=== PATIENT | male | born 1945 | race Caucasian/White ===

== ENCOUNTER 2021-03-18 08:41 | Outpatient (REF) | payer MEDICARE, SELFPAY ==
--- NOTE | ~2021-03-18 | XR_ITS ---
EXAMINATION: XR LUMBOSACRAL SPINE CLINICAL INFORMATION: Low back pain COMPARISON: Previous exam September 2017 TECHNIQUE: Three views of the lumbosacral spine. FINDINGS: Bone alignment is normal. No fracture or dislocation is seen. There is multilevel spondylosis, greatest at L2-L3 L3-L4 and L4-L5. Disc spaces are normal. There is lower lumbar spine facet arthritis. There is evidence of atherosclerotic disease. XR/XR lumbar spine 2-3V IMPRESSION: Degenerative changes similar to September 2017 exam.
== END 2021-03-18 08:42 | disposition home or self-care (01) ==
LOC: HO.XRAY 08:41
PROVIDERS: PCP Pediatrics; Visit Provider Pediatrics
DX: M54.50 Low back pain, unspecified (principal)
CPT/HCPCS: 72100

== ENCOUNTER 2021-10-28 21:51 | Inpatient (IN) | payer OTHER, SELFPAY ==
--- NOTE | ~2021-10-28 | NM_ITS ---
EXAMINATION: NUCLEAR MEDICINE HEPATOBILIARY WITHOUT PHARMACY. CLINICAL INFORMATION: Abdominal pain. COMPARISON: None TECHNIQUE: Following intravenous administration of 4.75 mCi of 90 9M technetium mebrofenin, imaging over the right upper quadrant was obtained up to 2 hours. FINDINGS: There is normal hepatic uptake without any focal defects. No enlargement of liver is seen. There is prompt visualization of common bile duct and small bowel by 19-20 minutes. Gallbladder is not visualized up to 2 hrs NM/NM hepatobiliary wo pharm IMPRESSION: Nonvisualized gallbladder up to 2 hrs consistent with cystic duct obstruction. The results were conveyed to Dr. Fink by phone at 4:30 PM [employer].
--- NOTE | ~2021-10-28 | XR_ITS ---
EXAMINATION: XR CHEST CLINICAL INFORMATION: Shortness of breath COMPARISON: 05/04/2019 TECHNIQUE: Frontal view of the chest was obtained. FINDINGS: Heart size within normal limits. No evidence of CHF. Again noted is bronchial wall thickening, unchanged from prior. No focal consolidations, lung masses or effusions are seen. A tiny portion of the left costophrenic angle is not included on the radiograph. XR/XR chest 1V IMPRESSION: No acute intrathoracic disease. Unchanged bronchial wall thickening.
--- NOTE | ~2021-10-28 | CT_ITS ---
EXAMINATION: CT ABDOMEN AND PELVIS WITH CONTRAST CLINICAL INFORMATION: Distention, pain COMPARISON: 03/27/2019 TECHNIQUE: Multidetector volumetric images were obtained from the superior aspect of the liver through the pubic symphysis following administration 100 mL of Omnipaque 350 intravenous contrast. Sagittal and coronal reformatted images were obtained on the technologist's workstation. Oral contrast: No This CT examination was performed using dose optimization techniques as appropriate, variously including the following: *Automated exposure control *Adjustment of mA and/or kV according to patient size (this includes techniques or standardized protocols for targeted exams where dose is matched to indication/reason for exam; i.e. extremities or head) *Use of iterative reconstruction technique DLP: 1007 mGy-cm FINDINGS: LUNG BASES: Mild curvilinear atelectasis versus scarring. LIVER, GALLBLADDER, AND BILIARY TREE: The liver demonstrates mild hypoattenuation, suggesting steatosis. Subtle subcentimeter hypoattenuating lesion in the right lobe is too small to characterize. No biliary ductal dilatation is present. Gallbladder appears contracted with gallstones. PANCREAS: Unremarkable. SPLEEN: Unremarkable. ADRENAL GLANDS: Unremarkable. KIDNEYS AND URETERS: Bilateral nephrograms are symmetric. Subcentimeter hypodensity in the lower right kidney statistically favors a cyst; no follow-up recommended. No hydronephrosis or obstructing calculus bilaterally. There is bilateral perinephric stranding which is similar to prior. BLADDER: Unremarkable. GASTROINTESTINAL TRACT: No evidence of bowel obstruction. There is a somewhat thick-walled appearance of the collapsed rectum with surrounding stranding extending into the presacral region. Trace free fluid is noted in the lower abdomen. There is descending and sigmoid colon diverticulosis without diverticulitis. The appendix is unremarkable. No free fluid or free air is seen. ABDOMINAL WALL: No significant hernia is appreciated. LYMPH NODES: Normal. VASCULAR: There is atherosclerotic calcification along the aorta and iliac arteries. Redemonstrated varices in the lower abdomen. PELVIC VISCERA: Patient appears status post prostatectomy. OSSEOUS STRUCTURES: Degenerative changes are noted in the spine. CT/CT abdomen pelvis w con IMPRESSION: 1. Somewhat thick-walled appearance of the rectum with surrounding stranding extending into the presacral region. Proctitis is a possibility in the proper clinical setting. No evidence of bowel obstruction. 2. Cholelithiasis.
[2021-10-28 22:02] VITALS: BP 137/54; PULSE 81; RESP 16; TEMP 36.6; O2SAT 98; BMI 40.6
[2021-10-28 22:08] VITALS: PULSE 81; RESP 16; TEMP 36.6; O2SAT 98
--- NOTE | 2021-10-28 22:39 | ED_ITS ---
HPI - Abdominal Pain General Chief Complaint: Abdominal Pain Stated Complaint: alcohol withdrawl/ sob Source: patient and EMS Mode of arrival: EMS Limitations: no limitations History of Present Illness HPI narrative: 75-year-old male presents via EMS for 1 week of abdominal pain, no bowel movement for 1 week, and alcohol withdrawal. Patient does report bilateral testicular swelling, edema to bilateral lower extremities and abdominal distention. He states to have withdrawal symptoms, drinks approximately 1.5 pt of vodka daily. He states it difficult to breathe because of of his swollen abdomen. Patient denies chest pain, palpitations, dysuria, hematuria, auditory and visual hallucinations, weakness, fevers and chills. MD elicited complaint: abdominal pain Pertinent past history: other (Alcoholic cirrhosis) Onset (ago): week(s) (1) Pain Consistency: constant Location: diffuse Severity: severe Pain scale (0-10): 10 Quality: aching and fullness Exacerbating factors: eating and movement Relieving factors: nothing Associated symptoms: nausea and anorexia Related Data Allergies Allergy/AdvReac Type Severity Reaction Status Date / Time No Known Allergies Allergy Mild N/A Unverified 12/28/19 15:16 Review of Systems Review of Systems Constitutional: No Fever, No Chills ENT/Mouth: No Ear Pain, No Hoarseness, No sore throat Eyes: No Eye Pain, No Swelling, No Redness, No Foreign Body Cardiovascular: No Chest Pain, No SOB Respiratory: No Cough, No Dyspnea Gastrointestinal: No Nausea, No Vomiting, No Diarrhea, positive abdominal Pain, positive abdominal distention Genitourinary: No Dysuria, No Hematuria, positive testicular swelling Musculoskeletal: No joint pain, No Myalgias, No Joint Swelling Skin: No Skin lacerations, No rash Neuro: No Weakness, No Numbness, No Paresthesias, No Loss of Consciousness, No Dizziness, No Headache Psych: No Anxiety/Panic, No Depression Heme/Lymph: no easy bruising, no Lymphadenopathy Endocrine: No Polyuria, No Polydipsia Yes all other systems are reviewed and are negative [facility] Past Medical History Attestation statement: The following information was validated with the patient. Source: old records reviewed Medical History Delirium tremens Prostate cancer Surgical History S/P tonsillectomy and adenoidectomy Social History Social History Alcohol intake: current Alcohol intake frequency: 3 or more drinks per day Alcohol type: hard liquor Patient Tobacco Use Status: Current everyday Tobacco user Use of substances other than those prescribed or required for medical reasons: No Advance Directives: No Advance Directives Information Provided: No Physical Exam ED Vital Signs: Vital Signs - 24 hr 10/28/21 22:02 10/28/21 22:08 10/28/21 22:08 Temperature 97.8 F 97.8 F Pulse Rate 81 81 Respiratory Rate 16 16 16 Blood Pressure 137/54 L Pulse Oximetry 98 98 Oxygen Delivery Method Nasal Cannula Nasal Cannula Oxygen Flow Rate 2 10/29/21 02:03 Temperature Pulse Rate 65 Respiratory Rate 16 Blood Pressure 148/62 H Pulse Oximetry 99 Oxygen Delivery Method Room Air Oxygen Flow Rate BMI result Body Mass Index 40.6 Appearance: Alert. Oriented X3. Moderate distress. Eyes: Pupils equal, round and reactive to light. Sclera nonicteric. ENT: Pharynx normal. Neck: Normal inspection. Neck supple. CVS: Normal heart rate and rhythm. Pulses normal. Respiratory: No respiratory distress. Breath sounds normal. Genitourinary: Bilateral testicular swelling Abdomen: Distended, diffusely tender Skin: Skin warm and dry. Normal skin color. Normal skin turgor. Extremities: Bilateral lower extremity edema. Moves all extremities against resistance. Neuro: No motor deficit. No sensory deficit. Cranial nerves 2-12 intact. Course Course Course Narrative: 75-year-old male presents for abdominal pain, abdominal distention, testicular swelling, and alcohol withdrawal symptoms. Patient does have a history of hypertension, hyperlipidemia, cirrhosis, alcohol abuse, anemia of chronic disease, peptic ulcer disease and colonic tubular adenoma. Will order labs, CT scan of abdomen and pelvis, 23:28 critical Mag of 0.8, order for Mag at this time. 00:15 lactic 2.3 most likely due to alcoholism. White count 7.5, patient is afebrile, with stable vital signs. Low likelihood of sepsis at this time. H&H 10.3/32.0 with a panel indicating anemia of chronic disease consistent with his medical history of alcoholic cirrhosis. 01:30 order for phenobarbital protocol. CT scan indicates proctitis, order for ceftriaxone. 02:00 patient complains of pain, order for morphine. 02:40, discussion with hospitalist regarding plan of care to admit. Will admit for EtOH withdrawal and proctitis. Neutra-Phos ordered for hypophosphatemia Consultations Consultation #1: Marquita Time: 02:43 MDM - Abdominal Pain Differential Diagnosis Differential diagnosis: Likely abdominal pain, acute appendicitis, bowel perforation, constipation, gastritis and small bowel obstruction Differential diagnosis narrative:: Cholecystitis, cholelithiasis Medical Records Attestation: I reviewed the patient's medical records. Lab Data Attestation: I reviewed the patient's lab results. Result diagrams: 10/28/21 23:41 10/28/21 22:57 Labs: Lab Results 10/28/21 10/28/21 10/28/21 Range/Units 22:57 22:57 22:57 WBC (4.8-10.8) X10*3/uL RBC (4.60-5.80) X10*6/uL Hgb (14.0-18.0) g/dl Hct (42.0-52.0) % MCV (80.0-98.0) fL MCH (27.0-33.0) pg MCHC (31.0-36.0) g/dl RDW (11.0-16.0) % Plt Count (160-400) X10*3/uL MPV (9.4-12.4) fL Immature Gran % (Auto) (0.0-0.4) % Neut % (Auto) (45-73) % Lymph % (Auto) (20-40) % [place] % (Auto) (2-11) % Eos % (Auto) (0-4) % Baso % (Auto) (0-2) % Lymph # (Auto) (1.2-4.9) X10*3/uL [place] # (Auto) (0.1-1.2) X10*3/uL Eos # (Auto) (0.0-0.4) X10*3/uL Baso # (Auto) (0.0-0.2) X10*3/uL Abs Immat Gran (auto) (0.00-0.03) X10*3/uL Absolute Neuts (auto) (2.0-8.3) x10*3/uL Absolute Nucleated RBC (0.0-0.012) X10*3/uL Nucleated RBC % (auto) (0.0-0.2) /100WBC PT (10.0-13.1) SEC INR (0.9-1.1) APTT (24.1-38.0) SEC Sodium 137 (135-145) mmol/L Potassium 3.4 (3.3-5.1) mmol/L Chloride 102 (96-108) mmol/L Carbon Dioxide 25 (22-29) mmol/L Anion Gap 13 (12-20) BUN 5 L (9-16) mg/dL Creatinine 0.79 (0.5-1.4) mg/dL Estim Creat Clear Calc 99.1 Estimated GFR > 60 Random Glucose 111 (60-115) mg/dL Lactic Acid (0.5-2.0) mmol/L Calcium 7.9 L (8.4-10.2) mg/dL Phosphorus 2.0 L (2.7-4.5) mg/dL Magnesium 0.8 L* (1.6-2.6) mg/dL Total Bilirubin 0.4 (0.0-1.0) mg/dL Direct Bilirubin 0.2 (0.0-0.5) mg/dL AST 48 H (5-37) U/L ALT 33 (0-40) U/L Alkaline Phosphatase 58 (39-117) U/L Ammonia 36 (13-55) umol/L Lactate Dehydrogenase 276 H (118-273) U/L Troponin I High Sens 6.9 (<3.5-35.0) ng/L B-Natriuretic Peptide 155 H (<100) pg/mL Total Protein 6.4 L (6.5-8.0) g/dL Albumin 3.6 (3.5-5.0) g/dL Lipase 7 L (8-78) U/L Urine Color Urine Appearance Urine pH (5.0-8.0) Ur Specific [place] (1.005-1.025) Urine Protein (NEG-TRACE) MG/DL Urine Glucose (UA) (NEG) MG/DL Urine Ketones (NEG) MG/DL Urine Blood (NEG) Urine Nitrite (NEG) Ur Leukocyte Esterase (NEG) Ethyl Alcohol 159 mg/dL Acetone, Qual Negative (Negative) 10/28/21 10/28/21 10/28/21 Range/Units 23:41 23:41 23:41 WBC 7.5 (4.8-10.8) X10*3/uL RBC 3.88 L (4.60-5.80) X10*6/uL Hgb 10.3 L (14.0-18.0) g/dl Hct 32.0 L (42.0-52.0) % MCV 82.5 (80.0-98.0) fL MCH 26.5 L (27.0-33.0) pg MCHC 32.2 (31.0-36.0) g/dl RDW 19.7 H (11.0-16.0) % Plt Count 233 (160-400) X10*3/uL MPV 9.7 (9.4-12.4) fL Immature Gran % (Auto) 0.5 H (0.0-0.4) % Neut % (Auto) 60.5 (45-73) % Lymph % (Auto) 20.8 (20-40) % [place] % (Auto) 15.8 H (2-11) % Eos % (Auto) 1.9 (0-4) % Baso % (Auto) 0.5 (0-2) % Lymph # (Auto) 1.6 (1.2-4.9) X10*3/uL [place] # (Auto) 1.2 (0.1-1.2) X10*3/uL Eos # (Auto) 0.1 (0.0-0.4) X10*3/uL Baso # (Auto) 0.0 (0.0-0.2) X10*3/uL Abs Immat Gran (auto) 0.04 H (0.00-0.03) X10*3/uL Absolute Neuts (auto) 4.6 (2.0-8.3) x10*3/uL Absolute Nucleated RBC 0.000 (0.0-0.012) X10*3/uL Nucleated RBC % (auto) 0.0 (0.0-0.2) /100WBC PT 12.0 (10.0-13.1) SEC INR 1.0 (0.9-1.1) APTT (24.1-38.0) SEC Sodium (135-145) mmol/L Potassium (3.3-5.1) mmol/L Chloride (96-108) mmol/L Carbon Dioxide (22-29) mmol/L Anion Gap (12-20) BUN (9-16) mg/dL Creatinine (0.5-1.4) mg/dL Estim Creat Clear Calc Estimated GFR Random Glucose (60-115) mg/dL Lactic Acid 2.3 H* (0.5-2.0) mmol/L Calcium (8.4-10.2) mg/dL Phosphorus (2.7-4.5) mg/dL Magnesium (1.6-2.6) mg/dL Total Bilirubin (0.0-1.0) mg/dL Direct Bilirubin (0.0-0.5) mg/dL AST (5-37) U/L ALT (0-40) U/L Alkaline Phosphatase (39-117) U/L Ammonia (13-55) umol/L Lactate Dehydrogenase (118-273) U/L Troponin I High Sens (<3.5-35.0) ng/L B-Natriuretic Peptide (<100) pg/mL Total Protein (6.5-8.0) g/dL Albumin (3.5-5.0) g/dL Lipase (8-78) U/L Urine Color Urine Appearance Urine pH (5.0-8.0) Ur Specific [place] (1.005-1.025) Urine Protein (NEG-TRACE) MG/DL Urine Glucose (UA) (NEG) MG/DL Urine Ketones (NEG) MG/DL Urine Blood (NEG) Urine Nitrite (NEG) Ur Leukocyte Esterase (NEG) Ethyl Alcohol mg/dL Acetone, Qual (Negative) 10/28/21 10/29/21 Range/Units 23:41 01:27 WBC (4.8-10.8) X10*3/uL RBC (4.60-5.80) X10*6/uL Hgb (14.0-18.0) g/dl Hct (42.0-52.0) % MCV (80.0-98.0) fL MCH (27.0-33.0) pg MCHC (31.0-36.0) g/dl RDW (11.0-16.0) % Plt Count (160-400) X10*3/uL MPV (9.4-12.4) fL Immature Gran % (Auto) (0.0-0.4) % Neut % (Auto) (45-73) % Lymph % (Auto) (20-40) % [place] % (Auto) (2-11) % Eos % (Auto) (0-4) % Baso % (Auto) (0-2) % Lymph # (Auto) (1.2-4.9) X10*3/uL [place] # (Auto) (0.1-1.2) X10*3/uL Eos # (Auto) (0.0-0.4) X10*3/uL Baso # (Auto) (0.0-0.2) X10*3/uL Abs Immat Gran (auto) (0.00-0.03) X10*3/uL Absolute Neuts (auto) (2.0-8.3) x10*3/uL Absolute Nucleated RBC (0.0-0.012) X10*3/uL Nucleated RBC % (auto) (0.0-0.2) /100WBC PT (10.0-13.1) SEC INR (0.9-1.1) APTT 37.4 (24.1-38.0) SEC Sodium (135-145) mmol/L Potassium (3.3-5.1) mmol/L Chloride (96-108) mmol/L Carbon Dioxide (22-29) mmol/L Anion Gap (12-20) BUN (9-16) mg/dL Creatinine (0.5-1.4) mg/dL Estim Creat Clear Calc Estimated GFR Random Glucose (60-115) mg/dL Lactic Acid (0.5-2.0) mmol/L Calcium (8.4-10.2) mg/dL Phosphorus (2.7-4.5) mg/dL Magnesium (1.6-2.6) mg/dL Total Bilirubin (0.0-1.0) mg/dL Direct Bilirubin (0.0-0.5) mg/dL AST (5-37) U/L ALT (0-40) U/L Alkaline Phosphatase (39-117) U/L Ammonia (13-55) umol/L Lactate Dehydrogenase (118-273) U/L Troponin I High Sens (<3.5-35.0) ng/L B-Natriuretic Peptide (<100) pg/mL Total Protein (6.5-8.0) g/dL Albumin (3.5-5.0) g/dL Lipase (8-78) U/L Urine Color YELLOW Urine Appearance CLEAR Urine pH 8.5 H (5.0-8.0) Ur Specific [place] 1.010 (1.005-1.025) Urine Protein NEG (NEG-TRACE) MG/DL Urine Glucose (UA) NEG (NEG) MG/DL Urine Ketones NEG (NEG) MG/DL Urine Blood NEG (NEG) Urine Nitrite NEG (NEG) Ur Leukocyte Esterase NEG (NEG) Ethyl Alcohol mg/dL Acetone, Qual (Negative) Imaging Data CT scan - abdomen: Attestation: I personally reviewed and interpreted this imaging study as follows: Radiologist's impression: FINDINGS: LUNG BASES: Mild curvilinear atelectasis versus scarring.? LIVER, GALLBLADDER, AND BILIARY TREE: The liver demonstrates mild hypoattenuation, suggesting steatosis. Subtle subcentimeter hypoattenuating lesion in the right lobe is too small to characterize. No biliary ductal dilatation is present. Gallbladder appears contracted with gallstones.? PANCREAS: Unremarkable.? SPLEEN: Unremarkable.? ADRENAL GLANDS: Unremarkable.? KIDNEYS AND URETERS: Bilateral nephrograms are symmetric. Subcentimeter hypodensity in the lower right kidney statistically favors a cyst; no follow-up recommended. No hydronephrosis or obstructing calculus bilaterally. There is bilateral perinephric stranding which is similar to prior. BLADDER: Unremarkable.? GASTROINTESTINAL TRACT: No evidence of bowel obstruction. There is a somewhat thick-walled appearance of the collapsed rectum with surrounding stranding extending into the presacral region. Trace free fluid is noted in the lower abdomen. There is descending and sigmoid colon diverticulosis without diverticulitis. The appendix is unremarkable. No free fluid or free air is seen. ABDOMINAL WALL: No significant hernia is appreciated.? LYMPH NODES: Normal. VASCULAR: There is atherosclerotic calcification along the aorta and iliac arteries. Redemonstrated varices in the lower abdomen. PELVIC VISCERA: Patient appears status post prostatectomy.? OSSEOUS STRUCTURES: Degenerative changes are noted in the spine.? CT/CT abdomen pelvis w con IMPRESSION: 1.? Somewhat thick-walled appearance of the rectum with surrounding stranding extending into the presacral region. Proctitis is a possibility in the proper clinical setting. No evidence of bowel obstruction. 2.? Cholelithiasis. Chest x-ray: Attestation: I personally reviewed and interpreted this imaging study as follows: Radiologist's impression: EXAMINATION: XR CHEST CLINICAL INFORMATION: Shortness of breath COMPARISON: 05/04/2019 TECHNIQUE: Frontal view of the chest was obtained. FINDINGS: Heart size within normal limits. No evidence of CHF. Again noted is bronchial wall thickening, unchanged from prior. No focal consolidations, lung masses or effusions are seen. A tiny portion of the left costophrenic angle is not included on the radiograph. XR/XR chest 1V IMPRESSION: No acute intrathoracic disease. Unchanged bronchial wall thickening. ECG Data Attestation: I personally reviewed and interpreted this ECG as follows: ECG interpretation date: 10/28/21 ECG interpretation time: 22:57 Prior ECG tracings: available for review Interpretation: Vent. rate 75 BPM [place] interval 208 ms QRS duration 146 ms QT/QTc 436/486 ms P-R-T axes 55 -19 38 Normal sinus rhythm Right bundle branch block Abnormal ECG When compared with ECG of 04-MAY-2019 19:25, No significant change was found Discharge Plan Discharge Clinical Impression: Alcoholic cirrhosis, Abdominal pain, Cholelithiasis without cholecystitis, Alcohol withdrawal, Acute proctitis Patient Disposition: Admitted As Inpatient
--- NOTE | 2021-10-28 22:40 | ECG_ITS ---
Test Reason : abd pain Blood Pressure : / mmHG Vent. Rate : 075 BPM Atrial Rate : 075 BPM P-R Int : 208 ms QRS Dur : 146 ms QT Int : 436 ms P-R-T Axes : 055 -19 038 degrees QTc Int : 486 ms Normal sinus rhythm Right bundle branch block Abnormal ECG When compared with ECG of 04-MAY-2019 19:25, No significant change was found Referred By: Eda Bills Electronically Signed By:Brendan Kirk
[2021-10-28 23:14] LABS: Ammonia 36 umol/L (13-55)
[2021-10-28 23:23] LABS: B Type Natriuretic Peptide 155 pg/mL (<100); Troponin-I High Sensitivity 6.9 ng/L (<3.5-35.0)
[2021-10-28 23:28] LABS: Alanine Aminotransferase 33 U/L (0-40); Albumin Level 3.6 g/dL (3.5-5.0); Alkaline Phosphatase 58 U/L (39-117); Anion Gap 13 (12-20); Aspartate Amino Transferase 48 U/L (5-37); Bilirubin Direct 0.2 mg/dL (0.0-0.5); Bilirubin Total 0.4 mg/dL (0.0-1.0); Blood Urea Nitrogen 5 mg/dL (9-16); Calcium 7.9 mg/dL (8.4-10.2); Carbon Dioxide 25 mmol/L (22-29); Chloride 102 mmol/L (96-108); Creatinine Clr Calc Pharmacy 99.1; Estimated Glomerular Filt Rate > 60; Ethanol 159 mg/dL; Glucose Random 111 mg/dL (60-115); Lactate Dehydrogenase 276 U/L (118-273); Lipase 7 U/L (8-78); Magnesium 0.8 mg/dL (1.6-2.6); Potassium 3.4 mmol/L (3.3-5.1); Sodium 137 mmol/L (135-145); Total Protein 6.4 g/dL (6.5-8.0)
[2021-10-28 23:34] LABS: Acetone, serum QL Negative (Negative)
[2021-10-28] MEDS: Magnesium Sulfate/H2O 2 GM/50 ML PIGGYBACK IV (23:45)
[2021-10-28 23:48] LABS: MANUAL DIFF FLAG NO
[2021-10-28 23:50] LABS: Basophils Percent Auto 0.5 % (0-2); Eosinophils Absolute Auto 0.1 X10*3/uL (0.0-0.4); Eosinophils Percent Auto 1.9 % (0-4); Hemoglobin 10.3 g/dl (14.0-18.0); Imm Gran Abs Auto 0.04 X10*3/uL (0.00-0.03); Imm Gran Pct Auto 0.5 % (0.0-0.4); Lymphocytes Absolute Auto 1.6 X10*3/uL (1.2-4.9); Lymphocytes Percent Auto 20.8 % (20-40); Mean Corpuscular HGB Conc 32.2 g/dl (31.0-36.0); Mean Corpuscular Hemoglobin 26.5 pg (27.0-33.0); Mean Corpuscular Volume 82.5 fL (80.0-98.0); Mean Platelet Volume 9.7 fL (9.4-12.4); Monocytes Absolute Auto 1.2 X10*3/uL (0.1-1.2); Monocytes Percent Auto 15.8 % (2-11); Neutrophils Absolute Auto 4.6 x10*3/uL (2.0-8.3); Neutrophils Percent Auto 60.5 % (45-73); Platelet Count 233 X10*3/uL (160-400); Red Blood Count 3.88 X10*6/uL (4.60-5.80); Red Cell Distribution Width 19.7 % (11.0-16.0); White Blood Count 7.5 X10*3/uL (4.8-10.8)
--- NOTE | 2021-10-28 23:50 | PC.NURSE ---
critical lab of mag reported to RN and provider MAXX landers.
[2021-10-28 23:59] LABS: Partial Thromboplastin Time 37.4 SEC (24.1-38.0)
[2021-10-29 00:10] LABS: Lactic Acid 2.3 mmol/L (0.5-2.0)
[2021-10-29] MEDS: iohexoL 350 MG/ML 100 ML INFUS..BTL IV (00:53)
[2021-10-29] MEDS: 0.9 % Sodium Chloride 1,000 ML 999 ML IVCONT (01:01)
[2021-10-29 01:37] LABS: Appearance Urine CLEAR; Color Urine YELLOW; Glucose Urine UA NEG (NEG); Leukocyte Esterase Urine NEG (NEG); Nitrite Urine NEG (NEG); PH 8.5 (5.0-8.0); Urine Blood NEG (NEG); Urine Ketones NEG (NEG); Urine Protein NEG (NEG-TRACE)
[2021-10-29 01:45] LABS: Reflex Lactate? Lactic Acid Added
[2021-10-29 02:03] VITALS: BP 148/62; PULSE 65; RESP 16; O2SAT 99
[2021-10-29] MEDS: cefTRIAXone sodium 1 GM in 0.9 % Sodium Chloride 50 ML IV (02:08)
[2021-10-29] MEDS: Sodium,Potassium Phosphates POWD.PACK 2 PACKET PO (02:57)
[2021-10-29 03:04] LABS: ~Lactic Acid-LAB USE ONLY 2.3 mmol/L (0.5-2.0)
--- NOTE | 2021-10-29 03:13 | PC.NURSE ---
critical lactic acid reported to RN Mary of 2.3
[2021-10-29 04:01] LABS: Influenza A PCR NEGATIVE (Negative); Influenza B PCR NEGATIVE (Negative); Resp Syncy Virus RNA Qual PCR NEGATIVE (Negative); SARS COV2 PCR INHOUSE NEGATIVE (Negative)
[2021-10-29 04:14] LABS: Reflex Lactate? 2 Y
[2021-10-29 05:04] VITALS: BP 172/65; PULSE 82; RESP 20; TEMP 36.8; O2SAT 99
[2021-10-29 05:32] LABS: ~Lactic Acid-LAB USE ONLY 2.5 mmol/L (0.5-2.0)
--- NOTE | 2021-10-29 05:40 | PC.NURSE ---
reported critical lab for lactic acid to EDER Hernandez.
[2021-10-29] MEDS: PHENobarbitaL 200 MG, PHENobarbitaL 30 MG 230 MG PO ×2 (06:09→08:16)
--- NOTE | 2021-10-29 06:39 | PM.IMHP ---
History of Present Illness Date of Service: 10/29/21 Chief Complaint: Abdominal pain 75-year-old male with a past medical history of hypertension, hyperlipidemia, alcohol abuse, hypothyroidism, alcoholic liver disease, anxiety presented to the hospital today with a chief complaint of abdominal pain. Patient reports that over the past 1 week he has been having abdominal pain, has been drinking alcohol-in opiate knee on that pain would improve but he had increased pain hence decided to come to the ER for further evaluation. Reports abdominal pain is diffuse, associated nausea and vomiting. Denies any blood in the vomitus. Denies any diarrhea. Mentions that he drinks about a pt of alcohol every day. Last drink was prior to coming to the hospital. Reports history of prior alcohol withdrawals. Denies any fevers and chills. Denies any urinary symptoms. Mentions that he has decreased oral intake over the past few days. Review of all other systems is negative except mentioned above ER course: Per ER team patient noted are diffuse abdominal tenderness; CT scan showed no evidence of ascites but noted to have proctitis. Patient was given ceftriaxone. Patient was also started on phenobarbital. Patient's magnesium was noted to be 0.8-repleted. Admitted for further management [facility] Medical History Delirium tremens Prostate cancer Surgical History S/P tonsillectomy and adenoidectomy Social History (Updated 10/30/21 @ 12:37 by Hong Villalba RN) Household Members: None Housing: House Do you presently have visiting nurse or other home services: No Alcohol intake: current Alcohol intake frequency: 3 or more drinks per day Alcohol type: hard liquor Patient Tobacco Use Status: Current someday Tobacco user Tobacco use type: Cigar service: No Current occupational status: retired Meds Allergies Allergy/AdvReac Type Severity Reaction Status Date / Time No Known Allergies Allergy Mild N/A Unverified 12/28/19 15:16 Active Medications: Current Medications Heparin Sodium (Porcine) (Heparin Sodium,Porcine 5,000 Unit/Ml Vial) 5,000 unit SUBCUT Q8H JASWANT Hydromorphone HCl (Hydromorphone Hcl 0.5 Mg/0.5 Ml Syringe) 0.5 mg IVPUSH Q4H PRN; Protocol PRN Reason: Pain, Severe (Pain Scale 7-10) Ceftriaxone Sodium 1 gm/ (Sodium Chloride) 50 mls @ 100 mls/hr IV Q24H [facility] Metronidazole (Flagyl) 500 mg in 100 mls @ 100 mls/hr IV Q8H [facility] Dextrose/Sodium Chloride (D51/2ns) 1,000 mls @ 50 mls/hr IVCONT .Q20H [facility] Melatonin (Melatonin 3 Mg Tablet) 6 mg PO BEDTIME PRN PRN Reason: Insomnia Pharmacy Consult (Consult Rx Etoh Phenob Im/Po) 1 each MISCELLANE ONCE PRN; Protocol PRN Reason: Consult order Phenobarbital 200 mg/ (Phenobarbital 30 mg) 230 mg PO Q3H [facility] Stop: 10/29/21 09:01 Last Admin: 10/29/21 06:09 Dose: 230 mg Senna (Sennosides 8.6 Mg Tablet) 17.2 mg PO BEDTIME PRN PRN Reason: Constipation Sodium Chloride (0.9 % Sodium Chloride Flush 3 Ml Syringe) 3 ml IVFLUSH QSHIFT [facility] Home Medications Medication Instructions Recorded Confirmed Last Taken Type hydroxyzine HCl 10 mg tablet 1 - 2 tab PO BID PRN itch 10/29/21 10/29/21 Unknown History levothyroxine 125 mcg tablet 1 tab PO DAILY 10/29/21 10/29/21 Unknown History loratadine 10 mg tablet 1 tab PO DAILY 10/29/21 10/29/21 Unknown History metoprolol succinate 100 mg 1 tab PO DAILY 10/29/21 10/29/21 Unknown History tablet,extended release 24 hr pravastatin 40 mg tablet 1 tab DAILY 10/29/21 10/29/21 Unknown History spironolactone 100 mg tablet 1 tab DAILY 10/29/21 10/29/21 Unknown History tiotropium bromide 18 mcg capsule 1 cap inhalation DAILY 10/29/21 10/29/21 Unknown History with inhalation device (Spiriva with HandiHaler) Physical Exam Vital Signs and Narrative: Vital Signs: Last Vital Signs Temp 98.3 F 10/29/21 05:04 Pulse 82 10/29/21 05:04 Resp 20 10/29/21 05:04 BP 172/65 H 10/29/21 05:04 Pulse Ox 99 10/29/21 05:04 O2 Del Method 10/29/21 05:04 O2 Flow Rate 2 10/29/21 05:04 Oxygen Flow Rate 2 10/28/21 22:02 BMI result Body Mass Index 40.6 Gen: Appears be in no acute distress HEENT: NCAT, Moist mucosa. Pulmonary: Vesicular breath sounds, fair air entry CVS: Normal S1-S2 Abdomen: BS+, Soft, diffusely tender. No guarding no rigidity. Extremities: Warm well perfused; 2+ pitting edema Neuro: Alert and awake. Results Labs CBC and Chem 7: 10/30/21 06:00 11/03/21 04:18 Labs: Laboratory Results - last 24 hr 10/28/21 10/28/21 10/28/21 22:57 22:57 22:57 MCV MCH MCHC RDW Plt Count MPV Immature Gran % (Auto) Neut % (Auto) Lymph % (Auto) [place] % (Auto) Eos % (Auto) Baso % (Auto) Lymph # (Auto) [place] # (Auto) Eos # (Auto) Baso # (Auto) Abs Immat Gran (auto) Absolute Neuts (auto) Absolute Nucleated RBC Nucleated RBC % (auto) PT INR APTT Anion Gap 13 Estim Creat Clear Calc 99.1 Estimated GFR > 60 Random Glucose 111 Lactic Acid Lactic Acid F/U @ 2Hr Lactic Acid F/U @ 4Hr Calcium 7.9 L Phosphorus 2.0 L Magnesium 0.8 L* Total Bilirubin 0.4 Direct Bilirubin 0.2 AST 48 H ALT 33 Alkaline Phosphatase 58 Ammonia 36 Lactate Dehydrogenase 276 H Troponin I High Sens 6.9 B-Natriuretic Peptide 155 H Total Protein 6.4 L Albumin 3.6 Lipase 7 L Urine Color Urine Appearance Urine pH Ur Specific [place] Urine Protein Urine Glucose (UA) Urine Ketones Urine Blood Urine Nitrite Ur Leukocyte Esterase Ethyl Alcohol 159 Acetone, Qual Negative Influenza Type A (PCR) Influenza Type B (PCR) RSV RNA Qual (PCR) SARS-CoV-2 RNA (RT-PCR) 10/28/21 10/28/21 10/28/21 23:41 23:41 23:41 MCV 82.5 MCH 26.5 L MCHC 32.2 RDW 19.7 H Plt Count 233 MPV 9.7 Immature Gran % (Auto) 0.5 H Neut % (Auto) 60.5 Lymph % (Auto) 20.8 [place] % (Auto) 15.8 H Eos % (Auto) 1.9 Baso % (Auto) 0.5 Lymph # (Auto) 1.6 [place] # (Auto) 1.2 Eos # (Auto) 0.1 Baso # (Auto) 0.0 Abs Immat Gran (auto) 0.04 H Absolute Neuts (auto) 4.6 Absolute Nucleated RBC 0.000 Nucleated RBC % (auto) 0.0 PT 12.0 INR 1.0 APTT Anion Gap Estim Creat Clear Calc Estimated GFR Random Glucose Lactic Acid 2.3 H* Lactic Acid F/U @ 2Hr Lactic Acid F/U @ 4Hr Calcium Phosphorus Magnesium Total Bilirubin Direct Bilirubin AST ALT Alkaline Phosphatase Ammonia Lactate Dehydrogenase Troponin I High Sens B-Natriuretic Peptide Total Protein Albumin Lipase Urine Color Urine Appearance Urine pH Ur Specific [place] Urine Protein Urine Glucose (UA) Urine Ketones Urine Blood Urine Nitrite Ur Leukocyte Esterase Ethyl Alcohol Acetone, Qual Influenza Type A (PCR) Influenza Type B (PCR) RSV RNA Qual (PCR) SARS-CoV-2 RNA (RT-PCR) 10/28/21 10/29/21 10/29/21 23:41 01:27 02:10 MCV MCH MCHC RDW Plt Count MPV Immature Gran % (Auto) Neut % (Auto) Lymph % (Auto) [place] % (Auto) Eos % (Auto) Baso % (Auto) Lymph # (Auto) [place] # (Auto) Eos # (Auto) Baso # (Auto) Abs Immat Gran (auto) Absolute Neuts (auto) Absolute Nucleated RBC Nucleated RBC % (auto) PT INR APTT 37.4 Anion Gap Estim Creat Clear Calc Estimated GFR Random Glucose Lactic Acid Lactic Acid F/U @ 2Hr 2.3 H* Lactic Acid F/U @ 4Hr Calcium Phosphorus Magnesium Total Bilirubin Direct Bilirubin AST ALT Alkaline Phosphatase Ammonia Lactate Dehydrogenase Troponin I High Sens B-Natriuretic Peptide Total Protein Albumin Lipase Urine Color YELLOW Urine Appearance CLEAR Urine pH 8.5 H Ur Specific [place] 1.010 Urine Protein NEG Urine Glucose (UA) NEG Urine Ketones NEG Urine Blood NEG Urine Nitrite NEG Ur Leukocyte Esterase NEG Ethyl Alcohol Acetone, Qual Influenza Type A (PCR) Influenza Type B (PCR) RSV RNA Qual (PCR) SARS-CoV-2 RNA (RT-PCR) 10/29/21 10/29/21 03:15 05:16 MCV MCH MCHC RDW Plt Count MPV Immature Gran % (Auto) Neut % (Auto) Lymph % (Auto) [place] % (Auto) Eos % (Auto) Baso % (Auto) Lymph # (Auto) [place] # (Auto) Eos # (Auto) Baso # (Auto) Abs Immat Gran (auto) Absolute Neuts (auto) Absolute Nucleated RBC Nucleated RBC % (auto) PT INR APTT Anion Gap Estim Creat Clear Calc Estimated GFR Random Glucose Lactic Acid Lactic Acid F/U @ 2Hr Lactic Acid F/U @ 4Hr 2.5 H* Calcium Phosphorus Magnesium Total Bilirubin Direct Bilirubin AST ALT Alkaline Phosphatase Ammonia Lactate Dehydrogenase Troponin I High Sens B-Natriuretic Peptide Total Protein Albumin Lipase Urine Color Urine Appearance Urine pH Ur Specific [place] Urine Protein Urine Glucose (UA) Urine Ketones Urine Blood Urine Nitrite Ur Leukocyte Esterase Ethyl Alcohol Acetone, Qual Influenza Type A (PCR) NEGATIVE Influenza Type B (PCR) NEGATIVE RSV RNA Qual (PCR) NEGATIVE SARS-CoV-2 RNA (RT-PCR) NEGATIVE Imaging Radiologist's Impressions: Impressions Chest X-Ray 10/28/21 23:13 IMPRESSION: No acute intrathoracic disease. Unchanged bronchial wall thickening. Abdomen/Pelvis CT 10/29/21 00:45 IMPRESSION: 1. Somewhat thick-walled appearance of the rectum with surrounding stranding extending into the presacral region. Proctitis is a possibility in the proper clinical setting. No evidence of bowel obstruction. 2. Cholelithiasis. Assessment and Plan (1) Hypomagnesemia: Status: Resolved Plan 75-year-old male with a past medical history of hypertension, hyperlipidemia, alcoholic liver disease, hypothyroidism, alcohol abuse presented to the hospital today with a chief complaint of abdominal pain. Noted to have following Abdominal pain: Proctitis: Cholelithiasis: Continue ceftriaxone and Flagyl Follow-up cultures NPO Gentle IV fluids Pain control Will also obtain HIDA scan to rule out any acute cholecystitis. Alcohol abuse: Monitor on CIWA. Patient started on phenobarb. Thiamine folate and multivitamins. Hypomagnesemia: Repleted. Will repeat levels. History of hypertension/hyperlipidemia: Continue home metoprolol, statin History of alcoholic liver disease: Continue home Lasix, Aldactone History of hypothyroidism: Continue home levothyroxine GI prophylaxis: Pepcid DVT prophylaxis: Subcu heparin Code status: Full code Quality Stroke Does the patient have a stroke diagnosis?: No VTE Prior VTE?: No VTE Risk Level:: Medical - moderate - high VTE Device Contraindication: Treatment Not Indicated VTE Drug Contraindication: N/A - Med Ordered
[2021-10-29] MEDS: Heparin Sodium,Porcine 5,000 UNIT/ML VIAL 5000 UNIT SUBCUT ×2 (08:17→17:33)
[2021-10-29] MEDS: HYDROmorphone HCl 0.5 MG/0.5 ML SYRINGE IVPUSH ×3 (08:17→22:08)
[2021-10-29] MEDS: metroNIDAZOLE/NS 500 MG/100 ML PIGGYBACK 100 MG IV ×2 (08:18→17:33)
[2021-10-29] MEDS: Dextrose 5 % and 0.45 % NaCl 1,000 ML 50 ML IVCONT (08:34)
[2021-10-29 08:36] VITALS: BP 148/52; PULSE 108; RESP 21; TEMP 36.7; O2SAT 98
--- NOTE | 2021-10-29 09:53 | PC.NURSE ---
pt ambulated to the bathroom with a standby assist.
[2021-10-29] MEDS: Omeprazole 20 MG CAPSULE.DR PO (10:49)
[2021-10-29] MEDS: Levothyroxine Sodium 125 MCG TABLET PO (10:49)
[2021-10-29] MEDS: Metoprolol Succinate ER 100 MG TAB.ER.24H PO (10:49)
[2021-10-29] MEDS: Furosemide 20 MG TABLET PO (10:50)
[2021-10-29] MEDS: Spironolactone 25 MG TABLET 100 MG PO (10:50)
[2021-10-29 10:59] VITALS: PULSE 67
--- NOTE | 2021-10-29 11:41 | PC.NURSE ---
pt medicated for pain. Pt is resting comfortably with call alfaro in reach. Needs are currently being met.
--- NOTE | 2021-10-29 12:59 | MHC.CM.PN ---
Met with patient in regards to discharge planning. Patient lives alone, has a cane but doesn't use it and had no services prior to coming to the hospital. Patient is currently on oxygen in the ER but isn't at baseline. Patient has been offered services in the past but has refused them. PCP verified. Copy of HCP verifid to be on file. IMM explained and signed. Patient recevied [employer]. Patient has transport at d/c. Continue to monitor or d/c needs.
--- NOTE | 2021-10-29 14:04 | PC.NURSE ---
[facility] [place] [facility]
[2021-10-29] MEDS: hydrOXYzine HCL 10 MG TABLET 20 MG PO ×2 (17:33→23:35)
[2021-10-29] MEDS: Magnesium Oxide 400 MG TABLET PO (17:34)
[2021-10-29] MEDS: 0.9 % Sodium Chloride Flush 3 ML SYRINGE IVFLUSH (17:35)
--- NOTE | 2021-10-29 17:45 | PC.NURSE ---
pt medicated per MD order. Resting comfortably and needs are currently being met.
[2021-10-29] MEDS: Dextrose 5 % and 0.9 % NaCl 1,000 ML 80 ML IVCONT (18:43)
--- NOTE | 2021-10-29 19:17 | PC.NURSE ---
report given to RN in ED overflow.
[2021-10-29 20:42] VITALS: BP 139/61; PULSE 72; RESP 16; TEMP 36.7; O2SAT 98
--- NOTE | 2021-10-29 20:44 | PC.NURSE ---
PATIENT JUST CAME OVER FROM THE MAIN ED ,PATIENT GOT SETTLE INTO BED ,VITALS SIGN TAKEN .
--- NOTE | 2021-10-29 21:54 | PC.NURSE ---
Addendum entered by Radha Gallegos 10/30/21 07:06: report given to EDER Tay Addendum entered by Radha Gallegos 10/30/21 06:38: critical lab of Mag 1.1. Dr. Juárez made aware Original Note: report received from EDER Baum. pt alert and oriented. no signs of acute distress notice. breathing equally unlabored
[2021-10-29] MEDS: Pravastatin Sodium 40 MG TABLET PO (22:08)
[2021-10-29] MEDS: PHENobarbitaL 15 MG TABLET 45 MG PO (22:08)
[2021-10-29] MEDS: Melatonin 3 MG TABLET 6 MG PO (22:08)
[2021-10-30] VITALS (9 sets, daily range): BP systolic 124–162; BP diastolic 43–88; PULSE 70–86; RESP 16–20; TEMP 36.1–36.6; O2SAT 92–99; BMI 40.6
[2021-10-30] MEDS: cefTRIAXone sodium 1 GM in 0.9 % Sodium Chloride 50 ML IV (03:52)
[2021-10-30] MEDS: metroNIDAZOLE/NS 500 MG/100 ML PIGGYBACK 100 MG IV ×3 (03:52→20:33)
[2021-10-30] MEDS: Levothyroxine Sodium 125 MCG TABLET PO (05:42)
[2021-10-30] MEDS: Omeprazole 20 MG CAPSULE.DR PO (05:42)
[2021-10-30] MEDS: Heparin Sodium,Porcine 5,000 UNIT/ML VIAL 5000 UNIT SUBCUT ×3 (05:45→23:14)
--- NOTE | 2021-10-30 06:03 | PC.NURSE ---
PATIENT GOT WASH UP IN BATHROOM .
[2021-10-30 06:05] LABS: MANUAL DIFF FLAG NO
[2021-10-30 06:06] LABS: Basophils Absolute Auto 0.1 X10*3/uL (0.0-0.2); Basophils Percent Auto 0.6 % (0-2); Eosinophils Absolute Auto 0.3 X10*3/uL (0.0-0.4); Eosinophils Percent Auto 3.6 % (0-4); Hematocrit 34.1 % (42.0-52.0); Hemoglobin 10.7 g/dl (14.0-18.0); Imm Gran Abs Auto 0.06 X10*3/uL (0.00-0.03); Imm Gran Pct Auto 0.7 % (0.0-0.4); Lymphocytes Absolute Auto 1.3 X10*3/uL (1.2-4.9); Lymphocytes Percent Auto 16.1 % (20-40); Mean Corpuscular HGB Conc 31.4 g/dl (31.0-36.0); Mean Corpuscular Hemoglobin 26.3 pg (27.0-33.0); Mean Corpuscular Volume 83.8 fL (80.0-98.0); Mean Platelet Volume 9.4 fL (9.4-12.4); Monocytes Absolute Auto 0.9 X10*3/uL (0.1-1.2); Monocytes Percent Auto 10.6 % (2-11); Neutrophils Absolute Auto 5.7 x10*3/uL (2.0-8.3); Neutrophils Percent Auto 68.4 % (45-73); Platelet Count 237 X10*3/uL (160-400); Red Blood Count 4.07 X10*6/uL (4.60-5.80); Red Cell Distribution Width 19.9 % (11.0-16.0); White Blood Count 8.3 X10*3/uL (4.8-10.8)
[2021-10-30 06:35] LABS: Anion Gap 14 (12-20); Blood Urea Nitrogen 7 mg/dL (9-16); Carbon Dioxide 23 mmol/L (22-29); Chloride 103 mmol/L (96-108); Creatinine Clr Calc Pharmacy 105.8; Estimated Glomerular Filt Rate > 60; Glucose Random 102 mg/dL (60-115); Potassium 3.8 mmol/L (3.3-5.1); Sodium 136 mmol/L (135-145)
[2021-10-30 06:36] LABS: Alanine Aminotransferase 34 U/L (0-40); Alkaline Phosphatase 66 U/L (39-117); Aspartate Amino Transferase 53 U/L (5-37); Bilirubin Direct 0.5 mg/dL (0.0-0.5); Total Protein 7.1 g/dL (6.5-8.0)
[2021-10-30 06:39] LABS: Magnesium 1.1 mg/dL (1.6-2.6)
--- NOTE | 2021-10-30 09:05 | PM.CNGS ---
History of Present Illness Consult details Consult date: 10/30/21 Narrative: 75M referred for an abnormal HIDA scan. He was admitted 2 night ago for abdominal pain, described as diffuse. He has multiple medical problems including ETOH abuse, cirrhosis, HTN. He currently denies abdominal pain. He says he feels well overall. Hi hospitalist had ordered a HIDA scan because of the presence of gallstones. Review of Systems Constitutional: Constitutional: Denies chills and Denies fever(s) Cardiovascular: Cardiovascular: Denies chest pain, Denies dyspnea and Denies dyspnea on exertion Respiratory: Respiratory: Denies cough, Denies dyspnea and Denies dyspnea on exertion Gastrointestinal: Gastrointestinal: Denies hematochezia and Denies change in bowel habits Genitourinary: Genitourinary: Denies hematuria and Denies difficulty urinating Musculoskeletal: Musculoskeletal: Denies back pain and Denies limited range of motion Neurologic: Denies focal weakness and Denies convulsions Psychiatric: Psychiatric: Denies depression and Denies mood swings [facility] Past Medical History Medical History Delirium tremens Prostate cancer Surgical History Surgical History S/P tonsillectomy and adenoidectomy Social History Social History Alcohol intake: current Alcohol intake frequency: 3 or more drinks per day Alcohol type: hard liquor Patient Tobacco Use Status: Current everyday Tobacco user Use of substances other than those prescribed or required for medical reasons: No Advance Directives: No Advance Directives Information Provided: No service: No Current occupational status: retired Meds Allergies Allergy/AdvReac Type Severity Reaction Status Date / Time No Known Allergies Allergy Mild N/A Unverified 12/28/19 15:16 Active Medications: Current Medications Heparin Sodium (Porcine) (Heparin Sodium,Porcine 5,000 Unit/Ml Vial) 5,000 unit SUBCUT Q8H COUNT INCLUDES [facility] Last Admin: 10/30/21 05:45 Dose: 5,000 unit Hydromorphone HCl (Hydromorphone Hcl 0.5 Mg/0.5 Ml Syringe) 0.5 mg IVPUSH Q4H PRN; Protocol PRN Reason: Pain, Severe (Pain Scale 7-10) Last Admin: 10/29/21 22:08 Dose: 0.5 mg Hydroxyzine HCl (Hydroxyzine Hcl 10 Mg Tablet) 20 mg PO BID PRN PRN Reason: itch Last Admin: 10/29/21 23:35 Dose: 20 mg Ceftriaxone Sodium 1 gm/ (Sodium Chloride) 50 mls @ 100 mls/hr IV Q24H COUNT [facility]CLUDES [facility] Last Infusion: 10/30/21 08:53 Dose: Infused Dextrose/Sodium Chloride (D5ns) 1,000 mls @ 80 mls/hr IVCONT .[id number] COUNT [facility]CLUDES [facility] Last Admin: 10/30/21 04:54 Dose: Not Given Metronidazole (Flagyl) 500 mg in 100 mls @ 100 mls/hr IV Q8H COUNT [facility]CLUDES [facility] Last Infusion: 10/30/21 08:51 Dose: Infused Magnesium Sulfate (Magnesium Sulfate/H2o) 2 gm in 50 mls @ 25 mls/hr IV ONCE ONE Stop: 10/30/21 10:37 Levothyroxine Sodium (Levothyroxine Sodium 125 Mcg Tablet) 125 mcg PO DAILY@0600 [facility] Last Admin: 10/30/21 05:42 Dose: 125 mcg Magnesium Hydroxide (Milk Of Magnesia 30 Ml Oral.Susp) 30 ml PO DAILY PRN PRN Reason: Constipation Magnesium Oxide (Magnesium Oxide 400 Mg Tablet) 400 mg PO BIDPC COUNT INCLUDES [facility] Last Admin: 10/30/21 08:52 Dose: Not Given Melatonin (Melatonin 3 Mg Tablet) 6 mg PO BEDTIME PRN PRN Reason: Insomnia Last Admin: 10/29/21 22:08 Dose: 6 mg Metoprolol Succinate (Metoprolol Succinate Er 100 Mg Tab.Er.24h) 100 mg PO DAILY COUNT [facility]CLUDES [facility]; Protocol Last Admin: 10/30/21 08:51 Dose: Not Given Omeprazole (Omeprazole 20 Mg Capsule.Dr) 20 mg PO DAILY@0630 [facility] Last Admin: 10/30/21 05:42 Dose: 20 mg Pharmacy Consult (Consult Rx Etoh Phenob Im/Po) 1 each MISCELLANE ONCE PRN; Protocol PRN Reason: Consult order Phenobarbital (Phenobarbital 15 Mg Tablet) 45 mg PO BID [facility]CLUDES [facility]; Protocol Stop: 10/31/21 09:01 Last Admin: 10/29/21 22:08 Dose: 45 mg Phenobarbital (Phenobarbital 15 Mg Tablet) 15 mg PO BID COUNT [facility]CLUDES [facility] Stop: 11/02/21 09:01 Phenobarbital (Phenobarbital 15 Mg Tablet) 15 mg PO DAILY COUNT [facility]CLUDES [facility]; Protocol Stop: 11/04/21 09:01 Pravastatin Sodium (Pravastatin Sodium 40 Mg Tablet) 40 mg PO BEDTIME COUNT [facility]CLUDES [facility] Last Admin: 10/29/21 22:08 Dose: 40 mg Senna (Sennosides 8.6 Mg Tablet) 17.2 mg PO BEDTIME PRN PRN Reason: Constipation Sodium Chloride (0.9 % Sodium Chloride Flush 3 Ml Syringe) 3 ml IVFLUSH QSHIFT COUNT INCLUDES [facility] Last Admin: 10/30/21 08:51 Dose: Not Given Spironolactone (Spironolactone 25 Mg Tablet) 100 mg PO DAILY COUNT [facility]CLUDES [facility]; Protocol Last Admin: 10/29/21 10:50 Dose: 100 mg Tiotropium [place] (Tiotropium [place] 18 Mcg Cap.W.Dev) 1 puff INHALE RDAILY COUNT INCLUDES [facility] Last Admin: 10/30/21 08:04 Dose: Not Given Home Medications Medication Instructions Recorded Confirmed Last Taken Type hydroxyzine HCl 10 mg tablet 1 - 2 tab PO BID PRN itch 10/29/21 10/29/21 Unknown History levothyroxine 125 mcg tablet 1 tab PO DAILY 10/29/21 10/29/21 Unknown History loratadine 10 mg tablet 1 tab PO DAILY 10/29/21 10/29/21 Unknown History metoprolol succinate 100 mg 1 tab PO DAILY 10/29/21 10/29/21 Unknown History tablet,extended release 24 hr omeprazole 20 mg capsule,delayed 1 cap PO QAM 10/29/21 10/29/21 Unknown History release pravastatin 40 mg tablet 1 tab DAILY 10/29/21 10/29/21 Unknown History spironolactone 100 mg tablet 1 tab DAILY 10/29/21 10/29/21 Unknown History tiotropium bromide 18 mcg capsule 1 cap inhalation DAILY 10/29/21 10/29/21 Unknown History with inhalation device (Spiriva with HandiHaler) Physical Exam Vital Signs: Vital Signs: Last Vital Signs Temp 97 F 10/30/21 05:37 Pulse 86 10/30/21 05:37 Resp 19 10/30/21 05:37 BP 128/53 L 10/30/21 05:37 Pulse Ox 92 10/30/21 05:37 O2 Del Method 10/30/21 05:37 O2 Flow Rate 2 10/30/21 04:33 Oxygen Flow Rate 2 10/28/21 22:02 BMI result Body Mass Index 40.6 Const: Other: denies abdominal pain General: comfortable and no acute distress Orientation/consciousness: patient oriented x3 Neck: Neck: Yes no lymphadenopathy Resp: Auscultation: clear to auscultation bilaterally Cardio: Rhythm: regular rhythm GI: Other: no RUQ tenderness, no Escobar's sign Palpation (GI): Soft to palpation, nontender and no guarding Neuro: General: patient oriented x3 Results Labs Result diagrams: 10/30/21 06:00 10/30/21 06:00 Labs: Abnormal lab results 10/30/21 10/30/21 10/30/21 Range/Units 06:00 06:00 06:00 RBC 4.07 L (4.60-5.80) X10*6/uL Hgb 10.7 L (14.0-18.0) g/dl Hct 34.1 L (42.0-52.0) % MCH 26.3 L (27.0-33.0) pg RDW 19.9 H (11.0-16.0) % Immature Gran % (Auto) 0.7 H (0.0-0.4) % Lymph % (Auto) 16.1 L (20-40) % Abs Immat Gran (auto) 0.06 H (0.00-0.03) X10*3/uL BUN 7 L (9-16) mg/dL Calcium 8.0 L (8.4-10.2) mg/dL Magnesium 1.1 L* (1.6-2.6) mg/dL AST 53 H (5-37) U/L Short CBC 10/30/21 Range/Units 06:00 WBC 8.3 (4.8-10.8) X10*3/uL Hgb 10.7 L (14.0-18.0) g/dl Hct 34.1 L (42.0-52.0) % Plt Count 237 (160-400) X10*3/uL BMP 10/30/21 06:00 Sodium 136 Potassium 3.8 Chloride 103 Carbon Dioxide 23 BUN 7 L Creatinine 0.74 Calcium 8.0 L Liver Function 10/30/21 Range/Units 06:00 Total Bilirubin 1.0 (0.0-1.0) mg/dL Direct Bilirubin 0.5 (0.0-0.5) mg/dL AST 53 H (5-37) U/L ALT 34 (0-40) U/L Alkaline Phosphatase 66 (39-117) U/L Albumin 4.0 (3.5-5.0) g/dL Urine 10/29/21 Range/Units 01:27 Urine Color YELLOW Urine Appearance CLEAR Urine pH 8.5 H (5.0-8.0) Ur Specific [place] 1.010 (1.005-1.025) Urine Protein NEG (NEG-TRACE) MG/DL Urine Glucose (UA) NEG (NEG) MG/DL All other labs normal. Imaging Additional studies: Laboratory Results WBC 8.3 X10*3/uL (4.8-10.8) 10/30/21 06:00 RBC 4.07 X10*6/uL (4.60-5.80) L 10/30/21 06:00 Hgb 10.7 g/dl (14.0-18.0) L 10/30/21 06:00 Hct 34.1 % (42.0-52.0) L 10/30/21 06:00 MCV 83.8 fL (80.0-98.0) 10/30/21 06:00 MCH 26.3 pg (27.0-33.0) L 10/30/21 06:00 MCHC 31.4 g/dl (31.0-36.0) 10/30/21 06:00 RDW 19.9 % (11.0-16.0) H 10/30/21 06:00 Plt Count 237 X10*3/uL (160-400) 10/30/21 06:00 MPV 9.4 fL (9.4-12.4) 10/30/21 06:00 Immature Gran % (Auto) 0.7 % (0.0-0.4) H 10/30/21 06:00 Neut % (Auto) 68.4 % (45-73) 10/30/21 06:00 Lymph % (Auto) 16.1 % (20-40) L 10/30/21 06:00 [place] % (Auto) 10.6 % (2-11) 10/30/21 06:00 Eos % (Auto) 3.6 % (0-4) 10/30/21 06:00 Baso % (Auto) 0.6 % (0-2) 10/30/21 06:00 Lymph # (Auto) 1.3 X10*3/uL (1.2-4.9) 10/30/21 06:00 [place] # (Auto) 0.9 X10*3/uL (0.1-1.2) 10/30/21 06:00 Eos # (Auto) 0.3 X10*3/uL (0.0-0.4) 10/30/21 06:00 Baso # (Auto) 0.1 X10*3/uL (0.0-0.2) 10/30/21 06:00 Abs Immat Gran (auto) 0.06 X10*3/uL (0.00-0.03) H 10/30/21 06:00 Absolute Neuts (auto) 5.7 x10*3/uL (2.0-8.3) 10/30/21 06:00 Absolute Nucleated RBC 0.000 X10*3/uL (0.0-0.012) 10/30/21 06:00 Nucleated RBC % (auto) 0.0 /100WBC (0.0-0.2) 10/30/21 06:00 PT 12.0 SEC (10.0-13.1) 10/28/21 23:41 INR 1.0 (0.9-1.1) 10/28/21 23:41 APTT 37.4 SEC (24.1-38.0) 10/28/21 23:41 Sodium 136 mmol/L (135-145) 10/30/21 06:00 Potassium 3.8 mmol/L (3.3-5.1) 10/30/21 06:00 Chloride 103 mmol/L (96-108) 10/30/21 06:00 Carbon Dioxide 23 mmol/L (22-29) 10/30/21 06:00 Anion Gap 14 (12-20) 10/30/21 06:00 BUN 7 mg/dL (9-16) L 10/30/21 06:00 Creatinine 0.74 mg/dL (0.5-1.4) 10/30/21 06:00 Estim Creat Clear Calc 105.8 10/30/21 06:00 Estimated GFR > 60 10/30/21 06:00 Random Glucose 102 mg/dL (60-115) 10/30/21 06:00 Lactic Acid 2.3 mmol/L (0.5-2.0) H* 10/28/21 23:41 Lactic Acid F/U @ 2Hr 2.3 mmol/L (0.5-2.0) H* 10/29/21 02:10 Lactic Acid F/U @ 4Hr 2.5 mmol/L (0.5-2.0) H* 10/29/21 05:16 Calcium 8.0 mg/dL (8.4-10.2) L 10/30/21 06:00 Phosphorus 2.0 mg/dL (2.7-4.5) L 10/28/21 22:57 Magnesium 1.1 mg/dL (1.6-2.6) L* 10/30/21 06:00 Total Bilirubin 1.0 mg/dL (0.0-1.0) 10/30/21 06:00 Direct Bilirubin 0.5 mg/dL (0.0-0.5) 10/30/21 06:00 AST 53 U/L (5-37) H 10/30/21 06:00 ALT 34 U/L (0-40) 10/30/21 06:00 Alkaline Phosphatase 66 U/L (39-117) 10/30/21 06:00 Ammonia 36 umol/L (13-55) 10/28/21 22:57 Lactate Dehydrogenase 276 U/L (118-273) H 10/28/21 22:57 Troponin I High Sens 6.9 ng/L (<3.5-35.0) 10/28/21 22:57 B-Natriuretic Peptide 155 pg/mL (<100) H 10/28/21 22:57 Total Protein 7.1 g/dL (6.5-8.0) 10/30/21 06:00 Albumin 4.0 g/dL (3.5-5.0) 10/30/21 06:00 Lipase 7 U/L (8-78) L 10/28/21 22:57 Urine Color YELLOW 10/29/21 01:27 Urine Appearance CLEAR 10/29/21 01:27 Urine pH 8.5 (5.0-8.0) H 10/29/21 01:27 Ur Specific [place] 1.010 (1.005-1.025) 10/29/21 01:27 Urine Protein NEG MG/DL (NEG-TRACE) 10/29/21 01:27 Urine Glucose (UA) NEG MG/DL (NEG) 10/29/21 01:27 Urine Ketones NEG MG/DL (NEG) 10/29/21 01:27 Urine Blood NEG (NEG) 10/29/21 01:27 Urine Nitrite NEG (NEG) 10/29/21 01:27 Ur Leukocyte Esterase NEG (NEG) 10/29/21 01:27 Ethyl Alcohol 159 mg/dL 10/28/21 22:57 Acetone, Qual Negative (Negative) 10/28/21 22:57 Influenza Type A (PCR) NEGATIVE (Negative) 10/29/21 03:15 Influenza Type B (PCR) NEGATIVE (Negative) 10/29/21 03:15 RSV RNA Qual (PCR) NEGATIVE (Negative) 10/29/21 03:15 SARS-CoV-2 RNA (RT-PCR) NEGATIVE (Negative) 10/29/21 03:15 Impressions Chest X-Ray 10/28/21 23:13 IMPRESSION: No acute intrathoracic disease. Unchanged bronchial wall thickening. Abdomen/Pelvis CT 10/29/21 00:45 IMPRESSION: 1. Somewhat thick-walled appearance of the rectum with surrounding stranding extending into the presacral region. Proctitis is a possibility in the proper clinical setting. No evidence of bowel obstruction. 2. Cholelithiasis. Hepatobiliary Scan Nuclear Medicine 10/29/21 16:51 IMPRESSION: Nonvisualized gallbladder up to 2 hrs consistent with cystic duct obstruction. The results were conveyed to Dr. Fink by phone at 4:30 PM Patent [employer]. Assessment and Plan (1) Cholelithiasis without cholecystitis: Status: Acute I have reviewed his CT scan .He has gallstones without cholecystitis. The gallbaldder is not distended and there is no inflammtory changes. I am uncertain as to why HIDA was ordered. This is generally unreliable with chronic liver disease and cirrhosis. He is not tender at all on the abdomen and feels well. He does not appear to have any surgical issues at this time. Procedures Date of Service Date of Service: 10/30/21
[2021-10-30] MEDS: PHENobarbitaL 15 MG TABLET 45 MG PO ×2 (09:57→20:32)
[2021-10-30] MEDS: Magnesium Sulfate/H2O 2 GM/50 ML PIGGYBACK IV (09:58)
[2021-10-30] MEDS: Spironolactone 25 MG TABLET 100 MG PO (09:58)
[2021-10-30] MEDS: Metoprolol Succinate ER 100 MG TAB.ER.24H PO (09:59)
[2021-10-30] MEDS: Lactulose 20 GM/30 ML SOLUTION 10 GM PO (11:39)
--- NOTE | 2021-10-30 15:06 | HO.PM.IMPN ---
Subjective Subjective Date of Service: 10/30/21 Interval History: Complaining of mid abdominal pain, feels bloated, moving small amount of bowel movement, denies nausea vomiting, no fevers, no chills, denies right upper quadrant pain, slept well no acute overnight issues. Denies hematochezia no melena. Review of Systems Review of Systems: Yes all other systems are reviewed and are negative Physical Exam Vital Signs: Vital Signs: Last Vital Signs Temp 97.6 F 10/30/21 14:50 Pulse 70 10/30/21 14:50 Resp 18 10/30/21 14:50 BP 153/67 H 10/30/21 14:50 Pulse Ox 99 10/30/21 14:50 O2 Del Method 10/30/21 14:50 O2 Flow Rate 2 10/30/21 14:50 Oxygen Flow Rate 2 10/28/21 22:02 BMI result Body Mass Index 40.6 Const: Other: General awake alert x3, no acute distress. Oral mucosa moist Neck supple no JVD. CVS regular rate rhythm, Respiratory lungs clear to auscultation, no respiratory distress, no wheeze, no rhonchi. Gastrointestinal abdomen soft, distended, mild discomfort to palpation, no right upper quadrant tenderness, bowel sounds audible, no guarding , no rigidity. Extremities noedema. Neuro nonfocal Skin no rash Psych appropriate affect Objective Data Active Medications Heparin Sodium (Porcine) (Heparin Sodium,Porcine 5,000 Unit/Ml Vial) 5,000 unit SUBCUT Q8H [facility] Last Admin: 10/30/21 14:31 Dose: 5,000 unit Documented By: CTORRZ Hydromorphone HCl (Hydromorphone Hcl 0.5 Mg/0.5 Ml Syringe) 0.5 mg IVPUSH Q4H PRN; Protocol PRN Reason: Pain, Severe (Pain Scale 7-10) Last Admin: 10/29/21 22:08 Dose: 0.5 mg Documented By: GEO-ANICL Hydroxyzine HCl (Hydroxyzine Hcl 10 Mg Tablet) 20 mg PO BID PRN PRN Reason: itch Last Admin: 10/29/21 23:35 Dose: 20 mg Documented By: GEO-ROBERTHICL Ceftriaxone Sodium 1 gm/ (Sodium Chloride) 50 mls @ 100 mls/hr IV Q24H [facility] Last Infusion: 10/30/21 08:53 Dose: 0 mls/hr Documented By: OMER Dextrose/Sodium Chloride (D5ns) 1,000 mls @ 80 mls/hr IVCONT .[id number] [facility] Last Infusion: 10/30/21 12:22 Dose: 0 mls/hr Documented By: ALEXUS Metronidazole (Flagyl) 500 mg in 100 mls @ 100 mls/hr IV Q8H [facility] Last Admin: 10/30/21 14:41 Dose: 100 mls/hr Documented By: CTORRZ Levothyroxine Sodium (Levothyroxine Sodium 125 Mcg Tablet) 125 mcg PO DAILY@0600 [facility] Last Admin: 10/30/21 05:42 Dose: 125 mcg Documented By: VALENTINA Magnesium Hydroxide (Milk Of Magnesia 30 Ml Oral.Susp) 30 ml PO DAILY PRN PRN Reason: Constipation Magnesium Oxide (Magnesium Oxide 400 Mg Tablet) 400 mg PO BIDPC [facility] Last Admin: 10/30/21 08:52 Dose: Not Given Documented By: OMER Non-Admin Reason: NPO Melatonin (Melatonin 3 Mg Tablet) 6 mg PO BEDTIME PRN PRN Reason: Insomnia Last Admin: 10/29/21 22:08 Dose: 6 mg Documented By: VALENTINA Metoprolol Succinate (Metoprolol Succinate Er 100 Mg Tab.Er.24h) 100 mg PO DAILY [facility]; Protocol Last Admin: 10/30/21 09:59 Dose: 100 mg Documented By: OMER Omeprazole (Omeprazole 20 Mg Capsule.Dr) 20 mg PO DAILY@0630 [facility] Last Admin: 10/30/21 05:42 Dose: 20 mg Documented By: VALENTINA Pharmacy Consult (Consult Rx Etoh Phenob Im/Po) 1 each MISCELLANE ONCE PRN; Protocol PRN Reason: Consult order Phenobarbital (Phenobarbital 15 Mg Tablet) 45 mg PO BID [facility]; Protocol Stop: 10/31/21 09:01 Last Admin: 10/30/21 09:57 Dose: 45 mg Documented By: OMER Phenobarbital (Phenobarbital 15 Mg Tablet) 15 mg PO BID [facility] Stop: 11/02/21 09:01 Phenobarbital (Phenobarbital 15 Mg Tablet) 15 mg PO DAILY [facility]; Protocol Stop: 11/04/21 09:01 Pravastatin Sodium (Pravastatin Sodium 40 Mg Tablet) 40 mg PO BEDTIME [facility] Last Admin: 10/29/21 22:08 Dose: 40 mg Documented By: GEO-ANICL Senna (Sennosides 8.6 Mg Tablet) 17.2 mg PO BEDTIME PRN PRN Reason: Constipation Sodium Chloride (0.9 % Sodium Chloride Flush 3 Ml Syringe) 3 ml IVFLUSH QSHIFT [facility] Last Admin: 10/30/21 08:51 Dose: Not Given Documented By: OMER Non-Admin Reason: IV Running Spironolactone (Spironolactone 25 Mg Tablet) 100 mg PO DAILY [facility]; Protocol Last Admin: 10/30/21 09:58 Dose: 100 mg Documented By: OMER Tiotropium [place] (Tiotropium [place] 18 Mcg Cap.W.Dev) 1 puff INHALE RDAILY [facility] Last Admin: 10/30/21 08:04 Dose: Not Given Documented By: AMY Non-Admin Reason: Med Not Available Labs CBC & Chem 7: 10/30/21 06:00 10/30/21 06:00 Labs: Laboratory Results - last 24 hr 10/30/21 10/30/21 10/30/21 06:00 06:00 06:00 MCV 83.8 MCH 26.3 L MCHC 31.4 RDW 19.9 H Plt Count 237 MPV 9.4 Immature Gran % (Auto) 0.7 H Neut % (Auto) 68.4 Lymph % (Auto) 16.1 L [place] % (Auto) 10.6 Eos % (Auto) 3.6 Baso % (Auto) 0.6 Lymph # (Auto) 1.3 [place] # (Auto) 0.9 Eos # (Auto) 0.3 Baso # (Auto) 0.1 Abs Immat Gran (auto) 0.06 H Absolute Neuts (auto) 5.7 Absolute Nucleated RBC 0.000 Nucleated RBC % (auto) 0.0 Anion Gap 14 Estim Creat Clear Calc 105.8 Estimated GFR > 60 Random Glucose 102 Calcium 8.0 L Magnesium 1.1 L* Total Bilirubin 1.0 Direct Bilirubin 0.5 AST 53 H ALT 34 Alkaline Phosphatase 66 Total Protein 7.1 Albumin 4.0 Microbiology Microbiology Results: Microbiology 10/28/21 23:41 Blood Culture - Preliminary Blood - Venous No growth after 24 hours. 10/28/21 23:41 Blood Culture - Preliminary Blood - Venous No growth after 24 hours. Assessment and Plan (1) Abdominal pain: Status: Acute (2) Cholelithiasis without cholecystitis: Status: Acute (3) Alcohol withdrawal: Status: Acute (4) Acute proctitis: Status: Acute (5) Alcohol abuse: Status: Acute Plan 75-year-old male with a past medical history of hypertension, hyperlipidemia, alcoholic liver disease, hypothyroidism, alcohol abuse presented to the hospital today with a chief complaint of abdominal pain.? Noted to have following Diffuse Abdominal pain: Persistent mild abdominal discomfort, no nausea vomiting, no melena, no hematochezia CTs abdomen/pelvis showed finding suggestive of Proctitis/Cholelithiasis HIDA scan showed nonvisualization of gallbladder up to 2 hours consistent with cystic duct obstruction, patient afebrile, normal WBC , normal LFT and examination likely to have acute cholecystitis Seen by Dr. Edwards he recommend no surgical intervention for for abnormal HIDA Will place on full liquid diet/DC IV fluid, advance diet as tolerated Continue IV Flagyl and ceftriaxone for proctitis follow clinical course Add stool softeners for possible constipation Alcohol abuse/withdrawal:??Continue phenobarb.? Thiamine folate and multivitamins. Obtain care team consult Hypomagnesemia:? Magnesium remains low 1.1 will give [address] on by mouth magnesium oxide likely due to poor nutrition with alcohol , follow labs History of hypertension/hyperlipidemia: Continue home metoprolol, and statin History of alcoholic liver disease:? Continue Aldactone and resume Lasix History of hypothyroidism: Continue levothyroxine GI prophylaxis:? On Prilosec DVT prophylaxis:? Subcu heparin Code status:? Full code Patient need continued inpatient hospitalization for persistent abdominal pain and alcohol withdrawal on phenobarb, as well as hypo magnesemia requiring intravenous magnesium supplement Quality Stroke Does the patient have a stroke diagnosis?: No VTE Prior VTE?: No VTE Risk Level:: Medical - moderate - high VTE Device Contraindication: Treatment Not Indicated VTE Drug Contraindication: N/A - Med Ordered
--- NOTE | 2021-10-30 18:39 | MHC.RECOVSUP ---
? Reason for consult:Recovery Support o Current location:[facility] o Identified substance use concern:ETOH - Withdrawal - Support ? Intervention: o Community resources provided o Harm reduction discussion ? Plan: o Referral to CCC o Patient to follow up with [facility] after discharge ? Additional information:Discussed MAT and harm reduction with patient. Referred him to [facility] and the [facility]. Gave him community resources for CSS. 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 He was uncooperative.
[2021-10-30] MEDS: Magnesium Oxide 400 MG TABLET PO (18:44)
[2021-10-30] MEDS: Pravastatin Sodium 40 MG TABLET PO (20:32)
[2021-10-30] MEDS: HYDROmorphone HCl 0.5 MG/0.5 ML SYRINGE IVPUSH (20:32)
[2021-10-31] VITALS (7 sets, daily range): BP systolic 107–186; BP diastolic 53–84; PULSE 66–89; RESP 17–20; TEMP 36.1–36.4; O2SAT 96–99
[2021-10-31] MEDS: HYDROmorphone HCl 0.5 MG/0.5 ML SYRINGE IVPUSH (00:35)
[2021-10-31] MEDS: 0.9 % Sodium Chloride Flush 3 ML SYRINGE IVFLUSH ×4 (00:38→20:12)
[2021-10-31] MEDS: hydrOXYzine HCL 10 MG TABLET 20 MG PO (02:49)
[2021-10-31] MEDS: diphenhydrAMINE HCL 50 MG/ML VIAL 25 MG IVPUSH (02:55)
[2021-10-31] MEDS: metroNIDAZOLE/NS 500 MG/100 ML PIGGYBACK 100 MG IV (03:52)
[2021-10-31] MEDS: cefTRIAXone sodium 1 GM in 0.9 % Sodium Chloride 50 ML IV (05:01)
[2021-10-31] MEDS: Omeprazole 20 MG CAPSULE.DR PO (05:01)
[2021-10-31] MEDS: Levothyroxine Sodium 125 MCG TABLET PO (05:17)
[2021-10-31] MEDS: Heparin Sodium,Porcine 5,000 UNIT/ML VIAL 5000 UNIT SUBCUT ×3 (06:00→21:51)
[2021-10-31 06:49] LABS: Magnesium 1.5 mg/dL (1.6-2.6)
[2021-10-31] MEDS: PHENobarbitaL 15 MG TABLET 45 MG PO (10:56)
[2021-10-31] MEDS: Spironolactone 25 MG TABLET 100 MG PO (10:56)
[2021-10-31] MEDS: Metoprolol Succinate ER 100 MG TAB.ER.24H PO (10:57)
[2021-10-31] MEDS: Magnesium Oxide 400 MG TABLET PO ×2 (10:58→18:09)
[2021-10-31] MEDS: Magnesium Sulfate/H2O 2 GM/50 ML PIGGYBACK IV (10:59)
--- NOTE | 2021-10-31 12:40 | P.CDIC_ITS ---
CDI Concurrent Query Documentation Clarification: PHYSICIAN'S DOCUMENTATION REQUEST Date of Query: 10/31/21 1241 Patient Name: John Ramos Admit Date: 10/29/21 Dear Doctor, A review of the medical record indicates additional documentation may be needed. Please review below and update the documentation accordingly. Clinical Indicators: Risk Factors/Clinical Indicators/Treatments Nursing notes Height and Weight 10/30 - Extreme obesity class III. BMI 40.6 If possible, please provide an associated diagnosis related to the abnormal BMI, such as: For a BMI >= 40: * Overweight * Obesity * Due to excess calories * Drug induced * Due to other cause * Severe or Morbid Obesity * With alveolar hypoventilation * Without alveolar hypoventilation Or: * BMI is not significant * Other (please specify) * Unable to determine Use of terms such as suspected, likely, concern for, or probable (associated with a specific diagnosis that is being evaluated, monitored, or treated as if it exists) are acceptable and can be coded in the inpatient setting, when documented at the time of discharge. Thank you, Pamella Valderrama [facility], CDIS Extension: [phone] Please use your independent medical judgment in providing your response. THIS QUERY IS PART OF THE PERMANENT MEDICAL RECORD Provider Response: Other Other Diagnosis: Obesity
--- NOTE | 2021-10-31 12:40 | MHC.CDI.CONC ---
CDI Concurrent Query Documentation Clarification: PHYSICIAN'S DOCUMENTATION REQUEST Date of Query: 10/31/21 1241 Patient Name: John Ramos Admit Date: 10/29/21 Dear Doctor, A review of the medical record indicates additional documentation may be needed. Please review below and update the documentation accordingly. Clinical Indicators: Risk Factors/Clinical Indicators/Treatments Nursing notes Height and Weight 10/30 - Extreme obesity class III. BMI 40.6 If possible, please provide an associated diagnosis related to the abnormal BMI, such as: For a BMI >= 40: Overweight Obesity Due to excess calories Drug induced Due to other cause Severe or Morbid Obesity With alveolar hypoventilation Without alveolar hypoventilation Or: BMI is not significant Other (please specify) Unable to determine Use of terms such as suspected, likely, concern for, or probable (associated with a specific diagnosis that is being evaluated, monitored, or treated as if it exists) are acceptable and can be coded in the inpatient setting, when documented at the time of discharge. Thank you, Pamella Valderrama [facility], CDIS Extension: [phone] Please use your independent medical judgment in providing your response. THIS QUERY IS PART OF THE PERMANENT MEDICAL RECORD Provider Response: Other Other Diagnosis: Obesity
--- NOTE | 2021-10-31 14:06 | HO.PM.IMPN ---
Subjective Subjective Date of Service: 10/31/21 Interval History: Complaining of generalized fatigue tiredness, shortness of breath with minimal activity he has been feeling like this for several weeks attribute this to weight gain and alcohol use, denies nausea vomiting abdominal pain has improved, no other acute issues overnight. Review of Systems Review of Systems: Yes all other systems are reviewed and are negative Physical Exam Vital Signs: Vital Signs: Last Vital Signs Temp 97.1 F 10/31/21 12:00 Pulse 82 10/31/21 12:00 Resp 20 10/31/21 12:00 BP 147/65 H 10/31/21 12:00 Pulse Ox 96 10/31/21 12:00 O2 Del Method 10/31/21 12:00 O2 Flow Rate 2 10/31/21 07:58 Oxygen Flow Rate 2 10/28/21 22:02 BMI result Body Mass Index 40.6 Const: Other: General awake alert x3, no acute distress.? Oral mucosa moist Neck supple no JVD. CVS? regular rate rhythm, Respiratory lungs clear to auscultation, no respiratory distress, no wheeze, no rhonchi. Gastrointestinal abdomen soft, obese, no right upper quadrant tenderness, bowel sounds audible, no guarding , no rigidity. Extremities no edema. Neuro non focal Skin no rash Psych appropriate affect Objective Data Active Medications Cefuroxime Axetil (Cefuroxime Axetil 500 Mg Tablet) 500 mg PO Q12H [facility] Heparin Sodium (Porcine) (Heparin Sodium,Porcine 5,000 Unit/Ml Vial) 5,000 unit SUBCUT Q8H [facility] Last Admin: 10/31/21 06:00 Dose: 5,000 unit Documented By: MAEGAN Hydroxyzine HCl (Hydroxyzine Hcl 10 Mg Tablet) 20 mg PO BID PRN PRN Reason: itch Last Admin: 10/31/21 02:49 Dose: 20 mg Documented By: MAEGAN Levothyroxine Sodium (Levothyroxine Sodium 125 Mcg Tablet) 125 mcg PO DAILY@0600 [facility] Last Admin: 10/31/21 05:17 Dose: 125 mcg Documented By: MAEGAN Comments: scanned med at bedside, did not save in computer Magnesium Hydroxide (Milk Of Magnesia 30 Ml Oral.Susp) 30 ml PO DAILY PRN PRN Reason: Constipation Magnesium Oxide (Magnesium Oxide 400 Mg Tablet) 400 mg PO BIDPC [facility] Last Admin: 10/31/21 10:58 Dose: 400 mg Documented By: VICENTE Melatonin (Melatonin 3 Mg Tablet) 6 mg PO BEDTIME PRN PRN Reason: Insomnia Last Admin: 10/29/21 22:08 Dose: 6 mg Documented By: N-ANICL Metoprolol Succinate (Metoprolol Succinate Er 100 Mg Tab.Er.24h) 100 mg PO DAILY [facility]; Protocol Last Admin: 10/31/21 10:57 Dose: 100 mg Documented By: VICENTE Omeprazole (Omeprazole 20 Mg Capsule.Dr) 20 mg PO DAILY@0630 [facility] Last Admin: 10/31/21 05:01 Dose: 20 mg Documented By: MAEGAN Pharmacy Consult (Consult Rx Etoh Phenob Im/Po) 1 each MISCELLANE ONCE PRN; Protocol PRN Reason: Consult order Phenobarbital (Phenobarbital 15 Mg Tablet) 15 mg PO BID [facility] Stop: 11/02/21 09:01 Phenobarbital (Phenobarbital 15 Mg Tablet) 15 mg PO DAILY [facility]; Protocol Stop: 11/04/21 09:01 Pravastatin Sodium (Pravastatin Sodium 40 Mg Tablet) 40 mg PO BEDTIME [facility] Last Admin: 10/30/21 20:32 Dose: 40 mg Documented By: MAEGAN Senna (Sennosides 8.6 Mg Tablet) 17.2 mg PO BEDTIME PRN PRN Reason: Constipation Sodium Chloride (0.9 % Sodium Chloride Flush 3 Ml Syringe) 3 ml IVFLUSH QSHIFT [facility] Last Admin: 10/31/21 10:56 Dose: 3 ml Documented By: VICENTE Spironolactone (Spironolactone 25 Mg Tablet) 100 mg PO DAILY [facility]; Protocol Last Admin: 10/31/21 10:56 Dose: 100 mg Documented By: VICENTE Tiotropium Ider (Tiotropium Ider 18 Mcg Cap.W.Dev) 1 puff INHALE RDAILY [facility] Last Admin: 10/31/21 07:26 Dose: Not Given Documented By: SUKHDEEP Non-Admin Reason: Med Not Available Labs CBC & Chem 7: 10/30/21 06:00 10/30/21 06:00 Labs: Laboratory Results - last 24 hr 10/31/21 05:59 Magnesium 1.5 L Microbiology Microbiology Results: Microbiology 10/28/21 23:41 Blood Culture - Preliminary Blood - Venous No growth after 48 hours. 10/28/21 23:41 Blood Culture - Preliminary Blood - Venous No growth after 48 hours. Assessment and Plan (1) Abdominal pain: Status: Acute (2) Cholelithiasis without cholecystitis: Status: Acute (3) Alcohol withdrawal: Status: Acute (4) Acute proctitis: Status: Acute (5) Alcohol abuse: Status: Acute Plan 75-year-old male with a past medical history of hypertension, hyperlipidemia, alcoholic liver disease, hypothyroidism, alcohol abuse presented to the hospital today with a chief complaint of abdominal pain.? Noted to have following Abdominal pain: Abdominal pain resolved,no nausea vomiting, no melena, no hematochezia CTs abdomen/pelvis showed finding suggestive of Proctitis/Cholelithiasis HIDA scan showed nonvisualization of gallbladder up to 2 hours consistent with cystic duct obstruction, patient afebrile, normal WBC , normal LFT and examination, unlikely to have acute cholecystitis Seen by Dr. Edwards he recommend no surgical intervention for for abnormal HIDA Tolerating regular diet On IV Flagyl and ceftriaxone day 2 will transition to by mouth antibiotic /constipation resolved Alcohol abuse/withdrawal:??Continue phenobarb.? Thiamine folate and multivitamins. Seen by care team outpatient referrals given Hypomagnesemia:? Magnesium remains low 1.5 will give 2 g of magnesium , continue by mouth magnesium oxide likely due to poor nutrition with alcohol , follow labs History of hypertension/hyperlipidemia: Continue home metoprolol, and statin History of alcoholic liver disease:? Continue Aldactone and resume Lasix History of hypothyroidism: Continue levothyroxine Obesity due to high calorie intake contributing to other medical issues strongly recommend to follow low-calorie diet exercise Generalized weakness likely due to infection, alcohol abuse/wd, and chronic back pain, obesity obtain PT eval GI prophylaxis:? On Prilosec DVT prophylaxis:? Subcu heparin Code status:? Full code Patient need continued inpatient hospitalization for alcohol withdrawal on phenobarb, as well as hypo magnesemia requiring intravenous magnesium supplement and generalized weakness. Quality Stroke Does the patient have a stroke diagnosis?: No VTE Prior VTE?: No VTE Risk Level:: Medical - moderate - high VTE Device Contraindication: Treatment Not Indicated VTE Drug Contraindication: N/A - Med Ordered
[2021-10-31 15:15] LABS: Magnesium 1.8 mg/dL (1.6-2.6)
[2021-10-31] MEDS: Pravastatin Sodium 40 MG TABLET PO (20:12)
[2021-10-31] MEDS: PHENobarbitaL 15 MG TABLET PO (20:12)
[2021-11-01] VITALS (7 sets, daily range): BP systolic 134–171; BP diastolic 63–77; PULSE 68–89; RESP 18–20; TEMP 36.1–37.1; O2SAT 93–100
[2021-11-01] MEDS: Omeprazole 20 MG CAPSULE.DR PO (06:09)
[2021-11-01] MEDS: Levothyroxine Sodium 125 MCG TABLET PO (06:09)
[2021-11-01] MEDS: Heparin Sodium,Porcine 5,000 UNIT/ML VIAL 5000 UNIT SUBCUT ×3 (06:12→23:15)
[2021-11-01] MEDS: PHENobarbitaL 15 MG TABLET PO ×2 (09:25→20:39)
[2021-11-01] MEDS: Magnesium Oxide 400 MG TABLET PO ×2 (09:25→18:27)
[2021-11-01] MEDS: Metoprolol Succinate ER 100 MG TAB.ER.24H PO (09:25)
[2021-11-01] MEDS: Spironolactone 25 MG TABLET 100 MG PO (09:26)
[2021-11-01] MEDS: 0.9 % Sodium Chloride Flush 3 ML SYRINGE IVFLUSH ×2 (09:30→15:39)
--- NOTE | 2021-11-01 14:12 | HO.PM.IMPN ---
Subjective Subjective Date of Service: 11/01/21 Interval History: Complaining of abdominal pain worse with movement, walking, complaining of lower extremities swelling, scrotal swelling denies urinary symptoms of urgency and frequency, last bowel movement 10/30, no nausea no vomiting feeling hungry. No other acute issues overnight, no fevers no chills, no cough, no shortness of breath at rest, but complained of shortness of breath with activity. Review of Systems Review of Systems: Yes all other systems are reviewed and are negative Physical Exam Vital Signs: Vital Signs: Last Vital Signs Temp 97.6 F 11/01/21 11:09 Pulse 77 11/01/21 13:39 Resp 18 11/01/21 11:09 BP 155/68 H 11/01/21 13:39 Pulse Ox 99 11/01/21 13:39 O2 Del Method 11/01/21 11:09 O2 Flow Rate 1 11/01/21 11:09 Oxygen Flow Rate 2 10/28/21 22:02 BMI result Body Mass Index 40.6 Const: Other: General awake alert x3, no acute distress.? Oral mucosa moist Neck supple no JVD. CVS? regular rate rhythm, Respiratory lungs clear to auscultation, no respiratory distress, no wheeze, no rhonchi. Gastrointestinal abdomen soft, obese, no right upper quadrant tenderness, bowel sounds audible, no guarding , no rigidity. Extremities no pitting edema. Neuro non focal Skin no rash Psych appropriate affect Objective Data Active Medications Acetaminophen (Acetaminophen 325 Mg Tablet) 650 mg PO Q6H PRN PRN Reason: Pain, Mild (Pain Scale 1-3) Albuterol/Ipratropium (Albuterol/Iprat 2.5/0.5mg 3 Ml Ampul.Neb) 3 ml INHALE RQ4H PRN PRN Reason: Shortness of Breath Cefuroxime Axetil (Cefuroxime Axetil 500 Mg Tablet) 500 mg PO Q12H [facility] Last Admin: 11/01/21 01:40 Dose: 500 mg Documented By: ELIZABETH Heparin Sodium (Porcine) (Heparin Sodium,Porcine 5,000 Unit/Ml Vial) 5,000 unit SUBCUT Q8H [facility] Last Admin: 11/01/21 06:12 Dose: 5,000 unit Documented By: ELIZABETH Hydroxyzine HCl (Hydroxyzine Hcl 10 Mg Tablet) 20 mg PO BID PRN PRN Reason: itch Last Admin: 10/31/21 02:49 Dose: 20 mg Documented By: MAEGAN Levothyroxine Sodium (Levothyroxine Sodium 125 Mcg Tablet) 125 mcg PO DAILY@0600 [facility] Last Admin: 11/01/21 06:09 Dose: 125 mcg Documented By: ELIZABETH Magnesium Hydroxide (Milk Of Magnesia 30 Ml Oral.Susp) 30 ml PO DAILY PRN PRN Reason: Constipation Magnesium Oxide (Magnesium Oxide 400 Mg Tablet) 400 mg PO BIDPC [facility] Last Admin: 11/01/21 09:25 Dose: 400 mg Documented By: LUPE Melatonin (Melatonin 3 Mg Tablet) 6 mg PO BEDTIME PRN PRN Reason: Insomnia Last Admin: 10/29/21 22:08 Dose: 6 mg Documented By: VALENTINA Metoprolol Succinate (Metoprolol Succinate Er 100 Mg Tab.Er.24h) 100 mg PO DAILY [facility]; Protocol Last Admin: 11/01/21 09:25 Dose: 100 mg Documented By: LUPE Omeprazole (Omeprazole 20 Mg Capsule.Dr) 20 mg PO DAILY@0630 [facility] Last Admin: 11/01/21 06:09 Dose: 20 mg Documented By: ELIZABETH Ondansetron HCl (Ondansetron Hcl 4 Mg/2 Ml Vial) 4 mg IVPUSH Q8H PRN PRN Reason: Nausea Pharmacy Consult (Consult Rx Etoh Phenob Im/Po) 1 each MISCELLANE ONCE PRN; Protocol PRN Reason: Consult order Phenobarbital (Phenobarbital 15 Mg Tablet) 15 mg PO BID [facility] Stop: 11/02/21 09:01 Last Admin: 11/01/21 09:25 Dose: 15 mg Documented By: LUPE Phenobarbital (Phenobarbital 15 Mg Tablet) 15 mg PO DAILY [facility]; Protocol Stop: 11/04/21 09:01 Pravastatin Sodium (Pravastatin Sodium 40 Mg Tablet) 40 mg PO BEDTIME [facility] Last Admin: 10/31/21 20:12 Dose: 40 mg Documented By: ELIZABETH Senna (Sennosides 8.6 Mg Tablet) 17.2 mg PO BEDTIME PRN PRN Reason: Constipation Sodium Chloride (0.9 % Sodium Chloride Flush 3 Ml Syringe) 3 ml IVFLUSH QSHIFT [facility] Last Admin: 11/01/21 09:30 Dose: 3 ml Documented By: LUPE Spironolactone (Spironolactone 25 Mg Tablet) 100 mg PO DAILY [facility]; Protocol Last Admin: 11/01/21 09:26 Dose: 100 mg Documented By: LUPE Tiotropium Albia (Tiotropium Albia 18 Mcg Cap.W.Dev) 1 puff INHALE RDAILY [facility] Last Admin: 11/01/21 08:48 Dose: Not Given Documented By: BUTCH Non-Admin Reason: Patient Asleep Labs CBC & Chem 7: 10/30/21 06:00 10/30/21 06:00 Labs: Laboratory Results - last 24 hr 10/31/21 14:44 Magnesium 1.8 Assessment and Plan (1) Abdominal pain: Status: Acute (2) Cholelithiasis without cholecystitis: Status: Acute (3) Alcohol withdrawal: Status: Acute (4) Acute proctitis: Status: Acute (5) Alcohol abuse: Status: Acute Plan 75-year-old male with a past medical history of hypertension, hyperlipidemia, alcoholic liver disease, hypothyroidism, alcohol abuse presented to the hospital today with a chief complaint of abdominal pain.? Noted to have following Abdominal pain: Abdominal pain mostly with movement, nontender to palpation,no nausea vomiting, no melena, no hematochezia CTs abdomen/pelvis showed finding suggestive of Proctitis/Cholelithiasis HIDA scan showed nonvisualization of gallbladder up to 2 hours consistent with cystic duct obstruction, patient afebrile, normal WBC , normal LFT and examination, unlikely to have acute cholecystitis Seen by Dr. Edwards he recommend no surgical intervention for for abnormal HIDA Tolerating regular diet On Flagyl and ceftin po day 3 /use Tylenol/hot pack for abdominal pain Alcohol abuse/withdrawal:??Continue phenobarb.? Thiamine folate and multivitamins. Seen by care team outpatient referrals given Hypomagnesemia:? Magnesium improved to 1.8 continue by mouth magnesium History of hypertension/hyperlipidemia: Continue home metoprolol, and statin History of alcoholic liver disease:? Continue Aldactone , not on Lasix History of hypothyroidism: Continue levothyroxine Obesity due to high calorie intake contributing to other medical issues strongly recommend to follow low-calorie diet exercise Generalized weakness likely due to infection, alcohol abuse/wd, and chronic back pain, obesity, deconditioning seen by physical therapy they recommend home with PT Oxygenation drops with activity, obtain home O2 eval encourage incentive spirometry GI prophylaxis:? On Prilosec DVT prophylaxis:? Subcu heparin Code status:? Full code Patient need continued inpatient hospitalization for alcohol withdrawal on phenobarb, abdominal pain, generalized weakness and desaturation with activity. Quality Stroke Does the patient have a stroke diagnosis?: No VTE Prior VTE?: No VTE Risk Level:: Medical - moderate - high VTE Device Contraindication: Treatment Not Indicated VTE Drug Contraindication: N/A - Med Ordered
[2021-11-01] MEDS: Loperamide HCl 2 MG CAPSULE 4 MG PO ×2 (15:33→21:00)
[2021-11-01] MEDS: metroNIDAZOLE 500 MG TABLET PO ×2 (15:36→20:37)
[2021-11-01] MEDS: Pravastatin Sodium 40 MG TABLET PO (20:37)
[2021-11-01] MEDS: Acetaminophen 325 MG TABLET 650 MG PO (20:38)
[2021-11-02] VITALS (7 sets, daily range): BP systolic 133–188; BP diastolic 59–88; PULSE 69–80; RESP 16–18; TEMP 36.2–36.8; O2SAT 97–100
[2021-11-02] MEDS: hydrOXYzine HCL 10 MG TABLET 20 MG PO ×2 (02:15→15:20)
[2021-11-02] MEDS: Acetaminophen 325 MG TABLET 650 MG PO (02:15)
[2021-11-02] MEDS: 0.9 % Sodium Chloride Flush 3 ML SYRINGE IVFLUSH ×3 (02:19→15:17)
[2021-11-02] MEDS: Omeprazole 20 MG CAPSULE.DR PO (05:54)
[2021-11-02] MEDS: metroNIDAZOLE 500 MG TABLET PO ×3 (05:54→20:01)
[2021-11-02] MEDS: Levothyroxine Sodium 125 MCG TABLET PO (05:55)
[2021-11-02] MEDS: Heparin Sodium,Porcine 5,000 UNIT/ML VIAL 5000 UNIT SUBCUT ×3 (05:55→23:12)
[2021-11-02] MEDS: Spironolactone 25 MG TABLET 100 MG PO (09:14)
[2021-11-02] MEDS: Metoprolol Succinate ER 100 MG TAB.ER.24H PO (09:14)
[2021-11-02] MEDS: PHENobarbitaL 15 MG TABLET PO (09:15)
[2021-11-02] MEDS: Magnesium Oxide 400 MG TABLET PO ×2 (09:15→18:40)
--- NOTE | 2021-11-02 15:37 | HO.PM.IMPN ---
Subjective Subjective Date of Service: 11/02/21 Interval History: Complaining of persistent generalized weakness, shortness of breath with activity, chronic back pain, denies nausea vomiting, no diarrhea tolerating diet no other acute issues overnight. Review of Systems Review of Systems: Yes all other systems are reviewed and are negative Physical Exam Vital Signs: Vital Signs: Last Vital Signs Temp 97.1 F 11/02/21 14:58 Pulse 76 11/02/21 14:58 Resp 18 11/02/21 14:58 BP 133/59 L 11/02/21 14:58 Pulse Ox 97 11/02/21 14:58 O2 Del Method 11/02/21 14:58 O2 Flow Rate 1 11/02/21 07:43 Oxygen Flow Rate 2 10/28/21 22:02 BMI result Body Mass Index 40.6 Const: Other: General awake alert x3, no acute distress.? Oral mucosa moist Neck supple no JVD. CVS? regular rate rhythm, Respiratory lungs clear to auscultation, no respiratory distress, no wheeze, no rhonchi. Gastrointestinal abdomen soft, obese, no right upper quadrant tenderness, bowel sounds audible, no guarding , no rigidity. Extremities no pitting edema. Neuro non focal Skin no rash Psych appropriate affect Objective Data Active Medications Acetaminophen (Acetaminophen 325 Mg Tablet) 650 mg PO Q6H PRN PRN Reason: Pain, Mild (Pain Scale 1-3) Last Admin: 11/02/21 02:15 Dose: 650 mg Documented By: JOSE Albuterol/Ipratropium (Albuterol/Iprat 2.5/0.5mg 3 Ml Ampul.Neb) 3 ml INHALE RQ4H PRN PRN Reason: Shortness of Breath Cefuroxime Axetil (Cefuroxime Axetil 500 Mg Tablet) 500 mg PO Q12H [facility] Last Admin: 11/02/21 15:17 Dose: 500 mg Documented By: LUPE Heparin Sodium (Porcine) (Heparin Sodium,Porcine 5,000 Unit/Ml Vial) 5,000 unit SUBCUT Q8H [facility] Last Admin: 11/02/21 15:17 Dose: 5,000 unit Documented By: LUPE Hydroxyzine HCl (Hydroxyzine Hcl 10 Mg Tablet) 20 mg PO BID PRN PRN Reason: itch Last Admin: 11/02/21 15:20 Dose: 20 mg Documented By: LUPE Levothyroxine Sodium (Levothyroxine Sodium 125 Mcg Tablet) 125 mcg PO DAILY@0600 [facility] Last Admin: 11/02/21 05:55 Dose: 125 mcg Documented By: JOSE Loperamide HCl (Loperamide Hcl 2 Mg Capsule) 4 mg PO Q6H PRN PRN Reason: Diarrhea Last Admin: 11/01/21 21:00 Dose: 4 mg Documented By: ELIZABETH Magnesium Hydroxide (Milk Of Magnesia 30 Ml Oral.Susp) 30 ml PO DAILY PRN PRN Reason: Constipation Magnesium Oxide (Magnesium Oxide 400 Mg Tablet) 400 mg PO BIDPC [facility] Last Admin: 11/02/21 09:15 Dose: 400 mg Documented By: LUPE Melatonin (Melatonin 3 Mg Tablet) 6 mg PO BEDTIME PRN PRN Reason: Insomnia Last Admin: 10/29/21 22:08 Dose: 6 mg Documented By: GEO-ROBERTHICL Metoprolol Succinate (Metoprolol Succinate Er 100 Mg Tab.Er.24h) 100 mg PO DAILY [facility]; Protocol Last Admin: 11/02/21 09:14 Dose: 100 mg Documented By: LUPE Metronidazole (Metronidazole 500 Mg Tablet) 500 mg PO Q8H [facility] Last Admin: 11/02/21 15:17 Dose: 500 mg Documented By: LUPE Omeprazole (Omeprazole 20 Mg Capsule.Dr) 20 mg PO DAILY@0630 [facility] Last Admin: 11/02/21 05:54 Dose: 20 mg Documented By: JOSE Ondansetron HCl (Ondansetron Hcl 4 Mg/2 Ml Vial) 4 mg IVPUSH Q8H PRN PRN Reason: Nausea Pharmacy Consult (Consult Rx Etoh Phenob Im/Po) 1 each MISCELLANE ONCE [facility]; Protocol PRN Reason: Consult order Phenobarbital (Phenobarbital 15 Mg Tablet) 15 mg PO DAILY [facility]; Protocol Stop: 11/04/21 09:01 Pravastatin Sodium (Pravastatin Sodium 40 Mg Tablet) 40 mg PO BEDTIME [facility] Last Admin: 11/01/21 20:37 Dose: 40 mg Documented By: JOSE Senna (Sennosides 8.6 Mg Tablet) 17.2 mg PO BEDTIME PRN PRN Reason: Constipation Sodium Chloride (0.9 % Sodium Chloride Flush 3 Ml Syringe) 3 ml IVFLUSH QSHIFT [facility] Last Admin: 11/02/21 15:17 Dose: 3 ml Documented By: LUPE Spironolactone (Spironolactone 25 Mg Tablet) 100 mg PO DAILY [facility]; Protocol Last Admin: 11/02/21 09:14 Dose: 100 mg Documented By: LUPE Tiotropium Melrose (Tiotropium Melrose 18 Mcg Cap.W.Dev) 1 puff INHALE RDAILY [facility] Last Admin: 11/02/21 08:03 Dose: Not Given Documented By: BUTCH Non-Admin Reason: Patient Asleep Labs CBC & Chem 7: 10/30/21 06:00 10/30/21 06:00 Assessment and Plan (1) Abdominal pain: Status: Acute (2) Cholelithiasis without cholecystitis: Status: Acute (3) Alcohol withdrawal: Status: Acute (4) Acute proctitis: Status: Acute (5) Alcohol abuse: Status: Acute Plan 75-year-old male with a past medical history of hypertension, hyperlipidemia, alcoholic liver disease, hypothyroidism, alcohol abuse presented to the hospital today with a chief complaint of abdominal pain.? Noted to have following Abdominal pain: Abdominal pain musculoskeletal since mostly with movement, nontender to palpation,no nausea vomiting, no melena, no hematochezia CTs abdomen/pelvis showed finding suggestive of Proctitis/Cholelithiasis HIDA scan showed nonvisualization of gallbladder up to 2 hours consistent with cystic duct obstruction, patient afebrile, normal WBC , normal LFT and examination, unlikely to have acute cholecystitis Seen by Dr. Edwards he recommend no surgical intervention for for abnormal HIDA Tolerating regular diet On Flagyl and ceftin po day 5/5 DC antibiotic after today, continue Tylenol/hot pack for abdominal pain Alcohol abuse/withdrawal:??Continue phenobarb.? Thiamine folate and multivitamins. Seen by care team outpatient referrals given Hypomagnesemia:? Magnesium improved to 1.8 continue by mouth magnesium History of hypertension/hyperlipidemia: Continue home metoprolol, and statin History of alcoholic liver disease:? Continue Aldactone , not on Lasix History of hypothyroidism: Continue levothyroxine Obesity due to high calorie intake contributing to other medical issues strongly recommend to follow low-calorie diet exercise Generalized weakness likely due to infection, alcohol abuse/wd, and chronic back pain, obesity, deconditioning seen by physical therapy they recommend home with PT Obtain home O2 eval patient does not qualify for home oxygen but noted to have significant weakness therefore will reassess with physical therapy tomorrow for possible rehab GI prophylaxis:? On Prilosec DVT prophylaxis:? Subcu heparin Code status:? Full code Patient need continued inpatient hospitalization for alcohol withdrawal on phenobarb, abdominal pain, generalized weakness and desaturation with activity, need reassessment with physical therapy for safe discharge. Quality Stroke Does the patient have a stroke diagnosis?: No VTE Prior VTE?: No VTE Risk Level:: Medical - moderate - high VTE Device Contraindication: Treatment Not Indicated VTE Drug Contraindication: N/A - Med Ordered
[2021-11-02] MEDS: Pravastatin Sodium 40 MG TABLET PO (20:01)
[2021-11-03] MEDS: hydrOXYzine HCL 10 MG TABLET 20 MG PO (02:35)
[2021-11-03] MEDS: 0.9 % Sodium Chloride Flush 3 ML SYRINGE IVFLUSH (02:40)
[2021-11-03 04:00] VITALS: BP 151/75; PULSE 68; RESP 20; TEMP 37; O2SAT 96
[2021-11-03] MEDS: Loperamide HCl 2 MG CAPSULE 4 MG PO (04:17)
[2021-11-03 05:16] LABS: Anion Gap 13 (12-20); Blood Urea Nitrogen 7 mg/dL (9-16); Calcium 8.7 mg/dL (8.4-10.2); Carbon Dioxide 22 mmol/L (22-29); Chloride 105 mmol/L (96-108); Creatinine Clr Calc Pharmacy 108.7; Estimated Glomerular Filt Rate > 60; Glucose Random 90 mg/dL (60-115); Magnesium 1.4 mg/dL (1.6-2.6); Potassium 5.1 mmol/L (3.3-5.1); Sodium 135 mmol/L (135-145)
[2021-11-03] MEDS: Levothyroxine Sodium 125 MCG TABLET PO (06:04)
[2021-11-03] MEDS: Heparin Sodium,Porcine 5,000 UNIT/ML VIAL 5000 UNIT SUBCUT (06:04)
[2021-11-03] MEDS: metroNIDAZOLE 500 MG TABLET PO ×2 (06:04→12:18)
[2021-11-03] MEDS: Omeprazole 20 MG CAPSULE.DR PO (06:04)
[2021-11-03] MEDS: Magnesium Oxide 400 MG TABLET PO (07:59)
[2021-11-03] MEDS: Metoprolol Succinate ER 100 MG TAB.ER.24H PO (07:59)
[2021-11-03] MEDS: Spironolactone 25 MG TABLET 100 MG PO (07:59)
[2021-11-03] MEDS: PHENobarbitaL 15 MG TABLET PO (07:59)
[2021-11-03 08:00] VITALS: BP 125/62; PULSE 74; RESP 16; TEMP 36.4; O2SAT 97
[2021-11-03 08:11] VITALS: PULSE 81; RESP 18; O2SAT 92
[2021-11-03] MEDS: Magnesium Sulfate/H2O 2 GM/50 ML PIGGYBACK IV (11:12)
[2021-11-03 11:34] VITALS: BP 149/66; PULSE 70; RESP 17; TEMP 36.3; O2SAT 97
[2021-11-03 11:40] LABS: Thyroid Stimulating Hormone 3.11 uIU/mL (0.32-4.0)
--- NOTE | 2021-11-03 14:16 | PM.DS ---
DS: Providers Provider Date of Service: 11/03/21 Date of admission: 10/29/21 06:35 Primary care physician: Claudette Price MD Consults: 10/29/21 16:57 Consult to General Surgery Routine Consulting Provider: Johan Edwards Reason for consultation: acute cholecystitis Has provider been notified: No 10/30/21 15:15 Consult to Care Team Routine Comment: Reason for consultation: alcohol DS: Diagnosis Discharge Diagnosis (1) Abdominal pain: Status: Acute (2) Cholelithiasis without cholecystitis: Status: Acute (3) Alcohol withdrawal: Status: Acute (4) Acute proctitis: Status: Acute (5) Alcohol abuse: Status: Acute DS: Summary Hospital Course Hospital Course: Chief Complaint: Abdominal pain 75-year-old male with a past medical history of hypertension, hyperlipidemia, alcohol abuse, hypothyroidism, alcoholic liver disease, anxiety presented to the hospital today with a chief complaint of abdominal pain.? Patient reports that over the past 1 week he has been having abdominal pain, has been drinking alcohol-in opiate knee on that pain would improve but he had increased pain hence decided to come to the ER for further evaluation.? Reports abdominal pain is diffuse, associated nausea and vomiting.? Denies any blood in the vomitus.? Denies any diarrhea.? Mentions that he drinks about a pt of alcohol every day.? Last drink was prior to coming to the hospital.? Reports history of prior alcohol withdrawals.? Denies any fevers and chills.? Denies any urinary symptoms.? Mentions that he has decreased oral intake over the past few days.? Review of all other systems is negative except mentioned above ER course: Per ER team patient noted are diffuse abdominal tenderness; CT scan showed no evidence of ascites but noted to have proctitis.? Patient was given ceftriaxone.? Patient was also started on phenobarbital. Patient's magnesium was noted to be 0.8-repleted. Admitted for further management Hospital course 75-year-old male with a past medical history of hypertension, hyperlipidemia, alcoholic liver disease, hypothyroidism, alcohol abuse presented to the hospital with a chief complaint of abdominal pain, CT abdomen and pelvis showed findings suggestive of proctitis/Cholelithiasis, HIDA scan showed nonvisualization of gallbladder to 2 hours consistent with cystic duct obstruction since patient was afebrile with normal WBC count and normal LFTs benign abdominal examination it was felt that he does not have acute cholecystitis patient seen by Dr. Edwards he recommend no surgical intervention, patient was treated with IV Flagyl and ceftriaxone, for prostatitis, his abdominal pain improved ,he was noted to have diarrhea that gradually subsided, patient complained of abdominal pain mostly with movement likely had some component of muscular pain, patient has finished 5 day course of antibiotic since he is hemodynamically stable tolerating diet therefore is being discharged home. In regard to Alcohol abuse/withdrawal he was treated with phenobarb protocol thiamine folate and multivitamins and has been given outpatient referrals by care team Hypomagnesemia: Resolved with aggressive magnesium replacement is being discharged home on by mouth magnesium his Prilosec has been replaced by Pepcid. History of hypertension/hyperlipidemia: Continue home metoprolol, and statin BP remains stable History of alcoholic liver disease:? Continue? Aldactone History of hypothyroidism: Continue levothyroxine Obesity due to high calorie intake contributing to other medical issues strongly recommend to follow low-calorie diet exercise Generalized weakness likely due to infection, alcohol abuse/wd, and chronic back pain, obesity, deconditioning seen by physical therapy they recommend home with PT, patient did not qualify for home oxygen Time Spent with Patient Time attestation: Total time spent providing and/or coordinating discharge services: Discharge coordination time: Greater than 30 minutes Quality: Safe Use of Opioids Does Pt have an Active Cancer Diagnosis on the Problem List?: No Quality: Stroke Does the patient have a stroke diagnosis?: No Physical Exam Vital Signs: Vital Signs: Last Vital Signs Temp 97.4 F 11/03/21 11:34 Pulse 70 11/03/21 11:34 Resp 17 11/03/21 11:34 BP 149/66 H 11/03/21 11:34 Pulse Ox 97 11/03/21 11:34 O2 Del Method 11/03/21 11:34 O2 Flow Rate 1 11/02/21 07:43 Oxygen Flow Rate 2 10/28/21 22:02 BMI result Body Mass Index 40.6 Const: Other: General awake alert x3, no acute distress.? Oral mucosa moist Neck supple no JVD. CVS? regular rate rhythm, Respiratory lungs clear to auscultation, no respiratory distress, no wheeze, no rhonchi. Gastrointestinal abdomen soft, obese, no right upper quadrant tenderness, bowel sounds audible, no guarding , no rigidity. Extremities no pitting edema. Neuro non focal Skin no rash Psych appropriate affect DS: Data Data Completed and Pending Labs on day of discharge: Laboratory Results - last 24 hr 11/03/21 04:18 Sodium 135 Potassium 5.1 D Chloride 105 Carbon Dioxide 22 Anion Gap 13 BUN 7 L Creatinine 0.72 Estim Creat Clear Calc 108.7 Estimated GFR > 60 Random Glucose 90 Calcium 8.7 D Magnesium 1.4 L* TSH 3.11 Discharge Plan Discharge Patient Disposition: Home Health Service Discharge Diagnosis: Alcohol abuse/withdrawal Hypo magnesemia Acute proctitis Generalized weakness Obesity Referrals: John SPENCER [Outside] - 1 Week Claudette Price MD [Primary Care Provider] - 1 Week Discharge Medications: New famotidine [Pepcid] 20 mg tablet 20 mg PO DAILY Qty: 30 0RF magnesium oxide 400 mg (241.3 mg magnesium) Tablet 400 mg PO BIDPC Qty: 30 0RF Continued pravastatin 40 mg tablet 1 tab DAILY spironolactone 100 mg tablet 1 tab DAILY metoprolol succinate 100 mg tablet extended release 24 hr 1 tab PO DAILY levothyroxine 125 mcg tablet 1 tab PO DAILY hydroxyzine HCl 10 mg tablet 1 - 2 tab PO BID PRN (Reason: itch) Spiriva with HandiHaler 18 mcg capsule, w/inhalation device 1 cap inhalation DAILY loratadine 10 mg tablet 1 tab PO DAILY Discontinued omeprazole 20 mg capsule,delayed release(DR/EC) 1 cap PO QAM Discharge Orders: Discharge Order (Routine); Ordered 11/03/21 Ordered By: Jovany Fink Diet: Low fat, low cholesterol Activity on Discharge: As tolerated Stand Alone Forms: Patient Portal Discharge page Other Ambulatory Orders: Magnesium (Routine) Timeframe: [id number] Facility: [facility] - Location: Laboratory Ordered By: Jovany Fink Care Plan Goals: Strongly recommend to abstain from alcohol, low magnesium question related to diarrhea, alcohol abuse and use of Prilosec, Diarrhea improving, DC Prilosec and take Pepcid, take magnesium twice daily, stop magnesium if noted to have significant diarrhea, eat well-balanced diet Health Concerns: Take all other medications as before Plan of Treatment: Outpatient follow-up with primary care physician Assessment: As per discharge summary Discharge Date/Time: 11/03/21 17:10
--- NOTE | 2021-11-03 14:17 | P.F2F_ITS ---
Service Date Service Date: 11/03/21 Encounter Date of encounter: 11/03/21 Reasons for Services Signs and symptoms assessed: Generalized weakness, diarrhea, chronic back pain Reason for longterm: medication management and GI/ assessment Reason for physical therapy: home safety and mobility Homebound: Leaving the home is medically contraindicated at this time without the asist of a device and/or another person due th the listed conditions above and below. Reason homebound: weakness related to hospital stay Certification: Based on the above findings, I certify that this patient is confined to the home and needs intermittent longterm care, physical therapy and/or speech therapy, or continues to need occupational therapy. The patient is under my care, and I have initiated the establishment of the plan of care. The patient will be followed by a physician who will periodically review the plan of care.
[2021-11-03 14:49] LABS: Magnesium 1.7 mg/dL (1.6-2.6)
--- NOTE | 2021-11-03 14:49 | MHC.CM.PN ---
Per ROUNDS discussion, Patient will be medically cleared for dc to home today, self care.CM addressed dc IMM with Patient at bedside and original has been given to Patient and a copy has been placed on the chart.
[2021-11-03 15:22] VITALS: BP 138/56; PULSE 77; RESP 14; TEMP 36.9; O2SAT 97
--- NOTE | 2021-11-03 17:24 | PC.NURSE ---
pt discharged, pt has personal ride set up. IV and tele removed. all belongings with patient. d/c paperwork given and signed.
== END 2021-11-03 17:10 | disposition home health service (06) | DRG 445 ==
LOC: HO.ED 10-29 02:45 → HO.EDOVER 10-29 06:50 → HO.IMC 10-30 09:53
PROVIDERS: Nurse Practitioner Family; Admitting Provider Hospitalist; Emergency Provider Emergency Medicine; PCP Pediatrics; Visit Provider Hospitalist
DX: K80.20 Calculus of gallbladder without cholecystitis without obstruction (principal); F10.139 Alcohol abuse with withdrawal, unspecified; Z68.41 Body mass index [BMI] 40.0-44.9, adult; K70.30 Alcoholic cirrhosis of liver without ascites; F17.290 Nicotine dependence, other tobacco product, uncomplicated; I10 Essential (primary) hypertension; E78.5 Hyperlipidemia, unspecified; E83.42 Hypomagnesemia; F41.9 Anxiety disorder, unspecified; E66.9 Obesity, unspecified; D63.8 Anemia in other chronic diseases classified elsewhere; E03.9 Hypothyroidism, unspecified; K62.89 Other specified diseases of anus and rectum; Y90.6 Blood alcohol level of 120-199 mg/100 ml; Z20.822 Contact with and (suspected) exposure to COVID-19; Z71.41 Alcohol abuse counseling and surveillance of alcoholic; Z71.3 Dietary counseling and surveillance; Z71.6 Tobacco abuse counseling; Z79.890 Hormone replacement therapy; Z79.899 Other long term (current) drug therapy
CPT/HCPCS: 0241U; 36415; 71045; 74177; 78226; 80048; 80076; 81003; 82009; 82077; 82140; 83605; 83615; 83690; 83735; 83880; 84100; 84443; 84484; 85025; 85610; 85730; 87040; 93005; 94640; 96365; 96366; 96367; 97162; 99285; A9537; J0696; J1170; J1200; J3475; Q9967

== ENCOUNTER 2021-12-18 11:09 | Outpatient (REF) | payer OTHER, SELFPAY ==
--- NOTE | ~2021-12-18 | US_ITS ---
EXAMINATION: US RETROPERITONEAL LIMITED (RENAL ONLY) CLINICAL INFORMATION: Abdominal pain. COMPARISON: CT abdomen and pelvis 10/29/2021. X-ray KUB and ultrasound abdomen limited 03/30/2019. Ultrasound abdomen complete 03/28/2019. TECHNIQUE: Real-time imaging of the kidneys. FINDINGS: RIGHT KIDNEY: 14.1 x 4.9 x 6.0 cm (SAG x AP x TRV). The kidney is normal in size, contour, and echogenicity. Renal cortical thickness is normal. No renal calculi or hydronephrosis. There is an anechoic cyst lower pole measuring 1.0 x 0.8 x 1.0 cm. There are echogenic calcified vessels. LEFT KIDNEY: 13.8 x 6.1 x 5.1 cm (SAG x AP x TRV). The kidney is normal in size, contour, and echogenicity. Renal cortical thickness is normal. No calculi or focal parenchymal lesions. No hydronephrosis. Cyst visualized on the previous ultrasound is not seen at this time. US/US renal BI IMPRESSION: Anechoic cyst lower pole right kidney. Cysts visualized on the previous ultrasound is not visualized at this time.
== END 2021-12-18 11:10 | disposition home or self-care (01) ==
LOC: HO.HMGCX 11:09
PROVIDERS: Visit Provider General Practice
DX: R10.9 Unspecified abdominal pain (principal)
CPT/HCPCS: 76775

== ENCOUNTER → 2022-04-01 10:35 | Outpatient (REF) | payer OTHER, SELFPAY ==
--- NOTE | ~2022-04-01 | NM_ITS ---
EXAMINATION: NM BONE SCAN OF THE WHOLE BODY CLINICAL INFORMATION: Malignant neoplasm of prostate. COMPARISON: No previous bone scan is available for comparison. A radiograph of the chest dated 10/28/2021 and radiographs of the lumbar spine dated 03/18/2021 are available for comparison. The diagnostic CT scan of the abdomen and pelvis, dated 10/29/2021, is available for comparison. TECHNIQUE: Multiple gamma scintillation camera images of the whole body were performed 3.25 hours following the intravenous administration of 30 mCi Tc-99m MDP. FINDINGS: In the head, no significant abnormalities are present. In the thoracic cage and upper extremities, there is minimally increased activity in the right acromioclavicular joint and mildly increased activity is present in the sternoclavicular joints bilaterally. In the spine, foci of mildly increased activity are present in the left posterior elements of the upper cervical spine and the right posterior elements of the mid cervical spine, probably due to facet arthropathy. In the pelvis, no significant abnormalities are present. In the lower extremities, there is a mild diffuse increase in activity in the patellae and a focus of mildly to moderately increased activity is present in the medial compartment of the left knee. No other definite bony abnormalities are noted. The urinary bladder and faint visualization of both kidneys are noted. NM/NM bone scan whole body IMPRESSION: Mild nonspecific abnormalities are noted as described above and these are all likely arthritic or traumatic in etiology. None of these abnormalities is strongly suspicious for metastatic disease.
== END ==
LOC: HO.NUCMED 10:35
PROVIDERS: PCP Pediatrics; Visit Provider Urology
DX: C61 Malignant neoplasm of prostate (principal)
CPT/HCPCS: 78306; A9503

== ENCOUNTER → 2022-07-20 14:05 | Outpatient (BNV) | payer OTHER, SELFPAY | PROVIDERS: PCP Pediatrics; Visit Provider Internal Medicine Medical Oncology | DX: D72.829 Elevated white blood cell count, unspecified (principal); C61 Malignant neoplasm of prostate; C79.51 Secondary malignant neoplasm of bone | CPT/HCPCS: 99204; 99213; 99214 ==

== ENCOUNTER 2022-11-18 09:50 | Outpatient (AMB) | payer OTHER, SELFPAY ==
--- NOTE | 2022-11-18 09:55 | MHC.OFFVIS ---
Intake Intake Visit Reasons: Carcinoma of Prostate Intake Note: New Patient presents for initial visit carcinoma of prostate Urology Medications: none Blood Thinner: none Entry Driver Operator Required: No Accompanied by: Self / Same As Patient Allergies No Known Allergies Allergy (Mild, Unverified 11/18/22 12:21) N/A Medication List - Last Reconciled 11/18/22 by Yvonne Akins, ENVIRONMENTAL COMPLIANCE INSPECTOR- famotidine 20 mg PO QAM furosemide 80 mg PO QAM levothyroxine 1 tab PO DAILY loratadine 1 tab PO DAILY metoprolol succinate ER 1 tab PO DAILY pravastatin 1 tab DAILY spironolactone 1 tab DAILY tiotropium bromide (Spiriva with HandiHaler) 1 cap inhalation DAILY HPI HPI Comments History of Present Illness Details John is a 76-year-old male patient of Dr. Jacob. He has a past medical history of alcoholic cirrhosis,delirium tremens, and prostate cancer. He presents to the office today as a new patient for his history of prostate cancer. In discussion with the patient today he is extremely upset and discussing he has no issues with his prostate and feels as if no one is helping him. He states his main concern is weakness in his bilateral lower extremities and shortness of breath when trying to perform his ADLs. He otherwise denies any urinary issues or concerns at this time. He discusses previously following up with [facility] and believes he seen Dr. Saavedra. He reports having had a prostate biopsy over 2 years ago however denies having had any treatment for his cancer. He states when I seen Dr. Saavedra last year he said my numbers were not too bad . Discussed obtaining medical records for continuity of care. Medical release form signed by the patient today. When asked he denies urinary urgency, urinary frequency, incontinence, nocturia, hematuria, dysuria, foul smelling urine, changes to urinary stream, flank pain, fever, and or chills. He is happy with her current voiding parameters. BOOGIE offered however declined. Call to PCP office message left in attempt to call patient to further assess and help. Stressed and educated patient to seek medical treatment through emergency room and or urgent care. Patient denies chest pain and reports symptoms of bilateral lower leg weakness and shortness of breath to have been present for many months now. He otherwise denies any issues or concerns. [facility] Medical History Alcoholic cirrhosis Cholelithiasis without cholecystitis Delirium tremens Prostate cancer Surgical History S/P tonsillectomy and adenoidectomy Social History Household Members: None Housing: House Do you presently have visiting nurse or other home services: No Alcohol intake: current Alcohol intake frequency: 3 or more drinks per day Alcohol type: hard liquor Patient Tobacco Use Status: Current someday Tobacco user Tobacco use type: Cigar service: No Current occupational status: retired Review of Systems Const Reports as per HPI Eyes Reports no additional complaints ENT Reports no additional complaints Card Reports no additional complaints Resp Reports no additional complaints GI Reports no additional complaints Reports as per HPI Musc Reports as per HPI Neuro Reports no additional complaints Psych Reports no additional complaints Jeffrey/Lymph Reports no additional complaints Aller/Immun Reports no additional complaints Physical Exam Const General: cooperative, comfortable, no acute distress, well developed, alert and awake Orientation/consciousness: patient oriented x3 Limitations: wheelchair HEENT Head: Yes normal to inspection, Yes normocephalic and Yes atraumatic Ears: hearing grossly normal bilaterally Eyes General: appearance normal, both eyes and all related structures Neck Neck: Yes normal visual inspection and Yes trachea midline Chest Chest palpation & inspection: normal inspection of the chest Resp Effort & Inspection: normal respiratory effort and able to speak in complete sentences Cardio Rate: regular rate GI Inspection: Yes normal to inspection General: Yes no CVA tenderness Back/Spine/Pelvis Back: no CVA tenderness Skin General skin exam: no rashes or lesions noted Neuro General: patient oriented x3 Extrem General: Yes normal to inspection Psych Appearance: grossly normal and well kempt Mental Status: mental status grossly normal Speech and movement: Normal speech and movement present and Clear speech present Affect: normal affect Attitude: cooperative Thought process: Normal thought process present Thought content: Normal thought content present Insight: Fair insight present (Psych) Judgement: Fair judgement present (Psych) Assessment & Plan Assessment & Plan (1) Prostate cancer: Code(s): C61 - Malignant neoplasm of prostate Plan Will attempt to obtain previous urology records for continuity of care; medical release signed will fax over Patient denies any urological issues or concerns at this time. Discussed at length importance of seeking emergency room care and or urgent care if experiencing chest pain, palpitations, lightheadedness, and worsening shortness of breath. Call to PCP office to further discuss plan of care message left no call back as of yet Will obtain PSA for further assessment evaluation. PSA ordered. Patient is happy with current voiding parameters. Follow-up in 1 month with PSA to be completed prior; or sooner with any issues, concerns, and or questions. Orders: Orders PSA,Total (Free>4and<10) Today C61 - Malignant neoplasm of prostate Patient Instructions: The patient had an opportunity to ask questions regarding the treatment plan. All questions were answered. Physical exam, labs, and imaging were discussed and reviewed in detail. As well as risks, benefits, and discussion of treatment choices. No major barriers to understanding were identified. The patient expressed understanding and agreement with the above treatment plan. The patient was made aware they should contact our office by phone for worsening of their current condition, the appearance of new symptoms, or with any questions or concerns. Compliance is encouraged with any medications and follow up testing that is ordered. It is a privilege to be allowed the opportunity to participate in? your urological care.? Again, if you have any questions or concerns If you have any questions or concerns please do not hesitate to contact me. The office is [phone]. This note is constructed using voice recognition software. While every effort has been made to ensure accuracy creative art therapist errors may have been included. Yours sincerely, BORIS Hudson Coding Level of Care Code New Pt Level 3 (69668) Diagnoses Prostate cancer C61
== END 2022-11-18 10:23 | disposition home or self-care (01) ==
LOC: HO.HUSH 09:50
PROVIDERS: PCP Pediatrics; Visit Provider Nurse Practitioner Family
DX: C61 Malignant neoplasm of prostate (principal)
CPT/HCPCS: 99203

== ENCOUNTER → 2022-11-18 09:50 | Outpatient (BNVA) | payer OTHER, SELFPAY | PROVIDERS: PCP Pediatrics; Visit Provider Nurse Practitioner Family | DX: C61 Malignant neoplasm of prostate (principal) | CPT/HCPCS: 99202 ==

== ENCOUNTER 2022-11-18 10:37 | Outpatient (REF) | payer OTHER, SELFPAY ==
[2022-11-18 14:15] LABS: PSA,Total (Free>4and<10) 0.88 ng/mL (0.00-4.00)
== END 2022-11-18 10:38 | disposition home or self-care (01) ==
LOC: HO.10HDL 10:37
PROVIDERS: Visit Provider Nurse Practitioner Family
DX: C61 Malignant neoplasm of prostate (principal); Z12.5 Encounter for screening for malignant neoplasm of prostate; Z79.899 Other long term (current) drug therapy
CPT/HCPCS: 36415; 84153

== ENCOUNTER 2022-12-18 10:25 | Outpatient (AMB) | payer OTHER, SELFPAY ==
--- NOTE | 2022-12-18 10:37 | MHC.OFFVIS ---
Intake Intake Visit Reasons: 1m/labs(set) Intake Note: Patient presents for follow up visit carcinoma of prostate/labs Urology Medications: none Blood Thinner: none Faa Certified Powerplant Mechanic Required: No Accompanied by: Self / Same As Patient Allergies No Known Allergies Allergy (Mild, Unverified 12/18/22 11:33) N/A Medication List - Last Reconciled 12/18/22 by MARITZA HudsonP- famotidine 20 mg PO QAM furosemide 80 mg PO QAM levothyroxine 1 tab PO DAILY loratadine 1 tab PO DAILY metoprolol succinate ER 1 tab PO DAILY pravastatin 1 tab DAILY spironolactone 1 tab DAILY tiotropium bromide (Spiriva with HandiHaler) 1 cap inhalation DAILY HPI HPI Comments History of Present Illness Details John is a 77-year-old male patient of Dr. Jacob. He has a past medical history of alcoholic cirrhosis, delirium tremens, and prostate cancer. He presents to the office today for a follow up. Of note, patient was seen approximately 1 month ago as a new patient for his history of prostate cancer at which time a PSA was ordered for further assessment evaluation. These results reviewed with the patient today. PSAs are as follows... 11/28--4.0 12/02--0.9 In discussion with the patient today he continues to discuss feeling upset and discussing he has no issues with his prostate and feels as if no one is helping him. He states his main concern is weakness in his bilateral lower extremities and shortness of breath when trying to perform his ADLs. He otherwise denies any urinary issues or concerns at this time. He discusses previously following up with [facility] and believes he seen Dr. Saavedra. He reports having had a prostate biopsy over 2 years ago and undergoing radiation therapy for his prostate cancer. He discusses knowing his PSA would be normal because when he saw his previous urologist last year everything was WNL. When asked he denies urinary urgency, urinary frequency, incontinence, nocturia, hematuria, dysuria, foul smelling urine, changes to urinary stream, flank pain, fever, and or chills. He is happy with her current voiding parameters. BOOGIE offered however declined. He otherwise denies any issues or concerns. He discusses heading to the [facility] after his appointment here to schedule a PCP appointment. He also discusses having two daughter and a grandson who is deaf and autistic. 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 [facility] Medical History Cholelithiasis without cholecystitis Prostate cancer Delirium tremens Alcoholic cirrhosis Surgical History S/P tonsillectomy and adenoidectomy Social History Household Members: None Housing: House Do you presently have visiting nurse or other home services: No Alcohol intake: current Alcohol intake frequency: 3 or more drinks per day Alcohol type: hard liquor Patient Tobacco Use Status: Current someday Tobacco user Tobacco use type: Cigar service: No Current occupational status: retired Review of Systems Const Reports as per HPI Eyes Reports no additional complaints ENT Reports no additional complaints Card Reports no additional complaints Resp Reports no additional complaints GI Reports no additional complaints Reports as per HPI Musc Reports as per HPI Neuro Reports no additional complaints Psych Reports no additional complaints Jeffrey/Lymph Reports no additional complaints Aller/Immun Reports no additional complaints Physical Exam Const General: cooperative, comfortable, no acute distress, well developed, alert and awake Orientation/consciousness: patient oriented x3 Limitations: wheelchair HEENT Head: Yes normal to inspection, Yes normocephalic and Yes atraumatic Ears: hearing grossly normal bilaterally Eyes General: appearance normal, both eyes and all related structures Neck Neck: Yes normal visual inspection and Yes trachea midline Chest Chest palpation & inspection: normal inspection of the chest Resp Effort & Inspection: normal respiratory effort and able to speak in complete sentences Cardio Rate: regular rate GI Inspection: Yes normal to inspection General: Yes no CVA tenderness Back/Spine/Pelvis Back: no CVA tenderness Skin General skin exam: no rashes or lesions noted Neuro General: patient oriented x3 Extrem General: Yes normal to inspection Psych Appearance: grossly normal and well kempt Mental Status: mental status grossly normal Speech and movement: Normal speech and movement present and Clear speech present Affect: normal affect Attitude: cooperative Thought process: Normal thought process present Thought content: Normal thought content present Insight: Fair insight present (Psych) Judgement: Fair judgement present (Psych) Assessment & Plan Assessment & Plan (1) Prostate cancer: Code(s): C61 - Malignant neoplasm of prostate Plan Recent PSA results reviewed with the patient today; as noted above Patient denies any bothersome urinary issues or concerns at this time PSA in 6 months. Follow-up with PCP as planned Follow-up in 6 months with lab to be completed prior; or sooner with any issues, concerns, and or questions. Orders: Orders Prostate Specific Antigen 6 Months C61 - Malignant neoplasm of prostate Patient Instructions: The patient had an opportunity to ask questions regarding the treatment plan. All questions were answered. Physical exam, labs, and imaging were discussed and reviewed in detail. As well as risks, benefits, and discussion of treatment choices. No major barriers to understanding were identified. The patient expressed understanding and agreement with the above treatment plan. The patient was made aware they should contact our office by phone for worsening of their current condition, the appearance of new symptoms, or with any questions or concerns. Compliance is encouraged with any medications and follow up testing that is ordered. It is a privilege to be allowed the opportunity to participate in? your urological care.? Again, if you have any questions or concerns If you have any questions or concerns please do not hesitate to contact me. The office is [phone]. This note is constructed using voice recognition software. While every effort has been made to ensure accuracy chair maker errors may have been included. Yours sincerely, BORIS Hudson Coding Level of Care Code Est Pt Level 3 (35333) Diagnoses Prostate cancer C61
== END 2022-12-18 11:16 | disposition home or self-care (01) ==
PROVIDERS: PCP Pediatrics; Visit Provider Nurse Practitioner Family
DX: C61 Malignant neoplasm of prostate (principal)
CPT/HCPCS: 99213

== ENCOUNTER → 2022-12-18 10:25 | Outpatient (BNVA) | payer OTHER, SELFPAY | PROVIDERS: PCP Pediatrics; Visit Provider Nurse Practitioner Family | DX: C61 Malignant neoplasm of prostate (principal) | CPT/HCPCS: 99212 ==

== ENCOUNTER 2023-01-06 | Outpatient (REF) | payer OTHER, SELFPAY ==
[2023-01-06 14:49] LABS: Appearance Urine Clear; Color Urine Yellow; Glucose Urine UA Negative (Negative); Leukocyte Esterase Urine Negative (Negative); Nitrite Urine Negative (Negative); PH 6.5 (5.0-9.0); Urine Blood Negative (Negative); Urine Ketones Negative (Negative); Urine Protein Negative (Neg-Trace)
[2023-01-06 15:06] LABS: Basophils Absolute Auto 0.1 X10*3/uL (0.0-0.2); Basophils Percent Auto 0.7 % (0-2); Eosinophils Absolute Auto 0.5 X10*3/uL (0.0-0.4); Eosinophils Percent Auto 4.5 % (0-4); Hematocrit 32.2 % (42.0-52.0); Hemoglobin 9.7 g/dl (14.0-18.0); Imm Gran Abs Auto 0.19 X10*3/uL (0.00-0.03); Imm Gran Pct Auto 1.8 % (0.0-0.4); Lymphocytes Absolute Auto 1.6 X10*3/uL (1.2-4.9); Lymphocytes Percent Auto 15.2 % (20-40); MANUAL DIFF FLAG SCAN; Mean Corpuscular HGB Conc 30.1 g/dl (31.0-36.0); Mean Corpuscular Hemoglobin 25.9 pg (27.0-33.0); Mean Corpuscular Volume 86.1 fL (80.0-98.0); Mean Platelet Volume 9.7 fL (9.4-12.4); Monocytes Absolute Auto 1.7 X10*3/uL (0.1-1.2); Monocytes Percent Auto 16.1 % (2-11); Neutrophils Absolute Auto 6.5 x10*3/uL (2.0-8.3); Neutrophils Percent Auto 61.7 % (45-73); Platelet Count 320 X10*3/uL (160-400); Red Blood Count 3.74 X10*6/uL (4.60-5.80); Red Cell Distribution Width 19.2 % (11.0-16.0); SCAN SMEAR FLAG 1; White Blood Count 10.6 X10*3/uL (4.8-10.8)
[2023-01-06 15:37] LABS: Anion Gap 19 (12-20); Blood Urea Nitrogen 25 mg/dL (9-16); Calcium 9.8 mg/dL (8.4-10.2); Carbon Dioxide 27 mmol/L (22-29); Chloride 99 mmol/L (96-108); Estimated Glomerular Filt Rate 33; Glucose Random 109 mg/dL (60-115); Potassium 3.3 mmol/L (3.3-5.1); Sodium 142 mmol/L (135-145)
[2023-01-06 15:38] LABS: TSH reflex Free T4 2.21 uIU/mL (0.32-4.0)
[2023-01-06 15:51] LABS: SLIDE REVIEW VERIFIED
== END 2023-01-06 00:01 | disposition home or self-care (01) ==
LOC: HO.CHCLDS
PROVIDERS: Visit Provider Pediatrics
DX: R06.02 Shortness of breath (principal); E03.9 Hypothyroidism, unspecified
CPT/HCPCS: 36415; 80048; 81003; 84443; 85025

== ENCOUNTER 2023-01-07 14:21 | Inpatient (IN) | payer OTHER, SELFPAY ==
--- NOTE | ~2023-01-07 | XR_ITS ---
EXAMINATION: XR CHEST CLINICAL INFORMATION: Reason for Exam CHF/FLuid overload? COMPARISON: Chest radiograph 10/28/2021 TECHNIQUE: One view of the chest FINDINGS: Lines and tubes: None. Increased interstitial and perihilar opacities which may reflect pulmonary edema or atypical/viral infection. Streaky left basilar opacities favoring atelectasis. No pleural effusion. No pneumothorax. Unchanged cardiomediastinal silhouette. XR/XR chest 1V IMPRESSION: 1. Increased interstitial and perihilar opacities which may reflect pulmonary edema or atypical/viral infection. 2. Streaky left basilar opacities favoring atelectasis. 3. Unchanged cardiomediastinal silhouette.
[2023-01-07 15:34] VITALS: BP 112/43; PULSE 76; RESP 18; TEMP 36.8; O2SAT 98; BMI 42.9
--- NOTE | 2023-01-07 15:36 | ECG_ITS ---
Test Reason : SOB ON EXTERTION Blood Pressure : / mmHG Vent. Rate : 075 BPM Atrial Rate : 075 BPM P-R Int : 218 ms QRS Dur : 134 ms QT Int : 424 ms P-R-T Axes : 060 012 051 degrees QTc Int : 473 ms Sinus rhythm with 1st degree A-V block Right bundle branch block Abnormal ECG When compared with ECG of 28-OCT-2021 22:57, No significant change was found Referred By: Bakari Jurado Electronically Signed By:DEWAYNE BACK
--- NOTE | 2023-01-07 15:38 | ED.GENADULT ---
HPI - General Adult General Chief complaint: Dyspnea Stated complaint: sent by primary Time Seen by Provider: 01/07/23 19:16 Source: patient Limitations: no limitations History of Present Illness HPI narrative: 77-year-old male with history of chronic hypertension presents with dyspnea on exertion. Symptoms started about 3 months ago. Has been progressively getting worse. He reports shortness of breath with just a few steps. He has also noted some increased lower extremity edema. He was taken off his water pills sometime ago. He denies any orthopnea, PND. He denies any cough, fevers or chills. He denies any chest pain. He does ascribed to palpitations associated with ambulation patient describes symptoms as severe. They are relieved by rest. Patient typically does not ambulate with a walker or a cane. Patient does smoke cigars but denies cigarette smoking. Related Data Home Medications Medication Instructions Recorded Confirmed levothyroxine 125 mcg tablet 1 tab PO BEDTIME 10/29/21 01/07/23 loratadine 10 mg tablet 1 tab PO BEDTIME 10/29/21 01/07/23 metoprolol succinate 100 mg 1 tab PO BEDTIME 10/29/21 01/07/23 tablet,extended release 24 hr pravastatin 40 mg tablet 1 tab PO BEDTIME 10/29/21 01/07/23 spironolactone 100 mg tablet 1 tab PO BEDTIME 10/29/21 01/07/23 tiotropium bromide 18 mcg capsule 1 cap inhalation DAILY 10/29/21 01/07/23 with inhalation device (Spiriva with HandiHaler) famotidine 20 mg tablet 20 mg PO BEDTIME 11/18/22 01/07/23 furosemide 80 mg tablet 80 mg PO BEDTIME 11/18/22 01/07/23 garlic 300 mg capsule 300 mg PO BEDTIME 01/07/23 01/07/23 hydroxyzine HCl 10 mg tablet 10 mg PO Q8H PRN itch 01/07/23 01/07/23 ibuprofen 800 mg tablet 800 mg PO TID PRN Pain 01/07/23 01/07/23 [id number]-wy-[id number] 300 mcg-K 60 1 tab PO BEDTIME 01/07/23 01/07/23 mcg-lycop 600 mcg-lutein 300 mcg tablet (Centrum Silver Men) omega 5-bai-pqq-fish oil 1,000 mg 1 cap PO BEDTIME 01/07/23 01/07/23 (120 mg-180 mg) capsule (Fish Oil) oxycodone-acetaminophen 5 mg-325 1 tab PO Q8H PRN severe pain 01/07/23 01/07/23 mg tablet Previous Rx's Medication Instructions Recorded magnesium oxide 800 mg (2 x 400 mg magnesium) PO 01/09/23 DAILY #60 tabs Allergies Allergy/AdvReac Type Severity Reaction Status Date / Time No Known Allergies Allergy Mild N/A Verified 01/07/23 15:34 Review of Systems Review of Systems: CONSTITUTIONAL: Denies weight loss, fever and chills. HEENT: Denies changes in vision and hearing. RESPIRATORY: + SOB and cough. CV: + palpitations no CP. GI: Denies abdominal pain, nausea, vomiting and diarrhea. : Denies dysuria and urinary frequency. MSK: Denies myalgia and joint pain. SKIN: Denies rash and pruritus. NEUROLOGICAL: Denies headache and syncope. PSYCHIATRIC: Denies recent changes in mood. Denies anxiety and depression. All other ROS are negative unless in HPI [facility] Past Medical History Medical History Cholelithiasis without cholecystitis Prostate cancer Delirium tremens Alcoholic cirrhosis Surgical History S/P tonsillectomy and adenoidectomy Social History Social History Household Members: None Housing: House Do you presently have visiting nurse or other home services: No Alcohol intake: never Patient Tobacco Use Status: Current someday Tobacco user Tobacco use type: Cigar Advance Directives Date on File: 10/29/21 service: No Current occupational status: retired Physical Exam ED Vital Signs: Vital Signs - 24 hr 01/07/23 15:34 01/07/23 19:38 Temperature 98.3 F Pulse Rate 76 Respiratory Rate 18 Blood Pressure 112/43 L Pulse Oximetry 98 97 Oxygen Delivery Method Room Air BMI result Body Mass Index 42.9 GEN: Well developed, no acute distress, alert, oriented HEENT: Normocephalic, atraumatic, normal external ears, nose appears normal, no oropharyngeal edema or exudates Eyes: Normal to appearance Neck: Supple, no lymphadenopathy Respiratory: Conversational dyspnea, no respiratory distress, clear to auscultation bilaterally Cardiovascular: Regular rate and rhythm, no murmurs rubs or gallops Abdomen: Soft, nontender, nondistended, no guarding, no rebound Back: No CVA tenderness Extremities: No clubbing cyanosis 2+ chronic lower extremity by pedal edema Neurologic: No focal neurologic deficits, cranial nerves 2-12 intact, strength is 5/5 bilaterally Skin: No rash Course Course Course Narrative: RME: 77 yold male presents to the ED for SOB on exertion. Sent by PCP. has bilateral 2 plus pitting edema. Labs and eKG, and chest xray ordered. Reevaluation(s) Reevaluation #1: Workup is complete. His story is most consistent with acute CHF/chronic CHF however, laboratory analysis pro BNP does not confirm this. Chest x-ray is consistent with mild CHF. Will treat with Lasix. Is ambulating oxygen saturation was 98% but he was very dyspneic upon return. I contacted the hospitalist who agreed to hospitalization. Time: 19:45 Medications Administered Discontinued Medications Generic Name Dose Route Start Last Admin Trade Name Kikeq PRN Reason Stop Dose Admin Acetaminophen 650 mg 01/07/23 22:13 01/08/23 08:38 Acetaminophen 325 Mg Tablet PO 650 mg Q6H PRN Administration Pain, Mild (Pain Scale 1-3) Enoxaparin Sodium 40 mg 01/07/23 23:00 01/09/23 00:36 Enoxaparin Sodium 40 Mg/0.4 Ml Syringe SUBCUT 40 mg Q24H JASWATN Administration Famotidine 20 mg 01/07/23 22:30 01/08/23 19:52 Famotidine 20 Mg Tablet PO 20 mg BEDTIME JASWANT Administration Furosemide 40 mg 01/07/23 19:41 01/07/23 20:24 Furosemide 40 Mg/4 Ml Vial IVPUSH 01/07/23 19:42 40 mg ONCE ONE Administration Protocol Furosemide 40 mg 01/08/23 09:00 01/09/23 09:42 Furosemide 40 Mg/4 Ml Vial IVPUSH 40 mg BID@0900,1800 JASWANT Administration Protocol Hydroxyzine HCl 10 mg 01/07/23 22:23 01/09/23 04:59 Hydroxyzine Hcl 10 Mg Tablet PO 10 mg Q8H PRN Administration Itching Magnesium Sulfate 2 gm in 50 mls @ 25 mls/hr 01/08/23 10:00 01/08/23 16:58 Magnesium Sulfate/H2o IV 01/08/23 13:59 Infused Q2H [facility] Infusion Ibuprofen 800 mg 01/07/23 22:25 01/09/23 04:59 Ibuprofen 800 Mg Tablet PO 800 mg TID PRN Administration Pain, Mild (Pain Scale 1-3) Levothyroxine Sodium 125 mcg 01/07/23 22:30 01/08/23 19:52 Levothyroxine Sodium 125 Mcg Tablet PO 125 mcg BEDTIME [facility] Administration Loratadine 10 mg 01/07/23 22:30 01/08/23 19:52 Loratadine 10 Mg Tablet PO 10 mg BEDTIME [facility] Administration Metoprolol Succinate 100 mg 01/07/23 22:30 01/08/23 19:51 Metoprolol Succinate Er 100 Mg Tab.Er.24h PO 100 mg BEDTIME [facility] Administration Protocol Multivitamins/Vitamin C 1 tab 01/07/23 22:30 01/08/23 19:51 Multivitamin Tablet PO 1 tab BEDTIME [facility] Administration Oxycodone HCl 5 mg 01/07/23 22:46 01/09/23 04:59 Oxycodone Hcl Immed Release 5 Mg Tablet PO 5 mg Q8H PRN Administration Pain, Severe (Pain Scale 7-10) Pravastatin Sodium 40 mg 01/07/23 22:30 01/08/23 19:52 Pravastatin Sodium 40 Mg Tablet PO 40 mg BEDTIME [facility] Administration Sodium Chloride 3 ml 01/08/23 00:00 01/09/23 09:42 0.9 % Sodium Chloride Flush 3 Ml Syringe IVFLUSH 3 ml QSHIFT [facility] Administration Spironolactone 100 mg 01/07/23 22:30 01/08/23 19:51 Spironolactone 25 Mg Tablet PO 100 mg BEDTIME [facility] Administration Protocol Tiotropium [place] 2 puff 01/08/23 08:00 01/09/23 09:00 Tiotropium [place] 2.5 Mcg Inhaler INHALE Not Given RDAILY [facility] Medical Decision Making Medical Decision Making [facility] Narrative: 77-year-old male with history of hypertension presents with shortness of breath with exertion and lower extremity edema increasing over the past 3 months. He also has palpitations but denies any chest pain. His pulmonary exam is unremarkable. Patient's differential diagnosis includes CHF, pleural effusion, pulmonary edema, electrolyte abnormality, anemia, CKD, acute kidney injury on top of CKD. Plan will be to check EKG, laboratory analysis, chest x-ray. There is a good probability that patient may require hospitalization. Differential Diagnosis Differential Diagnoses: The differential diagnosis associated with the presentation includes (See above) Admission/Observation Consideration of admission/observation: Escalation of care including admission/observation considered Lab Data MDM Lab Attestation statement: I reviewed the patient's lab results. 01/09/23 05:38 01/09/23 05:38 Labs: Lab Results 01/07/23 01/07/23 01/07/23 Range/Units 15:59 15:59 19:23 WBC 9.4 (4.8-10.8) X10*3/uL RBC 3.60 L (4.60-5.80) X10*6/uL Hgb 9.5 L (14.0-18.0) g/dl Hct 31.0 L (42.0-52.0) % MCV 86.1 (80.0-98.0) fL MCH 26.4 L (27.0-33.0) pg MCHC 30.6 L (31.0-36.0) g/dl RDW 19.3 H (11.0-16.0) % Plt Count 321 (160-400) X10*3/uL MPV 9.6 (9.4-12.4) fL Immature Gran % (Auto) 2.2 H (0.0-0.4) % Neut % (Auto) 60.8 (45-73) % Lymph % (Auto) 16.3 L (20-40) % Eagle % (Auto) 14.3 H (2-11) % Eos % (Auto) 5.5 H (0-4) % Baso % (Auto) 0.9 (0-2) % Lymph # (Auto) 1.5 (1.2-4.9) X10*3/uL Eagle # (Auto) 1.3 H (0.1-1.2) X10*3/uL Eos # (Auto) 0.5 H (0.0-0.4) X10*3/uL Baso # (Auto) 0.1 (0.0-0.2) X10*3/uL Abs Immat Gran (auto) 0.21 H (0.00-0.03) X10*3/uL Absolute Neuts (auto) 5.7 (2.0-8.3) x10*3/uL Absolute Nucleated RBC 0.000 (0.0-0.012) X10*3/uL Nucleated RBC % (auto) 0.0 (0.0-0.2) /100WBC PT 11.9 (11.1-13.3) SEC INR 1.0 (0.9-1.1) APTT 32.8 (26.0-36.4) SEC D-Dimer High Sensitivty < 150 Cancelled NG/ML Sodium 142 (135-145) mmol/L Potassium 3.7 (3.3-5.1) mmol/L Chloride 103 (96-108) mmol/L Carbon Dioxide 22 (22-29) mmol/L Anion Gap 21 H (12-20) BUN 27 H (9-16) mg/dL Creatinine 1.96 H (0.5-1.4) mg/dL Estim Creat Clear Calc 38.6 Estimated GFR 33 Random Glucose 97 (60-115) mg/dL Calcium 9.3 (8.4-10.2) mg/dL Total Bilirubin 0.2 (0.0-1.0) mg/dL AST 36 (5-37) U/L ALT 19 (0-40) U/L Alkaline Phosphatase 80 (39-117) U/L Troponin I High Sens 9.2 (<3.5-35.0) ng/L B-Natriuretic Peptide 63 (<100) pg/mL Total Protein 7.1 (6.5-8.0) g/dL Albumin 3.5 (3.5-5.0) g/dL Influenza Type A (PCR) NEGATIVE (Negative) Influenza Type B (PCR) NEGATIVE (Negative) RSV RNA Qual (PCR) NEGATIVE (Negative) SARS-CoV-2 RNA (RT-PCR) NEGATIVE (Negative) Independent Interpretation I performed an independent interpretation of an: EKG (Normal sinus rhythm heart rate 75, right bundle-branch block, no acute ST elevations depressions, first-degree AV block. First degree AV block appears new since 2021) and Plain X-Ray (Chest: Possible right lower lobe infiltrate) Radiology Impression Discussion of test interpretation with radiology: I have reviewed the radiologist's reading. Radiologist Impression: 1. Increased interstitial markings and perihilar opacifications which may reflect pulmonary edema or atypical viral infection. Two. Streaky left basilar opacities favoring atelectasis. Three. Unchanged cardiomediastinal silhouette External Record Review External record reviewed: Inpatient record Tests considered The following testing was considered but not selected: ProBNP Prescription Management I considered prescription management with: Antibiotic and Other (Furosemide) Chronic Conditions Patient?s care impacted by: Hypertension Discharge Plan Discharge Clinical Impression: BARONE (dyspnea on exertion), HTN (hypertension), benign, CKD (chronic kidney disease), Chronic anemia Patient Disposition: Admitted As Inpatient Interventions: Admission Worksheet (ED) Last Done: 01/08/23 07:55 Discharge Date/Time: 01/08/23 07:56
[2023-01-07 16:06] LABS: MANUAL DIFF FLAG NO
[2023-01-07 16:07] LABS: Basophils Absolute Auto 0.1 X10*3/uL (0.0-0.2); Basophils Percent Auto 0.9 % (0-2); Eosinophils Absolute Auto 0.5 X10*3/uL (0.0-0.4); Eosinophils Percent Auto 5.5 % (0-4); Hemoglobin 9.5 g/dl (14.0-18.0); Imm Gran Abs Auto 0.21 X10*3/uL (0.00-0.03); Imm Gran Pct Auto 2.2 % (0.0-0.4); Lymphocytes Absolute Auto 1.5 X10*3/uL (1.2-4.9); Lymphocytes Percent Auto 16.3 % (20-40); Mean Corpuscular HGB Conc 30.6 g/dl (31.0-36.0); Mean Corpuscular Hemoglobin 26.4 pg (27.0-33.0); Mean Corpuscular Volume 86.1 fL (80.0-98.0); Mean Platelet Volume 9.6 fL (9.4-12.4); Monocytes Absolute Auto 1.3 X10*3/uL (0.1-1.2); Monocytes Percent Auto 14.3 % (2-11); Neutrophils Absolute Auto 5.7 x10*3/uL (2.0-8.3); Neutrophils Percent Auto 60.8 % (45-73); Platelet Count 321 X10*3/uL (160-400); Red Cell Distribution Width 19.3 % (11.0-16.0); White Blood Count 9.4 X10*3/uL (4.8-10.8)
[2023-01-07 16:21] LABS: Prothrombin Time 11.9 SEC (11.1-13.3)
[2023-01-07 16:24] LABS: Partial Thromboplastin Time 32.8 SEC (26.0-36.4)
[2023-01-07 16:28] LABS: Alanine Aminotransferase 19 U/L (0-40); Albumin Level 3.5 g/dL (3.5-5.0); Alkaline Phosphatase 80 U/L (39-117); Anion Gap 21 (12-20); Aspartate Amino Transferase 36 U/L (5-37); Bilirubin Total 0.2 mg/dL (0.0-1.0); Blood Urea Nitrogen 27 mg/dL (9-16); Calcium 9.3 mg/dL (8.4-10.2); Carbon Dioxide 22 mmol/L (22-29); Chloride 103 mmol/L (96-108); Creatinine Clr Calc Pharmacy 38.6; Estimated Glomerular Filt Rate 33; Glucose Random 97 mg/dL (60-115); Potassium 3.7 mmol/L (3.3-5.1); Sodium 142 mmol/L (135-145); Total Protein 7.1 g/dL (6.5-8.0)
[2023-01-07 16:29] LABS: Troponin-I High Sensitivity 9.2 ng/L (<3.5-35.0)
[2023-01-07 17:40] LABS: B Type Natriuretic Peptide 63 pg/mL (<100)
[2023-01-07 19:38] VITALS: O2SAT 97
--- NOTE | 2023-01-07 19:40 | PC.NURSE ---
pt ambulated with pulse off, tolorated ambualtion well with 02 maintaining at 97 . Upon returning, pt beame weak and dynspea feel weak and my legs hurt
[2023-01-07 20:04] LABS: Influenza A PCR NEGATIVE (Negative); Influenza B PCR NEGATIVE (Negative); Resp Syncy Virus RNA Qual PCR NEGATIVE (Negative); SARS COV2 PCR INHOUSE NEGATIVE (Negative)
[2023-01-07 20:17] VITALS: BP 123/59; PULSE 78; RESP 19; TEMP 36.8; O2SAT 98
[2023-01-07] MEDS: Furosemide 40 MG/4 ML VIAL IVPUSH (20:24)
--- NOTE | 2023-01-07 20:46 | PHA.MEDREC ---
Pharmacy Consult ? Medication Reconciliation Pharmacy has completed the medication reconciliation. PT WAS NOT ABLE TO NAME HOME MEDICATIONS BUT WHEN I LISTED THEM HE WAS ABLE TO CONFIRM THEM AND TELL ME HE WAS TAKING THEM. HE CONFIRMED THAT HE TAKES ALL OF HIS MEDICATIONS AT BEDTIME AND WHEN I QUESTIONED HIM ON THE FUROSEMIDE BEING TAKEN AT BEDTIME AND THE POSSIBILITY THAT IT WOULD KEEP HIM FROM SLEEPING BECAUSE OF THE NEED TO URINATE, HE STATED THAT NOTHING STOPS HIM FROM SLEEPING. HE ALSO STATED THAT HE NEEDS TO TAKE HYDROXYZINE WITH HIS PERCOCET BECAUSE THE PERCOCET CAUSES ITCHING AND THE HYDROXYZINE HELPS WITH THAT FOR HIM. HE DID STATE HIS SPIRIVA IS THE EXCEPTION TO THE BEDTIME DOSING AND HE DOES USE THAT IN THE MORNING.
[2023-01-07 21:15] VITALS: BP 141/68; PULSE 82; RESP 21; O2SAT 97
--- NOTE | 2023-01-07 21:28 | P.HPHOSP_ITS ---
History of Present Illness Date of Service: 01/07/23 Attending physician on admission: Joi Owens Chief Complaint: SOB, BARONE Pt is a 77-year-old male with a PMH significant for?HTN, prostate cancer, alcoholic cirrhosis, delirium tremens, HLD, and hypothyroidism who presents to the ED for evaluation of increasing shortness of breath and dyspnea on exertion. Patient states symptoms began approximately 6 months ago when he experienced increasing shortness of breath that has progressively worsened, especially the last few weeks. Patient states he has ?discomfort? with breathing, and also feels like his heart pounds when he walks. Patient reports currently can only walk approximately 50 ft before he has to stop and rest. Patient complained of symptoms to his PCP today who told him to get evaluated at the ED. Patient also notes increased lower leg edema. Has had chronic lower leg edema for which he takes Lasix for years, denies a history of CHF. Denies orthopnea, PND. No chest pain, pressure. Denies nausea, vomiting, diarrhea, abdominal pain. In the ED patient was afebrile but tachypneic up to 21, hypertensive up to 141/68, and satting at 98% on RA. Labs were significant for microcytic anemia of 9.5/31.0, BUN 27, creatinine 1.96. BNP 63. Electrolytes WNL. Hepatic function baseline. Troponin 9.2. CXR showed increased interstitial and perihilar opacities which may reflect pulmonary edema or atypical/viral infection, and streaky left basilar opacities favoring atelectasis. EKG demonstrated sinus rhythm with 1st degree AV block and nonspecific T-wave inversions in V1, V2, and V3. Pt was treated with furosemide 40 mg IV. Pt will be admitted to the hospital on telemetry for further evaluation and treatment of likely CHF. Review of Systems 2 Review of Systems: Shortness of breath, BARONE Palpitations with exertion Fatigue Dry cough Lower leg edema chronic back and leg pain Denies chest pain/pressure No nausea, vomiting, diarrhea, abdominal pain Denies orthopnea, PND [facility] Medical History Cholelithiasis without cholecystitis Prostate cancer Delirium tremens Alcoholic cirrhosis Surgical History S/P tonsillectomy and adenoidectomy Social History Household Members: None Housing: House Do you presently have visiting nurse or other home services: No Alcohol intake: never Patient Tobacco Use Status: Current someday Tobacco user Tobacco use type: Cigar Smoked in Last 30 Days: Yes Use of substances other than those prescribed or required for medical reasons: No Advance Directives: Yes Advance Directives on File: Yes Advance Directives Date on File: 10/29/21 service: No Current occupational status: retired [employer] Allergies Allergy/AdvReac Type Severity Reaction Status Date / Time No Known Allergies Allergy Mild N/A Verified 01/07/23 15:34 Home Medications Medication Instructions Recorded Confirmed Last Taken Type levothyroxine 125 mcg tablet 1 tab PO BEDTIME 10/29/21 01/07/23 01/06/23 History loratadine 10 mg tablet 1 tab PO BEDTIME 10/29/21 01/07/23 01/06/23 History metoprolol succinate 100 mg 1 tab PO BEDTIME 10/29/21 01/07/23 01/06/23 History tablet,extended release 24 hr pravastatin 40 mg tablet 1 tab PO BEDTIME 10/29/21 01/07/23 01/06/23 History spironolactone 100 mg tablet 1 tab PO BEDTIME 10/29/21 01/07/23 01/06/23 History tiotropium bromide 18 mcg capsule 1 cap inhalation DAILY 10/29/21 01/07/23 01/06/23 History with inhalation device (Spiriva with HandiHaler) famotidine 20 mg tablet 20 mg PO BEDTIME 11/18/22 01/07/23 01/06/23 History furosemide 80 mg tablet 80 mg PO BEDTIME 11/18/22 01/07/23 01/06/23 History garlic 300 mg capsule 300 mg PO BEDTIME 01/07/23 01/07/23 01/06/23 History hydroxyzine HCl 10 mg tablet 10 mg PO Q8H PRN itch 01/07/23 01/07/23 01/06/23 History ibuprofen 800 mg tablet 800 mg PO TID PRN Pain 01/07/23 01/07/23 01/06/23 History fjwjbcbx-pe-gdtpt 300 mcg-K 60 1 tab PO BEDTIME 09/01/07/23 01/06/23 History mcg-lycop 600 mcg-lutein 300 mcg tablet (Benji Marr) omega 4-ggn-uff-fish oil 1,000 mg 1 cap PO BEDTIME 01/07/23 01/07/23 01/06/23 History (120 mg-180 mg) capsule (Fish Oil) oxycodone-acetaminophen 5 mg-325 1 tab PO Q8H PRN severe pain 01/07/23 01/07/23 01/06/23 History mg tablet Physical Exam 2 Vital Signs and Narrative: Vital Signs: Last Vital Signs Temp 98.2 F 01/07/23 20:17 Pulse 82 01/07/23 21:15 Resp 21 H 01/07/23 21:15 BP 141/68 H 01/07/23 21:15 Pulse Ox 97 01/07/23 21:15 O2 Del Method Room Air 01/07/23 21:15 BMI result Body Mass Index 42.9 Constitutional: Alert, uncomfortable looking, in no acute distress. Mental Status: Oriented to person, place and time. Eyes: Pupils are equal, round, and reactive to light. Ear, Nose, and Throat: Oropharynx clear, mucous membranes moist. Ears and nose without deformities. Trachea midline. Respiratory: Clear to auscultation bilaterally. No wheezing, rales, or rhonchi. Cardiovascular: S1, S2 regular. 3/6 murmur radiating to left carotid. Gastrointestinal: Abdomen soft, non-tender, non-distended, obese. Normal bowel sounds. Neurologic: Cranial nerves II-XII are grossly intact bilaterally. No focal neurological deficits. Moves all extremities spontaneously. Skin: Warm, dry. Musculoskeletal: No cyanosis or clubbing. Extremities: Trace to 1+ bilateral pitting edema. Psychiatric: Normal mood and affect. Results Labs 01/07/23 15:59 01/07/23 15:59 Labs: Laboratory Results - last 24 hr 01/07/23 01/07/23 15:59 19:23 MCV 86.1 MCH 26.4 L MCHC 30.6 L RDW 19.3 H Plt Count 321 MPV 9.6 Immature Gran % (Auto) 2.2 H Neut % (Auto) 60.8 Lymph % (Auto) 16.3 L [place] % (Auto) 14.3 H Eos % (Auto) 5.5 H Baso % (Auto) 0.9 Lymph # (Auto) 1.5 [place] # (Auto) 1.3 H Eos # (Auto) 0.5 H Baso # (Auto) 0.1 Abs Immat Gran (auto) 0.21 H Absolute Neuts (auto) 5.7 Absolute Nucleated RBC 0.000 Nucleated RBC % (auto) 0.0 PT 11.9 INR 1.0 APTT 32.8 Anion Gap 21 H Estim Creat Clear Calc 38.6 Estimated GFR 33 Random Glucose 97 Calcium 9.3 Total Bilirubin 0.2 AST 36 ALT 19 Alkaline Phosphatase 80 B-Natriuretic Peptide 63 Total Protein 7.1 Albumin 3.5 Influenza Type A (PCR) NEGATIVE Influenza Type B (PCR) NEGATIVE RSV RNA Qual (PCR) NEGATIVE SARS-CoV-2 RNA (RT-PCR) NEGATIVE Imaging Radiologist's Impressions: Impressions Chest X-Ray 01/07/23 16:10 IMPRESSION: 1. Increased interstitial and perihilar opacities which may reflect pulmonary edema or atypical/viral infection. 2. Streaky left basilar opacities favoring atelectasis. 3. Unchanged cardiomediastinal silhouette. Assessment and Plan (1) BARONE (dyspnea on exertion): Status: Acute Plan Pt is a 77-year-old male with a PMH significant for?HTN, prostate cancer, alcoholic cirrhosis, delirium tremens, HLD, and hypothyroidism who presents to the ED for evaluation of increasing shortness of breath and dyspnea on exertion. Pt was treated with furosemide 40 mg IV. Pt will be admitted to the hospital on telemetry for further evaluation and treatment of likely CHF. Shortness of breath, dyspnea on exertion Etiology unclear: Question of CHF Increasing SOB, BARONE, bilateral pitting edema, CXR with evidence of pulmonary edema versus atypical/viral infection Furosemide 40 mg IV b.i.d. Continue spironolactone Follow lytes, MG, I/O Daily weights, low-salt diet Echocardiogram Will get D-Dimer Consider cardiology consult depending on echo results PT evaluation Monitor on telemetry Normocytic anemia Likely of chronic disease Stable, at baseline Follow CBC Elevated creatinine Creatinine 1.96 at time of admission, seemingly in line with recent readings since July of this year Patient with likely CKD stage 3 Follow BMP HTN Continue home meds HLD Continue statin Chronic back pain Continue home Percocet Hypothyroidism Continue levothyroxine GERD Continue famotidine Obesity class 3 Encourage weight loss Full Code Attending:?Dr. Owens DVT Prophylaxis: Lovenox Pt will require a hospitalization of at least two nights for treatment of?likely CHF exacerbation with IV diuretics, close monitoring, and specialist consultation. Time Spent With Patient Time: Total time managing care of this patient today ____ minutes. Quality Stroke Does the patient have a stroke diagnosis?: No VTE Prior VTE?: No VTE Risk Level:: Medical - moderate - high VTE Device Contraindication: Treatment Not Indicated VTE Drug Contraindication: N/A - Med Ordered
--- NOTE | 2023-01-07 21:47 | PC.NURSE ---
Pt admits to occasional drinking. Per pt he reports his last drink was last night and he usually has 2 nips of mariano. Pt denies ever withdrawing from alcholol.
[2023-01-07 22:58] LABS: D Dimer High Sensitivity < 150 NG/ML
[2023-01-07] MEDS: hydrOXYzine HCL 10 MG TABLET PO (23:25)
[2023-01-07] MEDS: oxyCODONE HCl Immed Release 5 MG TABLET PO (23:25)
[2023-01-07] MEDS: Famotidine 20 MG TABLET PO (23:26)
[2023-01-07] MEDS: Metoprolol Succinate ER 100 MG TAB.ER.24H PO (23:26)
[2023-01-07] MEDS: Levothyroxine Sodium 125 MCG TABLET PO (23:26)
[2023-01-07] MEDS: Spironolactone 25 MG TABLET 100 MG PO (23:29)
[2023-01-07] MEDS: Multivitamin TABLET 1 TAB PO (23:29)
[2023-01-07] MEDS: Pravastatin Sodium 40 MG TABLET PO (23:29)
[2023-01-07] MEDS: Enoxaparin Sodium 40 MG/0.4 ML SYRINGE SUBCUT (23:29)
[2023-01-07] MEDS: Loratadine 10 MG TABLET PO (23:29)
[2023-01-08] VITALS (7 sets, daily range): BP systolic 120–145; BP diastolic 58–70; PULSE 67–85; RESP 13–19; TEMP 36.2–37; O2SAT 96–100; BMI 42.3
[2023-01-08] MEDS: 0.9 % Sodium Chloride Flush 3 ML SYRINGE IVFLUSH ×4 (00:29→19:52)
[2023-01-08] MEDS: Ibuprofen 800 MG TABLET PO ×2 (05:12→19:51)
--- NOTE | 2023-01-08 07:00 | CA_ITS ---
Transthoracic Echocardiogram Patient (Last, First, Middle): John Ramos D Gender: Male Date of : 1945 Age: 77 Procedure Date: 01/08/2023 Procedure Type: Transthoracic [place] [facility] [place]: 167.64 cm Weight: 120.2 kg BSA: 2.25 m2 Heart Rate: bpm BP: 145 / 70 mmHg Mass Spectroscopist: JACQUES Referring MD: Martín LILLY Weblog[employer] Administrator: Terrence Rodriguez MD Symptoms: SOB, ?CHF Study Quality: Fair but adequate with Definity ECG Rhythm: Sinus Conclusions: - 1. Technically limited study despite use of contrast agent 2. Normal LV ejection fraction of 60-65% with mild LVH with impaired relaxation filling pattern 3. Limited visualization cardiac valves with normal cardiac valvular Doppler Findings Procedure Information Contrast agent, definity, is being given per protocol without apparent complications. Left Ventricle Normal left ventricular size and systolic function. There is mildly increased left ventricular wall thickness. The visually estimated ejection fraction is between 60-65%. Spectral Doppler is indicative of an impaired relaxation filling pattern. E/E prime ratio is between 8 and 15 consistent with indeterminate filling pressures. Right Ventricle The right ventricle was not well visualized. Atria The left atrium is mildly dilated. Interatrial shunt cannot be excluded. The right atrium was not well visualized. Aortic Valve The aortic valve was not well visualized. There is no aortic valve stenosis. There is no aortic valve regurgitation. Mitral Valve The mitral valve was not well visualized. There is no mitral valve regurgitation. There is no mitral valve stenosis. Pulmonic Valve The pulmonic valve was not well visualized. Tricuspid Valve The tricuspid valve was not well visualized. The right ventricular systolic pressure is not calculated. Great Vessels The aorta was not well visualized. The pulmonary artery was not well visualized. Venous The inferior vena cava was not well visualized. Pericardium/Pleural The pericardium was not well visualized. Measurements 2D Linear Measurements IVSd: 1.29 0.6-0.9/0.6-1.0 cm LVIDd: 4.16 3.9-5.3/4.2-5.9 cm LVIDd Index: 1.85 2.4-3.2/2.2-3.1 cm/m2 LVIDs: 2.83 2.0-3.6 cm LVPWd: 1.25 0.7-1.1 cm Ao Root: 3.90 2.1-3.5 cm LA Diam: 3.90 2.7-3.8/3.0-4.0 cm LAIDs Index: 1.73 1.5-2.3 cm/m2 LV Mass: 237.92 67-162/88-224 g LV Mass Index: 105.74 43-95/49-115 g/m2 LVOT Diam: 2.20 3.0+(-)1.3 cm Mitral Valve MV Pk E: 1.12 MV PK A: 1.09 MV Decel Time: 210.00 E/A: 1.00 E'Lateral: 5.55 E'Medial: 6.74 E/E' Med: 16.60 E/E' Lat: 20.20 PHT: 61.00 MVA PHT: 3.61 Decel [place]: 5.35 Aortic Valve AoV Pk Woody: 2.45 AoV Mn Woody: 1.69 AoV VTI: 0.55 AoV Pk Grad: 24.00 Aov Mn Grad: 13.00 HEMANT Cont.VTI: 2.06 LVOT LVOT Pk Woody: 1.31 LVOT Mn Woody: 0.85 LVOT VTI: 0.30 LVOT Pk Grad: 7.00 LVOT Mn Grad: 3.00 LVOT Diam: 2.20 LVOT Area: 3.80 Diastolic Function MV Pk E: 1.12 MV Pk A: 1.09 E/A: 1.00 E'Medial: 6.74 E/E' Med: 16.60 E' Laterial: 5.55 E/E' Lat: 20.20 Tricuspid Valve TR Pk Woody: 1.95 TR Pk Grad: 15.00 RA Press: 3.00 RVSP: 18.00 Great Vessels Aorta Ao Root-2D: 3.90 2.0-3.7 cm Pulmonary Valve PV Pk Woody: 1.08 Peak PV Grad: 5.00 Updated in Other Vendor System with Status of Final Terrence Rodriguez MD electronically signed on 01/08/2023 11:08:52 AM with status of Final
--- NOTE | 2023-01-08 07:35 | PC.NURSE ---
Report to Monica
[2023-01-08 08:28] LABS: Hematocrit 29.8 % (42.0-52.0); Hemoglobin 9.3 g/dl (14.0-18.0); Mean Corpuscular HGB Conc 31.2 g/dl (31.0-36.0); Mean Corpuscular Hemoglobin 26.6 pg (27.0-33.0); Mean Corpuscular Volume 85.1 fL (80.0-98.0); Mean Platelet Volume 9.5 fL (9.4-12.4); Platelet Count 278 X10*3/uL (160-400); Red Cell Distribution Width 19.3 % (11.0-16.0); White Blood Count 12.3 X10*3/uL (4.8-10.8)
[2023-01-08] MEDS: oxyCODONE HCl Immed Release 5 MG TABLET PO ×2 (08:38→19:52)
[2023-01-08] MEDS: Acetaminophen 325 MG TABLET 650 MG PO (08:38)
[2023-01-08] MEDS: hydrOXYzine HCL 10 MG TABLET PO ×2 (08:39→19:52)
[2023-01-08] MEDS: Furosemide 40 MG/4 ML VIAL IVPUSH ×2 (08:39→18:00)
--- NOTE | 2023-01-08 08:43 | P.PNIM_ITS ---
Subjective Subjective Date of Service: 01/08/23 Interval History: f/u on alcohol withdrawal, and some abdominal pain--Overall better Physical Exam 2 Vital Signs: Vital Signs: Last Vital Signs Temp 97.8 F 01/08/23 08:00 Pulse 76 01/08/23 08:00 Resp 14 01/08/23 08:00 BP 145/70 H 01/08/23 08:00 Pulse Ox 76 L 01/08/23 08:00 O2 Del Method Room Air 01/08/23 08:00 BMI result Body Mass Index 42.3 Const: Other: General: AO X 3, no acute distress Resp: CTA bilateral CVS: S1,S2,RRR GI: +BS, NT, no distention Skin: No rash Neuro: motor grossly intact Psych: appropriate affect Objective Data Active Medications Acetaminophen (Acetaminophen 325 Mg Tablet) 650 mg PO Q6H PRN PRN Reason: Pain, Mild (Pain Scale 1-3) Benzonatate (Benzonatate 100 Mg Capsule) 100 mg PO TID PRN PRN Reason: Cough Docusate Sodium (Docusate Sodium 100 Mg Capsule) 100 mg PO DAILY PRN PRN Reason: Constipation Enoxaparin Sodium (Enoxaparin Sodium 40 Mg/0.4 Ml Syringe) 40 mg SUBCUT Q24H [facility] Last Admin: 01/07/23 23:29 Dose: 40 mg Documented By: SHWETHA Famotidine (Famotidine 20 Mg Tablet) 20 mg PO BEDTIME [facility] Last Admin: 01/07/23 23:26 Dose: 20 mg Documented By: SHWETHA Furosemide (Furosemide 40 Mg/4 Ml Vial) 40 mg IVPUSH BID@0900,1800 [facility]; Protocol Hydroxyzine HCl (Hydroxyzine Hcl 10 Mg Tablet) 10 mg PO Q8H PRN PRN Reason: Itching Last Admin: 01/07/23 23:25 Dose: 10 mg Documented By: SHWETHA Ibuprofen (Ibuprofen 800 Mg Tablet) 800 mg PO TID PRN PRN Reason: Pain, Mild (Pain Scale 1-3) Last Admin: 01/08/23 05:12 Dose: 800 mg Documented By: BECKY Levothyroxine Sodium (Levothyroxine Sodium 125 Mcg Tablet) 125 mcg PO BEDTIME [facility] Last Admin: 01/07/23 23:26 Dose: 125 mcg Documented By: SHWETHA Loratadine (Loratadine 10 Mg Tablet) 10 mg PO BEDTIME [facility] Last Admin: 01/07/23 23:29 Dose: 10 mg Documented By: SHWETHA Metoprolol Succinate (Metoprolol Succinate Er 100 Mg Tab.Er.24h) 100 mg PO BEDTIME [facility]ASW[facility]; Protocol Last Admin: 01/07/23 23:26 Dose: 100 mg Documented By: SHWETHA Multivitamins/Vitamin C (Multivitamin Tablet) 1 tab PO BEDTIME [facility] Last Admin: 01/07/23 23:29 Dose: 1 tab Documented By: SHWETHA Ondansetron HCl (Ondansetron Hcl 4 Mg/2 Ml Vial) 4 mg IVPUSH Q8H PRN PRN Reason: Nausea and Vomiting Oxycodone HCl (Oxycodone Hcl Immed Release 5 Mg Tablet) 5 mg PO Q8H PRN PRN Reason: Pain, Severe (Pain Scale 7-10) Last Admin: 01/07/23 23:25 Dose: 5 mg Documented By: SHWETHA Pravastatin Sodium (Pravastatin Sodium 40 Mg Tablet) 40 mg PO BEDTIME [facility] Last Admin: 01/07/23 23:29 Dose: 40 mg Documented By: SHWETHA Sodium Chloride (0.9 % Sodium Chloride Flush 3 Ml Syringe) [facility] Last Admin: 01/08/23 00:29 Dose: 3 ml Documented By: BECKY Spironolactone (Spironolactone 25 Mg Tablet) 100 mg PO BEDTIME [facility]ASWANT; Protocol Last Admin: 01/07/23 23:29 Dose: 100 mg Documented By: SHWETHA Tiotropium [place] (Tiotropium [place] 2.5 Mcg Inhaler) 2 puff INHALE RDAILY [facility] Last Admin: 01/08/23 07:00 Dose: Not Given Documented By: AN Non-Admin Reason: pharmacy called Labs 01/08/23 08:21 01/07/23 15:59 Labs: Laboratory Results - last 24 hr 01/07/23 01/07/23 01/07/23 15:59 15:59 19:23 MCV 86.1 MCH 26.4 L MCHC 30.6 L RDW 19.3 H Plt Count 321 MPV 9.6 Immature Gran % (Auto) 2.2 H Neut % (Auto) 60.8 Lymph % (Auto) 16.3 L [place] % (Auto) 14.3 H Eos % (Auto) 5.5 H Baso % (Auto) 0.9 Lymph # (Auto) 1.5 [place] # (Auto) 1.3 H Eos # (Auto) 0.5 H Baso # (Auto) 0.1 Abs Immat Gran (auto) 0.21 H Absolute Neuts (auto) 5.7 Absolute Nucleated RBC 0.000 Nucleated RBC % (auto) 0.0 PT 11.9 INR 1.0 APTT 32.8 D-Dimer High Sensitivty < 150 Cancelled Anion Gap 21 H Estim Creat Clear Calc 38.6 Estimated GFR 33 Random Glucose 97 Calcium 9.3 Total Bilirubin 0.2 AST 36 ALT 19 Alkaline Phosphatase 80 B-Natriuretic Peptide 63 Total Protein 7.1 Albumin 3.5 Influenza Type A (PCR) NEGATIVE Influenza Type B (PCR) NEGATIVE RSV RNA Qual (PCR) NEGATIVE SARS-CoV-2 RNA (RT-PCR) NEGATIVE 01/08/23 08:21 MCV 85.1 MCH 26.6 L MCHC 31.2 RDW 19.3 H Plt Count 278 MPV 9.5 Immature Gran % (Auto) Neut % (Auto) Lymph % (Auto) [place] % (Auto) Eos % (Auto) Baso % (Auto) Lymph # (Auto) [place] # (Auto) Eos # (Auto) Baso # (Auto) Abs Immat Gran (auto) Absolute Neuts (auto) Absolute Nucleated RBC 0.000 Nucleated RBC % (auto) 0.0 PT INR APTT D-Dimer High Sensitivty Anion Gap Estim Creat Clear Calc Estimated GFR Random Glucose Calcium Total Bilirubin AST ALT Alkaline Phosphatase B-Natriuretic Peptide Total Protein Albumin Influenza Type A (PCR) Influenza Type B (PCR) RSV RNA Qual (PCR) SARS-CoV-2 RNA (RT-PCR) Assessment and Plan (1) Abdominal pain: Status: Resolved (2) Cholelithiasis without cholecystitis: Status: Inactive (3) Alcohol withdrawal: Status: Resolved (4) Acute proctitis: Status: Resolved (5) Alcohol abuse: Status: Acute Plan 75-year-old male with a past medical history of hypertension, hyperlipidemia, alcoholic liver disease, hypothyroidism, alcohol abuse presented to the hospital today with a chief complaint of abdominal pain.? Noted to have following Abdominal pain: Abdominal pain musculoskeletal since mostly with movement, nontender to palpation,no nausea vomiting, no melena, no hematocheziaCTs abdomen/pelvis showed finding suggestive of Proctitis/Cholelithiasis HIDA scan showed nonvisualization of gallbladder up to 2 hours consistent with cystic duct obstruction, patient afebrile, normal WBC , normal LFT and examination, unlikely to have acute cholecystitis Seen by Dr. Edwards he recommend no surgical intervention for for abnormal HIDA Tolerating regular diet On Flagyl and ceftin po day 5/ DC antibiotic after today, continue Tylenol/hot pack for abdominal pain Alcohol abuse/withdrawal:??Continue phenobarb.? Thiamine folate and multivitamins. Seen by care team outpatient referrals given Hypomagnesemia:? Magnesium improved to 1.8 continue by mouth magnesium History of hypertension/hyperlipidemia: Continue home metoprolol, and statin History of alcoholic liver disease:? Continue Aldactone , not on Lasix History of hypothyroidism: Continue levothyroxine Obesity due to high calorie intake contributing to other medical issues strongly recommend to follow low-calorie diet exercise Generalized weakness likely due to infection, alcohol abuse/wd, and chronic back pain, obesity, deconditioning seen by physical therapy they recommend home with PT Obtain home O2 eval patient does not qualify for home oxygen but noted to have significant weakness therefore will reassess with physical therapy tomorrow for possible rehab GI prophylaxis:? On Prilosec DVT prophylaxis:? Subcu heparin Code status:? Full code need for inpatient: treatment for alcohol withdrawal Time Spent With Patient Time: Total time managing care of this patient today ____ minutes. Quality Stroke Does the patient have a stroke diagnosis?: No VTE Prior VTE?: No VTE Risk Level:: Medical - moderate - high VTE Device Contraindication: Treatment Not Indicated VTE Drug Contraindication: N/A - Med Ordered
[2023-01-08 08:52] LABS: Anion Gap 20 (12-20); Blood Urea Nitrogen 29 mg/dL (9-16); Calcium 9.2 mg/dL (8.4-10.2); Carbon Dioxide 26 mmol/L (22-29); Chloride 100 mmol/L (96-108); Creatinine Clr Calc Pharmacy 44.9; Estimated Glomerular Filt Rate 40; Glucose Random 114 mg/dL (60-115); Potassium 3.8 mmol/L (3.3-5.1); Sodium 142 mmol/L (135-145)
[2023-01-08 09:05] LABS: Magnesium 1.2 mg/dL (1.6-2.6)
--- NOTE | 2023-01-08 09:25 | MHC.CM.PN ---
IMM 01/09/23, Pt lives alone and does not have home health services, he stated that he refuses them, and that he has a neighbor that helps with a lot of things. HCP discussed, not on file, CM offered to give him form to complete, he declined, and said he wants to add a second person to it and will do this at another time. PCP: Claudette Jacob, plan is home with services. CM to follow and assist with discharge.
[2023-01-08] MEDS: Magnesium Sulfate/H2O 2 GM/50 ML PIGGYBACK IV ×2 (11:57→14:25)
--- NOTE | 2023-01-08 15:34 | P.PNIM_ITS ---
Subjective Subjective Date of Service: 01/09/23 Interval History: f/u on chf, sob overall feels better, less swelling in the legs Physical Exam 2 Vital Signs: Vital Signs: Last Vital Signs Temp 97.2 F 01/08/23 14:27 Pulse 71 01/08/23 14:27 Resp 13 01/08/23 14:27 BP 125/58 L 01/08/23 14:27 Pulse Ox 96 01/08/23 14:27 O2 Del Method Room Air 01/08/23 14:27 BMI result Body Mass Index 42.3 Const: Other: Constitutional: Alert, uncomfortable looking, in no acute distress. Mental Status: Oriented to person, place and time. Eyes: Pupils are equal, round, and reactive to light. Ear, Nose, and Throat: Oropharynx clear, mucous membranes moist. Ears and nose without deformities. Trachea midline. Respiratory: Clear to auscultation bilaterally. No wheezing, rales, or rhonchi. Cardiovascular: S1, S2 regular. 3/6 murmur radiating to left carotid. Gastrointestinal: Abdomen soft, non-tender, non-distended, obese. Normal bowel sounds. Neurologic: Cranial nerves II-XII are grossly intact bilaterally. No focal neurological deficits. Moves all extremities spontaneously. Skin: Warm, dry. Musculoskeletal: No cyanosis or clubbing. Extremities: Trace to 1+ bilateral pitting edema. Psychiatric: Normal mood and affect. Objective Data Active Medications Acetaminophen (Acetaminophen 325 Mg Tablet) 650 mg PO Q6H PRN PRN Reason: Pain, Mild (Pain Scale 1-3) Last Admin: 01/08/23 08:38 Dose: 650 mg Documented By: VILMA Benzonatate (Benzonatate 100 Mg Capsule) 100 mg PO TID PRN PRN Reason: Cough Docusate Sodium (Docusate Sodium 100 Mg Capsule) 100 mg PO DAILY PRN PRN Reason: Constipation Enoxaparin Sodium (Enoxaparin Sodium 40 Mg/0.4 Ml Syringe) 40 mg SUBCUT Q24H [facility] Last Admin: 01/07/23 23:29 Dose: 40 mg Documented By: SHWETHA Famotidine (Famotidine 20 Mg Tablet) 20 mg PO BEDTIME [facility] Last Admin: 01/07/23 23:26 Dose: 20 mg Documented By: SHWETHA Furosemide (Furosemide 40 Mg/4 Ml Vial) 40 mg IVPUSH BID@0900,1800 [facility]; Protocol Last Admin: 01/08/23 08:39 Dose: 40 mg Documented By: VILMA Hydroxyzine HCl (Hydroxyzine Hcl 10 Mg Tablet) 10 mg PO Q8H PRN PRN Reason: Itching Last Admin: 01/08/23 08:39 Dose: 10 mg Documented By: VILMA Ibuprofen (Ibuprofen 800 Mg Tablet) 800 mg PO TID PRN PRN Reason: Pain, Mild (Pain Scale 1-3) Last Admin: 01/08/23 05:12 Dose: 800 mg Documented By: BECKY Levothyroxine Sodium (Levothyroxine Sodium 125 Mcg Tablet) 125 mcg PO BEDTIME [facility] Last Admin: 01/07/23 23:26 Dose: 125 mcg Documented By: SHWETHA Loratadine (Loratadine 10 Mg Tablet) 10 mg PO BEDTIME [facility] Last Admin: 01/07/23 23:29 Dose: 10 mg Documented By: SHWETHA Metoprolol Succinate (Metoprolol Succinate Er 100 Mg Tab.Er.24h) 100 mg PO BEDTIME [facility]; Protocol Last Admin: 01/07/23 23:26 Dose: 100 mg Documented By: SHWETHA Multivitamins/Vitamin C (Multivitamin Tablet) 1 tab PO BEDTIME [facility] Last Admin: 01/07/23 23:29 Dose: 1 tab Documented By: SHWETHA Ondansetron HCl (Ondansetron Hcl 4 Mg/2 Ml Vial) 4 mg IVPUSH Q8H PRN PRN Reason: Nausea and Vomiting Oxycodone HCl (Oxycodone Hcl Immed Release 5 Mg Tablet) 5 mg PO Q8H PRN PRN Reason: Pain, Severe (Pain Scale 7-10) Last Admin: 01/08/23 08:38 Dose: 5 mg Documented By: VILMA Pravastatin Sodium (Pravastatin Sodium 40 Mg Tablet) 40 mg PO BEDTIME [facility] Last Admin: 01/07/23 23:29 Dose: 40 mg Documented By: SHWETHA Sodium Chloride (0.9 % Sodium Chloride Flush 3 Ml Syringe) [facility] Last Admin: 01/08/23 08:39 Dose: 3 ml Documented By: VILMA Spironolactone (Spironolactone 25 Mg Tablet) 100 mg PO BEDTIME [facility]; Protocol Last Admin: 01/07/23 23:29 Dose: 100 mg Documented By: SHWETHA Tiotropium [place] (Tiotropium [place] 2.5 Mcg Inhaler) 2 puff INHALE RDAILY [facility] Last Admin: 01/08/23 07:00 Dose: Not Given Documented By: AN Non-Admin Reason: pharmacy called Labs 01/09/23 05:38 01/09/23 05:38 Labs: Laboratory Results - last 24 hr 01/07/23 01/07/23 01/07/23 15:59 15:59 19:23 MCV 86.1 MCH 26.4 L MCHC 30.6 L RDW 19.3 H Plt Count 321 MPV 9.6 Immature Gran % (Auto) 2.2 H Neut % (Auto) 60.8 Lymph % (Auto) 16.3 L Grant % (Auto) 14.3 H Eos % (Auto) 5.5 H Baso % (Auto) 0.9 Lymph # (Auto) 1.5 Grant # (Auto) 1.3 H Eos # (Auto) 0.5 H Baso # (Auto) 0.1 Abs Immat Gran (auto) 0.21 H Absolute Neuts (auto) 5.7 Absolute Nucleated RBC 0.000 Nucleated RBC % (auto) 0.0 PT 11.9 INR 1.0 APTT 32.8 D-Dimer High Sensitivty < 150 Cancelled Anion Gap 21 H Estim Creat Clear Calc 38.6 Estimated GFR 33 Random Glucose 97 Calcium 9.3 Magnesium Total Bilirubin 0.2 AST 36 ALT 19 Alkaline Phosphatase 80 B-Natriuretic Peptide 63 Total Protein 7.1 Albumin 3.5 Influenza Type A (PCR) NEGATIVE Influenza Type B (PCR) NEGATIVE RSV RNA Qual (PCR) NEGATIVE SARS-CoV-2 RNA (RT-PCR) NEGATIVE 01/08/23 08:21 MCV 85.1 MCH 26.6 L MCHC 31.2 RDW 19.3 H Plt Count 278 MPV 9.5 Immature Gran % (Auto) Neut % (Auto) Lymph % (Auto) Grant % (Auto) Eos % (Auto) Baso % (Auto) Lymph # (Auto) Grant # (Auto) Eos # (Auto) Baso # (Auto) Abs Immat Gran (auto) Absolute Neuts (auto) Absolute Nucleated RBC 0.000 Nucleated RBC % (auto) 0.0 PT INR APTT D-Dimer High Sensitivty Anion Gap 20 Estim Creat Clear Calc 44.9 Estimated GFR 40 Random Glucose 114 Calcium 9.2 Magnesium 1.2 L* Total Bilirubin AST ALT Alkaline Phosphatase B-Natriuretic Peptide Total Protein Albumin Influenza Type A (PCR) Influenza Type B (PCR) RSV RNA Qual (PCR) SARS-CoV-2 RNA (RT-PCR) Assessment and Plan (1) CKD (chronic kidney disease): Status: Acute (2) Chronic anemia: Status: Acute (3) CHF (congestive heart failure): Status: Acute Plan Pt is a 77-year-old male with a PMH significant for?HTN, prostate cancer, alcoholic cirrhosis, delirium tremens, HLD, and hypothyroidism who presents to the ED for evaluation of increasing shortness of breath and dyspnea on exertion. Pt was treated with furosemide 40 mg IV. Pt will be admitted to the hospital on telemetry for further evaluation and treatment of likely CHF. Shortness of breath due to exacerbation of diastolic heart failure. IV Lasix , aldactone, monitor I/O, electrolytes Normocytic anemia Likely of chronic disease Stable, at baseline Follow CBC CKD 3, stable Hypomagnesemia--IV replacement and repeat in morning HTN Continue home meds HLD Continue statin Chronic back pain Continue home Percocet Hypothyroidism Continue levothyroxine GERD Continue famotidine Obesity class 3 Encourage weight loss Full Code DVT Prophylaxis: Lovenox inpt for IV diuretics for chf Time Spent With Patient Time: Total time managing care of this patient today ____ minutes. Quality Stroke Does the patient have a stroke diagnosis?: No VTE Prior VTE?: No VTE Risk Level:: Medical - moderate - high VTE Device Contraindication: Treatment Not Indicated VTE Drug Contraindication: N/A - Med Ordered
[2023-01-08 16:50] LABS: Anion Gap 20 (12-20); Blood Urea Nitrogen 32 mg/dL (9-16); Calcium 9.2 mg/dL (8.4-10.2); Carbon Dioxide 24 mmol/L (22-29); Chloride 100 mmol/L (96-108); Creatinine Clr Calc Pharmacy 39.9; Estimated Glomerular Filt Rate 35; Glucose Random 117 mg/dL (60-115); Sodium 140 mmol/L (135-145)
[2023-01-08] MEDS: Metoprolol Succinate ER 100 MG TAB.ER.24H PO (19:51)
[2023-01-08] MEDS: Multivitamin TABLET 1 TAB PO (19:51)
[2023-01-08] MEDS: Spironolactone 25 MG TABLET 100 MG PO (19:51)
[2023-01-08] MEDS: Pravastatin Sodium 40 MG TABLET PO (19:52)
[2023-01-08] MEDS: Famotidine 20 MG TABLET PO (19:52)
[2023-01-08] MEDS: Levothyroxine Sodium 125 MCG TABLET PO (19:52)
[2023-01-08] MEDS: Loratadine 10 MG TABLET PO (19:52)
[2023-01-09] VITALS: BP 138/70; PULSE 97; RESP 20; TEMP 36.1; O2SAT 96
[2023-01-09] MEDS: Enoxaparin Sodium 40 MG/0.4 ML SYRINGE SUBCUT (00:36)
[2023-01-09 03:21] VITALS: BP 122/52; PULSE 66; RESP 20; TEMP 36.1; O2SAT 96
[2023-01-09] MEDS: Ibuprofen 800 MG TABLET PO (04:59)
[2023-01-09] MEDS: oxyCODONE HCl Immed Release 5 MG TABLET PO (04:59)
[2023-01-09] MEDS: hydrOXYzine HCL 10 MG TABLET PO (04:59)
[2023-01-09 06:17] LABS: Hematocrit 30.5 % (42.0-52.0); Hemoglobin 9.5 g/dl (14.0-18.0); Mean Corpuscular HGB Conc 31.1 g/dl (31.0-36.0); Mean Corpuscular Hemoglobin 26.9 pg (27.0-33.0); Mean Corpuscular Volume 86.4 fL (80.0-98.0); Mean Platelet Volume 10.3 fL (9.4-12.4); Platelet Count 284 X10*3/uL (160-400); Red Blood Count 3.53 X10*6/uL (4.60-5.80); Red Cell Distribution Width 19.3 % (11.0-16.0); White Blood Count 10.4 X10*3/uL (4.8-10.8)
[2023-01-09 06:39] LABS: Anion Gap 19 (12-20); Blood Urea Nitrogen 32 mg/dL (9-16); Carbon Dioxide 24 mmol/L (22-29); Chloride 99 mmol/L (96-108); Creatinine Clr Calc Pharmacy 39.1; Estimated Glomerular Filt Rate 34; Glucose Random 96 mg/dL (60-115); Magnesium 1.9 mg/dL (1.6-2.6); Potassium 3.7 mmol/L (3.3-5.1); Sodium 138 mmol/L (135-145)
[2023-01-09 07:23] VITALS: BP 136/63; PULSE 67; RESP 18; TEMP 36.3; O2SAT 97
--- NOTE | 2023-01-09 09:41 | P.DS_ITS ---
DS: Providers Provider Date of Service: 01/09/23 Date of admission: 01/07/23 22:13 Primary care physician: Claudette Price MD DS: Diagnosis Discharge Diagnosis (1) CKD (chronic kidney disease): Status: Acute (2) Chronic anemia: Status: Acute (3) CHF (congestive heart failure): Status: Acute DS: Summary Hospital Course Hospital Course: admission HPI: Chief Complaint: SOB, BARONE Pt is a 77-year-old male with a PMH significant for?HTN, prostate cancer, alcoholic cirrhosis, delirium tremens, HLD, and hypothyroidism who presents to the ED for evaluation of increasing shortness of breath and dyspnea on exertion. Patient states symptoms began approximately 6 months ago when he experienced increasing shortness of breath that has progressively worsened, especially the l ast few weeks. Patient states he has ?discomfort? with breathing, and also feels like his heart pounds when he walks. Patient reports currently can only walk approximately 50 ft before he has to stop and rest. Patient complained of symptoms to his PCP today who told him to get evaluated at the ED. Patient also notes increased lower leg edema. Has had chronic lower leg edema for which he takes Lasix for years, denies a history of CHF. Denies orthopnea, PND. No chest pain, pressure. Denies nausea, vomiting, diarrhea, abdominal pain. In the ED patient was afebrile but tachypneic up to 21, hypertensive up to 141/68, and satting at 98% on RA. Labs were significant for microcytic anemia of 9.5/31.0, BUN 27, creatinine 1.96. BNP 63. Electrolytes WNL. Hepatic function baseline. Troponin 9.2. CXR showed increased interstitial and perihilar opacities which may reflect pulmonary edema or atypical/viral infection, and streaky left basilar opacities favoring atelectasis. EKG demonstrated sinus rhythm with 1st degree AV block and nonspecific T-wave inversions in V1, V2, and V3. Pt was treated with furosemide 40 mg IV. Pt will be admitted to the hospital on telemetry for further evaluation and treatment of likely CHF. Hospital course: Patient presented with weight gain, dyspnea with exertion and shorntess of breath. Work up was consistent with acute exacerbation of heart failure with Preserved EF. He treated in the hospital with IV diuretics with noted improvement in his symptoms, he feels better and comfortable to go home. Of note he had hypomagenesemia likely related to alcoho use and needed IV magnesium replacmet and current level of 1. 9 which is up from 1. 2, there is element of chronicity and adding oral supplement Time Spent with Patient Time attestation: Total time managing care of this patient today ____ minutes. Discharge coordination time: Greater than 30 minutes Quality: Safe Use of Opioids Does Pt have an Active Cancer Diagnosis on the Problem List?: No Quality: Stroke Does the patient have a stroke diagnosis?: No Physical Exam Vital Signs: Vital Signs: Last Vital Signs Temp 97.4 F 01/09/23 07:23 Pulse 67 01/09/23 07:23 Resp 18 01/09/23 07:23 BP 136/63 01/09/23 07:23 Pulse Ox 97 01/09/23 07:23 O2 Del Method Room Air 01/09/23 07:23 BMI result Body Mass Index 42.3 DS: Data Data Completed and Pending Completed studies during hospitalization [Text1]: Procedures Detoxification Services for Substance Abuse Treatment (10/29/21) Labs on day of discharge: Laboratory Results - last 24 hr 01/08/23 01/09/23 16:17 05:38 WBC 10.4 RBC 3.53 L Hgb 9.5 L Hct 30.5 L MCV 86.4 MCH 26.9 L MCHC 31.1 RDW 19.3 H Plt Count 284 MPV 10.3 Absolute Nucleated RBC 0.000 Nucleated RBC % (auto) 0.0 Sodium 140 138 Potassium 4.0 3.7 Chloride 100 99 Carbon Dioxide 24 24 Anion Gap 20 19 BUN 32 H 32 H Creatinine 1.88 H 1.92 H Estim Creat Clear Calc 39.9 39.1 Estimated GFR 35 34 Random Glucose 117 H 96 Calcium 9.2 9.0 Magnesium 1.9 Discharge Plan Discharge Anticipated Discharge Date/Time: 01/09/23 09:43 Patient Disposition: Home Health Service Discharge Diagnosis: CHF exacerbation, hypomagnesemia Referrals: Claudette Price MD [Primary Care Provider] - 1 Week Discharge Medications: New magnesium oxide 400 mg magnesium tablet 800 mg PO DAILY Qty: 60 0RF Continued pravastatin 40 mg tablet 1 tab PO BEDTIME spironolactone 100 mg tablet 1 tab PO BEDTIME metoprolol succinate 100 mg tablet extended release 24 hr 1 tab PO BEDTIME levothyroxine 125 mcg tablet 1 tab PO BEDTIME tiotropium bromide [Spiriva with HandiHaler] 18 mcg capsule, w/inhalation device 1 cap inhalation DAILY loratadine 10 mg tablet 1 tab PO BEDTIME ibuprofen 800 mg tablet 800 mg PO TID PRN (Reason: Pain) oxycodone-acetaminophen 5-325 mg tablet 1 tab PO Q8H PRN (Reason: severe pain) Rx Instructions: TAKE WITH HYDROXYZINE TO PREVENT ITCHING hydroxyzine HCl 10 mg tablet 10 mg PO Q8H PRN (Reason: itch) Rx Instructions: TAKE WITH PERCOCET garlic 300 mg Capsule 300 mg PO BEDTIME omega 6-mnb-zoa-fish oil [Fish Oil] 1,000 mg (120 mg-180 mg) Capsule 1 cap PO BEDTIME Centrum Silver Men [phone] mcg Tablet 1 tab PO BEDTIME famotidine 20 mg tablet 20 mg PO BEDTIME furosemide 80 mg tablet 80 mg PO BEDTIME Discharge Orders: Discharge Order (Routine); Ordered 01/09/23 Ordered By: Roe Pang Diet: Low salt diet Activity on Discharge: As tolerated Stand Alone Forms: Patient Portal Discharge page Care Plan Goals: recovery frm heart failure Health Concerns: chronic heart failure alcohol use desorder Plan of Treatment: resume your usual medication including Lasix, monitor your weight carefully , if you gain 2 Ib in a day, check with your doctor for medicaion adjustment, follow low salt diet. Exerxise and loose weight, avoid alcohol or use in moderation take magnesium supplement Follow up with your Doctor in a week home services to assess heart failure to min arranged within 72 hrs Assessment: as above
[2023-01-09] MEDS: Furosemide 40 MG/4 ML VIAL IVPUSH (09:42)
[2023-01-09] MEDS: 0.9 % Sodium Chloride Flush 3 ML SYRINGE IVFLUSH (09:42)
--- NOTE | 2023-01-09 09:58 | W.MHC.F2F ---
Service Date Service Date: 01/09/23 Encounter Date of encounter: 01/09/23 Reasons for Services Signs and symptoms assessed: heart failure, shortness of breath d/t heart failure Homebound: Leaving the home is medically contraindicated at this time without the asist of a device and/or another person due th the listed conditions above and below. Reason homebound: shortness of breath with minimal effort Homebound supporting statement: homebound due to dyspnea with minimal effort and therefore needs the assistance of another person Certification: Based on the above findings, I certify that this patient is confined to the home and needs intermittent [facility] care, physical therapy and/or speech therapy, or continues to need occupational therapy. The patient is under my care, and I have initiated the establishment of the plan of care. The patient will be followed by a physician who will periodically review the plan of care. Time Spent With Patient Time: Total time managing care of this patient today ____ minutes.
[2023-01-09 10:10] VITALS: PULSE 77; O2SAT 98
--- NOTE | 2023-01-09 10:22 | MHC.CM.PN ---
IMM 01/08/23 Patient is discharged to home with new [facility] services. He will self transport home. Medicare rights were reviewed with the patient. Patient was informed of the right to Discharge planning. He was also informed of the process to appeal, if he disagrees with the discharge. He stated that he is ready to go. He said that he is much better than when he came in.
== END 2023-01-09 12:35 | disposition home health service (06) | DRG 291 ==
LOC: HO.ED 19:46 → HO.EDOVER 22:31 → HO.IMC 01-08 07:01
PROVIDERS: Physician Assistant; Admitting Provider Student in an Organized Health Care Education/Training Program; Emergency Provider Emergency Medicine; PCP Pediatrics; Visit Provider Internal Medicine
DX: I13.0 Hypertensive heart and chronic kidney disease with heart failure and stage 1 through stage 4 chronic kidney disease, or unspecified chronic kidney disease (principal); I50.33 Acute on chronic diastolic (congestive) heart failure; Z68.41 Body mass index [BMI] 40.0-44.9, adult; E03.9 Hypothyroidism, unspecified; N18.30 Chronic kidney disease, stage 3 unspecified; E83.42 Hypomagnesemia; E78.5 Hyperlipidemia, unspecified; D63.1 Anemia in chronic kidney disease; K70.30 Alcoholic cirrhosis of liver without ascites; F10.90 Alcohol use, unspecified, uncomplicated; E66.01 Morbid (severe) obesity due to excess calories; F17.210 Nicotine dependence, cigarettes, uncomplicated; Z71.6 Tobacco abuse counseling; Z20.822 Contact with and (suspected) exposure to COVID-19; Z85.46 Personal history of malignant neoplasm of prostate; Z79.890 Hormone replacement therapy; Z79.899 Other long term (current) drug therapy
CPT/HCPCS: 0241U; 36415; 71045; 80048; 80053; 83735; 83880; 84484; 85025; 85027; 85379; 85610; 85730; 93005; 93306; 97162; 99285; J1650; J1940; J3475; Q9957

== ENCOUNTER 2023-01-07 22:13 | Outpatient (BNV) | payer OTHER, SELFPAY | END 2023-01-08 07:00 | PROVIDERS: Admitting Provider Student in an Organized Health Care Education/Training Program; Emergency Provider Emergency Medicine; PCP Pediatrics; Visit Provider Internal Medicine Cardiovascular Disease | DX: I44.0 Atrioventricular block, first degree (principal); R94.31 Abnormal electrocardiogram [ECG] [EKG] | CPT/HCPCS: 93306 ==

== ENCOUNTER → 2023-01-07 22:13 | Outpatient (BNV) | payer OTHER, SELFPAY | PROVIDERS: Admitting Provider Student in an Organized Health Care Education/Training Program; Emergency Provider Emergency Medicine; PCP Pediatrics; Visit Provider Internal Medicine | DX: R06.09 Other forms of dyspnea (principal) | CPT/HCPCS: 99223; 99232; 99239; G0180 ==

== ENCOUNTER 2023-01-20 15:55 | Outpatient (REF) | payer OTHER, SELFPAY | END 2023-01-20 15:56 | disposition home or self-care (01) | LOC: HO.HOSX 15:55 | PROVIDERS: Visit Provider Physical Medicine & Rehabilitation | DX: Z13.89 Encounter for screening for other disorder (principal) ==

== ENCOUNTER 2023-02-03 14:21 | Outpatient (REF) | payer OTHER, SELFPAY ==
[2023-02-03 17:20] LABS: MANUAL DIFF FLAG NO
[2023-02-03 17:37] LABS: Anion Gap 18 (12-20); Blood Urea Nitrogen 33 mg/dL (9-16); Calcium 9.9 mg/dL (8.4-10.2); Carbon Dioxide 26 mmol/L (22-29); Chloride 97 mmol/L (96-108); Estimated Glomerular Filt Rate 30; Glucose Random 87 mg/dL (60-115); Iron 63 mcg/dL (45-160); Magnesium 1.6 mg/dL (1.6-2.6); Percent Iron Saturation 16 % (15-50); Sodium 137 mmol/L (135-145); Total Iron Binding Capacity 395 mcg/dL (228-428); Unsaturated Iron Binding 332 ug/dL
[2023-02-03 17:39] LABS: Basophils Absolute Auto 0.1 X10*3/uL (0.0-0.2); Basophils Percent Auto 0.8 % (0-2); Eosinophils Absolute Auto 0.4 X10*3/uL (0.0-0.4); Eosinophils Percent Auto 4.3 % (0-4); Hematocrit 31.5 % (42.0-52.0); Hemoglobin 9.9 g/dl (14.0-18.0); Imm Gran Abs Auto 0.14 X10*3/uL (0.00-0.03); Imm Gran Pct Auto 1.4 % (0.0-0.4); Lymphocytes Absolute Auto 1.8 X10*3/uL (1.2-4.9); Lymphocytes Percent Auto 17.7 % (20-40); Mean Corpuscular HGB Conc 31.4 g/dl (31.0-36.0); Mean Corpuscular Hemoglobin 26.3 pg (27.0-33.0); Mean Corpuscular Volume 83.6 fL (80.0-98.0); Mean Platelet Volume 10.1 fL (9.4-12.4); Monocytes Absolute Auto 1.3 X10*3/uL (0.1-1.2); Monocytes Percent Auto 12.8 % (2-11); Neutrophils Absolute Auto 6.5 x10*3/uL (2.0-8.3); Platelet Count 334 X10*3/uL (160-400); Red Blood Count 3.77 X10*6/uL (4.60-5.80); Red Cell Distribution Width 19.9 % (11.0-16.0); White Blood Count 10.2 X10*3/uL (4.8-10.8)
== END 2023-02-03 14:22 | disposition home or self-care (01) ==
LOC: HO.CHCLDS 14:21
PROVIDERS: Visit Provider Pediatrics
DX: N28.9 Disorder of kidney and ureter, unspecified (principal); E83.42 Hypomagnesemia
CPT/HCPCS: 36415; 80048; 83540; 83735; 85025

== ENCOUNTER 2023-08-27 10:46 | Outpatient (REF) | payer OTHER, SELFPAY ==
[2023-08-27 15:12] LABS: PSA,Total (Free>4and<10) 2.46 ng/mL (0.00-4.00)
== END 2023-08-27 10:47 | disposition home or self-care (01) ==
LOC: HO.CHCLDS 10:46
PROVIDERS: Visit Provider Family Medicine
DX: C61 Malignant neoplasm of prostate (principal); Z12.5 Encounter for screening for malignant neoplasm of prostate
CPT/HCPCS: 36415; 84153

== ENCOUNTER 2024-04-11 11:32 | Outpatient (REF) | payer OTHER, SELFPAY ==
[2024-04-11 15:02] LABS: MANUAL DIFF FLAG NO
[2024-04-11 15:05] LABS: Basophils Absolute Auto 0.1 X10*3/uL (0.0-0.2); Basophils Percent Auto 0.5 % (0-2); Eosinophils Absolute Auto 0.3 X10*3/uL (0.0-0.4); Eosinophils Percent Auto 3.1 % (0-4); Hematocrit 37.8 % (42.0-52.0); Hemoglobin 13.1 g/dl (14.0-18.0); Imm Gran Abs Auto 0.14 X10*3/uL (0.00-0.03); Imm Gran Pct Auto 1.5 % (0.0-0.4); Lymphocytes Absolute Auto 1.6 X10*3/uL (1.2-4.9); Lymphocytes Percent Auto 16.8 % (20-40); Mean Corpuscular HGB Conc 34.7 g/dl (31.0-36.0); Mean Corpuscular Volume 98.2 fL (80.0-98.0); Monocytes Absolute Auto 1.3 X10*3/uL (0.1-1.2); Monocytes Percent Auto 14.3 % (2-11); Neutrophils Percent Auto 63.8 % (45-73); Platelet Count 317 X10*3/uL (160-400); Red Blood Count 3.85 X10*6/uL (4.60-5.80); Red Cell Distribution Width 12.8 % (11.0-16.0); White Blood Count 9.4 X10*3/uL (4.8-10.8)
[2024-04-11 15:24] LABS: Alanine Aminotransferase 17 U/L (0-40); Albumin Level 3.8 g/dL (3.5-5.0); Anion Gap 13 (12-20); Aspartate Amino Transferase 28 U/L (5-37); Bilirubin Direct 0.2 mg/dL (0.0-0.5); Bilirubin Total 0.5 mg/dL (0.0-1.0); Blood Urea Nitrogen 62 mg/dL (9-16); Calcium 9.8 mg/dL (8.4-10.2); Carbon Dioxide 21 mmol/L (22-29); Chloride 105 mmol/L (96-108); Cholesterol 177 mg/dL (<200); Estimated Glomerular Filt Rate 21; Glucose Fasting 117 mg/dL (60-99); HDL Cholesterol 30 mg/dL (>40); LDL Cholesterol Calculated 121 mg/dL (<100); Lipase 12 U/L (8-78); Potassium 4.3 mmol/L (3.3-5.1); Sodium 135 mmol/L (135-145); Total Protein 7.6 g/dL (6.5-8.0); Triglycerides 134 mg/dL (<150); Uric Acid 13.7 mg/dL (3.4-7.0)
[2024-04-11 15:43] LABS: PSA,Total (Free>4and<10) 1.64 ng/mL (0.00-4.00)
[2024-04-11 15:48] LABS: Erythrocyte Sedimentation Rate 73 MM/HR (0-15)
[2024-04-11 15:49] LABS: Alkaline Phosphatase 70 U/L (39-117); TSH reflex Free T4 1.24 uIU/mL (0.32-4.0)
[2024-04-11 15:57] LABS: Folate 15.1 ng/mL (> or = 4.0); Vitamin B12 709 pg/mL (200-900)
== END 2024-04-11 11:33 | disposition home or self-care (01) ==
LOC: HO.CHCLDS 11:32
PROVIDERS: Visit Provider Pediatrics
DX: K70.9 Alcoholic liver disease, unspecified (principal); E78.2 Mixed hyperlipidemia; N18.4 Chronic kidney disease, stage 4 (severe); I10 Essential (primary) hypertension; E03.9 Hypothyroidism, unspecified; C61 Malignant neoplasm of prostate; Z12.5 Encounter for screening for malignant neoplasm of prostate
CPT/HCPCS: 36415; 80048; 80061; 80076; 82550; 82607; 82746; 83690; 84153; 84443; 84550; 85025; 85652

== ENCOUNTER 2024-09-07 17:31 | Emergency (ER) | payer OTHER, SELFPAY ==
--- NOTE | ~2024-09-07 | CT_ITS ---
CLINICAL HISTORY: alcohol withdrawl fall CT head without contrast Comparison: None Findings: No intra-axial mass, midline shift, hydrocephalus, or acute hemorrhage. There is moderate diffuse atrophy and white matter change possibly related to chronic microvascular ischemia. The visualized paranasal sinuses and mastoid air cells are normal. The orbits are within normal limits. There is no acute fracture. IMPRESSION: 1. No acute intracranial findings. This document has been electronically signed by: Sree Reed MD on 09/07/2024 20:06:10
[2024-09-07 17:56] VITALS: BP 137/51; PULSE 89; O2SAT 99
[2024-09-07 18:17] VITALS: BP 117/43; PULSE 82; RESP 16; TEMP 36.4; O2SAT 96; BMI 28.2
--- NOTE | 2024-09-07 18:23 | PC.NURSE ---
t here because he was concerned he was having a stroke due to slurred speech but he states he had a lot of peppermint snaps today and is also concerned for shaking he has had new today as well. Pt VSS and neuros intact EXCEPT left sided facial droop and slurred speech. provider notified to emy boyer. Pt states chronic back and leg pain for which he takes Oxycodone daily and did not take today. Pt drinks 6 beers a day for several weeks now as well. NSR on monitor.
--- NOTE | 2024-09-07 18:36 | ED_ITS ---
HPI - General Adult General Chief complaint: Altered Mental Status Stated complaint: etoh, pt thought he had a possible stroke Time Seen by Provider: 09/07/24 18:36 Source: patient Mode of arrival: ambulatory Limitations: no limitations History of Present Illness ED Provider: Related Data Home Medications ?Medication ?Instructions ?Recorded ?Confirmed levothyroxine 125 mcg tablet 1 tab PO BEDTIME 10/29/21 01/07/23 loratadine 10 mg tablet 1 tab PO BEDTIME 10/29/21 01/07/23 metoprolol succinate 100 mg 1 tab PO BEDTIME 10/29/21 01/07/23 tablet,extended release 24 hr pravastatin 40 mg tablet 1 tab PO BEDTIME 10/29/21 01/07/23 spironolactone 100 mg tablet 1 tab PO BEDTIME 10/29/21 01/07/23 tiotropium bromide 18 mcg capsule 1 cap inhalation DAILY 10/29/21 01/07/23 with inhalation device (Spiriva with HandiHaler) famotidine 20 mg tablet 20 mg PO BEDTIME 11/18/22 01/07/23 furosemide 80 mg tablet 80 mg PO BEDTIME 11/18/22 01/07/23 garlic 300 mg capsule 300 mg PO BEDTIME 01/07/23 01/07/23 hydroxyzine HCl 10 mg tablet 10 mg PO Q8H PRN itch 01/07/23 01/07/23 ibuprofen 800 mg tablet 800 mg PO TID PRN Pain 01/07/23 01/07/23 [id number] 300 mcg-K 60 1 tab PO BEDTIME 01/07/23 01/07/23 mcg-lycop 600 mcg-lutein 300 mcg tablet (Centrum Silver Men) omega 9-yav-cna-fish oil 1,000 mg 1 cap PO BEDTIME 01/07/23 01/07/23 (120 mg-180 mg) capsule (Fish Oil) oxycodone-acetaminophen 5 mg-325 1 tab PO Q8H PRN severe pain 01/07/23 01/07/23 mg tablet Previous Rx's ?Medication ?Instructions ?Recorded magnesium oxide 800 mg (2 x 400 mg magnesium) PO 01/09/23 DAILY #60 tabs chlordiazepoxide HCl 25 mg capsule 50 mg (2 x 25 mg) PO Q4H PRN 09/07/24 alcohol withdrawal 6 doses #12 caps Allergies Allergy/AdvReac Type Severity Reaction Status Date / Time No Known Allergies Allergy Mild N/A Verified 09/07/24 18:19 [facility] Past Medical History Medical History Cholelithiasis without cholecystitis Prostate cancer Delirium tremens Alcoholic cirrhosis Surgical History S/P tonsillectomy and adenoidectomy Social History Social History Household Members: None Housing: House Do you presently have visiting nurse or other home services: No Alcohol intake: current Alcohol intake frequency: 3 or more drinks per day Alcohol type: beer and hard liquor Comment: pt refuses bed alarm Patient Tobacco Use Status: Current someday Tobacco user Tobacco use type: Cigar Smoked in Last 30 Days: No Use of substances other than those prescribed or required for medical reasons: No Advance Directives: Yes Advance Directives on File: Yes Advance Directives Date on File: 10/29/21 service: No Current occupational status: retired Physical Exam ED Vital Signs: Vital Signs - 24 hr 09/07/24 18:17 09/07/24 19:50 09/07/24 21:39 Temperature 97.6 F 98.0 F 98.2 F Pulse Rate 82 79 86 Respiratory Rate 16 20 16 Blood Pressure 117/43 L 146/53 H 156/71 H Pulse Oximetry 96 97 97 Oxygen Delivery Method Room Air Room Air Room Air BMI result Body Mass Index 28.2 Medications Administered Discontinued Medications Generic Name Dose Route Start Last Admin Trade Name Kikeq PRN Reason Stop Dose Admin Sodium Chloride 1,000 mls @ 999 mls/hr 09/07/24 18:41 09/07/24 20:35 Ns IV 09/07/24 19:41 Infused .Q1H1M ONE Infusion Lorazepam 2 mg 09/07/24 18:41 09/07/24 19:15 Lorazepam 1 Mg Tablet PO 09/07/24 18:42 2 mg ONCE ONE Administration Medical Decision Making Medical Decision Making MDM Narrative: Patient alcoholic felt better after IV fluids and p.o. Ativan does not want to go to detox signed the paper advised to follow up as outpatient Lab Data [facility] Lab Attestation statement: I reviewed the patient's lab results. 09/07/24 20:01 09/07/24 20:01 Labs: Lab Results 09/07/24 Range/Units 20:01 WBC 9.2 (4.8-10.8) X10*3/uL RBC 3.45 L (4.60-5.80) X10*6/uL Hgb 11.4 L (14.0-18.0) g/dl Hct 33.2 L (42.0-52.0) % MCV 96.2 (80.0-98.0) fL MCH 33.0 (27.0-33.0) pg MCHC 34.3 (31.0-36.0) g/dl RDW 14.7 (11.0-16.0) % Plt Count 221 D (160-400) X10*3/uL MPV 9.4 (9.4-12.4) fL Immature Gran % (Auto) 1.3 H (0.0-0.4) % Neut % (Auto) 68.7 (45-73) % Lymph % (Auto) 16.3 L (20-40) % Emmons % (Auto) 10.9 (2-11) % Eos % (Auto) 2.3 (0-4) % Baso % (Auto) 0.5 (0-2) % Lymph # (Auto) 1.5 (1.2-4.9) X10*3/uL Emmons # (Auto) 1.0 (0.1-1.2) X10*3/uL Eos # (Auto) 0.2 (0.0-0.4) X10*3/uL Baso # (Auto) 0.1 (0.0-0.2) X10*3/uL Abs Immat Gran (auto) 0.12 H (0.00-0.03) X10*3/uL Absolute Neuts (auto) 6.3 (2.0-8.3) x10*3/uL Absolute Nucleated RBC 0.000 (0.0-0.012) X10*3/uL Nucleated RBC % (auto) 0.0 (0.0-0.2) /100WBC PT 11.7 (10.9-12.4) SEC INR 1.0 (0.9-1.1) Sodium 135 (135-145) mmol/L Potassium 3.4 D (3.3-5.1) mmol/L Chloride 99 (96-108) mmol/L Carbon Dioxide 25 (22-29) mmol/L Anion Gap 14 (12-20) BUN 32 H (9-16) mg/dL Creatinine 1.42 H (0.5-1.4) mg/dL Estim Creat Clear Calc 43.8 Estimated GFR 48 Random Glucose 83 (60-115) mg/dL Calcium 8.4 D (8.4-10.2) mg/dL Magnesium 1.7 (1.6-2.6) mg/dL Total Bilirubin 0.4 (0.0-1.0) mg/dL AST 16 (5-37) U/L ALT 6 (0-40) U/L Alkaline Phosphatase 87 (39-117) U/L Total Protein 6.5 (6.5-8.0) g/dL Albumin 3.4 L (3.5-5.0) g/dL Ethyl Alcohol 87 mg/dL Discharge Plan Discharge Clinical Impression: Alcohol abuse Patient Disposition: Home, Self-Care Instructions: Abuse of Alcohol (ED) Additional Instructions: Stop drinking alcohol Take Librium as prescribed for alcohol withdrawal Follow with detox Prescriptions: New chlordiazepoxide HCl 25 mg capsule 50 mg PO Q4H PRN (Reason: alcohol withdrawal) Qty: 12 0RF Rx Instructions: until symptoms controlled No Action pravastatin 40 mg tablet 1 tab PO BEDTIME spironolactone 100 mg tablet 1 tab PO BEDTIME metoprolol succinate 100 mg tablet extended release 24 hr 1 tab PO BEDTIME levothyroxine 125 mcg tablet 1 tab PO BEDTIME tiotropium bromide [Spiriva with HandiHaler] 18 mcg capsule, w/inhalation device 1 cap inhalation DAILY loratadine 10 mg tablet 1 tab PO BEDTIME ibuprofen 800 mg tablet 800 mg PO TID PRN (Reason: Pain) oxycodone-acetaminophen 5-325 mg tablet 1 tab PO Q8H PRN (Reason: severe pain) Rx Instructions: TAKE WITH HYDROXYZINE TO PREVENT ITCHING hydroxyzine HCl 10 mg tablet 10 mg PO Q8H PRN (Reason: itch) Rx Instructions: TAKE WITH PERCOCET garlic 300 mg Capsule 300 mg PO BEDTIME omega 7-zyn-sei-fish oil [Fish Oil] 1,000 mg (120 mg-180 mg) Capsule 1 cap PO BEDTIME Centrum Silver Men [phone] mcg Tablet 1 tab PO BEDTIME magnesium oxide 400 mg magnesium tablet 800 mg PO DAILY Qty: 60 0RF famotidine 20 mg tablet 20 mg PO BEDTIME furosemide 80 mg tablet 80 mg PO BEDTIME Print Language: Monegasque
--- NOTE | 2024-09-07 18:41 | ECG_ITS ---
Test Reason : ALCOHOL WITHDRAWL Blood Pressure : */* mmHG Vent. Rate : 76 BPM Atrial Rate : 76 BPM P-R Int : 248 ms QRS Dur : 122 ms QT Int : 410 ms P-R-T Axes : 90 -10 25 degrees QTcB Int : 461 ms Poor data quality Sinus rhythm with 1st degree A-V block Right bundle branch block Abnormal ECG When compared with ECG of 07-Jan-2023 15:47, No significant change was found Referred By: Ankush Mills Electronically Signed By: CORTNEY KHALIL MD
[2024-09-07] MEDS: LORazepam 1 MG TABLET 2 MG PO (19:15)
[2024-09-07] MEDS: 0.9 % Sodium Chloride 1,000 ML 999 ML IV (19:15)
[2024-09-07 19:50] VITALS: BP 146/53; PULSE 79; RESP 20; TEMP 36.7; O2SAT 97
[2024-09-07 20:08] LABS: MANUAL DIFF FLAG NO
[2024-09-07 20:09] LABS: Basophils Absolute Auto 0.1 X10*3/uL (0.0-0.2); Basophils Percent Auto 0.5 % (0-2); Eosinophils Absolute Auto 0.2 X10*3/uL (0.0-0.4); Eosinophils Percent Auto 2.3 % (0-4); Hematocrit 33.2 % (42.0-52.0); Hemoglobin 11.4 g/dl (14.0-18.0); Imm Gran Abs Auto 0.12 X10*3/uL (0.00-0.03); Imm Gran Pct Auto 1.3 % (0.0-0.4); Lymphocytes Absolute Auto 1.5 X10*3/uL (1.2-4.9); Lymphocytes Percent Auto 16.3 % (20-40); Mean Corpuscular HGB Conc 34.3 g/dl (31.0-36.0); Mean Corpuscular Volume 96.2 fL (80.0-98.0); Mean Platelet Volume 9.4 fL (9.4-12.4); Monocytes Percent Auto 10.9 % (2-11); Neutrophils Absolute Auto 6.3 x10*3/uL (2.0-8.3); Neutrophils Percent Auto 68.7 % (45-73); Platelet Count 221 X10*3/uL (160-400); Red Blood Count 3.45 X10*6/uL (4.60-5.80); Red Cell Distribution Width 14.7 % (11.0-16.0); White Blood Count 9.2 X10*3/uL (4.8-10.8)
[2024-09-07 20:15] LABS: Prothrombin Time 11.7 SEC (10.9-12.4)
[2024-09-07 20:22] LABS: Ethanol 87 mg/dL
[2024-09-07 20:26] LABS: Alanine Aminotransferase 6 U/L (0-40); Albumin Level 3.4 g/dL (3.5-5.0); Alkaline Phosphatase 87 U/L (39-117); Anion Gap 14 (12-20); Aspartate Amino Transferase 16 U/L (5-37); Bilirubin Total 0.4 mg/dL (0.0-1.0); Blood Urea Nitrogen 32 mg/dL (9-16); Calcium 8.4 mg/dL (8.4-10.2); Carbon Dioxide 25 mmol/L (22-29); Chloride 99 mmol/L (96-108); Creatinine Clr Calc Pharmacy 43.8; Estimated Glomerular Filt Rate 48; Glucose Random 83 mg/dL (60-115); Magnesium 1.7 mg/dL (1.6-2.6); Potassium 3.4 mmol/L (3.3-5.1); Sodium 135 mmol/L (135-145); Total Protein 6.5 g/dL (6.5-8.0)
[2024-09-07 21:39] VITALS: BP 156/71; PULSE 86; RESP 16; TEMP 36.8; O2SAT 97
--- NOTE | 2024-09-07 21:40 | MHC.EDTECH ---
Patient went for an ambulation trial ,walk to bathroom and back to be independently,Provider aware . ,Patient was hungry ,food and fluids given ,Provider aware .
--- NOTE | 2024-09-07 22:09 | PC.NURSE ---
pt states his neighbor assists in his needs at home and denies needing help at home. ciwa 0. pt ambulates with steady gait using walker. ripped iv out requesting d/c. called neighbor to pick him up and dressed himself. aware and pt is up for d/c at this time.
[2024-09-07 22:16] VITALS: BP 156/71; PULSE 86; RESP 16; TEMP 36.8; O2SAT 97
== END 2024-09-07 22:30 | disposition home or self-care (01) ==
PROVIDERS: Emergency Provider Internal Medicine
DX: F10.10 Alcohol abuse, uncomplicated (principal); I44.0 Atrioventricular block, first degree; Y90.4 Blood alcohol level of 80-99 mg/100 ml; R41.82 Altered mental status, unspecified; R11.0 Nausea; F17.210 Nicotine dependence, cigarettes, uncomplicated; Z51.81 Encounter for therapeutic drug level monitoring; Z79.899 Other long term (current) drug therapy
CPT/HCPCS: 36415; 70450; 80053; 80307; 83735; 85025; 85610; 93005; 96360; 99284; 99285

== ENCOUNTER → 2024-09-07 18:41 | Outpatient (BNV) | payer OTHER, SELFPAY | PROVIDERS: Emergency Provider Internal Medicine; Visit Provider Internal Medicine Cardiovascular Disease | DX: I44.0 Atrioventricular block, first degree (principal); I45.10 Unspecified right bundle-branch block | CPT/HCPCS: 93010 ==

== ENCOUNTER → 2024-09-07 18:42 | Outpatient (BNV) | payer OTHER, SELFPAY | PROVIDERS: Emergency Provider Internal Medicine; Visit Provider Specialist | DX: R90.82 White matter disease, unspecified (principal) | CPT/HCPCS: 70450 ==

== ENCOUNTER 2024-10-11 13:58 | Outpatient (AMB) | payer OTHER, SELFPAY ==
[2024-10-11 14:19] VITALS: BP 90/58; PULSE 59; O2SAT 94
--- NOTE | 2024-10-11 14:19 | HO.NEPHOV ---
Vital Signs 10/11/24 14:19 Height 5 ft 7 in BP 90/58 L Blood Pressure Location Lt brachial Position Sitting Pulse 59 Pulse Source Pulse Oximeter Pulse Oximetry (%) 94 Oxygen Delivery Method Room Air Intake Visit Reasons: ENP: CRI STG4-LVM Office Machine Inspector Required: No Accompanied by: Daughter Allergies No Known Allergies Allergy (Mild, Verified 10/11/24 14:30) N/A Medication List - Last Reconciled 10/11/24 by Reyes Bee MD chlordiazepoxide HCl 50 mg (2 x 25 mg) PO Q4H PRN 6 doses famotidine 20 mg PO BEDTIME ferrous sulfate 650 mg PO Q OTHER DAY furosemide 80 mg PO BEDTIME hydroxyzine HCl 10 mg PO Q8H PRN ibuprofen 800 mg PO TID PRN levothyroxine 1 tab PO BEDTIME loratadine 1 tab PO BEDTIME magnesium oxide 400 mg PO QAM methocarbamol 1,000 mg PO BEDTIME PRN metoprolol succinate ER 1 tab PO BEDTIME bu-lkp-uqeed-S9-jihuyeh-wulvqw 131-51-212-300 mcg (Centrum Silver Men) 1 tab PO BEDTIME omega 2-owo-wjv-fish oil 1,000 (120-180) mg (Fish Oil) 1 cap PO BEDTIME oxycodone-acetaminophen 5-325 mg 1 tab PO Q8H PRN pravastatin 1 tab PO BEDTIME spironolactone 1 tab PO BEDTIME tiotropium bromide (Spiriva with HandiHaler) 1 cap inhalation DAILY HPI Comments Details: The patient is a 78-year-old male eferred for CKD Accompanied by his daughter Based on the labs data, his kidney function has been low, with fluctuations noted over the past two years. A blood test conducted in March 2024 showed a kidney function of 21%, which has improved to 48% at present. The patient has a history of adenoCA ofprostate cancer. He reports no treatment such as radiation or medication was administered for the prostate cancer. Last seen by urology in Dec 2022 The patient has been experiencing lower back and leg pain for approximately five years, reports no interventions provided thus far. The patient has a history of alcohol consumption but reports quitting six years ago, with occasional beer consumption since then. He is currently on several medications, including Lasix, levothyroxine, and metoprolol, but is unsure about his adherence to these medications. He lives alone h/o Alcohol abuse [facility] Medical History (Updated 10/11/24 @ 14:58 by Reyes Bee MD) CKD (chronic kidney disease) CHF (congestive heart failure) Chronic anemia Alcohol abuse HTN (hypertension), benign Cholelithiasis without cholecystitis Prostate cancer Delirium tremens Alcoholic cirrhosis Surgical History S/P tonsillectomy and adenoidectomy Social History Household Members: None Housing: House Do you presently have visiting nurse or other home services: No Alcohol intake: current Alcohol intake frequency: 3 or more drinks per day Alcohol type: beer and hard liquor Comment: pt refuses bed alarm Patient Tobacco Use Status: Current someday Tobacco user Tobacco use type: Cigar Advance Directives Date on File: 10/29/21 service: No Current occupational status: retired Physical Exam Vital Signs: Last Vital Signs Pulse 59 10/11/24 14:19 BP 90/58 L 10/11/24 14:19 Pulse Ox 94 10/11/24 14:19 Oxygen Delivery Method Room Air 10/11/24 14:19 Comfortable In a wheel chair Neck supple no JVD. Lungs entry equal no rales. Heart S1-S2 heard no gallop or rub. Abdomen soft nontender. Neuro alert awake oriented. No asterixis. Extremities no edema. Const Nutritional Appearance: well nourished Orientation/consciousness: patient oriented x3 HEENT Head: No normal to inspection Mouth: moist mucous membranes Neck Neck: Yes supple and Yes no JVD Resp Auscultation: clear to auscultation bilaterally, no rales and rub present Cardio Jugular venous distension: no JVD Palpation: no palpable S3 and no palpable S4 Heart sounds: no rubs GI Palpation (GI): Soft to palpation and nontender Percussion: No Fluid wave present General: Yes no CVA tenderness Back/Spine/Pelvis Back: no CVA tenderness Skin General skin exam: no rashes or lesions noted Neuro General: patient oriented x3 Extrem General: No clubbing and Yes pedal edema (1+) Results Reviewed Nephrology Results: Hgb, (14.0-18.0) 11.4 g/dl L 09/07/24 WBC, (4.8-10.8) 9.2 X10*3/uL 09/07/24 Plt Count, (160-400) 221 X10*3/uL Δ 09/07/24 Sodium, (135-145) 135 mmol/L 09/07/24 Potassium, (3.3-5.1) 3.4 mmol/L Δ 09/07/24 Chloride, (96-108) 99 mmol/L 09/07/24 Carbon Dioxide, (22-29) 25 mmol/L 09/07/24 BUN, (9-16) 32 mg/dL H 09/07/24 Creatinine, (0.5-1.4) 1.42 mg/dL H 09/07/24 Calcium, (8.4-10.2) 8.4 mg/dL Δ 09/07/24 Urine Protein, (Neg-Trace) Negative mg/dL 01/06/23 Renal US 12/18/21 Assessment & Plan Assessment & Plan (1) Anemia of chronic disease: Code(s): D63.8 - Anemia in other chronic diseases classified elsewhere Category: Medical (2) Prostate cancer: Code(s): C61 - Malignant neoplasm of prostate Category: Medical Plan DANNY superimposed on CKD Last creatinine was in Mar 2024 Needs extensive work up Check Renal USG to r/o obstruction Check BMP Avoid nephrotoxins/NSAIDS Keep I > O ; Encouraged PO intake Further work up based on outcome of these tests. Anemia - Multifactorial Check HCT , Iron store Hypothyroid - Unclear if he is taking his meds ; Check TSH Prostrate CA - NEeds Urology follow up. Discussed with daughter Back pain - Chronic- Follow with PCP Orders: Orders Complete Blood Count no Diff 10/11/24 D63.8 - Anemia in other chronic diseases classified elsewhere Vitamin B12 and Folate 10/11/24 D63.8 - Anemia in other chronic diseases classified elsewhere US renal BI 10/11/24 D63.8 - Anemia in other chronic diseases classified elsewhere, I10 - Essential (primary) hypertension Comprehensive Met. Panel 10/11/24 D63.8 - Anemia in other chronic diseases classified elsewhere Creatinine Urine 10/11/24 D63.8 - Anemia in other chronic diseases classified elsewhere Parathyroid Hormone Intact 10/11/24 D63.8 - Anemia in other chronic diseases classified elsewhere Total Protein Urine Random 10/11/24 D63.8 - Anemia in other chronic diseases classified elsewhere Referrals Urology Referral C61 - Malignant neoplasm of prostate, R31.9 - Hematuria, unspecified Coding Level of Care Code New Pt Level 5 (25043) Diagnoses Anemia of chronic disease D63.8 Prostate cancer C61 Time Spent (min) 40
--- OUTSIDE RECORDS SUMMARY | 2024-10-11 14:34 | XMS_ITS | Encounter Summary ---
Author Organization [employer] Address [address] [place] [address] Care Team Providers Care Water Pollution Scientist Name Role Phone Claudette Price MD Primary Care Provider [phone] Reason for Visit * Reason Comments Med Refill Encounter Details Date Type Department Care Team ([facility] Contact Info) Description 01/25/2023 Refill [facility] MED [facility] PEDS [address] [place] [address] Claudette Price MD [address] [place] [address] Severe low back pain Social History Tobacco Use Types Packs/Day Years Used Date Smoking Tobacco: Every Day Pipe Cigars Passive Smoke Exposure: Current Smokeless Tobacco: Never Housing Stability Answer Date Recorded What is your housing situation today? I have deven graham 01/25/[address] you li ve. Do you have problems with any of the following? None of the above 01/25/2023 Food Insecurity Answer Date Recorded Within the past 12 months, y ou worried that your food would run out before you got money to buy more: Never True 01/25/2023 Within the past 12 months,th e food you bought just didn't last and you didn't have enough money to get more: Never True Transportation Answer Date Recorded In the past 12 months, has l ack of transportation kept you from medical appts, meetings, work or from getting things needed for daily living? No 01/25/2023 Utilities Answer Date Recorded In the past 12 months, has t he electric, gas, oil or water company threatened to shut off services in your home? No 01/25/2023 Sex and Gender Information Value Date Recorded Sex Assigned at Male 02/09/2022 10:17 AM EDT Legal Sex Male 10:17 AM EDT Gender Identity Male 02/09/2022 10:17 AM EDT Sexual Orientation Straight 02/03/2023 11 :42 AM EDT documented as of this encounter Plan of Treatment Upcoming Encounters Date Type Department Care Team ([facility] st Contact Info) Description 10/16/2024 10:00 AM EDT Telemedicine [facility] MED [facility] PEDS [address] [place] [address] Erica Villasenor RN [address] [place] [address] documented as of this encounter Visit Diagnoses Diagnosis Severe low back pain Lumbago documented in this encounter Care Teams Water Pollution Scientist Relationship Specialty Start Date End Date Claudette Price MD [address] [place] [address] PCP - General Family Medicine 04/12/18 documented as of this encounter
== END 2024-10-11 14:56 | disposition home or self-care (01) ==
LOC: HO.HKAM 13:58
PROVIDERS: PCP Pediatrics; Visit Provider Internal Medicine Hypertension Specialist
DX: C61 Malignant neoplasm of prostate (principal); D63.8 Anemia in other chronic diseases classified elsewhere
CPT/HCPCS: 99204

== ENCOUNTER → 2024-10-11 13:58 | Outpatient (BNVA) | payer OTHER, SELFPAY | PROVIDERS: PCP Pediatrics; Visit Provider Internal Medicine Hypertension Specialist | DX: I12.9 Hypertensive chronic kidney disease with stage 1 through stage 4 chronic kidney disease, or unspecified chronic kidney disease (principal); N18.9 Chronic kidney disease, unspecified; D63.8 Anemia in other chronic diseases classified elsewhere; C61 Malignant neoplasm of prostate; Z79.899 Other long term (current) drug therapy | CPT/HCPCS: 99202 ==

== ENCOUNTER 2024-10-15 12:17 | Inpatient (IN) | payer OTHER, SELFPAY ==
[2024-10-15] VITALS (8 sets, daily range): BP systolic 107–150; BP diastolic 27–70; PULSE 73–88; RESP 13–21; TEMP 36.3–36.7; O2SAT 96–99; BMI 26.6; BMI 34.1
--- NOTE | 2024-10-15 12:39 | ECG_ITS ---
Test Reason : fall Blood Pressure : */* mmHG Vent. Rate : 77 BPM Atrial Rate : 77 BPM P-R Int : 250 ms QRS Dur : 122 ms QT Int : 418 ms P-R-T Axes : 67 -27 36 degrees QTcB Int : 473 ms Sinus rhythm with 1st degree A-V block Right bundle branch block Abnormal ECG When compared with ECG of 07-Sep-2024 18:54, Right bundle branch block has replaced RSR' pattern in V1 Referred By: Maddison Woods Electronically Signed By: Brendan Kirk
--- NOTE | 2024-10-15 12:41 | PC.NURSE ---
Addendum entered by Heaven Phillips RN 10/15/24 12:43: Pt is a 78-year-old male with a PMH significant for?HTN, prostate cancer, alcoholic cirrhosis, delirium tremens, HLD, and hypothyroidism who presents to the ED for evaluation s/p fall. Patient having worsening diarrhea over the past several days and was noted to be caked with stool. Yesterday had a glass of vodka and 2 percocets and tripped over the coffee table and unable to get up for approx 30 minutes. c/o vague back pain with a history of chronic back pain. Alert and oriented but slow to respond. manager communication applied and NSR noted. Lungs clear bilat. Respirations even and non-labored. Abdomen sl firm distended with positive bowel sounds. Angry sanna noted to parish-area and bilat groin.Positive pedal pulses with no edema. Original Note: Medical History CKD (chronic kidney disease) CHF (congestive heart failure) Chronic anemia Alcohol abuse HTN (hypertension), benign Cholelithiasis without cholecystitis Prostate cancer Delirium tremens Alcoholic cirrhosis
[2024-10-15 13:06] LABS: MANUAL DIFF FLAG NO
[2024-10-15 13:08] LABS: Hematocrit 31.3 % (42.0-52.0); Hemoglobin 10.8 g/dl (14.0-18.0); Imm Gran Abs Auto 0.09 X10*3/uL (0.00-0.03); Imm Gran Pct Auto 1.0 % (0.0-0.4); Lymphocytes Absolute Auto 1.5 X10*3/uL (1.2-4.9); Mean Corpuscular HGB Conc 34.5 g/dl (31.0-36.0); Mean Corpuscular Hemoglobin 33.6 pg (27.0-33.0); Mean Corpuscular Volume 97.5 fL (80.0-98.0); NRBC Abs Auto 0.000 X10*3/uL (0.0-0.012); NRBC Pct Auto 0.0 /100WBC (0.0-0.2); Platelet Count 236 X10*3/uL (160-400); Red Blood Count 3.21 X10*6/uL (4.60-5.80); White Blood Count 9.4 X10*3/uL (4.8-10.8)
[2024-10-15 13:24] LABS: Alanine Aminotransferase 9 U/L (0-40); Albumin Level 3.6 g/dL (3.5-5.0); Alkaline Phosphatase 87 U/L (39-117); Anion Gap 17 (12-20); Aspartate Amino Transferase 20 U/L (5-37); Blood Urea Nitrogen 49 mg/dL (9-16); Calcium 8.7 mg/dL (8.4-10.2); Carbon Dioxide 22 mmol/L (22-29); Chloride 105 mmol/L (96-108); Creatinine Clr Calc Pharmacy 35.3; Estimated Glomerular Filt Rate 42; Lipase 13 U/L (8-78); Potassium 4.1 mmol/L (3.3-5.1); Sodium 140 mmol/L (135-145); Total Protein 6.8 g/dL (6.5-8.0)
[2024-10-15 13:31] LABS: Troponin-I High Sensitivity 11.3 ng/L (<3.5-35.0)
[2024-10-15 15:34] LABS: Appearance Urine Clear; Glucose Urine UA Negative (Negative); PH 5.5 (5.0-9.0); Specific Gravity - Urine 1.015 (1.005-1.025); UMIC TRIGGER UACC YES
--- NOTE | 2024-10-15 15:36 | ED.GENADULT ---
HPI - General Adult General Chief complaint: Fall Stated complaint: FALL DIARRHEA WEAKNESS Time Seen by Provider: 10/15/24 12:38 Source: patient and EMS Mode of arrival: EMS Limitations: no limitations History of Present Illness ED Provider: DR. Woods HPI narrative: 78-year-old male who lives home by himself independently, patient reported 2 days of nonbloody watery diarrhea, patient also drank 1 glass of vodka and take 1 pill of his prescribed Percocet, patient was bending down to cleans the floor when he stood up too fast patient fell backward hitting the lower back on the coffee table, no head injury, no LOC, no neck pain, no chest pain, no SOB. patient is seeking to go to rehab Related Data Home Medications ?Medication ?Instructions ?Recorded ?Confirmed levothyroxine 125 mcg tablet 1 tab PO BEDTIME 10/29/21 10/11/24 loratadine 10 mg tablet 1 tab PO BEDTIME 10/29/21 10/11/24 metoprolol succinate 100 mg 1 tab PO BEDTIME 10/29/21 10/11/24 tablet,extended release 24 hr pravastatin 40 mg tablet 1 tab PO BEDTIME 10/29/21 10/11/24 spironolactone 100 mg tablet 1 tab PO BEDTIME 10/29/21 10/11/24 tiotropium bromide 18 mcg capsule 1 cap inhalation DAILY 10/29/21 10/11/24 with inhalation device (Spiriva with HandiHaler) famotidine 20 mg tablet 20 mg PO BEDTIME 11/18/22 10/11/24 furosemide 80 mg tablet 80 mg PO BEDTIME 11/18/22 10/11/24 hydroxyzine HCl 10 mg tablet 10 mg PO Q8H PRN itch 01/07/23 10/11/24 ibuprofen 800 mg tablet 800 mg PO TID PRN Pain 01/07/23 10/11/24 emktauxr-zv-twnxb 300 mcg-K 60 1 tab PO BEDTIME 01/07/23 10/11/24 mcg-lycop 600 mcg-lutein 300 mcg tablet (Centrum Silver Men) omega 2-xxx-pmj-fish oil 1,000 mg 1 cap PO BEDTIME 01/07/23 10/11/24 (120 mg-180 mg) capsule (Fish Oil) oxycodone-acetaminophen 5 mg-325 1 tab PO Q8H PRN severe pain 01/07/23 10/11/24 mg tablet ferrous sulfate 325 mg (65 mg 650 mg PO Q OTHER DAY 10/11/24 10/11/24 iron) tablet magnesium oxide 400 mg (241.3 mg 400 mg PO QAM 10/11/24 10/11/24 magnesium) tablet methocarbamol 500 mg tablet 1,000 mg PO BEDTIME PRN pain 10/11/24 10/11/24 Previous Rx's ?Medication ?Instructions ?Recorded chlordiazepoxide HCl 25 mg capsule 50 mg (2 x 25 mg) PO Q4H PRN 09/07/24 alcohol withdrawal 6 doses #12 caps Allergies Allergy/AdvReac Type Severity Reaction Status Date / Time No Known Allergies Allergy Mild N/A Verified 10/15/24 12:29 Review of Systems Review of Systems: all other systems are reviewed and are negative Constitutional: Reports as per HPI and Reports no additional constitutional complaints Eyes: Reports as per HPI and Reports no additional eye complaints Reports system reviewed and no additional complaints, except as documented Cardiovascular: Reports as per HPI and Reports no additional cardiovascular complaints Respiratory: Reports as per HPI and Reports no additional respiratory complaints Gastrointestinal: Reports as per HPI and Reports no additional gastrointestinal complaints Genitourinary: Reports no additional female genitourinary complaints Musculoskeletal: Reports no additional musculoskeletal complaints Skin/Breast: Reports system reviewed and no additional complaints, except as docu Psychiatric: Reports no additional psychiatric complaints Endocrine: Reports no additional endocrine complaints Hematologic/Lymphatic: Reports no additional hematologic/lymphatic complaints Allergic/Immunologic: Reports no additional allergic/immunologic complaints Reports system reviewed and no additional complaints, except as documented and Reports Abnormal speech present [facility] Past Medical History Medical History CKD (chronic kidney disease) CHF (congestive heart failure) Chronic anemia Alcohol abuse HTN (hypertension), benign Cholelithiasis without cholecystitis Prostate cancer Delirium tremens Alcoholic cirrhosis Surgical History S/P tonsillectomy and adenoidectomy Social History Social History Household Members: None Housing: House Do you presently have visiting nurse or other home services: No Alcohol intake: current Alcohol intake frequency: 3 or more drinks per day Alcohol type: hard liquor Comment: pt refuses bed alarm Patient Tobacco Use Status: Current someday Tobacco user Tobacco use type: Cigar Smoked in Last 30 Days: Yes Advance Directives: Yes Advance Directives on File: Yes Advance Directives Date on File: 10/29/21 service: No Current occupational status: retired Physical Exam ED Vital Signs: Vital Signs - 24 hr 10/15/24 12:24 10/15/24 12:33 10/15/24 12:33 Temperature 98.0 F Pulse Rate 79 77 78 Respiratory Rate 16 14 13 Blood Pressure 115/47 L 107/42 L Pulse Oximetry 99 98 97 Oxygen Delivery Method Room Air Room Air 10/15/24 13:39 10/15/24 13:39 10/15/24 13:40 Temperature Pulse Rate 80 79 82 Respiratory Rate Blood Pressure 125/46 L 109/47 L 108/39 L Pulse Oximetry Oxygen Delivery Method BMI result Body Mass Index 26.6 Vital signs have been reviewed and appear to be correct. Blood pressure elevated. Heart rate normal. Respiratory rate normal. Temperature normal. Oxygen saturation normal. Appearance: Alert. Oriented X3. No acute distress. Head: Normal external exam. Normocephalic. Atraumatic. No Zavaleta signs noted. No raccoon eyes noted Eyes: PERRLA. EOMI. Conjunctiva and sclera normal. Eyelids normal. ENT: TM's Normal. Pharynx normal. Uvula midline. Moist mucous membranes. No trismus noted. No drooling noted. No muffled voice noted. Neck: Normal inspection. Neck supple. FROM. No adenopathy. Thyroid Normal. No meningeal signs. No neck mass noted. CVS: Normal heart rate and rhythm. Heart sound normal. No murmurs noted. Pulses normal throughout. Respiratory: No respiratory distress. Painless inspiration. Breath sounds normal. No wheezes/rales/rhonchi noted. Chest nontender. No accessory muscle usage noted or decreased air movement noted. Abdomen: Soft and nontender. Bowel sounds normal in all 4 quadrants. No distention noted. No organomegaly noted. No visible injury noted. Back: No CVA tenderness. Full range of motion noted. Skin: Skin warm and dry. Normal skin color. Normal skin turgor. No rashes/lesions/lacerations noted. Extremities: No lower extremity edema. Extremities exhibit normal range of motion. Extremities nontender. Neuro: Oriented X 3. Cranial nerve exam: II-XII are grossly intact No motor deficit. No sensory deficit. Reflexes normal. Able to ambulate in the ED at his baseline. Course Reevaluation(s) Reevaluation #1: 78-year-old male came in after having 2 days of diarrhea, mildly dehydrated, CKD. Received IV hydration patient feel better with 1 L of normal saline. Kidney function is at baseline. patient with history of alcohol withdrawal, will start phenobarb, case discussed with Dr. Huerta. Will start physician observation, PT eval, neighborhood worker. Patient wish to be a full code. Time: 15:49 Medications Administered Discontinued Medications Generic Name Dose Route Start Last Admin Trade Name Freq PRN Reason Stop Dose Admin Sodium Chloride 1,000 mls @ 999 mls/hr 10/15/24 12:39 10/15/24 13:17 Ns IV 10/15/24 13:39 999 mls/hr .Q1H1M ONE Administration Medical Decision Making Differential Diagnosis Differential Diagnoses: The differential diagnosis associated with the presentation includes ( dehydration, DANNY, electrolyte derangement, severe anemia, alcohol intoxication, UTI, alcohol withdrawal.) Admission/Observation Consideration of admission/observation: Escalation of care including admission/observation considered Consult Healthcare Provider Management of the patient was discussed with: Hospitalist ( Dr. Huerta.) Lab Data MDM Lab Attestation statement: I reviewed the patient's lab results. 10/15/24 13:01 10/15/24 13:01 Labs: Lab Results 10/15/24 10/15/24 Range/Units 13:01 15:12 WBC 9.4 (4.8-10.8) X10*3/uL RBC 3.21 L (4.60-5.80) X10*6/uL Hgb 10.8 L (14.0-18.0) g/dl Hct 31.3 L (42.0-52.0) % MCV 97.5 (80.0-98.0) fL MCH 33.6 H (27.0-33.0) pg MCHC 34.5 (31.0-36.0) g/dl RDW 14.1 (11.0-16.0) % Plt Count 236 (160-400) X10*3/uL MPV 9.2 L (9.4-12.4) fL Immature Gran % (Auto) 1.0 H (0.0-0.4) % Neut % (Auto) 69.0 (45-73) % Lymph % (Auto) 15.5 L (20-40) % Thayer % (Auto) 12.6 H (2-11) % Eos % (Auto) 1.6 (0-4) % Baso % (Auto) 0.3 (0-2) % Lymph # (Auto) 1.5 (1.2-4.9) X10*3/uL Thayer # (Auto) 1.2 (0.1-1.2) X10*3/uL Eos # (Auto) 0.2 (0.0-0.4) X10*3/uL Baso # (Auto) 0.0 (0.0-0.2) X10*3/uL Abs Immat Gran (auto) 0.09 H (0.00-0.03) X10*3/uL Absolute Neuts (auto) 6.5 (2.0-8.3) x10*3/uL Absolute Nucleated RBC 0.000 (0.0-0.012) X10*3/uL Nucleated RBC % (auto) 0.0 (0.0-0.2) /100WBC Sodium 140 (135-145) mmol/L Potassium 4.1 D (3.3-5.1) mmol/L Chloride 105 (96-108) mmol/L Carbon Dioxide 22 (22-29) mmol/L Anion Gap 17 (12-20) BUN 49 H (9-16) mg/dL Creatinine 1.61 H (0.5-1.4) mg/dL Estim Creat Clear Calc 35.3 Estimated GFR 42 Random Glucose 96 (60-115) mg/dL Calcium 8.7 (8.4-10.2) mg/dL Total Bilirubin 0.3 (0.0-1.0) mg/dL Direct Bilirubin 0.2 (0.0-0.5) mg/dL AST 20 (5-37) U/L ALT 9 (0-40) U/L Alkaline Phosphatase 87 (39-117) U/L Troponin I High Sens 11.3 (<3.5-35.0) ng/L Total Protein 6.8 (6.5-8.0) g/dL Albumin 3.6 (3.5-5.0) g/dL Lipase 13 (8-78) U/L Urine Color Yellow Urine Appearance Clear Urine pH 5.5 (5.0-9.0) Ur Specific [place] 1.015 (1.005-1.025) Urine Protein Negative (Neg-Trace) mg/dL Urine Glucose (UA) Negative (Negative) mg/dL Urine Ketones Negative (Negative) mg/dL Urine Blood Negative (Negative) Urine Nitrite Negative (Negative) Ur Leukocyte Esterase Small (1+) H (Negative) Ethyl Alcohol 139 mg/dL Discharge Plan Discharge Clinical Impression: Accident due to mechanical fall without injury, Dehydration, Alcohol withdrawal Patient Disposition: Admitted As Inpatient Print Language: Kittitian
[2024-10-15 16:15] LABS: UACC Culture Trigger YES
--- NOTE | 2024-10-15 16:22 | PM.IMHP ---
History of Present Illness Date of Service: 10/15/24 Attending physician on admission: Giovanni Huerta Chief Complaint: Fall at home Pt is a 78-year-old male with a PMH significant for?HTN, HLD, HFpEF, prostate cancer, hypothyroidism, CKD3, alcohol use disorder with hx of withdrawal with delirium tremens who presents to the ED with generalized weakness and fall at home. Pt states he was bending over to clean his floors he tried to stand up and fell backwards, tripping over the coffee table. No head strike. Pt had been drinking vodka earlier in the day, as well as taking 2 Percocets. Pt was too weak to pull himself up which prompted his call to EMS. Pt reports has been feeling ?weaker and weaker? the past month+. Pt lives alone and ambulates with a cane. Has been fighting more difficult to ambulate and take care of himself. Also complains of 2 days of nonbloody diarrhea. Has a long hx of constipation due to chronic opioid use. Usually takes stool softeners, though reports has been constipated with the past few days. Pt took an unknown [id number] medication on Wednesday, and then late Wednesday night developed significant diarrhea that lasted throughout Wednesday. No diarrhea since last night. Denies abdominal pain Pt previously was sober for 6 years, though reports has been drinking quite heavily for the past few months. Pt is overall a vague historian and he does not specify how much he is drinking, though he admits it is ?too much?. Primarily drinking both beer and vodka. Denies lightheadedness or dizziness. No chest pain/pressure, palpitations. Denies fever, chills, nausea, vomiting. In the ED pt's BP soft, the vitals otherwise stable. Labs were significant for ethyl alcohol level of 139, otherwise grossly unremarkable and around baseline for pt. No leukocytosis. Stable normocytic anemia. No significant electrolyte abnormalities. Creatinine 1.61, around baseline. Hepatic function WNL. Troponin 11.3. UA negative for UTI. EKG demonstrated sinus rhythm with first-degree AV block and chronic RBBB, similar to prior. Pt was treated in the ED with IVF and started on phenobarb protocol. Pt is admitted to the hospital for treatment and further evaluation of generalized weakness with multiple falls at home in the setting of physical deconditioning and alcohol use disorder with impending withdrawal. Review of Systems Review of Systems: Negative except for that which is stated in the HPI. [facility] Medical History CKD (chronic kidney disease) CHF (congestive heart failure) Chronic anemia Alcohol abuse HTN (hypertension), benign Cholelithiasis without cholecystitis Prostate cancer Delirium tremens Alcoholic cirrhosis Surgical History S/P tonsillectomy and adenoidectomy Social History Household Members: None Housing: House Do you presently have visiting nurse or other home services: No Alcohol intake: current Alcohol intake frequency: 3 or more drinks per day Alcohol type: hard liquor Comment: pt refuses bed alarm Patient Tobacco Use Status: Current someday Tobacco user Tobacco use type: Cigar Smoked in Last 30 Days: Yes Advance Directives: Yes Advance Directives on File: Yes Advance Directives Date on File: 10/29/21 service: No Current occupational status: retired [employer] Allergies Allergy/AdvReac Type Severity Reaction Status Date / Time No Known Allergies Allergy Mild N/A Verified 10/15/24 12:29 Home Medications ?Medication ?Instructions ?Recorded ?Confirmed ?Last Taken ?Type levothyroxine 125 mcg tablet 125 mcg PO BEDTIME 10/29/21 10/15/24 01/06/23 History loratadine 10 mg tablet 10 mg PO BEDTIME 10/29/21 10/15/24 01/06/23 History metoprolol succinate 100 mg 100 mg PO BEDTIME 10/29/21 10/15/24 01/06/23 History tablet,extended release 24 hr pravastatin 40 mg tablet 40 mg PO BEDTIME 10/29/21 10/15/24 01/06/23 History spironolactone 100 mg tablet 100 mg PO BEDTIME 10/29/21 10/15/24 01/06/23 History tiotropium bromide 18 mcg capsule 1 cap inhalation DAILY 10/29/21 10/15/24 01/06/23 History with inhalation device (Spiriva with HandiHaler) famotidine 20 mg tablet 20 mg PO BEDTIME 11/18/22 10/15/24 01/06/23 History furosemide 80 mg tablet 80 mg PO BEDTIME 11/18/22 10/15/24 01/06/23 History hydroxyzine HCl 10 mg tablet 10 mg PO Q8H PRN itch 01/07/23 10/15/24 01/06/23 History ibuprofen 800 mg tablet 800 mg PO TID PRN Pain 01/07/23 10/15/24 01/06/23 History fnkprega-[id number] 300 mcg-K 60 1 tab PO BEDTIME 01/07/23 10/15/24 01/06/23 History mcg-lycop 600 mcg-lutein 300 mcg tablet (Centrum Silver Men) omega 0-aug-pqa-fish oil 1,000 mg 1 cap PO BEDTIME 01/07/23 10/15/24 01/06/23 History (120 mg-180 mg) capsule (Fish Oil) oxycodone-acetaminophen 5 mg-325 1 tab PO Q8H severe pain 01/07/23 10/15/24 01/06/23 History mg tablet ferrous sulfate 325 mg (65 mg 650 mg PO Q48H 10/11/24 10/15/24 Unknown History iron) tablet magnesium oxide 400 mg (241.3 mg 400 mg PO DAILY 10/11/24 10/15/24 Unknown History magnesium) tablet methocarbamol 500 mg tablet 1,000 mg PO BEDTIME PRN pain 10/11/24 10/15/24 Unknown History Physical Exam Vital Signs and Narrative: Vital Signs: Last Vital Signs Temp 98.0 F 10/15/24 12:24 Pulse 82 10/15/24 13:40 Resp 13 10/15/24 12:33 BP 108/39 L 10/15/24 13:40 Pulse Ox 97 10/15/24 12:33 O2 Del Method Room Air 10/15/24 12:33 BMI result Body Mass Index 26.6 General: AOx3, appears weak and deconditioned. In no acute distress Resp: CTA bilaterally CVS: S1, S2, RRR GI: +BS, NT, no distention Skin: Warm, dry Neuro: Cranial nerves II-XII grossly intact bilaterally. Motor grossly intact bilaterally. Mild upper extremity tremors. Musculoskeletal: Global weakness, 2/5 symmetric upper extremity strength. 1/5 symmetric lower extremity strength. Extremities: No pitting edema Psych: Appropriate affect Results Labs 10/15/24 13:01 10/15/24 13:01 Labs: Laboratory Results - last 24 hr 10/15/24 10/15/24 13:01 15:12 MCV 97.5 MCH 33.6 H MCHC 34.5 RDW 14.1 Plt Count 236 MPV 9.2 L Immature Gran % (Auto) 1.0 H Neut % (Auto) 69.0 Lymph % (Auto) 15.5 L [place] % (Auto) 12.6 H Eos % (Auto) 1.6 Baso % (Auto) 0.3 Lymph # (Auto) 1.5 [place] # (Auto) 1.2 Eos # (Auto) 0.2 Baso # (Auto) 0.0 Abs Immat Gran (auto) 0.09 H Absolute Neuts (auto) 6.5 Absolute Nucleated RBC 0.000 Nucleated RBC % (auto) 0.0 Anion Gap 17 Estim Creat Clear Calc 35.3 Estimated GFR 42 Random Glucose 96 Calcium 8.7 Total Bilirubin 0.3 Direct Bilirubin 0.2 AST 20 ALT 9 Alkaline Phosphatase 87 Troponin I High Sens 11.3 Total Protein 6.8 Albumin 3.6 Lipase 13 Urine Color Yellow Urine Appearance Clear Urine pH 5.5 Ur Specific [place] 1.015 Urine Protein Negative Urine Glucose (UA) Negative Urine Ketones Negative Urine Blood Negative Urine Nitrite Negative Ur Leukocyte Esterase Small (1+) H Urine RBC 0-2 Urine WBC 0-5 Ur Squamous Epith Cells 3-5 Urine Bacteria 1+ Hyaline Casts 0-2 Ethyl Alcohol 139 Assessment and Plan (1) Alcohol withdrawal: Status: Acute (2) Generalized weakness: Status: Acute Plan Pt is a 78-year-old male with a PMH significant for?HTN, HLD, HFpEF, prostate cancer, hypothyroidism, CKD3, alcohol use disorder with hx of withdrawal with delirium tremens who presents to the ED with generalized weakness and fall at home. Pt is admitted to the hospital for treatment and further evaluation of generalized weakness with multiple falls at home in the setting of physical deconditioning and alcohol use disorder with impending withdrawal. Alcohol use disorder with impending withdrawal Pt has been drinking heavily for the past few months; last drink this afternoon just prior to arrival Hx of withdrawal with delirium tremens Pt too weak to be safely discharged home Will place on CIWA and treat with phenobarb protocol for impending alcohol withdrawal Daily multivitamin, folic acid, thiamine, famotidine Follow lytes, Mag, BMP Addiction medicine consult Monitor on telemetry Generalized weakness with falls at home PT evaluation Will likely need STR Diarrhea Likely secondary to laxative use for constipation from chronic opioids Stool studies if recurs Normocytic anemia Likely of chronic disease Stable, at baseline Continue iron supplementation CKD3 Stable, at baseline HTN BP has been soft, hold metoprolol HFpEF Not in acute exacerbation BP has been soft, hold furosemide and spironolactone for now HLD Continue statin Chronic back pain Continue home Percocet Hypothyroidism Continue levothyroxine GERD Continue famotidine Full Code Attending:?Dr. Huerta DVT Prophylaxis: Lovenox Given that pt is too weak to be sent home safely combined with his hx of alcohol withdrawal with delirium tremens and current heavy alcohol use, pt will need to be brought into the hospital for at least a 2 overnight stay. Pt will be treated for of impending alcohol withdrawal requiring phenobarb protocol while awaiting PT evaluation for generalized weakness, deconditioning, and failure to thrive. Quality Stroke Does the patient have a stroke diagnosis?: No VTE Prior VTE?: No VTE Risk Level:: Medical - moderate - high VTE Device Contraindication: Treatment Not Indicated VTE Drug Contraindication: N/A - Med Ordered
[2024-10-15] MEDS: oxyCODONE HCl Immed Release 5 MG TABLET PO (17:24)
--- NOTE | 2024-10-15 17:39 | PHA.MEDREC ---
Addendum entered by Vandana Arredondo [facility] 10/15/24 17:41: pt also stated he still has spiriva at home but has not filled it in a while. Original Note: Pharmacy Consult ? Medication Reconciliation Pharmacy has completed the medication reconciliation, spoke to patient to confirm all meds, said he takes everything at night.
[2024-10-15] MEDS: PHENobarbitaL sodium 130 MG/ML IM ONCE 264 MG IM (18:09)
[2024-10-15] MEDS: PHENobarbitaL sodium 130 MG/ML VIAL IM Q3Hx2 198 MG IM (22:16)
[2024-10-15] MEDS: Ferrous Sulfate 324 MG TABLET.DR PO (22:17)
[2024-10-16] VITALS (7 sets, daily range): BP systolic 120–152; BP diastolic 56–67; PULSE 67–81; RESP 16–18; TEMP 36.1–37.1; O2SAT 94–99
[2024-10-16] MEDS: oxyCODONE HCl Immed Release 5 MG TABLET PO ×3 (00:29→16:21)
[2024-10-16] MEDS: 0.9 % Sodium Chloride Flush 3 ML SYRINGE IVFLUSH ×4 (00:31→20:31)
[2024-10-16] MEDS: PHENobarbitaL sodium 130 MG/ML VIAL IM Q3Hx2 198 MG IM (01:38)
[2024-10-16 06:55] LABS: Hematocrit 32.6 % (42.0-52.0); Hemoglobin 10.9 g/dl (14.0-18.0); Mean Corpuscular HGB Conc 33.4 g/dl (31.0-36.0); Mean Corpuscular Hemoglobin 33.5 pg (27.0-33.0); Mean Corpuscular Volume 100.3 fL (80.0-98.0); NRBC Abs Auto 0.000 X10*3/uL (0.0-0.012); NRBC Pct Auto 0.0 /100WBC (0.0-0.2); Platelet Count 215 X10*3/uL (160-400); Red Blood Count 3.25 X10*6/uL (4.60-5.80); White Blood Count 7.3 X10*3/uL (4.8-10.8)
[2024-10-16 07:02] LABS: Anion Gap 13 (12-20); Blood Urea Nitrogen 35 mg/dL (9-16); Calcium 8.6 mg/dL (8.4-10.2); Carbon Dioxide 23 mmol/L (22-29); Chloride 108 mmol/L (96-108); Creatinine Clr Calc Pharmacy 56.8; Estimated Glomerular Filt Rate 59; Potassium 4.5 mmol/L (3.3-5.1); Sodium 139 mmol/L (135-145)
--- NOTE | 2024-10-16 09:43 | HO.PM.IMPN ---
Subjective Subjective Date of Service: 10/16/24 Interval History: shaky, weak Physical Exam Vital Signs: Vital Signs: Last Vital Signs Temp 98.2 F 10/16/24 07:29 Pulse 71 10/16/24 08:39 Resp 18 10/16/24 07:29 BP 152/66 H 10/16/24 08:39 Pulse Ox 99 10/16/24 08:39 O2 Del Method Room Air 10/16/24 07:29 BMI result Body Mass Index 34.1 General: AO X 3, anxiuos Resp: CTA bilateral, no accessory muscles used CVS: S1,S2,RRR GI: soft, non tender, non distended Neuro: motor grossly intact, alert, mild tremor Psych: appropriate affect, appropriate insight Objective Data Active Medications Acetaminophen (Acetaminophen 325 Mg Tablet) 650 mg PO Q6H PRN PRN Reason: Pain, Mild 1-3,fever,headache Calcium Carbonate (Calcium Carbonate 750 Mg Tab.Chew) 750 mg PO Q4H PRN PRN Reason: Heartburn Enoxaparin Sodium (Enoxaparin Sodium 40 Mg/0.4 Ml Syringe) 40 mg SUBCUT Q24H [facility] Last Admin: 10/15/24 18:09 Dose: 40 mg Documented By: TEDDYRPESPERANZA Famotidine (Famotidine 20 Mg Tablet) 20 mg PO BEDTIME [facility] Last Admin: 10/15/24 22:17 Dose: 20 mg Documented By: LOGAN Ferrous Sulfate (Ferrous Sulfate 324 Mg Tablet.) 324 mg PO Q48H [facility] Last Admin: 10/15/24 22:17 Dose: 324 mg Documented By: LOGAN Folic Acid (Folic Acid 1 Mg Tablet) 1 mg PO DAILY [facility] Stop: 10/19/24 08:59 Last Admin: 10/16/24 09:04 Dose: 1 mg Documented By: PAULA Hydroxyzine HCl (Hydroxyzine Hcl 10 Mg Tablet) 10 mg PO Q8H PRN PRN Reason: itch Ibuprofen (Ibuprofen 800 Mg Tablet) 800 mg PO TID PRN PRN Reason: Pain, Mild 1-3,fever,headache Levothyroxine Sodium (Levothyroxine Sodium 125 Mcg Tablet) 125 mcg PO BEDTIME [facility] Last Admin: 10/15/24 22:17 Dose: 125 mcg Documented By: LOGAN Loratadine (Loratadine 10 Mg Tablet) 10 mg PO BEDTIME [facility] Last Admin: 10/15/24 22:17 Dose: 10 mg Documented By: LOGAN Magnesium Hydroxide (Milk Of Magnesia 30 Ml Oral.Susp) 30 ml PO DAILY PRN PRN Reason: Constipation Magnesium Oxide (Magnesium Oxide 400 Mg Tablet) 400 mg PO BEDTIME [facility] Methocarbamol (Methocarbamol 500 Mg Tablet) 1,000 mg PO BEDTIME PRN PRN Reason: Pain, Moderate(Pain Scale 4-6) Multivitamins/Vitamin C (Multivitamin Tablet) 1 tab PO BEDTIME [facility] Last Admin: 10/15/24 22:17 Dose: 1 tab Documented By: LOGAN Oxycodone HCl (Oxycodone Hcl Immed Release 5 Mg Tablet) 5 mg PO Q8H [facility] Last Admin: 10/16/24 09:05 Dose: 5 mg Documented By: PAULA Pharmacy Consult (Consult Rx Etoh Phenob Im/Po) 1 each MISCELLANE ONCE PRN; Protocol PRN Reason: Consult order Phenobarbital (Phenobarbital 15 Mg Tablet) 45 mg PO BID [facility] Stop: 10/17/24 21:01 Last Admin: 10/16/24 09:04 Dose: 45 mg Documented By: PAULA Phenobarbital (Phenobarbital 15 Mg Tablet) 15 mg PO BID [facility] Stop: 10/19/24 21:01 Phenobarbital (Phenobarbital 15 Mg Tablet) 15 mg PO DAILY [facility] Stop: 10/21/24 09:01 Pravastatin Sodium (Pravastatin Sodium 40 Mg Tablet) 40 mg PO BEDTIME [facility] Last Admin: 10/15/24 22:17 Dose: 40 mg Documented By: LOGAN Sodium Chloride (0.9 % Sodium Chloride Flush 3 Ml Syringe) 3 ml IVFLUSH QSHIFT [facility] Last Admin: 10/16/24 09:08 Dose: 3 ml Documented By: PAULA Thiamine HCl (Thiamine Hcl 100 Mg Tablet) 100 mg PO DAILY [facility] Stop: 10/19/24 08:59 Tiotropium [place] (Tiotropium [place] 2.5 Mcg 1 Puff/2.5 Mcg Mist.Inhal) 2 puff INHALE RDAILY [facility] Labs 10/16/24 05:51 10/16/24 05:51 Labs: Laboratory Results - last 24 hr 10/15/24 10/15/24 10/16/24 13:01 15:12 05:51 MCV 97.5 100.3 H MCH 33.6 H 33.5 H MCHC 34.5 33.4 RDW 14.1 14.4 Plt Count 236 215 MPV 9.2 L 10.0 Immature Gran % (Auto) 1.0 H Neut % (Auto) 69.0 Lymph % (Auto) 15.5 L [place] % (Auto) 12.6 H Eos % (Auto) 1.6 Baso % (Auto) 0.3 Lymph # (Auto) 1.5 [place] # (Auto) 1.2 Eos # (Auto) 0.2 Baso # (Auto) 0.0 Abs Immat Gran (auto) 0.09 H Absolute Neuts (auto) 6.5 Absolute Nucleated RBC 0.000 0.000 Nucleated RBC % (auto) 0.0 0.0 Anion Gap 17 13 Estim Creat Clear Calc 35.3 56.8 Estimated GFR 42 59 Random Glucose 96 133 H Calcium 8.7 8.6 Total Bilirubin 0.3 Direct Bilirubin 0.2 AST 20 ALT 9 Alkaline Phosphatase 87 Troponin I High Sens 11.3 Total Protein 6.8 Albumin 3.6 Lipase 13 Urine Color Yellow Urine Appearance Clear Urine pH 5.5 Ur Specific [place] 1.015 Urine Protein Negative Urine Glucose (UA) Negative Urine Ketones Negative Urine Blood Negative Urine Nitrite Negative Ur Leukocyte Esterase Small (1+) H Urine RBC 0-2 Urine WBC 0-5 Ur Squamous Epith Cells 3-5 Urine Bacteria 1+ Hyaline Casts 0-2 Ethyl Alcohol 139 Assessment and Plan (1) Alcohol withdrawal: Status: Acute Plan 78M PMH alcohol dependence, chronic diastolic CHF, prostate cancer, hypertension, hyperlipidemia, hypothyroid, CKD 3 presented with fall Alcohol dependence with withdrawal Continue phenobarbital, monitor CIWA, follow electrolytes, vitamin replacement Addiction Medicine eval Generalized weakness with falls Will need short-term rehab Report of diarrhea Due to laxative use DANNY and CKD 3 Resolved Chronic diastolic CHF Holding Lasix and Aldactone for soft blood pressure and dehydration Hypothyroid Levothyroxine DVT prophylaxis-Lovenox Full Code reason for continued hospitalization: Active withdrawal Quality Stroke Does the patient have a stroke diagnosis?: No VTE Prior VTE?: No VTE Risk Level:: Medical - moderate - high VTE Device Contraindication: Treatment Not Indicated VTE Drug Contraindication: N/A - Med Ordered
--- NOTE | 2024-10-16 09:49 | MHC.CM.PN ---
IMM 10/16. Pt self-care, lives alone at home. Pt uses a cane. He will arrange his own transport home at discharge. HCP on file and verified. PCP: Dr. Claudette Price
--- NOTE | 2024-10-16 16:31 | HO.ADDICTCON ---
History of Present Illness Date of Service: 10/16/2024 Chief Complaint: Fall at home alcohol withdrawal Reason for Consult: AUD Sources of Information: patient interviewed and chart reviewed HPI Narrative: Patient is a 78 year old male with medical history that includes alcohol use disorder, DTs, CHF, prostate cancer, hypothyroid, CKD. Present[place] [facility] after sustaining a fall at home and per ED note, requesting assistance with STR admission. Consult requested due to AUD. Patient seen in room 475. He is observed walking around, with supervision, and then sitting in the recliner. He appears SOB, which he says is due to walking around. Challenging to illicit any information from him related to alcohol use. He states he drinks btwn 1/2 to one pint of vodka daily. Says some days he doesn't drink at all. He is unable to answer when asked about withdrawal sx, or feeling sick if he doesn't drink. Chart review shows that he has been to [facility] [place] for alcohol withdrawal--most recently August 2024. He does not appear tremulous or diaphoretic, and most recent CIWA score 2. Patient made reference several times to percocets and how taking those allows him to walk without a cane, and helps his breathing. T/w inquired if he often takes percocet with alcohol, and patient did not respond, instead stated why are you asking me that . MassPat shows that he has been prescribed percocet for at least 2 years at the same dose 5mg TID. Which is also how he reports that he takes them. --no indication of opiate withdrawal. Labs reviewed Medical Evaluation Reviewed: Yes Review of Systems Constitutional: Reports as per HPI and Reports weakness Cardiovascular: Reports dyspnea Respiratory: Reports dyspnea Reports weakness Diagnostics Vital Signs (24Hr): Vital Signs - 24 hr 10/15/24 18:00 10/15/24 21:00 10/15/24 21:24 Temperature 97.3 F Pulse Rate 73 76 81 Respiratory Rate 21 H 18 18 Blood Pressure 115/35 L 124/43 L 117/55 L Pulse Oximetry 97 98 98 Oxygen Delivery Method Room Air Room Air Room Air 10/16/24 00:00 10/16/24 03:39 10/16/24 07:29 Temperature 97.8 F 97.1 F 98.2 F Pulse Rate 72 67 71 Respiratory Rate 18 18 18 Blood Pressure 137/65 128/60 152/66 H Pulse Oximetry 94 97 99 Oxygen Delivery Method Room Air Room Air Room Air 10/16/24 08:39 10/16/24 11:31 10/16/24 15:08 Temperature 98.5 F 98.8 F Pulse Rate 71 80 70 Respiratory Rate 16 16 Blood Pressure 152/66 H 120/56 L 137/63 Pulse Oximetry 99 99 98 Oxygen Delivery Method Room Air Room Air BMI result Body Mass Index 34.1 Labs 10/16/24 05:51 10/16/24 05:51 Labs: Laboratory Results - last 48 hr 10/15/24 10/15/24 10/16/24 13:01 15:12 05:51 WBC 9.4 7.3 RBC 3.21 L 3.25 L Hgb 10.8 L 10.9 L Hct 31.3 L 32.6 L MCV 97.5 100.3 H MCH 33.6 H 33.5 H MCHC 34.5 33.4 RDW 14.1 14.4 Plt Count 236 215 MPV 9.2 L 10.0 Immature Gran % (Auto) 1.0 H Neut % (Auto) 69.0 Lymph % (Auto) 15.5 L [place] % (Auto) 12.6 H Eos % (Auto) 1.6 Baso % (Auto) 0.3 Lymph # (Auto) 1.5 [place] # (Auto) 1.2 Eos # (Auto) 0.2 Baso # (Auto) 0.0 Abs Immat Gran (auto) 0.09 H Absolute Neuts (auto) 6.5 Absolute Nucleated RBC 0.000 0.000 Nucleated RBC % (auto) 0.0 0.0 Sodium 140 139 Potassium 4.1 D 4.5 Chloride 105 108 Carbon Dioxide 22 23 Anion Gap 17 13 BUN 49 H 35 H Creatinine 1.61 H 1.20 Estim Creat Clear Calc 35.3 56.8 Estimated GFR 42 59 Random Glucose 96 133 H Calcium 8.7 8.6 Total Bilirubin 0.3 Direct Bilirubin 0.2 AST 20 ALT 9 Alkaline Phosphatase 87 Troponin I High Sens 11.3 Total Protein 6.8 Albumin 3.6 Lipase 13 Urine Color Yellow Urine Appearance Clear Urine pH 5.5 Ur Specific [place] 1.015 Urine Protein Negative Urine Glucose (UA) Negative Urine Ketones Negative Urine Blood Negative Urine Nitrite Negative Ur Leukocyte Esterase Small (1+) H Urine RBC 0-2 Urine WBC 0-5 Ur Squamous Epith Cells 3-5 Urine Bacteria 1+ Hyaline Casts 0-2 Ethyl Alcohol 139 Mental Status Exam Mental Status Exam Level of Consciousness: Awake and Alert Patient Behavior: Talkative Affect Description: Calm Speech Pattern: Clear Thought Content: positive for [place] and positive for Circumstantial Medications Medications Current Medications Acetaminophen (Acetaminophen 325 Mg Tablet) 650 mg PO Q6H PRN PRN Reason: Pain, Mild 1-3,fever,headache Calcium Carbonate (Calcium Carbonate 750 Mg Tab.Chew) 750 mg PO Q4H PRN PRN Reason: Heartburn Last Admin: 10/16/24 16:23 Dose: 750 mg Enoxaparin Sodium (Enoxaparin Sodium 40 Mg/0.4 Ml Syringe) 40 mg SUBCUT Q24H [facility] Last Admin: 10/15/24 18:09 Dose: 40 mg Famotidine (Famotidine 20 Mg Tablet) 20 mg PO BEDTIME [facility] Last Admin: 10/15/24 22:17 Dose: 20 mg Ferrous Sulfate (Ferrous Sulfate 324 Mg Tablet.) 324 mg PO Q48H [facility] Last Admin: 10/15/24 22:17 Dose: 324 mg Folic Acid (Folic Acid 1 Mg Tablet) 1 mg PO DAILY [facility] Stop: 10/19/24 08:59 Last Admin: 10/16/24 09:04 Dose: 1 mg Hydroxyzine HCl (Hydroxyzine Hcl 10 Mg Tablet) 10 mg PO Q8H PRN PRN Reason: itch Ibuprofen (Ibuprofen 800 Mg Tablet) 800 mg PO TID PRN PRN Reason: Pain, Mild 1-3,fever,headache Levothyroxine Sodium (Levothyroxine Sodium 125 Mcg Tablet) 125 mcg PO BEDTIME [facility] Last Admin: 10/15/24 22:17 Dose: 125 mcg Loratadine (Loratadine 10 Mg Tablet) 10 mg PO BEDTIME [facility] Last Admin: 10/15/24 22:17 Dose: 10 mg Magnesium Hydroxide (Milk Of Magnesia 30 Ml Oral.Susp) 30 ml PO DAILY PRN PRN Reason: Constipation Magnesium Oxide (Magnesium Oxide 400 Mg Tablet) 400 mg PO BEDTIME [facility] Methocarbamol (Methocarbamol 500 Mg Tablet) 1,000 mg PO BEDTIME PRN PRN Reason: Pain, Moderate(Pain Scale 4-6) Multivitamins/Vitamin C (Multivitamin Tablet) 1 tab PO BEDTIME [facility] Last Admin: 10/15/24 22:17 Dose: 1 tab Oxycodone HCl (Oxycodone Hcl Immed Release 5 Mg Tablet) 5 mg PO Q8H [facility] Last Admin: 10/16/24 16:21 Dose: 5 mg Pharmacy Consult (Consult Rx Etoh Phenob Im/Po) 1 each MISCELLANE ONCE PRN; Protocol PRN Reason: Consult order Phenobarbital (Phenobarbital 15 Mg Tablet) 45 mg PO BID [facility] Stop: 10/17/24 21:01 Last Admin: 10/16/24 09:04 Dose: 45 mg Phenobarbital (Phenobarbital 15 Mg Tablet) 15 mg PO BID [facility] Stop: 10/19/24 21:01 Phenobarbital (Phenobarbital 15 Mg Tablet) 15 mg PO DAILY [facility] Stop: 10/21/24 09:01 Pravastatin Sodium (Pravastatin Sodium 40 Mg Tablet) 40 mg PO BEDTIME [facility] Last Admin: 10/15/24 22:17 Dose: 40 mg Sodium Chloride (0.9 % Sodium Chloride Flush 3 Ml Syringe) 3 ml IVFLUSH QSHIFT [facility] Last Admin: 10/16/24 16:23 Dose: 3 ml Thiamine HCl (Thiamine Hcl 100 Mg Tablet) 100 mg PO DAILY [facility] Stop: 10/19/24 08:59 Last Admin: 10/16/24 10:54 Dose: 100 mg Tiotropium [place] (Tiotropium [place] 2.5 Mcg 1 Puff/2.5 Mcg Mist.Inhal) 2 puff INHALE RDAILY [facility] Last Admin: 10/16/24 11:01 Dose: Not Given Allergies Allergies Allergy/AdvReac Type Severity Reaction Status Date / Time No Known Allergies Allergy Mild N/A Verified 10/15/24 12:29 Assessment & Plan Assessment & Plan (1) Alcohol use disorder, severe, dependence: Status: Acute Code(s): F10.20 - Alcohol dependence, uncomplicated Assessment and Plan: pheno taper managing withdrawal sx IV thiamine X2 days, then switch to PO check Mg Total time managing care of this patient today _30___ minutes. PMFSH Past Medical History Medical History CKD (chronic kidney disease) CHF (congestive heart failure) Chronic anemia Alcohol abuse HTN (hypertension), benign Cholelithiasis without cholecystitis Prostate cancer Delirium tremens Alcoholic cirrhosis Surgical History Surgical History S/P tonsillectomy and adenoidectomy Social History Social History Household Members: None Housing: House Do you presently have visiting nurse or other home services: No Alcohol intake: current Alcohol intake frequency: 3 or more drinks per day Alcohol type: hard liquor Comment: pt refuses bed alarm Patient Tobacco Use Status: Current everyday Tobacco user Tobacco use type: Cigar Cigarette Packs Per Day: 0.5 Cigarettes Per Day: 10.0 Years Smoked: 60+ e-Cigarette/Vaping Use: Currently Using Second Hand Smoke Exposure: No Advance Directives Date on File: 10/29/21 service: No Current occupational status: retired
[2024-10-17] VITALS (8 sets, daily range): BP systolic 96–153; BP diastolic 41–96; PULSE 63–76; RESP 14–18; TEMP 36.2–37.1; O2SAT 96–100
[2024-10-17] MEDS: oxyCODONE HCl Immed Release 5 MG TABLET PO ×3 (00:42→16:59)
[2024-10-17 07:14] LABS: Hematocrit 33.6 % (42.0-52.0); Hemoglobin 11.1 g/dl (14.0-18.0); Mean Corpuscular HGB Conc 33.0 g/dl (31.0-36.0); Mean Corpuscular Hemoglobin 33.6 pg (27.0-33.0); Mean Corpuscular Volume 101.8 fL (80.0-98.0); NRBC Abs Auto 0.000 X10*3/uL (0.0-0.012); NRBC Pct Auto 0.0 /100WBC (0.0-0.2); Platelet Count 220 X10*3/uL (160-400); Red Blood Count 3.30 X10*6/uL (4.60-5.80); White Blood Count 9.4 X10*3/uL (4.8-10.8)
[2024-10-17 07:37] LABS: Anion Gap 11 (12-20); Blood Urea Nitrogen 25 mg/dL (9-16); Calcium 8.9 mg/dL (8.4-10.2); Carbon Dioxide 26 mmol/L (22-29); Chloride 105 mmol/L (96-108); Creatinine Clr Calc Pharmacy 61.4; Estimated Glomerular Filt Rate > 60; Magnesium 1.9 mg/dL (1.6-2.6); Potassium 4.4 mmol/L (3.3-5.1); Sodium 138 mmol/L (135-145)
[2024-10-17] MEDS: 0.9 % Sodium Chloride Flush 3 ML SYRINGE IVFLUSH ×3 (09:08→22:07)
--- NOTE | 2024-10-17 09:47 | MHC.CM.PN ---
Addendum entered by Raisa Hogue 10/17/24 15:29: [facility] declined pt due to not being in contract with pts insurance. Other SNF referrals out, no current bed offers. Original Note: PT evaluated pt, they are recommending STR. This CM met with pt to discuss STR, he is in agreement with going, states his preference is [facility]. Referral sent to [facility], awaiting bed offer.
--- NOTE | 2024-10-17 11:07 | HO.PM.IMPN ---
Subjective Subjective Date of Service: 10/17/24 Interval History: iuproved Physical Exam Vital Signs: Vital Signs: Last Vital Signs Temp 98.3 F 10/17/24 11:05 Pulse 76 10/17/24 11:05 Resp 16 10/17/24 11:05 BP 139/58 L 10/17/24 11:05 Pulse Ox 99 10/17/24 11:05 O2 Del Method Room Air 10/17/24 11:05 BMI result Body Mass Index 34.1 General: AO X 3, anxiuos Resp: CTA bilateral, no accessory muscles used CVS: S1,S2,RRR GI: soft, non tender, non distended Neuro: motor grossly intact, alert, mild tremor Psych: appropriate affect, appropriate insight Objective Data Active Medications Acetaminophen (Acetaminophen 325 Mg Tablet) 650 mg PO Q6H PRN PRN Reason: Pain, Mild 1-3,fever,headache Calcium Carbonate (Calcium Carbonate 750 Mg Tab.Chew) 750 mg PO Q4H PRN PRN Reason: Heartburn Last Admin: 10/16/24 16:23 Dose: 750 mg Documented By: PAULA Enoxaparin Sodium (Enoxaparin Sodium 40 Mg/0.4 Ml Syringe) 40 mg SUBCUT Q24H [facility] Last Admin: 10/16/24 18:33 Dose: 40 mg Documented By: PAULA Famotidine (Famotidine 20 Mg Tablet) 20 mg PO BEDTIME [facility] Last Admin: 10/16/24 20:30 Dose: 20 mg Documented By: JAVAN Ferrous Sulfate (Ferrous Sulfate 324 Mg Tablet.) 324 mg PO Q48H [facility] Last Admin: 10/15/24 22:17 Dose: 324 mg Documented By: LOGAN Folic Acid (Folic Acid 1 Mg Tablet) 1 mg PO DAILY [facility] Stop: 10/19/24 08:59 Last Admin: 10/17/24 09:09 Dose: 1 mg Documented By: SUSAN Hydroxyzine HCl (Hydroxyzine Hcl 10 Mg Tablet) 10 mg PO Q8H PRN PRN Reason: itch Ibuprofen (Ibuprofen 800 Mg Tablet) 800 mg PO TID PRN PRN Reason: Pain, Mild 1-3,fever,headache Levothyroxine Sodium (Levothyroxine Sodium 125 Mcg Tablet) 125 mcg PO BEDTIME [facility] Last Admin: 10/16/24 20:31 Dose: 125 mcg Documented By: JAVAN Loratadine (Loratadine 10 Mg Tablet) 10 mg PO BEDTIME [facility] Last Admin: 10/16/24 20:31 Dose: 10 mg Documented By: JAVAN Magnesium Hydroxide (Milk Of Magnesia 30 Ml Oral.Susp) 30 ml PO DAILY PRN PRN Reason: Constipation Magnesium Oxide (Magnesium Oxide 400 Mg Tablet) 400 mg PO BEDTIME [facility] Last Admin: 10/16/24 20:31 Dose: 400 mg Documented By: JAVAN Methocarbamol (Methocarbamol 500 Mg Tablet) 1,000 mg PO BEDTIME PRN PRN Reason: Pain, Moderate(Pain Scale 4-6) Multivitamins/Vitamin C (Multivitamin Tablet) 1 tab PO BEDTIME [facility] Last Admin: 10/16/24 20:31 Dose: 1 tab Documented By: JAVAN Oxycodone HCl (Oxycodone Hcl Immed Release 5 Mg Tablet) 5 mg PO Q8H [facility] Last Admin: 10/17/24 09:09 Dose: 5 mg Documented By: SUSAN Pharmacy Consult (Consult Rx Etoh Phenob Im/Po) 1 each MISCELLANE ONCE PRN; Protocol PRN Reason: Consult order Phenobarbital (Phenobarbital 15 Mg Tablet) 45 mg PO BID [facility] Stop: 10/17/24 21:01 Last Admin: 10/17/24 09:10 Dose: 45 mg Documented By: SUSAN Phenobarbital (Phenobarbital 15 Mg Tablet) 15 mg PO BID [facility] Stop: 10/19/24 21:01 Phenobarbital (Phenobarbital 15 Mg Tablet) 15 mg PO DAILY [facility] Stop: 10/21/24 09:01 Pravastatin Sodium (Pravastatin Sodium 40 Mg Tablet) 40 mg PO BEDTIME [facility] Last Admin: 10/16/24 20:31 Dose: 40 mg Documented By: JAVAN Sodium Chloride (0.9 % Sodium Chloride Flush 3 Ml Syringe) [facility] Last Admin: 10/17/24 09:08 Dose: 3 ml Documented By: SUSAN Thiamine HCl (Thiamine Hcl 100 Mg Tablet) 100 mg PO DAILY [facility] Stop: 10/19/24 08:59 Last Admin: 10/17/24 09:09 Dose: 100 mg Documented By: SUSAN Tiotropium [place] (Tiotropium [place] 2.5 Mcg 1 Puff/2.5 Mcg Mist.Inhal) 2 puff INHALE RDAILY [facility] Last Admin: 10/16/24 11:01 Dose: Not Given Documented By: AMY Non-Admin Reason: Med Not Available Labs 10/17/24 06:46 10/17/24 06:46 Labs: Laboratory Results - last 24 hr 10/17/24 06:46 MCV 101.8 H MCH 33.6 H MCHC 33.0 RDW 14.4 Plt Count 220 MPV 9.8 Absolute Nucleated RBC 0.000 Nucleated RBC % (auto) 0.0 Anion Gap 11 L Estim Creat Clear Calc 61.4 Estimated GFR > 60 Random Glucose 87 Calcium 8.9 Magnesium 1.9 Microbiology Microbiology Results: Microbiology 10/15/24 Unknown Urine Culture - Final Urine clean catch - Clean Catch Midstream No growth. Assessment and Plan (1) Alcohol withdrawal: Status: Acute Plan 78M PMH alcohol dependence, chronic diastolic CHF, prostate cancer, hypertension, hyperlipidemia, hypothyroid, CKD 3 presented with fall Alcohol dependence with withdrawal Continue phenobarbital, monitor CIWA, follow electrolytes, vitamin replacement Addiction Medicine improving Generalized weakness with falls Will need short-term rehab Report of diarrhea Due to laxative use DANNY and CKD 3 Resolved Chronic diastolic CHF Holding Lasix and Aldactone for soft blood pressure and dehydration Hypothyroid Levothyroxine DVT prophylaxis-Lovenox Full Code reason for continued hospitalization: dispo planning Quality Stroke Does the patient have a stroke diagnosis?: No VTE Prior VTE?: No VTE Risk Level:: Medical - moderate - high VTE Device Contraindication: Treatment Not Indicated VTE Drug Contraindication: N/A - Med Ordered
--- NOTE | 2024-10-17 11:10 | P.DS_ITS ---
DS: Providers Provider Date of Service: 10/18/24 Date of admission: 10/15/24 16:20 Date of discharge: 10/18/24 Primary care physician: Claudette Price MD Consults: 10/15/24 17:38 Addiction Medicine Provider Routine Consulting Provider: Addiction Covering Reason for consultation: AUD, has been drinking heavily xmonths DS: Diagnosis Discharge Diagnosis (1) Alcohol withdrawal: Status: Acute DS: Summary Hospital Course Hospital Course: from initial hpi: 78-year-old male with a PMH significant for?HTN, HLD, HFpEF, prostate cancer, hypothyroidism, CKD3, alcohol use disorder with hx of withdrawal with delirium tremens who presents to the ED with generalized weakness and fall at home. Pt states he was bending over to clean his floors he tried to stand up and fell backwards, tripping over the coffee table. No head strike. Pt had been drinking vodka earlier in the day, as well as taking 2 Percocets. Pt was too weak to pull himself up which prompted his call to EMS. Pt reports has been feeling ?weaker and weaker? the past month+. Pt lives alone and ambulates with a cane. Has been fighting more difficult to ambulate and take care of himself. Also complains of 2 days of nonbloody diarrhea. Has a long hx of constipation due to chronic opioid use. Usually takes stool softeners, though reports has been constipated with the past few days. Pt took an unknown fspa-oah-opsawtv medication on Wednesday, and then late Wednesday night developed significant diarrhea that lasted throughout Wednesday. No diarrhea since last night. Denies abdominal pain Pt previously was sober for 6 years, though reports has been drinking quite heavily for the past few months. Pt is overall a vague historian and he does not specify how much he is drinking, though he admits it is ?too much?. Primarily drinking both beer and vodka. Denies lightheadedness or dizziness. No chest pain/pressure, palpitations. Denies fever, chills, nausea, vomiting. In the ED pt's BP soft, the vitals otherwise stable. Labs were significant for ethyl alcohol level of 139, otherwise grossly unremarkable and around baseline for pt. No leukocytosis. Stable normocytic anemia. No significant electrolyte abnormalities. Creatinine 1.61, around baseline. Hepatic function WNL. Troponin 11.3. UA negative for UTI. EKG demonstrated sinus rhythm with first- degree AV block and chronic RBBB, similar to prior. Pt was treated in the ED with IVF and started on phenobarb protocol. Pt is admitted to the hospital for treatment and further evaluation of generalized weakness with multiple falls at home in the setting of physical deconditioning and alcohol use disorder with impending withdrawal. hospital course: Patient was admitted for fall due to alcohol dependence with acute withdrawal. Was treated with phenobarbital protocol and withdrawal symptoms improved. Recommend complete abstinence from alcohol. For generalized weakness falls was seen by physical therapy initially recommended short-term rehab, however, patient not intersted, will be discharged home with [facility]. For reports of diarrhea this was likely due to laxative use, has since resolved. For acute kidney injury on CKD 3 this resolved with holding diuretics and giving IV fluids, on discharge we will decrease Lasix to 40 mg daily and dc aldactone. For chronic diastolic CHF was hypokalemic on presentation, was given hydration on discharge will continue reduced dose maintenance Lasix. For hypothyroid was continued on levothyroxine. Time Attestation Discharge Coordination Time (in mins): 37 Quality: Safe Use of Opioids Does Pt have an Active Cancer Diagnosis on the Problem List?: No Quality: Stroke Does the patient have a stroke diagnosis?: No Physical Exam Vital Signs: Vital Signs: Last Vital Signs Temp 98.3 F 10/17/24 11:05 Pulse 76 10/17/24 11:05 Resp 16 10/17/24 11:05 BP 139/58 L 10/17/24 11:05 Pulse Ox 99 10/17/24 11:05 O2 Del Method Room Air 10/17/24 11:05 BMI result Body Mass Index 34.1 General: AO X 3, no acute disterss Resp: CTA bilateral, no accessory muscles used CVS: S1,S2,RRR GI: soft, non tender, non distended Neuro: motor grossly intact, alert, Psych: appropriate affect, appropriate insight DS: Data Data Completed and Pending Completed studies during hospitalization [Text1]: Procedures Detoxification Services for Substance Abuse Treatment (10/29/21) Labs on day of discharge: Laboratory Results - last 24 hr 10/17/24 06:46 WBC 9.4 RBC 3.30 L Hgb 11.1 L Hct 33.6 L MCV 101.8 H MCH 33.6 H MCHC 33.0 RDW 14.4 Plt Count 220 MPV 9.8 Absolute Nucleated RBC 0.000 Nucleated RBC % (auto) 0.0 Sodium 138 Potassium 4.4 Chloride 105 Carbon Dioxide 26 Anion Gap 11 L BUN 25 H Creatinine 1.11 Estim Creat Clear Calc 61.4 Estimated GFR > 60 Random Glucose 87 Calcium 8.9 Magnesium 1.9 Discharge Plan Discharge Anticipated Discharge Date/Time: 10/17/24 11:08 Patient Disposition: Home Health Service Discharge Diagnosis: etoh Referrals: Claudette Price MD [Primary Care Provider, Medical] - 1 Week Discharge Medications: New furosemide [Lasix] 40 mg tablet 40 mg PO DAILY Qty: 90 0RF Continued pravastatin 40 mg tablet 40 mg PO BEDTIME metoprolol succinate 100 mg tablet extended release 24 hr 100 mg PO BEDTIME levothyroxine 125 mcg tablet 125 mcg PO BEDTIME tiotropium bromide [Spiriva with HandiHaler] 18 mcg capsule, w/inhalation device 1 cap inhalation DAILY loratadine 10 mg tablet 10 mg PO BEDTIME oxycodone-acetaminophen 5-325 mg tablet 1 tab PO Q8H Rx Instructions: TAKE WITH HYDROXYZINE TO PREVENT ITCHING hydroxyzine HCl 10 mg tablet 10 mg PO Q8H PRN (Reason: itch) Rx Instructions: TAKE WITH PERCOCET omega 7-fle-yyr-fish oil [Fish Oil] 1,000 mg (120 mg-180 mg) Capsule 1 cap PO BEDTIME Centrum Silver Men [id number] mcg Tablet 1 tab PO BEDTIME famotidine 20 mg tablet 20 mg PO BEDTIME methocarbamol 500 mg tablet 1,000 mg PO BEDTIME PRN (Reason: pain) magnesium oxide 400 mg (241.3 mg magnesium) tablet 400 mg PO BEDTIME ferrous sulfate 325 mg (65 mg iron) tablet 650 mg PO Q48H Discontinued spironolactone 100 mg tablet 100 mg PO BEDTIME ibuprofen 800 mg tablet 800 mg PO TID PRN (Reason: Pain) furosemide 80 mg tablet 80 mg PO BEDTIME Discharge Orders: Discharge Order (Routine); Ordered 10/18/24 Ordered By: Giovanni Huerta Diet: Advance to usual diet Activity on Discharge: As tolerated Stand Alone Forms: Patient Portal Discharge page Print Language: Maltese Care Plan Goals: Recovery Health Concerns: Alcohol dependence Plan of Treatment: Decrease Lasix to 40 mg daily, dc aldactone, avoid alcohol Assessment: See above Patient Instructions: Furosemide (By mouth)
[2024-10-17] MEDS: Tiotropium Bromide 2.5 mcg 1 PUFF/2.5 MCG MIST.INHAL 2 PUFF INHALE (11:45)
[2024-10-17] MEDS: Milk of Magnesia 30 ML ORAL.SUSP PO (17:03)
[2024-10-17] MEDS: Ferrous Sulfate 324 MG TABLET.DR PO (22:06)
[2024-10-18 01:45] VITALS: BP 130/58
[2024-10-18] MEDS: oxyCODONE HCl Immed Release 5 MG TABLET PO ×3 (01:45→14:06)
[2024-10-18 03:47] VITALS: BP 124/57; PULSE 71; RESP 18; TEMP 37.5; O2SAT 96
[2024-10-18 08:00] VITALS: BP 118/57; PULSE 69; RESP 17; TEMP 36.9; O2SAT 97
[2024-10-18] MEDS: Tiotropium Bromide 2.5 mcg 1 PUFF/2.5 MCG MIST.INHAL 2 PUFF INHALE (08:01)
[2024-10-18 08:04] VITALS: PULSE 81; RESP 17; O2SAT 94
[2024-10-18] MEDS: 0.9 % Sodium Chloride Flush 3 ML SYRINGE IVFLUSH (08:30)
--- NOTE | 2024-10-18 10:52 | P.PNIM_ITS ---
Subjective Subjective Date of Service: 10/18/24 Interval History: improved Physical Exam 2 Vital Signs: Vital Signs: Last Vital Signs Temp 98.5 F 10/18/24 08:00 Pulse 81 10/18/24 08:04 Resp 17 10/18/24 08:04 BP 118/57 L 10/18/24 08:00 Pulse Ox 97 10/18/24 08:00 O2 Del Method Room Air 10/18/24 08:00 BMI result Body Mass Index 34.1 General: AO X 3, no acute disterss Resp: CTA bilateral, no accessory muscles used CVS: S1,S2,RRR GI: soft, non tender, non distended Neuro: motor grossly intact, alert, Psych: appropriate affect, appropriate insight Objective Data Active Medications Acetaminophen (Acetaminophen 325 Mg Tablet) 650 mg PO Q6H PRN PRN Reason: Pain, Mild 1-3,fever,headache Last Admin: 10/17/24 11:18 Dose: 650 mg Documented By: PAULA Calcium Carbonate (Calcium Carbonate 750 Mg Tab.Chew) 750 mg PO Q4H PRN PRN Reason: Heartburn Last Admin: 10/16/24 16:23 Dose: 750 mg Documented By: PAULA Enoxaparin Sodium (Enoxaparin Sodium 40 Mg/0.4 Ml Syringe) 40 mg SUBCUT Q24H [facility] Last Admin: 10/17/24 18:38 Dose: 40 mg Documented By: PAULA Famotidine (Famotidine 20 Mg Tablet) 20 mg PO BEDTIME [facility] Last Admin: 10/17/24 22:06 Dose: 20 mg Documented By: ROXANA Ferrous Sulfate (Ferrous Sulfate 324 Mg Tablet.) 324 mg PO Q48H [facility] Last Admin: 10/17/24 22:06 Dose: 324 mg Documented By: ROXANA Folic Acid (Folic Acid 1 Mg Tablet) 1 mg PO DAILY [facility] Stop: 10/19/24 08:59 Last Admin: 10/18/24 08:29 Dose: 1 mg Documented By: FABIOLA Hydroxyzine HCl (Hydroxyzine Hcl 10 Mg Tablet) 10 mg PO Q8H PRN PRN Reason: itch Ibuprofen (Ibuprofen 800 Mg Tablet) 800 mg PO TID PRN PRN Reason: Pain, Mild 1-3,fever,headache Levothyroxine Sodium (Levothyroxine Sodium 125 Mcg Tablet) 125 mcg PO BEDTIME [facility] Last Admin: 10/17/24 22:06 Dose: 125 mcg Documented By: ROXANA Loratadine (Loratadine 10 Mg Tablet) 10 mg PO BEDTIME [facility] Last Admin: 10/17/24 22:06 Dose: 10 mg Documented By: ROXANA Magnesium Hydroxide (Milk Of Magnesia 30 Ml Oral.Susp) 30 ml PO DAILY PRN PRN Reason: Constipation Last Admin: 10/17/24 17:03 Dose: 30 ml Documented By: PAULA Magnesium Oxide (Magnesium Oxide 400 Mg Tablet) 400 mg PO BEDTIME [facility] Last Admin: 10/17/24 22:06 Dose: 400 mg Documented By: ROXANA Methocarbamol (Methocarbamol 500 Mg Tablet) 1,000 mg PO BEDTIME PRN PRN Reason: Pain, Moderate(Pain Scale 4-6) Last Admin: 10/17/24 22:07 Dose: 1,000 mg Documented By: ROXANA Comments: pain level 6 Multivitamins/Vitamin C (Multivitamin Tablet) 1 tab PO BEDTIME [facility] Last Admin: 10/17/24 22:06 Dose: 1 tab Documented By: ROXANA Oxycodone HCl (Oxycodone Hcl Immed Release 5 Mg Tablet) 5 mg PO 0600,1400,2200 [facility] Last Admin: 10/18/24 06:36 Dose: 5 mg Documented By: ROXANA Pharmacy Consult (Consult Rx Etoh Phenob Im/Po) 1 each MISCELLANE ONCE PRN; Protocol PRN Reason: Consult order Phenobarbital (Phenobarbital 15 Mg Tablet) 15 mg PO BID [facility] Stop: 10/19/24 21:01 Last Admin: 10/18/24 08:32 Dose: 15 mg Documented By: FABIOLA Phenobarbital (Phenobarbital 15 Mg Tablet) 15 mg PO DAILY [facility] Stop: 10/21/24 09:01 Last Admin: 10/18/24 08:30 Dose: 15 mg Documented By: FABIOLA Pravastatin Sodium (Pravastatin Sodium 40 Mg Tablet) 40 mg PO BEDTIME [facility] Last Admin: 10/17/24 22:06 Dose: 40 mg Documented By: ROXANA Sodium Chloride (0.9 % Sodium Chloride Flush 3 Ml Syringe) 3 ml IVFLUSH QSHIFT [facility] Last Admin: 10/18/24 08:30 Dose: 3 ml Documented By: FABIOLA Thiamine HCl (Thiamine Hcl 100 Mg Tablet) 100 mg PO DAILY [facility] Stop: 10/19/24 08:59 Last Admin: 10/18/24 08:30 Dose: 100 mg Documented By: FABIOLA Tiotropium [place] (Tiotropium [place] 2.5 Mcg 1 Puff/2.5 Mcg Mist.Inhal) 2 puff INHALE RDAILY [facility] Last Admin: 10/18/24 08:01 Dose: 2 puff Documented By: GRIFFINK Labs 10/17/24 06:46 10/17/24 06:46 Microbiology Microbiology Results: Microbiology 10/15/24 Unknown Urine Culture - Final Urine clean catch - Clean Catch Midstream No growth. Assessment and Plan (1) Alcohol withdrawal: Status: Acute Plan 78M PMH alcohol dependence, chronic diastolic CHF, prostate cancer, hypertension, hyperlipidemia, hypothyroid, CKD 3 presented with fall Alcohol dependence with withdrawal Continue phenobarbital, monitor CIWA, follow electrolytes, vitamin replacement Resolved Generalized weakness with falls Will need short-term rehab, awaiting auth Report of diarrhea Due to laxative use DANNY and CKD 3 Resolved Chronic diastolic CHF Holding Lasix and Aldactone for soft blood pressure and dehydration Hypothyroid Levothyroxine DVT prophylaxis-Lovenox Full Code reason for continued hospitalization: dispo planning Quality Stroke Does the patient have a stroke diagnosis?: No VTE Prior VTE?: No VTE Risk Level:: Medical - moderate - high VTE Device Contraindication: Treatment Not Indicated VTE Drug Contraindication: N/A - Med Ordered
--- NOTE | 2024-10-18 11:10 | W.MHC.F2F ---
Service Date Service Date: 10/18/24 Encounter Date of encounter: 10/18/24 Reasons for Services Signs and symptoms assessed: unsteady Reason for [place] [facility]: medication management, medication treatment and teach disease management Reason for physical therapy: home safety and mobility, therapeutic exercises and gait/transfer training Homebound: Leaving the home is medically contraindicated at this time without the asist of a device and/or another person due th the listed conditions above and below. Reason homebound: unsteady gait / fall risk Certification: Based on the above findings, I certify that this patient is confined to the home and needs intermittent [place] [facility] care, physical therapy and/or speech therapy, or continues to need occupational therapy. The patient is under my care, and I have initiated the establishment of the plan of care. The patient will be followed by a physician who will periodically review the plan of care. Time Spent With Patient Time: Total time managing care of this patient today ____ minutes.
--- NOTE | 2024-10-18 11:31 | MHC.CM.PN ---
Addendum entered by Helen Nicole RN 10/18/24 12:55: PT CONT'S TO DECLINE STR Original Note: PT DISCHARGING HOME W/NEW [facility] FOR HOME PT, PT WILL CONTACT FAMILY FOR RIDE HOME.
[2024-10-18 11:39] VITALS: BP 135/49; PULSE 83; RESP 17; TEMP 36.8; O2SAT 98
--- NOTE | 2024-10-18 11:55 | MHC.CM.PN ---
Addendum entered by Helen Nicole RN 10/18/24 15:43: CM ATTEMPTED TO CONTACT PT'S DTR/HCP RONALD TO DETERMINE IF SHE COULD ASSIST PT W/ANY SALESPERSON TERRAZZO TILES, NO ANSWER AND CM UNABLE TO LEAVE MESSAGE, PER PREVIOUS DISCUSSION W/PT, RONALD STOPS BY EVERY FEW DAYS AND CAN ASSIST. Original Note: CM SPOKE W/PT'S DTR ARTUR AT NUMBER ON FILE X2, ARTUR AWARE THE P.T. IS NOW RECOMMENDING HOME SERVICES, ARTUR INITIALLY ASKING IF CM WOULD SPEAK TO [facility] SCO PSYCHIATRIC LPN WHO SHE IS WORKING WITH TO TRY TO ARRANGE HOME SERVICES HOWEVER PT NEEDS TO BE AT HOME TO BE ASSESSED. JANEL OFFERED ARTUR LIST OF HH AGENCIES HOWEVER SHE DECLINED D/T POSSIBLY NEEDING TO PRIVATE PAY, JANEL DID LET ARTUR KNOW THAT PT WILL BE DISCHARGING W/[facility] FOR HOME P.T. AND CM HAS REQUESTED THEY PRIVIDE A HH AID FOR PT WHILE [facility] ARRANGES HOME HEALTH SERVICES. ARTUR HAD ASKED IF CM WOULD SPEAK W/[facility] CM AND THIS CM AGREEABLE AND ASKED ARTUR TO GIVE PT'S [facility] CM'S CONTACT NUMBER. CM RECEIVED CALL BACK FROM ARTUR WHO REPORTED THAT THE [facility] CM SAID THAT [facility] [place] BE PROVID[facility] MORE SERVICES FOR PT, ARTUR AWARE CM IS LIMITED TO WHAT WE CAN DO PT WILL NEED [facility] CM TO HAVE PT EVALUATED AT HOME FOR THEM TO INITIATE HOME SERVICES AND [facility] WILL ONLY PROVIDE DENTAL HYGIENE PROFESSOR TEMPORARILY. JANEL HAS REQUESTED SN BE ADDED TO F2F, [facility] UPDATED.
== END 2024-10-18 15:14 | disposition home health service (06) | DRG 897 ==
LOC: HO.ED 16:09 → HO.EDOVER 16:47 → HO.IMC 19:46
PROVIDERS: Admitting Provider Student in an Organized Health Care Education/Training Program; Emergency Provider Emergency Medicine; PCP Pediatrics; Visit Provider Internal Medicine
DX: F10.239 Alcohol dependence with withdrawal, unspecified (principal); I13.0 Hypertensive heart and chronic kidney disease with heart failure and stage 1 through stage 4 chronic kidney disease, or unspecified chronic kidney disease; I50.32 Chronic diastolic (congestive) heart failure; N17.9 Acute kidney failure, unspecified; K52.1 Toxic gastroenteritis and colitis; N18.30 Chronic kidney disease, stage 3 unspecified; Y90.6 Blood alcohol level of 120-199 mg/100 ml; T47.4X5A Adverse effect of other laxatives, initial encounter; E86.0 Dehydration; E03.9 Hypothyroidism, unspecified; K21.9 Gastro-esophageal reflux disease without esophagitis; M54.9 Dorsalgia, unspecified; G89.29 Other chronic pain; K59.03 Drug induced constipation; T40.2X5A Adverse effect of other opioids, initial encounter; D63.1 Anemia in chronic kidney disease; F17.210 Nicotine dependence, cigarettes, uncomplicated; Z71.6 Tobacco abuse counseling; Z79.890 Hormone replacement therapy; Z79.891 Long term (current) use of opiate analgesic; Z79.899 Other long term (current) drug therapy
CPT/HCPCS: 36415; 80048; 80076; 80307; 81001; 83690; 83735; 84484; 85025; 85027; 87086; 93005; 94640; 97116; 97162; 99285; J1650; J2560

== ENCOUNTER → 2024-10-15 12:39 | Outpatient (BNV) | payer OTHER, SELFPAY | PROVIDERS: Admitting Provider Student in an Organized Health Care Education/Training Program; Emergency Provider Emergency Medicine; PCP Pediatrics; Visit Provider Internal Medicine Cardiovascular Disease | DX: I44.0 Atrioventricular block, first degree (principal); I45.10 Unspecified right bundle-branch block | CPT/HCPCS: 93010 ==

== ENCOUNTER → 2024-10-15 16:20 | Outpatient (BNV) | payer OTHER, SELFPAY | PROVIDERS: Admitting Provider Student in an Organized Health Care Education/Training Program; Emergency Provider Emergency Medicine; PCP Pediatrics; Visit Provider Student in an Organized Health Care Education/Training Program | DX: F10.939 Alcohol use, unspecified with withdrawal, unspecified (principal); R53.1 Weakness | CPT/HCPCS: 99223; 99232; 99233; 99239; 99499; G0180 ==

== ENCOUNTER → 2024-10-15 16:20 | Outpatient (BNV) | payer OTHER, SELFPAY | PROVIDERS: Admitting Provider Student in an Organized Health Care Education/Training Program; Emergency Provider Emergency Medicine; PCP Pediatrics; Visit Provider Nurse Practitioner Psychiatric/Mental Health | DX: F10.20 Alcohol dependence, uncomplicated (principal) | CPT/HCPCS: 99221 ==

== ENCOUNTER 2024-10-30 10:15 | Outpatient (REF) | payer OTHER, SELFPAY ==
--- OUTSIDE RECORDS SUMMARY | 2024-10-30 11:13 | XMS_ITS | Encounter Summary ---
Author Organization [employer] Address [address] [place] [address] Care Team Providers Care Band Presser Name Role Phone Claudette Price MD Primary Care Provider Reason for Visit * Reason Comments Med Refill Encounter Details Date Type Department Care Team ([facility] Contact Info) Description 01/25/2023 Refill [facility] [address] [place] [address] Claudette Price MD [address] [place] [address] Severe low back pain Social History Tobacco [...] as of this encounter Plan of Treatment Not on file documented as of this encounter Visit Diagnoses Diagnosis Severe low back pain Lumbago documented in this encounter Care Teams Band Presser Relationship Specialty Start Date End Date Claudette Price MD [address] [place] [id number] PCP - General Family Medicine 04/12/18 John SPENCER 10/20/24 documented as of this encounter
[2024-10-30 14:18] LABS: Hematocrit 33.7 % (42.0-52.0); Hemoglobin 11.4 g/dl (14.0-18.0); Mean Corpuscular HGB Conc 33.8 g/dl (31.0-36.0); Mean Corpuscular Hemoglobin 34.5 pg (27.0-33.0); Mean Corpuscular Volume 102.1 fL (80.0-98.0); NRBC Abs Auto 0.000 X10*3/uL (0.0-0.012); NRBC Pct Auto 0.0 /100WBC (0.0-0.2); Platelet Count 401 X10*3/uL (160-400); Red Blood Count 3.30 X10*6/uL (4.60-5.80); White Blood Count 7.9 X10*3/uL (4.8-10.8)
[2024-10-30 14:25] LABS: Alanine Aminotransferase 27 U/L (0-40); Albumin Level 3.5 g/dL (3.5-5.0); Alkaline Phosphatase 123 U/L (39-117); Anion Gap 13 (12-20); Aspartate Amino Transferase 32 U/L (5-37); Blood Urea Nitrogen 12 mg/dL (9-16); Calcium 8.3 mg/dL (8.4-10.2); Carbon Dioxide 22 mmol/L (22-29); Chloride 107 mmol/L (96-108); Estimated Glomerular Filt Rate > 60; Potassium 3.7 mmol/L (3.3-5.1); Sodium 138 mmol/L (135-145); Total Protein 6.8 g/dL (6.5-8.0)
[2024-10-30 14:40] LABS: Prostate Specific Antigen 6.28 ng/mL (<0.05-4.0)
[2024-10-30 14:43] LABS: Parathyroid Hormone Intact 135.8 pg/mL (8.7-77.1)
[2024-10-30 14:54] LABS: Folate 18.6 ng/mL (> or = 4.0); Vitamin B12 310 pg/mL (200-900)
== END 2024-10-30 10:16 | disposition home or self-care (01) ==
LOC: HO.CHCLDS 10:15
PROVIDERS: Urology; PCP Pediatrics; Referring Provider Internal Medicine Hypertension Specialist; Visit Provider Registered Nurse
DX: Z12.5 Encounter for screening for malignant neoplasm of prostate (principal); C61 Malignant neoplasm of prostate; D63.8 Anemia in other chronic diseases classified elsewhere
CPT/HCPCS: 36415; 80053; 82607; 82746; 83970; 84153; 85027

== ENCOUNTER 2024-11-08 20:20 | Emergency (ER) | payer OTHER, SELFPAY ==
--- NOTE | 2024-11-08 | ECG_ITS ---
Test Reason : ETOH Blood Pressure : */* mmHG Vent. Rate : 56 BPM Atrial Rate : 56 BPM P-R Int : 242 ms QRS Dur : 138 ms QT Int : 484 ms P-R-T Axes : 35 -15 17 degrees QTcB Int : 467 ms Sinus bradycardia with 1st degree A-V block Right bundle branch block Abnormal ECG When compared with ECG of 15-Oct-2024 13:18, No significant change was found Referred By: Generic ED Physician Electronically Signed By: CORTNEY KHALIL MD
[2024-11-08 20:28] VITALS: BP 108/38; BP 160/68; PULSE 60; PULSE 72; RESP 16; TEMP 36.8; O2SAT 96; O2SAT 97; BMI 31.5
[2024-11-08 20:37] VITALS: BP 108/38; PULSE 60; RESP 16; TEMP 36.8; O2SAT 96
--- NOTE | 2024-11-08 20:49 | ED.ALCOHOL ---
HPI - Alcohol General Chief Complaint: ETOH/Substance Use Stated Complaint: alcohol withdrawal Time Seen by Provider: 11/08/24 20:45 Source: patient Mode of arrival: EMS Limitations: no limitations History of Present Illness ED Provider: HPI narrative: Patient alcoholic was sober for 6 years started again few months ago drink about 1 pt of vodka a week which he has stopped drinking 2 days ago since then patient has been feeling off for nauseated vomiting all day unable take his medication having pain all over the body no chest pain no history of pancreatitis saturating 96% at room air Related Data Home Medications ?Medication ?Instructions ?Recorded ?Confirmed levothyroxine 125 mcg tablet 125 mcg PO BEDTIME 10/29/21 10/15/24 loratadine 10 mg tablet 10 mg PO BEDTIME 10/29/21 10/15/24 metoprolol succinate 100 mg 100 mg PO BEDTIME 10/29/21 10/15/24 tablet,extended release 24 hr pravastatin 40 mg tablet 40 mg PO BEDTIME 10/29/21 10/15/24 tiotropium bromide 18 mcg capsule 1 cap inhalation DAILY 10/29/21 10/15/24 with inhalation device (Spiriva with HandiHaler) famotidine 20 mg tablet 20 mg PO BEDTIME 11/18/22 10/15/24 hydroxyzine HCl 10 mg tablet 10 mg PO Q8H PRN itch 01/07/23 10/15/24 fxhezktv-rt-whdho 300 mcg-K 60 1 tab PO BEDTIME 01/07/23 10/15/24 mcg-lycop 600 mcg-lutein 300 mcg tablet (Centrum Silver Men) omega 1-vlf-xia-fish oil 1,000 mg 1 cap PO BEDTIME 01/07/23 10/15/24 (120 mg-180 mg) capsule (Fish Oil) oxycodone-acetaminophen 5 mg-325 1 tab PO Q8H severe pain 01/07/23 10/15/24 mg tablet ferrous sulfate 325 mg (65 mg 650 mg PO Q48H 10/11/24 10/15/24 iron) tablet magnesium oxide 400 mg (241.3 mg 400 mg PO BEDTIME 10/11/24 10/15/24 magnesium) tablet methocarbamol 500 mg tablet 1,000 mg PO BEDTIME PRN pain 10/11/24 10/15/24 Previous Rx's ?Medication ?Instructions ?Recorded furosemide 40 mg tablet (Lasix) 40 mg PO DAILY #90 tabs 10/17/24 lorazepam 1 mg tablet 1 mg PO TID PRN alcohol withdrawal 11/09/24 #10 tabs Allergies Allergy/AdvReac Type Severity Reaction Status Date / Time No Known Allergies Allergy Mild N/A Verified 11/08/24 20:34 Review of Systems Review of Systems: Yes all other systems are reviewed and are negative [facility] Past Medical History Medical History CKD (chronic kidney disease) CHF (congestive heart failure) Chronic anemia Alcohol abuse HTN (hypertension), benign Cholelithiasis without cholecystitis Prostate cancer Delirium tremens Alcoholic cirrhosis Surgical History S/P tonsillectomy and adenoidectomy Social History Social History Household Members: None Housing: House Do you presently have visiting nurse or other home services: No Alcohol intake: current Alcohol intake frequency: other Alcohol type: hard liquor Comment: pt refuses bed alarm Patient Tobacco Use Status: Current everyday Tobacco user Tobacco use type: Cigar Cigarette Packs Per Day: 0.5 Cigarettes Per Day: 10.0 Years Smoked: 60+ Smoked in Last 30 Days: Yes e-Cigarette/Vaping Use: Currently Using Second Hand Smoke Exposure: No Use of substances other than those prescribed or required for medical reasons: No Advance Directives: Yes Advance Directives on File: Yes Advance Directives Date on File: 10/29/21 Do you have a plan to hurt others: No Plan service: No Current occupational status: retired Physical Exam ED Vital Signs: Vital Signs - 24 hr 11/08/24 20:28 11/08/24 20:37 11/08/24 22:52 Temperature 98.3 F 98.3 F 97.8 F Pulse Rate 60 60 56 Respiratory Rate 16 16 16 Blood Pressure 108/38 L 108/38 L 138/55 L Pulse Oximetry 96 96 94 Oxygen Delivery Method Room Air Room Air Room Air 11/09/24 00:25 11/09/24 01:19 Temperature 97.7 F Pulse Rate 55 62 Respiratory Rate 18 14 Blood Pressure 127/43 L 139/45 L Pulse Oximetry 97 Oxygen Delivery Method Room Air BMI result Body Mass Index 31.5 Appearance: Alert. Oriented X3. No acute distress. Anxious Eyes: PERRLA, No Nystagmus ENT: Pharynx normal. Oral Mucosa moist Neck: Normal inspection. Neck supple. CVS: Normal heart rate and rhythm. Pulses normal. Respiratory: No respiratory distress. Equal air entry bilateral, no wheezing/rales/rhonchi Abdomen: Soft and nontender. Bowel sounds are present, no mass palpable, no CVA tenderness Skin: Skin warm and dry. Normal skin color. Normal skin turgor. Extremities: No lower extremity edema. No calf tenderness Neuro: Oriented X 3. No motor deficit. No sensory deficit.No cerebellar signs , cranial nerves II-XII intact no tremor Medical Decision Making Medical Decision Making [facility] Narrative: Patient with alcohol abuse comes here for feeling a withdrawal last alcohol use was over 24 hours ago asking for help. ETOH level was 50 in the ER CIWA score of 4 patient felt better after IV hydration given Zofran will give lorazepam for withdrawal discharge patient home advised to follow up as outpatient Differential Diagnosis Differential Diagnoses: The differential diagnosis associated with the presentation includes Alcohol withdrawal/anxiety/chronic back pain Lab Data [facility] Lab Attestation statement: I reviewed the patient's lab results. 11/08/24 21:10 11/08/24 21:10 Labs: Lab Results 11/08/24 11/08/24 Range/Units 21:10 21:13 WBC 10.0 (4.8-10.8) X10*3/uL RBC 3.15 L (4.60-5.80) X10*6/uL Hgb 10.8 L (14.0-18.0) g/dl Hct 30.8 L (42.0-52.0) % MCV 97.8 (80.0-98.0) fL MCH 34.3 H (27.0-33.0) pg MCHC 35.1 (31.0-36.0) g/dl RDW 14.2 (11.0-16.0) % Plt Count 270 D (160-400) X10*3/uL MPV 9.2 L (9.4-12.4) fL Immature Gran % (Auto) 1.2 H (0.0-0.4) % Neut % (Auto) 70.1 (45-73) % Lymph % (Auto) 12.2 L (20-40) % [place] % (Auto) 12.1 H (2-11) % Eos % (Auto) 3.9 (0-4) % Baso % (Auto) 0.5 (0-2) % Lymph # (Auto) 1.2 (1.2-4.9) X10*3/uL [place] # (Auto) 1.2 (0.1-1.2) X10*3/uL Eos # (Auto) 0.4 (0.0-0.4) X10*3/uL Baso # (Auto) 0.1 (0.0-0.2) X10*3/uL Abs Immat Gran (auto) 0.12 H (0.00-0.03) X10*3/uL Absolute Neuts (auto) 7.0 (2.0-8.3) x10*3/uL Absolute Nucleated RBC 0.000 (0.0-0.012) X10*3/uL Nucleated RBC % (auto) 0.0 (0.0-0.2) /100WBC Sodium 134 L (135-145) mmol/L Potassium 3.5 (3.3-5.1) mmol/L Chloride 96 (96-108) mmol/L Carbon Dioxide 26 (22-29) mmol/L Anion Gap 16 (12-20) BUN 21 H (9-16) mg/dL Creatinine 1.45 H (0.5-1.4) mg/dL Estim Creat Clear Calc 43.7 Estimated GFR 47 Random Glucose 89 (60-115) mg/dL Calcium 8.0 L (8.4-10.2) mg/dL Magnesium 1.8 (1.6-2.6) mg/dL Total Bilirubin 0.3 (0.0-1.0) mg/dL AST 23 (5-37) U/L ALT 9 (0-40) U/L Alkaline Phosphatase 98 (39-117) U/L Total Protein 6.4 L (6.5-8.0) g/dL Albumin 3.4 L (3.5-5.0) g/dL Lipase 9 (8-78) U/L Ethyl Alcohol 50 mg/dL Independent Interpretation I performed an independent interpretation of an: EKG Interpretation: Sinus bradycardia with ventricular rate of 56 beats per minute right bundle-branch block no acute ST-T no acute ischemia Medications Administered Discontinued Medications Generic Name Dose Route Start Last Admin Trade Name Mukul PRN Reason Stop Dose Admin Sodium Chloride 1,000 mls @ 999 mls/hr 11/08/24 20:50 11/08/24 22:45 Ns IV 11/08/24 21:50 Infused .Q1H1M ONE Infusion Lorazepam 1 mg 11/09/24 00:52 11/09/24 01:17 Lorazepam 1 Mg Tablet PO 11/09/24 00:53 1 mg ONCE ONE Administration Ondansetron HCl 4 mg 11/08/24 20:53 11/08/24 21:14 Ondansetron Hcl 4 Mg/2 Ml Vial IVPUSH 11/08/24 20:54 4 mg ONCE ONE Administration Discharge Plan Discharge Clinical Impression: Alcohol dependence Patient Disposition: Home, Self-Care Instructions: Abuse of Alcohol (ED) Additional Instructions: Stop drinking alcohol Take lorazepam for alcohol withdrawal every 8 hours as needed and follow up with detox Prescriptions: New lorazepam 1 mg tablet 1 mg PO TID PRN (Reason: alcohol withdrawal) Qty: 10 0RF No Action pravastatin 40 mg tablet 40 mg PO BEDTIME metoprolol succinate 100 mg tablet extended release 24 hr 100 mg PO BEDTIME levothyroxine 125 mcg tablet 125 mcg PO BEDTIME tiotropium bromide [Spiriva with HandiHaler] 18 mcg capsule, w/inhalation device 1 cap inhalation DAILY loratadine 10 mg tablet 10 mg PO BEDTIME oxycodone-acetaminophen 5-325 mg tablet 1 tab PO Q8H Rx Instructions: TAKE WITH HYDROXYZINE TO PREVENT ITCHING hydroxyzine HCl 10 mg tablet 10 mg PO Q8H PRN (Reason: itch) Rx Instructions: TAKE WITH PERCOCET omega 1-odc-vsv-fish oil [Fish Oil] 1,000 mg (120 mg-180 mg) Capsule 1 cap PO BEDTIME Centrum Silver Men [id number] mcg Tablet 1 tab PO BEDTIME furosemide [Lasix] 40 mg tablet 40 mg PO DAILY Qty: 90 0RF famotidine 20 mg tablet 20 mg PO BEDTIME methocarbamol 500 mg tablet 1,000 mg PO BEDTIME PRN (Reason: pain) magnesium oxide 400 mg (241.3 mg magnesium) tablet 400 mg PO BEDTIME ferrous sulfate 325 mg (65 mg iron) tablet 650 mg PO Q48H Print Language: Lithuanian
[2024-11-08 21:17] LABS: Hematocrit 30.8 % (42.0-52.0); Hemoglobin 10.8 g/dl (14.0-18.0); Imm Gran Abs Auto 0.12 X10*3/uL (0.00-0.03); Imm Gran Pct Auto 1.2 % (0.0-0.4); Lymphocytes Absolute Auto 1.2 X10*3/uL (1.2-4.9); MANUAL DIFF FLAG NO; Mean Corpuscular HGB Conc 35.1 g/dl (31.0-36.0); Mean Corpuscular Hemoglobin 34.3 pg (27.0-33.0); Mean Corpuscular Volume 97.8 fL (80.0-98.0); NRBC Abs Auto 0.000 X10*3/uL (0.0-0.012); NRBC Pct Auto 0.0 /100WBC (0.0-0.2); Platelet Count 270 X10*3/uL (160-400); Red Blood Count 3.15 X10*6/uL (4.60-5.80); White Blood Count 10.0 X10*3/uL (4.8-10.8)
[2024-11-08 21:31] LABS: Lipase 9 U/L (8-78)
[2024-11-08 21:34] LABS: Alanine Aminotransferase 9 U/L (0-40); Albumin Level 3.4 g/dL (3.5-5.0); Alkaline Phosphatase 98 U/L (39-117); Anion Gap 16 (12-20); Aspartate Amino Transferase 23 U/L (5-37); Blood Urea Nitrogen 21 mg/dL (9-16); Calcium 8.0 mg/dL (8.4-10.2); Carbon Dioxide 26 mmol/L (22-29); Chloride 96 mmol/L (96-108); Creatinine Clr Calc Pharmacy 43.7; Estimated Glomerular Filt Rate 47; Potassium 3.5 mmol/L (3.3-5.1); Sodium 134 mmol/L (135-145); Total Protein 6.4 g/dL (6.5-8.0)
[2024-11-08 22:52] VITALS: BP 138/55; PULSE 56; RESP 16; TEMP 36.6; O2SAT 94
--- NOTE | 2024-11-08 22:54 | PC.NURSE ---
Pt unable to provide urine sample.
[2024-11-09 00:25] VITALS: BP 127/43; PULSE 55; RESP 18; TEMP 36.5; O2SAT 97
[2024-11-09 00:58] LABS: Magnesium 1.8 mg/dL (1.6-2.6)
[2024-11-09 01:19] VITALS: BP 139/45; PULSE 62; RESP 14
--- NOTE | 2024-11-09 01:38 | PC.NURSE ---
Pt informed RNs prior to us calling EMS for transport that he had a stein to get into his home. Also stated that his neighbor had a spare stein to let him in. EMS was called and upon arrival, pt told EMS he was not definite if his stein was available for entry into his home and that his neighbor was asleep. EMS called their returns supervisor and they informed EMS that if pt did not have a definite way to enter his home he would need to stay. Pt is now staying till AM until he can call his neighbor and have a safe, guaranteed entry into his home.
--- NOTE | 2024-11-09 05:53 | PC.NURSE ---
Pt was able to contact neighbor and verified that the door is unlocked so that pt is able to go inside. EMS to be rescheduled.
[2024-11-09 08:23] VITALS: BP 140/61; PULSE 60; RESP 18; TEMP 36.1; O2SAT 60
[2024-11-09 08:24] VITALS: BP 140/61; PULSE 60; RESP 18; TEMP 36.1; O2SAT 60
== END 2024-11-09 08:26 | disposition home or self-care (01) ==
PROVIDERS: Emergency Provider Internal Medicine
DX: F10.20 Alcohol dependence, uncomplicated (principal); Y90.2 Blood alcohol level of 40-59 mg/100 ml; R11.2 Nausea with vomiting, unspecified; I13.0 Hypertensive heart and chronic kidney disease with heart failure and stage 1 through stage 4 chronic kidney disease, or unspecified chronic kidney disease; N18.9 Chronic kidney disease, unspecified; I50.9 Heart failure, unspecified; Z79.899 Other long term (current) drug therapy
CPT/HCPCS: 36415; 80053; 80307; 83690; 83735; 85025; 93005; 96361; 96374; 99284; 99285; J2405

== ENCOUNTER → 2024-11-08 20:32 | Outpatient (BNV) | payer OTHER, SELFPAY | PROVIDERS: Emergency Provider Internal Medicine; Visit Provider Internal Medicine Cardiovascular Disease | DX: I44.0 Atrioventricular block, first degree (principal); R00.1 Bradycardia, unspecified; I45.10 Unspecified right bundle-branch block | CPT/HCPCS: 93010 ==

== ENCOUNTER 2024-11-15 20:51 | Inpatient (IN) | payer OTHER, SELFPAY ==
--- NOTE | 2024-11-15 | ECG_ITS ---
Test Reason : CP/SOB Blood Pressure : */* mmHG Vent. Rate : 73 BPM Atrial Rate : 73 BPM P-R Int : 268 ms QRS Dur : 140 ms QT Int : 448 ms P-R-T Axes : 32 -29 12 degrees QTcB Int : 493 ms Sinus rhythm with 1st degree A-V block Right bundle branch block Abnormal ECG When compared with ECG of 08-Nov-2024 20:32, No significant change was found Referred By: Generic ED Physician Electronically Signed By: AYAZ BENITEZ
--- NOTE | ~2024-11-15 | CT_ITS ---
EXAMINATION: CT CHEST ANGIOGRAPHY WITH IV CONTRAST INDICATION: shortness of breath COMPARISON: Relation is made with an AP portable view of the chest performed earlier in the day. TECHNIQUE: Helical CT scan of the chest was performed following administration of intravenous contrast (65 mL Omnipaque 350). The contrast bolus was timed to optimally opacify the pulmonary arteries. Thin sections were obtained through the pulmonary arteries. Coronal and sagittal reformatted images were generated. 3D/MIP reconstructed images are also obtained and reviewed. This CT exam was performed with one or more of the following dose reduction techniques: automated exposure control, adjustment of the mA and/or kV according to patient size, use of iterative reconstruction technique. DLP: 580 mGy-cm CHEST: THYROID: The thyroid gland is unremarkable. PULMONARY ARTERIES: No intraluminal filling defects are identified within the pulmonary arteries to suggest pulmonary emboli. LUNGS: There is moderate emphysema. There is a 1.8 x 1.6 cm mass in the right upper lobe abutting the major fissure (series 6, image 56). An additional 1.7 x 0.7 cm nodule is seen in the right upper lobe (series 6, image 60). There is subsegmental atelectasis in the left lower lobe. MEDIASTINUM: There is an enlarged 1.9 cm precarinal lymph node. There is a subcentimeter precardiac node. ROMULO: There are enlarged right hilar nodes measuring up to 1.6 cm in size. No left hilar lymphadenopathy. CARDIOVASCULATURE: The heart is enlarged. There is no pericardial effusion. The thoracic aorta is normal in caliber. DEGREE OF CORONARY CALCIFICATION: severe PLEURA: There is a small left pleural effusion. No right pleural effusion. No pneumothorax. MAIN AIRWAYS: The mainstem bronchi and proximal branches are patent. AXILLA: There is no axillary lymphadenopathy. UPPER ABDOMEN: There is a subcentimeter hypodensity in the liver which is too small to accurately characterize. The visualized portions of the spleen and adrenals are unremarkable. There is cholelithiasis. BONES AND SOFT TISSUES: There are sclerotic foci within the right 2nd rib and the T11 and T12 vertebral bodies which are highly suspicious for metastatic disease. CT/CT angio chest PE protocol IMPRESSION: 1. No evidence of pulmonary emboli. 2. 1.8 x 1.6 cm right upper lobe mass, highly suspicious for neoplasm. An additional 1.7 x 0.7 cm right upper lobe nodule is also identified. 3. Mediastinal and right hilar lymphadenopathy as described. 4. Sclerotic foci in the right 2nd rib and T11 and T12 vertebral bodies, highly suspicious for metastatic disease. 5. Small left pleural effusion. Electronically signed by: Schuyler Khan MD 11/16/2024 01:48 PM EDT
--- NOTE | ~2024-11-15 | XR_ITS ---
CLINICAL HISTORY: Shortness of Breath 1 view chest x-ray Comparison: CR/SR - XR CHEST 1V - 11/16/24 07:21 EDT Findings: Heart size is enlarged despite magnification. Increased bilateral interstitial lung markings consistent with pulmonary vascular congestion. increased retrocardiac opacity compared to prior study. Aortic calcification. Left pleural effusion. IMPRESSION: Cardiomegaly and pulmonary vascular congestion, suggestive of CHF. Possible pneumonia in the left lower lobe. This document has been electronically signed by: Daquan Rosario MD on 11/19/2024 04:38:22
--- NOTE | ~2024-11-15 | US_ITS ---
EXAMINATION: US LOWER EXTREMITY VEINS BILATERAL HISTORY: edema, rule out DVT, pt sedentary COMPARISON: There are no prior studies available for comparison. TECHNIQUE: Duplex and color Doppler sonographic examination of the deep venous system of the bilateral lower extremities was performed. FINDINGS: The right common femoral, superficial femoral, and popliteal veins are patent demonstrating normal compressibility, spontaneous flow, and augmentation. There is a normal color and spectral Doppler waveform appearance of the visualized deep venous system above the knee. The posterior tibial and peroneal veins are patent. The left common femoral, superficial femoral, and popliteal veins are patent demonstrating normal compressibility, spontaneous flow, and augmentation. There is a normal color and spectral Doppler waveform appearance of the visualized deep venous system above the knee. The posterior tibial and peroneal veins are patent. US/US venous duplex LE BI IMPRESSION: No evidence of acute DVT in the bilateral lower extremities. Electronically signed by: Schuyler Khan MD 11/20/2024 08:56 AM EDT
--- NOTE | ~2024-11-15 | XR_ITS ---
EXAMINATION: XR CHEST 1 VIEW HISTORY: sob COMPARISON: Comparison is made with the prior examination dated 01/07/2023. FINDINGS: A single AP portable view of the chest performed at 7:21 AM is submitted. There is a nodular density in the right midlung. Again seen are increased interstitial opacities in both lungs. There is scarring at the lung bases. There is no pleural effusion, pneumothorax, or pulmonary vascular congestion. The heart is normal in size given technique. The aorta is calcified. There is degenerative disc disease of the spine. XR/XR chest 1V IMPRESSION: Nodular density in the right midlung zone. Further evaluation with chest CT is recommended. Findings were sent to Bakari Jurado in the emergency room by secure text message on 11/16/2024 at 8:03 AM. Electronically signed by: Schuyler Khan MD 11/16/2024 08:04 AM EDT
[2024-11-15 21:14] VITALS: BP 132/78; PULSE 78; O2SAT 97; BMI 31.3
[2024-11-15 21:35] VITALS: BP 123/57; PULSE 72; RESP 20; TEMP 36.7; O2SAT 96
[2024-11-15 22:05] LABS: MANUAL DIFF FLAG NO
[2024-11-15 22:12] LABS: Hematocrit 30.5 % (42.0-52.0); Hemoglobin 10.4 g/dl (14.0-18.0); Imm Gran Abs Auto 0.09 X10*3/uL (0.00-0.03); Imm Gran Pct Auto 1.0 % (0.0-0.4); Lymphocytes Absolute Auto 1.2 X10*3/uL (1.2-4.9); Mean Corpuscular HGB Conc 34.1 g/dl (31.0-36.0); Mean Corpuscular Hemoglobin 34.2 pg (27.0-33.0); Mean Corpuscular Volume 100.3 fL (80.0-98.0); NRBC Abs Auto 0.000 X10*3/uL (0.0-0.012); NRBC Pct Auto 0.0 /100WBC (0.0-0.2); Platelet Count 211 X10*3/uL (160-400); Red Blood Count 3.04 X10*6/uL (4.60-5.80); White Blood Count 8.7 X10*3/uL (4.8-10.8)
[2024-11-15 22:21] LABS: Anion Gap 15 (12-20); Blood Urea Nitrogen 14 mg/dL (9-16); Calcium 8.0 mg/dL (8.4-10.2); Carbon Dioxide 29 mmol/L (22-29); Chloride 102 mmol/L (96-108); Creatinine Clr Calc Pharmacy 48.4; Estimated Glomerular Filt Rate 51; Potassium 3.0 mmol/L (3.3-5.1); Sodium 143 mmol/L (135-145)
[2024-11-15 22:23] LABS: Acetaminophen LAB 5 mcg/mL (<30); Salicylate 5.4 mg/dL (15-30)
--- NOTE | 2024-11-15 22:27 | ED.GENADULT ---
HPI - General Adult General Chief complaint: General Medical Stated complaint: Withdrawal symptoms from percocet Time Seen by Provider: 11/15/24 21:39 History of Present Illness ED Provider: Dimitri Garcia MD HPI narrative: Patient presents with chief complaint of subjective withdrawal from Percocet says he has not had any of his medication including t.i.d. 5 mg Percocet in about 5 or 6 days since ED visit here. He says he had lost the medication while in the hospital. Generalized malaise and subjective withdrawal symptoms as the main complaint. He had a hospital admission for alcohol withdrawal early October. To me only requesting his medications. Denies suicidal thoughts despite gestural statement made to triage nurse Related Data Home Medications ?Medication ?Instructions ?Recorded ?Confirmed levothyroxine 125 mcg tablet 125 mcg PO BEDTIME 10/29/21 11/17/24 loratadine 10 mg tablet 10 mg PO BEDTIME 10/29/21 11/17/24 metoprolol succinate 100 mg 100 mg PO BEDTIME 10/29/21 11/17/24 tablet,extended release 24 hr pravastatin 40 mg tablet 40 mg PO BEDTIME 10/29/21 11/17/24 tiotropium bromide 18 mcg capsule 1 cap inhalation BEDTIME 10/29/21 11/17/24 with inhalation device (Spiriva with HandiHaler) famotidine 20 mg tablet 20 mg PO BEDTIME 11/18/22 11/17/24 hydroxyzine HCl 10 mg tablet 10 mg PO Q8H PRN itch 01/07/23 11/17/24 shvrlvew-kz-orcfp 300 mcg-K 60 1 tab PO BEDTIME 01/07/23 11/17/24 mcg-lycop 600 mcg-lutein 300 mcg tablet (Centrum Silver Men) omega 4-jqr-bun-fish oil 1,000 mg 1 cap PO BEDTIME 01/07/23 11/17/24 (120 mg-180 mg) capsule (Fish Oil) oxycodone-acetaminophen 5 mg-325 1 tab PO Q8H severe pain 01/07/23 11/17/24 mg tablet ferrous sulfate 325 mg (65 mg 650 mg PO Q48H 10/11/24 11/17/24 iron) tablet magnesium oxide 400 mg (241.3 mg 400 mg PO BEDTIME 10/11/24 11/17/24 magnesium) tablet methocarbamol 500 mg tablet 1,000 mg PO BEDTIME PRN pain 10/11/24 11/17/24 furosemide 40 mg tablet (Lasix) 40 mg PO BEDTIME 11/17/24 11/17/24 Allergies Allergy/AdvReac Type Severity Reaction Status Date / Time No Known Allergies Allergy Mild N/A Verified 11/15/24 21:21 [facility] Past Medical History Medical History (Updated 11/19/24 @ 12:42 by Ilya West MD) GERD (gastroesophageal reflux disease) CKD (chronic kidney disease) CHF (congestive heart failure) Chronic anemia Alcohol abuse HTN (hypertension), benign Cholelithiasis without cholecystitis Prostate cancer Delirium tremens Alcoholic cirrhosis Surgical History S/P tonsillectomy and adenoidectomy Social History Social History Household Members: None Housing: House Do you presently have visiting nurse or other home services: No Alcohol intake: current Alcohol intake frequency: other Alcohol type: hard liquor Comment: 1:1 sitter at bedside on arrival to unit from ED Patient Tobacco Use Status: Current everyday Tobacco user Tobacco use type: Cigar Cigarette Packs Per Day: 0.5 Years Smoked: 60+ e-Cigarette/Vaping Use: Currently Using Second Hand Smoke Exposure: No Advance Directives Date on File: 10/29/21 service: No Current occupational status: retired Physical Exam ED Vital Signs: Vital Signs - 24 hr 11/18/24 10:18 11/18/24 14:53 11/18/24 14:57 Temperature 99 F 98.1 F Pulse Rate 90 100 Respiratory Rate Blood Pressure 131/48 L 87/47 L 164/97 H Pulse Oximetry 99 96 Oxygen Delivery Method Room Air Room Air 11/18/24 21:58 11/19/24 02:53 11/19/24 05:06 Temperature 98.0 F 98.5 F 98.7 F Pulse Rate 100 90 99 Respiratory Rate 14 20 20 Blood Pressure 114/51 L 124/65 140/60 H Pulse Oximetry 98 96 97 Oxygen Delivery Method Room Air Room Air Room Air BMI result Body Mass Index 31.3 Course Course Course Narrative: 11/16/2024 1844 Diamante Colunga PA-C ---> Observation continues. Case management continues to follow. Reevaluation(s) Reevaluation #1: 01:10 nurse tried ambulation the patient is not only unkempt with poor hygiene including dried feces on his leg but was unsteady and unreliable unsafe to be discharged home. Unclear whether this is generalized deconditioning chronic intermittent alcohol use disorder however he will need to be evaluated by PT and case management in the morning. I will initiate PT case management physician observation at this time Dimitri Garcia MD Reevaluation #2: Time: 16:24 Date: 11/16/24 Provider: Franco Turcios MD The patient is a 78-year-old male who came to the emergency room yesterday evening complaining of withdrawal from oxycodone. In addition to using oxycodone the patient also has been an alcohol user. He apparently arrived last night complaining of pain that he attributes to a lack of the oxycodone that he usually uses to treat his chronic pains. At triage she had made some vague suicidal comments but he denied these later. The patient was felt to be medically clear but during the overnight shift was felt to be dyspneic on exertion and this morning at chest x-ray was ordered which was abnormal. I went to see the patient. He is a very chronically ill looking person. He looked as if he was somewhat short of breath although his oxygen saturations were good and I did not hear distinct abnormal breath sounds on exam. It did not seem to be as if he was definitely in the throes of an acute COPD exacerbation. I repeated much of the patient's workup. He has a normal white count with an unremarkable differential. His potassium was mildly low at 3.0. Renal function is normal. Troponin was normal. BNP is elevated at 371, significance uncertain. CRP 7.24, against significance uncertain. Venous blood gas showed pH 7.47 with a pCO2 of 47. I found this overall reassuring. His chest x-ray has been read as: IMPRESSION: Nodular density in the right midlung zone. Further evaluation with chest CT is recommended. Findings were sent to Bakari Jurado in the emergency room by secure text message on 11/16/2024 at 8:[address] pulmonary angiogram was done. This showed: IMPRESSION: 1. No evidence of pulmonary emboli. 2. 1.8 x 1.6 cm right upper lobe mass, highly suspicious for neoplasm. An additional 1.7 x 0.7 cm right upper lobe nodule is also identified. 3. Mediastinal and right hilar lymphadenopathy as described. 4. Sclerotic foci in the right 2nd rib and T11 and T12 vertebral bodies, highly suspicious for metastatic disease. 5. Small left pleural effusion. Based on this CT scan it seems as though he has a right upper lobe mass suspicious for neoplasm. This would typically be an outpatient workup. The patient complained a lot of feeling short of breath but he seemed to maintain his oxygen saturations well. He was given bronchodilator treatments but he did not really seemed to be short of breath to the point where he felt he needed treatment for a true COPD exacerbation and certainly he did not seem to require hospitalization. Ultimately I felt that the the patient should be kept in physician observation for placement by case management. His care will be difficult given his history of alcoholism and his oxycodone dependence. I believe he was last prescribed oxycodone-acetaminophen 5-3251 tablet Q 8 hours. I will order this as his regular oxycodone regimen. The watch case polisher is looking for acute rehab placement. He will also need to follow up as an outpatient for a possible finding of a new lung mass. I have told the patient about the lung mass in his right upper lung and the need to follow up with Oncology as an outpatient. I have ordered the patient's usual oxycodone 5 mg t.i.d.. Reevaluation #3: Physician observation continued. Uneventful night. Vital signs stable. No complaints from nursing overnight. Med reconciliation reviewed and done. Pending disposition, code status which with the nurse is currently looking into as well as med reconciliation. Will continue to monitor. Additional Reevaluation(s): Case management did reach out to me and told me that patient does not want to go to rehab. He reports he would just like Percocets or ox he has for home and then he would like to leave. I did notice that patient was not seen by the care team although he voiced initially some HI statements. I have ordered a care team consult. I also feel uncomfortable this plan and will reach out to patient's PCP. Spoke with Dr. Jacob PCP reports that patient has recently had his narcotics filled After claiming he lost his prescription. He has been denying drinking to his PCP however, he reports to the hospital that he was recently hospitalized for alcohol withdrawal. Patient's PCP is advocating that patient goes to rehab and reports patient does not have a good support team at home. She is concerned for this patient and reports he maybe spiraling downward. Consultations Consultation #1: Time: 09:00 Date: 11/18/24 Provider: MAXX Johnston Patient in physician observation for case management needs. No acute events reported overnight.?VS stable. Patient is pending placement at facility/pending PT/CM eval. Will continue to monitor. Patient is currently on a section 12. Code status has been updated. Patient is currently scheduled with his oxycodone as baseline. CIWA remains in place. PT case management and psychiatric eval pending. Time: 17:11 Date: 11/18/24 Provider: MAXX Johnston Patient in physician observation for case management needs. He is resting comfortably at this time. This time patient was seen and evaluated by Psychiatry, Dr Ferguson and he has been cleared for discharge from a psychiatric perspective given that he does not have any suicidal or homicidal ideation and not immediate risk to himself. Consultation #2: 3:16 AM 11/19/2024 (Cristiano LILLY): The patient is in physician observation for case management needs. The RN in [facility] notify this provider that the patient was beginning to report increasing shortness of breath, was noted to have wheezing and a dry cough. Patient was still normotensive and not tachycardic, was found to be 96% on room air. The patient is a 78-year-old male with a history of CHF currently on 40 mg Lasix daily who was seen in the ED for opiate withdrawal, made suicidal statements to EMS, was seen by crisis and cleared for continued observation under case management for placement. The patient was assessed by this provider and found to have bibasilar rales with increased respiratory rate but otherwise unlabored work of breathing while at rest in his chair. Patient has 2+ pitting edema. Patient's chart was reviewed and shows last laboratory workup was 3 days ago, creatinine at that time was within normal limits, the patient will be treated with a single extra dose of 40 mg IV Lasix as well a nebulizer. We will also obtain stat portable chest x-ray and repeat laboratory workup including CMP, CBC, and BNP. Patient does not require mechanical ventilation or transfer into the main ED at this time, this patient update will be discussed with Dr. Beal for review of repeat assessment and reassessment of symptoms following interventions as indicated. Consultation #3: Aziza Beal MD, 11/19/24, [id number] I reviewed patient's labs. Patient's white blood cell count is a bit bumped now, BNP remains at baseline. However, chest x-ray shows worsening vascular congestion versus pneumonia. According to the patient's nurse, the patient has been coughing more throughout the last night. No fever. No episodes of hypotension. Earlier today he received IV Lasix. I also gave the patient a dose of IV ceftriaxone and azithromycin. IV fluids are not indicated at this time. I discussed the patient with Dr. Guthrie, patient being admitted Medications Administered Generic Name Dose Route Start Last Admin Trade Name Freq PRN Reason Stop Dose Admin Acetaminophen 650 mg 11/19/24 05:55 11/20/24 09:45 Acetaminophen 325 Mg Tablet PO 650 mg Q6H PRN Administration Pain, Mild 1-3,fever,headache Albuterol/Ipratropium 3 ml 11/19/24 05:55 11/21/24 00:53 Albuterol/Iprat 2.5/0.5mg 3 Ml Ampul.Neb INHALE 3 ml Q4H PRN Administration Shortness of Breath/Wheezing Budesonide 0.5 mg 11/19/24 08:00 11/20/24 19:03 Budesonide 0.5 Mg/2 Ml Ampul.Neb INHALE 0.5 mg RBID JASWANT Administration Ceftriaxone Sodium 1 gm 11/20/24 07:00 11/20/24 06:00 Ceftriaxone Sodium 1 Gm Vial IVPUSH 1 gm Q24H JASWANT Administration Enoxaparin Sodium 40 mg 11/19/24 09:00 11/20/24 08:45 Enoxaparin Sodium 40 Mg/0.4 Ml Syringe SUBCUT 40 mg Q24H JASWANT Administration Famotidine 20 mg 11/18/24 21:00 11/20/24 21:04 Famotidine 20 Mg Tablet PO 20 mg BEDTIME JASWANT Administration Ferrous Sulfate 648 mg 11/19/24 09:00 11/19/24 08:27 Ferrous Sulfate 324 Mg Tablet.Dr VALLADARES 648 mg Q48H JASWANT Administration Furosemide 20 mg 11/20/24 09:00 11/20/24 18:07 Furosemide 20 Mg Tablet PO 20 mg BID@0900,1800 JASWANT Administration Protocol Guaifenesin/Codeine Phosphate 5 ml 11/20/24 02:48 11/20/24 22:43 Guaifen/Codeine Sf 200/20/10ml 10 Ml Liquid PO 5 ml Q6H PRN Administration Cough Hydroxyzine HCl 10 mg 11/18/24 09:55 11/19/24 02:49 Hydroxyzine Hcl 10 Mg Tablet PO 10 mg On Hold: 11/19/24 13:24 Q8H PRN Administration itch Azithromycin 500 mg/ Sodium 250 mls @ 125 mls/hr 11/20/24 07:00 11/20/24 12:32 Chloride IV Infused Q24H JASWANT Infusion Folic Acid 1 mg/ Sodium 50.2 mls @ 100.4 mls/hr 11/19/24 09:00 11/20/24 12:32 Chloride IV Infused DAILY JASWANT Infusion Thiamine HCl 200 mg/ Sodium 102 mls @ 204 mls/hr 11/19/24 14:00 11/20/24 23:35 Chloride IV Infused Q8H JASWANT Infusion Levothyroxine Sodium 125 mcg 11/18/24 21:00 11/20/24 21:07 Levothyroxine Sodium 125 Mcg Tablet PO 125 mcg BEDTIME JASWANT Administration Lidocaine 1 patch 11/18/24 16:44 11/18/24 16:57 Lidocaine 4 % Patch Adh..Patch TRANSDERMA 1 patch BID PRN Administration Pain, Moderate(Pain Scale 4-6) Protocol Loratadine 10 mg 11/18/24 21:00 11/20/24 21:04 Loratadine 10 Mg Tablet PO 10 mg BEDTIME JASWANT Administration Lorazepam 0.5 mg 11/18/24 12:00 11/19/24 11:39 Lorazepam 1 Mg Tablet PO 11/22/24 11:59 1 mg On Hold: 11/19/24 13:14 Q6H JASWANT Administration Taper Magnesium Oxide 400 mg 11/18/24 21:00 11/20/24 21:04 Magnesium Oxide 400 Mg Tablet PO 400 mg BEDTIME JASWANT Administration Metoprolol Succinate 100 mg 11/18/24 21:00 11/20/24 21:03 Metoprolol Succinate Er 100 Mg Tab.Er.24h PO 100 mg BEDTIME JASWANT Administration Protocol Multivitamins/Vitamin C 1 tab 11/18/24 21:00 11/20/24 21:04 Multivitamin Tablet PO 1 tab BEDTIME JASWANT Administration Nystatin 1 appl 11/19/24 09:00 11/20/24 21:07 Nystatin Powder 15 Gm Bottle TOPICAL 1 appl TID [facility] Administration Protocol Omeprazole 20 mg 11/20/24 06:30 11/20/24 06:00 Omeprazole 20 Mg Capsule.Dr PO 20 mg DAILY@0630 [facility] Administration Oxycodone HCl 5 mg 11/16/24 18:47 11/20/24 16:37 Oxycodone Hcl Immed Release 5 Mg Tablet PO 5 mg Q8H PRN Administration Pain, Severe (Pain Scale 7-10) Polyethylene Glycol 17 gm 11/19/24 05:55 11/19/24 09:55 Polyethylene Glycol 3350 17 Gm Powd.Pack PO 17 gm DAILY PRN Administration Constipation Pravastatin Sodium 40 mg 11/18/24 21:00 11/20/24 21:03 Pravastatin Sodium 40 Mg Tablet PO 40 mg BEDTIME [facility] Administration Senna 17.2 mg 11/19/24 21:00 11/20/24 21:07 Sennosides 8.6 Mg Tablet PO 17.2 mg BEDTIME [facility] Administration Simethicone 80 mg 11/17/24 07:14 11/19/24 23:57 Simethicone 80 Mg Tab.Chew PO 80 mg TID PRN Administration GI Upset Sodium Chloride 3 ml 11/19/24 08:00 11/20/24 21:04 0.9 % Sodium Chloride Flush 3 Ml Syringe IVFLUSH 3 ml QSHIFT [facility] Administration Tiotropium [place] 2 puff 11/19/24 08:00 11/20/24 11:24 Tiotropium [place] 2.5 Mcg 1 Puff/2.5 Mcg Mist.Inhal INHALE 2 puff RDAILY [facility] Administration Discontinued Medications Generic Name Dose Route Start Last Admin Trade Name Freq PRN Reason Stop Dose Admin Acetaminophen 975 mg 11/16/24 02:38 11/16/24 02:46 Acetaminophen 325 Mg Tablet PO 11/16/24 02:39 975 mg ONCE ONE Administration Calcium Carbonate 1,500 mg 11/17/24 03:28 11/17/24 03:34 Calcium Carbonate 750 Mg Tab.Chew PO 11/17/24 03:29 1,500 mg ONCE ONE Administration Ceftriaxone Sodium 1 gm 11/19/24 05:46 11/19/24 06:08 Ceftriaxone Sodium 1 Gm Vial IVPUSH 11/19/24 05:47 1 gm ONCE ONE Administration Levalbuterol HCl 2.5 mg/ 0 mg 11/16/24 14:54 11/16/24 14:56 Ipratropium [place] 0.5 mg INHALE 11/16/24 14:55 Not Given ONCE ONE Albuterol Sulfate 2.5 mg/ 0 mg 11/16/24 14:55 11/16/24 14:57 Albuterol/Ipratropium 3 ml INHALE 11/16/24 14:56 1 dose ONCE ONE Administration Albuterol Sulfate 2.5 mg/ 0 mg 11/19/24 04:10 11/19/24 04:15 Albuterol/Ipratropium 3 ml INHALE 11/19/24 04:11 1 dose ONCE ONE Administration Furosemide 40 mg 11/19/24 03:14 11/19/24 03:24 Furosemide 40 Mg/4 Ml Vial IVPUSH 11/19/24 03:15 40 mg ONCE ONE Administration Protocol Furosemide 40 mg 11/19/24 09:00 11/19/24 08:31 Furosemide 40 Mg/4 Ml Vial IVPUSH 40 mg DAILY JASWANT Administration Protocol Potassium Chloride/Sodium Chloride 20 meq in 1,000 mls @ 500 mls/hr 11/15/24 22:30 11/16/24 02:37 Kcl 20 Meq In 0.9 % Sodium Chl IVCONT Not Given .Q2H JASWANT Acetaminophen 1,000 mg in 100 mls @ 400 mls/hr 11/16/24 11:07 11/16/24 12:42 Ofirmev IV 11/16/24 11:21 Infused ONCE ONE Infusion Azithromycin 500 mg/ Sodium 250 mls @ 125 mls/hr 11/19/24 05:46 11/19/24 08:19 Chloride IV 11/19/24 07:45 Infused ONCE ONE Infusion Thiamine HCl 100 mg/ Sodium 101 mls @ 202 mls/hr 11/19/24 10:00 11/19/24 10:18 Chloride IV Infused DAILY JASWANT Infusion Iohexol 100 ml 11/16/24 13:14 11/16/24 13:14 Iohexol 350 Mg/Ml 100 Ml Infus..Btl IV 11/16/24 13:15 65 ml ONCE ONE Administration Ketorolac Tromethamine 10 mg 11/16/24 11:07 11/16/24 11:59 Ketorolac Tromethamine 15 Mg/Ml Vial IVPUSH 11/16/24 11:08 10 mg ONCE ONE Administration Lorazepam 2 mg 11/18/24 09:53 11/18/24 10:43 Lorazepam 1 Mg Tablet PO 11/18/24 09:54 2 mg ONCE ONE Administration Melatonin 6 mg 11/16/24 21:17 11/16/24 21:22 Melatonin 3 Mg Tablet PO 11/16/24 21:18 6 mg ONCE ONE Administration Oxycodone HCl 5 mg 11/15/24 22:39 11/16/24 00:00 Oxycodone Hcl Immed Release 5 Mg Tablet PO 11/15/24 22:40 5 mg ONCE ONE Administration Oxycodone HCl 5 mg 11/16/24 09:27 11/16/24 09:32 Oxycodone Hcl Immed Release 5 Mg Tablet PO 11/16/24 09:28 5 mg ONCE ONE Administration Oxycodone HCl 5 mg 11/16/24 14:34 11/16/24 14:53 Oxycodone Hcl Immed Release 5 Mg Tablet PO 11/16/24 14:35 5 mg ONCE ONE Administration Potassium Chloride 40 meq 11/15/24 22:26 11/16/24 00:00 Potassium Chloride Packet 20 Meq Packet PO 11/15/24 22:27 40 meq ONCE ONE Administration Potassium Chloride 40 meq 11/16/24 16:30 11/18/24 21:21 Potassium Chloride Er 20 Meq Tab.Er.Prt PO 40 meq BID JASWANT Administration Sodium Zirconium Cyclosilicate 10 gm 11/19/24 06:11 11/19/24 06:19 Sodium Zirconium Cyclosilicate 10 Gm Powd.Pack PO 11/19/24 06:12 10 gm ONCE ONE Administration Medical Decision Making Medical Decision Making MDM Narrative: Medical Decision Makin-year-old male with chronic low back pain, CKD, alcohol use disorder, prior prostate cancer anemia of chronic disease reports subjective opioid withdrawal he has been on what he describes as t.i.d. 5 mg Percocet for 4 years straight for chronic low back pain prescribed by his primary doctor. Tells me he was hospitalized recently and feels now he is in withdrawal. Noted that at triage he made some vague suicidal statements but denies this to me. Preliminary Favored Differential Diagnosis: [ ] among additional considered etiologies Testing Interpreted Independently: Not Applicable Radiology or Lab testing Results Reviewed: Not Applicable Consults: Not Applicable Independent Historians/External Chart Reviews: [employer] controlled substance report reviewed the patient last received a prescription of Percocet 08/12/2024, 28 tablets on October 23. He was hospitalized here October 15 through , he tells me he was hospitalized until last Wednesday and lost all of his Percocet then Social Determinants of Health Impacting MDM/Planning: Not Applicable I received sign-out from my colleague Dr. Redd -initially, patient's visit started out as withdrawing from Percocets. Sudden, it was noted that patient is unkempt, has poor hygiene, unsteady walking and it would be unsafe to discharge home and patient was made PT case management. In the morning, I was informed by the patient's nurse that when patient walks, he becomes short of breath. Patient's chest x-ray and BNP pending. Throughout the night, patient has not had any oxygen desaturations. Even here in the emergency room, patient was ambulated, oxygen saturation in the mid 90s without oxygen desaturation. PT case management consult pending Sign out given to Dr. Turcios Lab Data 11/20/24 06:36 11/20/24 08:58 Labs: Lab Results 11/15/24 11/16/24 11/16/24 Range/Units 22:00 09:08 09:09 WBC 8.7 9.0 (4.8-10.8) X10*3/uL RBC 3.04 L 3.13 L (4.60-5.80) X10*6/uL Hgb 10.4 L 10.7 L (14.0-18.0) g/dl Hct 30.5 L 31.4 L (42.0-52.0) % MCV 100.3 H 100.3 H (80.0-98.0) fL MCH 34.2 H 34.2 H (27.0-33.0) pg MCHC 34.1 34.1 (31.0-36.0) g/dl RDW 14.6 14.7 (11.0-16.0) % Plt Count 211 231 (160-400) X10*3/uL MPV 9.9 9.4 (9.4-12.4) fL Immature Gran % (Auto) 1.0 H 0.9 H (0.0-0.4) % Neut % (Auto) 66.5 70.6 (45-73) % Lymph % (Auto) 13.8 L 10.2 L (20-40) % [place] % (Auto) 14.3 H 13.9 H (2-11) % Eos % (Auto) 3.9 4.1 H (0-4) % Baso % (Auto) 0.5 0.3 (0-2) % Lymph # (Auto) 1.2 0.9 L (1.2-4.9) X10*3/uL [place] # (Auto) 1.2 1.3 H (0.1-1.2) X10*3/uL Eos # (Auto) 0.3 0.4 (0.0-0.4) X10*3/uL Baso # (Auto) 0.0 0.0 (0.0-0.2) X10*3/uL Abs Immat Gran (auto) 0.09 H 0.08 H (0.00-0.03) X10*3/uL Absolute Neuts (auto) 5.8 6.3 (2.0-8.3) x10*3/uL Absolute Nucleated RBC 0.000 0.000 (0.0-0.012) X10*3/uL Nucleated RBC % (auto) 0.0 0.0 (0.0-0.2) /100WBC PT 12.7 H (10.9-12.4) SEC INR 1.1 (0.9-1.1) VBG pH (7.32-7.43) VBG pCO2 mmHg VBG pO2 mmHg VBG HCO3 (22-26) mmol/L VBG O2 Saturation % VBG Base Excess mmol/L Sodium 143 (135-145) mmol/L Potassium 3.0 L (3.3-5.1) mmol/L Chloride 102 (96-108) mmol/L Carbon Dioxide 29 (22-29) mmol/L Anion Gap 15 (12-20) BUN 14 (9-16) mg/dL Creatinine 1.35 (0.5-1.4) mg/dL Estim Creat Clear Calc 48.4 Estimated GFR 51 Random Glucose 87 (60-115) mg/dL Calcium 8.0 L (8.4-10.2) mg/dL Magnesium (1.6-2.6) mg/dL Total Bilirubin (0.0-1.0) mg/dL Direct Bilirubin (0.0-0.5) mg/dL AST (5-37) U/L ALT (0-40) U/L Alkaline Phosphatase (39-117) U/L Troponin I High Sens 21.5 D (<3.5-35.0) ng/L C-Reactive Protein (< or = 0.50) mg/dL B-Natriuretic Peptide (<100) pg/mL Total Protein (6.5-8.0) g/dL Albumin (3.5-5.0) g/dL Lipase (8-78) U/L Salicylates 5.4 L (15-30) mg/dL Acetaminophen 5 (<30) mcg/mL Ethyl Alcohol 141 < 10 mg/dL Influenza Type A (PCR) NEGATIVE (Negative) Influenza Type B (PCR) NEGATIVE (Negative) RSV RNA Qual (PCR) NEGATIVE (Negative) SARS-CoV-2 RNA (RT-PCR) NEGATIVE (Negative) 11/16/24 11/16/24 11/19/24 Range/Units 09:10 09:15 05:03 WBC 11.4 H (4.8-10.8) X10*3/uL RBC 3.27 L (4.60-5.80) X10*6/uL Hgb 11.2 L (14.0-18.0) g/dl Hct 34.3 L (42.0-52.0) % MCV 104.9 H (80.0-98.0) fL MCH 34.3 H (27.0-33.0) pg MCHC 32.7 (31.0-36.0) g/dl RDW 14.6 (11.0-16.0) % Plt Count 331 D (160-400) X10*3/uL MPV 9.6 (9.4-12.4) fL Immature Gran % (Auto) 0.6 H (0.0-0.4) % Neut % (Auto) 74.7 H (45-73) % Lymph % (Auto) 8.3 L (20-40) % [place] % (Auto) 11.2 H (2-11) % Eos % (Auto) 4.8 H (0-4) % Baso % (Auto) 0.4 (0-2) % Lymph # (Auto) 1.0 L (1.2-4.9) X10*3/uL [place] # (Auto) 1.3 H (0.1-1.2) X10*3/uL Eos # (Auto) 0.6 H (0.0-0.4) X10*3/uL Baso # (Auto) 0.1 (0.0-0.2) X10*3/uL Abs Immat Gran (auto) 0.07 H (0.00-0.03) X10*3/uL Absolute Neuts (auto) 8.5 H (2.0-8.3) x10*3/uL Absolute Nucleated RBC 0.000 (0.0-0.012) X10*3/uL Nucleated RBC % (auto) 0.0 (0.0-0.2) /100WBC PT (10.9-12.4) SEC INR (0.9-1.1) VBG pH 7.47 H (7.32-7.43) VBG pCO2 47 mmHg VBG pO2 56 mmHg VBG HCO3 35 H (22-26) mmol/L VBG O2 Saturation 84.0 % VBG Base Excess 10.6 mmol/L Sodium 142 139 (135-145) mmol/L Potassium 3.0 L 5.6 H D (3.3-5.1) mmol/L Chloride 104 108 (96-108) mmol/L Carbon Dioxide 28 21 L (22-29) mmol/L Anion Gap 13 16 (12-20) BUN 16 12 (9-16) mg/dL Creatinine 1.00 0.91 (0.5-1.4) mg/dL Estim Creat Clear Calc 65.3 71.8 Estimated GFR > 60 > 60 Random Glucose 119 H 98 (60-115) mg/dL Calcium 7.9 L 9.1 D (8.4-10.2) mg/dL Magnesium 1.5 L (1.6-2.6) mg/dL Total Bilirubin 0.4 0.6 (0.0-1.0) mg/dL Direct Bilirubin 0.2 (0.0-0.5) mg/dL AST 24 33 (5-37) U/L ALT 7 10 (0-40) U/L Alkaline Phosphatase 75 90 (39-117) U/L Troponin I High Sens (<3.5-35.0) ng/L C-Reactive Protein 7.24 H (< or = 0.50) mg/dL B-Natriuretic Peptide 371 H 305 H (<100) pg/mL Total Protein 6.2 L 7.3 (6.5-8.0) g/dL Albumin 3.2 L 3.6 (3.5-5.0) g/dL Lipase 14 (8-78) U/L Salicylates (15-30) mg/dL Acetaminophen (<30) mcg/mL Ethyl Alcohol mg/dL Influenza Type A (PCR) (Negative) Influenza Type B (PCR) (Negative) RSV RNA Qual (PCR) (Negative) SARS-CoV-2 RNA (RT-PCR) (Negative) Discharge Plan Discharge Clinical Impression: Acute opioid withdrawal, Alcoholism, Lung mass, CHF (congestive heart failure) Pneumonia Qualifiers: Pneumonia type: due to unspecified organism Laterality: left Lung location: lower lobe of lung Qualified Code(s): J18.9 - Pneumonia, unspecified organism Patient Disposition: Admitted As Inpatient Interventions: Admission Worksheet (ED) Last Done: 11/19/24 07:15 Discharge Date/Time: 11/19/24 21:31
[2024-11-16] VITALS (7 sets, daily range): BP systolic 128–145; BP diastolic 42–64; PULSE 74–83; RESP 16–22; TEMP 35.7–36.8; O2SAT 95–99
[2024-11-16] MEDS: Potassium Chloride Packet 20 MEQ PACKET 40 MEQ PO
--- NOTE | 2024-11-16 00:07 | PC.NURSE ---
pt turned/repositioned to comfort. medication administered per provider order. effectiveness pending.
--- NOTE | 2024-11-16 01:14 | PC.NURSE ---
Addendum entered by Anny Vaz 11/16/24 01:17: patient also noted to be have poor hygiene, seemingly unkept. strong smell noted from patient's body. dried feces noted to patient's bottom of feet/legs bilaterally. personal hygiene performed. patient changed into hospital attire to promote comfort. Original Note: ambulation trial performed - patient failed. extremely unsteady on feet despite utilizing (baseline) cane from home. pt noted to be stumbling/had an almost trip and fall while ambulating to the restroom. no actual fall occurred. pt also seemingly sob - SPO2 obtained displaying 95%. wob noted. pt assisted back into bed. provider notified/aware of results. pt notified/aware that he will be pending PT/CM evaluation.
--- NOTE | 2024-11-16 01:50 | PC.NURSE ---
pt offered to be transitioned into hospital bed to promote comfort once one becomes available - pt refused - requesting recliner. pt notified/aware that recliner would be unavailable at this time d/t unsteady gait.
--- NOTE | 2024-11-16 06:42 | PC.NURSE ---
pt verbalizes an increase in sob while laying down. pt turned/repositioned upright to promote patent airway. 96% on RA at rest. provider notified/aware of pt's frequent statements of feeling sob. O2 ambulation trial performed. 2:1 assist d/t increased weakness/unsteady gait. sob/wob noted despite SPO2 remaining 96%. pt assisted into recliner per pt request. bed alarm now in place for safety precautions. plan of care ongoing. call alfaro placed within reach.
--- NOTE | 2024-11-16 08:39 | ECG_ITS ---
Test Reason : SOB Blood Pressure : */* mmHG Vent. Rate : 88 BPM Atrial Rate : 88 BPM P-R Int : 242 ms QRS Dur : 134 ms QT Int : 416 ms P-R-T Axes : 42 -4 23 degrees QTcB Int : 503 ms Sinus rhythm with 1st degree A-V block Right bundle branch block Abnormal ECG When compared with ECG of 15-Nov-2024 21:39, No significant change was found Referred By: Franco Turcios Electronically Signed By: AYAZ BENITEZ
[2024-11-16 09:15] LABS: MANUAL DIFF FLAG NO
[2024-11-16 09:17] LABS: Hematocrit 31.4 % (42.0-52.0); Hemoglobin 10.7 g/dl (14.0-18.0); Imm Gran Abs Auto 0.08 X10*3/uL (0.00-0.03); Imm Gran Pct Auto 0.9 % (0.0-0.4); Lymphocytes Absolute Auto 0.9 X10*3/uL (1.2-4.9); Mean Corpuscular HGB Conc 34.1 g/dl (31.0-36.0); Mean Corpuscular Hemoglobin 34.2 pg (27.0-33.0); Mean Corpuscular Volume 100.3 fL (80.0-98.0); NRBC Abs Auto 0.000 X10*3/uL (0.0-0.012); NRBC Pct Auto 0.0 /100WBC (0.0-0.2); Platelet Count 231 X10*3/uL (160-400); Red Blood Count 3.13 X10*6/uL (4.60-5.80); White Blood Count 9.0 X10*3/uL (4.8-10.8)
[2024-11-16 09:20] LABS: VBG HCO3 35 mmol/L (22-26); VBG O2 % Saturation 84.0 %
[2024-11-16 09:22] LABS: INTERNATIONAL NORM RATIO 1.1 (0.9-1.1); Prothrombin Time 12.7 SEC (10.9-12.4)
[2024-11-16 09:23] LABS: Venous Blood Gas Refer to POC result
[2024-11-16] MEDS: oxyCODONE HCl Immed Release 5 MG TABLET PO ×4 (09:32→22:46)
--- NOTE | 2024-11-16 09:33 | PC.NURSE ---
This Rn assumed care of patient @ 0700. Patient in recliner, declining breakfast stating im not hungry . Patient c/o back pain radiating down to legs rated 10/10 notified provider. Received new order for oxycodone 5mg. Administered medication per JUN. effectiveness pending. Bed alarm in place. call alfaro in reach
[2024-11-16 09:36] LABS: Alanine Aminotransferase 7 U/L (0-40); Albumin Level 3.2 g/dL (3.5-5.0); Alkaline Phosphatase 75 U/L (39-117); Anion Gap 13 (12-20); Aspartate Amino Transferase 24 U/L (5-37); Blood Urea Nitrogen 16 mg/dL (9-16); Calcium 7.9 mg/dL (8.4-10.2); Carbon Dioxide 28 mmol/L (22-29); Chloride 104 mmol/L (96-108); Creatinine Clr Calc Pharmacy 65.3; Estimated Glomerular Filt Rate > 60; Lipase 14 U/L (8-78); Magnesium 1.5 mg/dL (1.6-2.6); Potassium 3.0 mmol/L (3.3-5.1); Sodium 142 mmol/L (135-145); Total Protein 6.2 g/dL (6.5-8.0)
[2024-11-16 09:41] LABS: B Type Natriuretic Peptide 371 pg/mL (<100)
[2024-11-16 09:43] LABS: Troponin-I High Sensitivity 21.5 ng/L (<3.5-35.0)
[2024-11-16 09:56] LABS: Resp Syncy Virus RNA Qual PCR NEGATIVE (Negative); SARS COV2 PCR INHOUSE NEGATIVE (Negative)
--- NOTE | 2024-11-16 12:03 | PC.NURSE ---
MD Gamez approached bark fitter to assess why pt CT has been delayed, per CT team pt was refusing to get CT until he got his pain medications, primary nurse unavailable, this RN medicated pt with orders per JUN. Both IV flushing well at this time as pt reporting to CT they hurt, flushed smoothly, no swelling or redness noted, pt did not complain of pain at this time. Primary RN updated, CT updated and alerted if he gives them push back to grab staff so we can go in and assist. updated as well.
--- NOTE | 2024-11-16 12:53 | PC.NURSE ---
Patient keeps refuses to go to CT scan. Patient c/o of pain provider notified adminstered medication per jun. Then Pt refused to go until he used the bathroom, patient having trouble going to bathroom. Patient now agreeable with going to CT scan. Radiology notified
[2024-11-16] MEDS: iohexoL 350 MG/ML 100 ML INFUS..BTL IV (13:14)
--- NOTE | 2024-11-16 14:44 | MHC.CM.PN ---
CM consult received. Pt arrived to the ED due to Withdrawal symptoms from percocet. This CM met with pt, he states he lives alone, uses a cane, and has been doing just fine at home, until his Percocet's went missing. PT evaluation done, they are recommending STR. CM met with pt to discuss STR, he is in agreement with going there, STR referrals placed in [facility], awaiting STR bed offer.
--- NOTE | 2024-11-16 14:54 | PC.NURSE ---
Patient ambulated to bathom with cane. On returned pt c/o SOB O2 97% RA. notified provider, nebulizer treatment ordered. RT in with patient at this time
[2024-11-16] MEDS: Albuterol Sulfate 2.5 MG, Albuterol/Iprat 2.5/0.5MG 3 ML 3 ML INHALE (14:57)
[2024-11-16] MEDS: Potassium Chloride ER 20 MEQ TAB.ER.PRT 40 MEQ PO ×2 (17:55→21:09)
--- NOTE | 2024-11-16 19:18 | PC.NURSE ---
Addendum entered by Heaven Phillips RN 11/16/24 19:23: CTA shows 1.8 x 1.6 cm right upper lobe mass, highly suspicious for neoplasm. An additional 1.7 x 0.7 cm right upper lobe nodule is also identified. Mediastinal and right hilar lymphadenopathy as described.Sclerotic foci in the right 2nd rib and T11 and T12 vertebral bodies, highly suspicious for metastatic disease. Small left pleural effus Addendum entered by Heaven Phillips RN 11/16/24 19:19: Pt is a 78-year-old male with a PMH significant for?HTN, HLD, HFpEF, prostate cancer, hypothyroidism, CKD3, alcohol use disorder with hx of withdrawal with delirium tremens who presents today with subjective symptoms of withdrawal from percocet. Patient states he lost his prescription 4-5 days ago. Patient alert and oriented. Respirations even and non-labored. Abdomen large, soft, non-tender with positive bowel sounds. Positive pedal pulses with trace LE edema noted. Patient c/o feeling weak . Given a walker to stand and pivot to the bathroom. Original Note: Medical History CKD (chronic kidney disease) CHF (congestive heart failure) Chronic anemia Alcohol abuse HTN (hypertension), benign Cholelithiasis without cholecystitis Prostate cancer Delirium tremens Alcoholic cirrhosis
--- NOTE | 2024-11-16 20:07 | MHC.CM.ED ---
CM met with patient to discuss discharge planning. Pt appears SOB, but patient denies any difficulty breathing. States he could go home, but his oxycodone script isn't up for renewal until 11/19. He normally takes 5 mg TID. Pt c/o cold feet. Pt was sober for 6 years and has started drinking alcohol again, rather heavy usage per patient. Pt was hospitalized 11/08-11/09 for alcohol withdrawal. 4 facilities are reviewing but have concerns about possible withdrawal. Provider did speak with patient about his CXR concerning for lung mass and the need to f/u with oncology as an outpatient. Pt has [facility]. If he gets a bed offer, it could take over the weekend for auth. Provider aware.
--- NOTE | 2024-11-16 22:46 | PC.NURSE ---
Late Entry: Patient medicated with oxycodone on for generalized pain of 8.
--- NOTE | 2024-11-17 01:14 | PC.NURSE ---
Assumed care of pt at approximately 2310. Pt resting to L-side, TV on, eyes closed, RR even and unlabored. No apparent distress at this time. Call alfaro within reach. Plan of care on going.
--- NOTE | 2024-11-17 05:33 | PC.NURSE ---
PT C/O INCREASED GAS ALL NIGHT. UPT TO COMMODE WITH SOME RELIEF. TUMS WITHOUT EFFECT. REQUESTING GAS X. AWARE
[2024-11-17 06:00] VITALS: BP 178/71; PULSE 85; RESP 20; TEMP 37; O2SAT 97
[2024-11-17 07:38] VITALS: BP 161/58; PULSE 80; RESP 16; TEMP 36.6; O2SAT 97
[2024-11-17] MEDS: oxyCODONE HCl Immed Release 5 MG TABLET PO ×2 (08:28→16:29)
[2024-11-17] MEDS: Potassium Chloride ER 20 MEQ TAB.ER.PRT 40 MEQ PO ×2 (08:28→21:57)
--- NOTE | 2024-11-17 10:32 | MHC.CM.PN ---
STR bed offer received from [facility] in [place], and [facility] [place] reviewing. This CM met with pt to discuss rehab bed offer, pt states he will not go to [facility] in [place], and wouldn't go to [facility] [place] either if they offer him a bed. Pt states he would rather go home. Pt is requesting 1 or 2 pain pills to get him through the weekend until his prescription can be filled. ED provider made aware.
--- NOTE | 2024-11-17 10:36 | PC.NURSE ---
assumed care of patient at 0700, patient is awake and alert, sleeps on and off in recliner. resp even and unlabored. patient VSS, requested oxycodone, medicated per JUN. med rec completed with patient at bedside. patient ate breakfast while sitting in recliner.
--- NOTE | 2024-11-17 12:36 | PC.NURSE ---
Addendum entered by Claudia Pinedo RN 11/17/24 12:39: Pharmacy @ bedside. Pt resting comfortably in recliner @ bedside, no apparent distress. Original Note: CARE team @ bedside evaluating pt. Pt resting comfortably in recliner @ bedside, no apparent distress.
--- NOTE | 2024-11-17 13:12 | PHA.MEDREC ---
Addendum entered by Franco Maurer PharmD 11/17/24 14:09: reviewed Original Note: Pharmacy Consult ? Medication Reconciliation Pharmacy reviewed med rec done by nursing. Spoke with pt and he verified the med list. Per pt; he has an over-abundance of Hydroxyzine at home he only takes as needed for itching when he is taking the Oxycodone, he also still has the Spriva inhaler he uses whenever he remembers to take it and he takes Ferrous Sulfate (Iron) every other day and states he last took that (and all his medications) the night before he came in (Tuesday 11/14).
--- NOTE | 2024-11-17 13:49 | MHC.CM.PN ---
Pt was active with [facility], return referral placed. This CM placed a call to pts daughter/HCP Stefany, unable to reach. This CM placed a call to pts secondary contact daughter Eve, she states she has many concerns about her dad. Per Eve, her dad started spiraling in August which was when he began drinking again. Eve states she lives very close to him, but he lives alone and doesn't have much outside support. Eve states she lives with her mother who is entering Palliative care and she is her primary caregiver so is not able to help her dad as much as she would like to (her parents have been for years). Per Eve, she states she brings her father food and sends [employer]ac[employer] groceries over to him; and has also been working with [facility] to have additional in home services set up for him, they are currently awaiting a home eval to get said services in place. Per Eve, her father has been unwilling to let her enter the home until this past Wednesday, and she states the condition inside his home was filthy, with junk and trash all around the floor, and he had also been incontinent of stool and there was feces in the home, which she said he tried to clean, but would not allow her to clean. Pt also states she is concerned because he holds a gun license and has multiple (locked up) guns that concern her as she states he has been very depressed and he has recently made statements to her about wishing he would go to sleep, and never wake up. Eve states she is oging to call the non-emergent [employer] police line and report his gun and request they remove them from the home if they are able to. Awaiting CARE Team consult.
[2024-11-17 14:00] VITALS: BP 148/75; PULSE 98; RESP 14; TEMP 36.7; O2SAT 99
--- NOTE | 2024-11-17 17:04 | MHC.CM.ED ---
CARE team is currently meeting with patient.
[2024-11-17 22:00] VITALS: BP 144/88; PULSE 98; RESP 19; TEMP 36.8; O2SAT 98
[2024-11-18] MEDS: oxyCODONE HCl Immed Release 5 MG TABLET PO ×3 (00:39→18:07)
--- NOTE | 2024-11-18 01:58 | MHC.EDTECH ---
@01:55 the patient called for this tech for assistance to the commode, the patient was steady on his feet. Unable to have BM or pass gas. When the patient stated he was completed this tech helped him back to the recliner, x2 warm blankets given to the patient, helped put his feet up. Commode empties and new bag placed. call alfaro placed within arms reach. The patient is all set at this time.
[2024-11-18 05:46] VITALS: BP 116/49; PULSE 85; RESP 20; TEMP 37.1; O2SAT 96
--- NOTE | 2024-11-18 08:00 | PC.NURSE ---
upon getting report this morning, it was found that the patient was here with a section 12, pt had endorced SI upon coming to the ED and family has home concerns and was calling PD to have guns removed from the home. This nurse called to speak with the charge as patient had no traveler changer performed- and care team saw pt which they noted vague SI and that they were referring him to have a formal psych eval to be perfomed to determine capacity as well. the charge nurse was planning to move pt back to main for sitter purposes, for time being patient was placed with sitter here in OF. Pt currently denying any SI/HI at this time.
--- NOTE | 2024-11-18 09:21 | MHC.CM.ED ---
Review of [facility] eval notes need for formal psych eval to determine capacity. Pt to remain in ED OF until this occurs and a d/c plan can be finalized. CM to follow
--- NOTE | 2024-11-18 10:11 | PC.NURSE ---
patient a&ox2, provider notified previously pt needed code status- which has since been updated. Pt home meds were reconciled and just ordered as well- will medicate shortly. Per charge nurse, it was determined that the patient is more of a capacity issue and not as much SI anymore so no changeover will be performed and the sitter will be dc'd. Please see additional note to be entered by charge.
[2024-11-18 10:18] VITALS: BP 131/48; PULSE 90; TEMP 37.2; O2SAT 99
[2024-11-18] MEDS: Potassium Chloride ER 20 MEQ TAB.ER.PRT 40 MEQ PO ×2 (10:42→21:21)
--- NOTE | 2024-11-18 10:51 | PC.NURSE ---
farhad d/c'jeremy per charge
--- NOTE | 2024-11-18 11:52 | PC.NURSE ---
Addendum entered by Rosenda Torres RN 11/18/24 11:58: Primary nurse made aware of plan of care at this time, and plan in place in regards with careteam/CM/ and psych Original Note: This RN was made aware of pt at shift change as charge nurse about careteam eval. [facility] eval assessing pt, reporting some vaque SI statements towards the end of their assessment but had denied in the beginning of their assessments. Pt cleared by elsie at this time pending psych eval (concerns are more related to him being able to care for himself and his decision making ability to be making safe decisions for himself and people around him. eval is placed, this Rn did call and speak with Dennise from [facility] in regards to assessment and plan with pt as there was concerns he was going to need to be changed over, and need to have a 1:[address]. Dennise reported that the careteam hand off there was no concerns of SI/HI, and that they did not feel he would need to be a complete psych changeover operator d/t they were going to try and go for capacity. It was decided at this time that the patient could remain in [facility] without a sitter, as he is more of a flight risk and is in hospital clothing on a hospital bed with an alarm. Since there are cameras on all exits at this time pt is safe in location. There is a section 12 from 11/[address], this RN will reach out with [facility] to make sure it is still reflecting updated information vs inital SI statements on arrival with EMS/PD.
--- NOTE | 2024-11-18 12:39 | PC.NURSE ---
Eve Ferraro- daughter states that her sister has not stepped up regarding care of her father as she is the hcp, Eve states that if needed she will step up as she doesnt want to see her father become a mathew of the state.
[2024-11-18 14:53] VITALS: BP 87/47; PULSE 100; TEMP 36.7; O2SAT 96
[2024-11-18 14:57] VITALS: BP 164/97
--- NOTE | 2024-11-18 14:58 | PC.NURSE ---
nichelle stated patient was hypotensive and documented as BP was found, this nurse did a recheck of BP noted pts upper arm was larger in size, obtained BP on forarm which was notably different and higher-consistent with his other BPs. Nichelle was notified to check BP on forearm.
--- NOTE | 2024-11-18 15:54 | PC.NURSE ---
CIWA pt currently sleeping, will assess CIWA when he wakes.
[2024-11-18] MEDS: Lidocaine 4 % Patch ADH..PATCH 1 PATCH TRANSDERMA (16:57)
--- NOTE | 2024-11-18 16:58 | PC.NURSE ---
lido patch placed to left thigh for 6/10 pain
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
--- NOTE | 2024-11-18 17:43 | PC.NURSE ---
daughter Eve is here asking if she can bring in razors to shave her father herself, she also asked if she can obtain gas-ex for her father as he is specifically asking for this medication that we do not carry the name brand of. this nurse stated if she got the gas-ex we can speak with the provider and have it packaged at the pharmacy to administer as needed. she is also stating her sister should be held for neglect for not being available while her father is here in the hospital or answer calls as needed.
--- NOTE | 2024-11-18 18:09 | PC.NURSE ---
pt medicated for continuous pain to lle and lower back 09/19
[2024-11-18 21:58] VITALS: BP 114/51; PULSE 100; RESP 14; TEMP 36.7; O2SAT 98
[2024-11-18] MEDS: Metoprolol Succinate ER 100 MG TAB.ER.24H PO (22:02)
[2024-11-19] VITALS (17 sets, daily range): BP systolic 103–156; BP diastolic 28–67; PULSE 77–99; RESP 16–24; TEMP 36.9–38.3; O2SAT 92–97; BMI 37.2
[2024-11-19] MEDS: oxyCODONE HCl Immed Release 5 MG TABLET PO ×2 (02:49→22:02)
[2024-11-19] MEDS: Furosemide 40 MG/4 ML VIAL IVPUSH ×2 (03:24→08:31)
[2024-11-19] MEDS: Albuterol Sulfate 2.5 MG, Albuterol/Iprat 2.5/0.5MG 3 ML 3 ML INHALE (04:15)
[2024-11-19 05:07] LABS: MANUAL DIFF FLAG NO
[2024-11-19 05:09] LABS: Hematocrit 34.3 % (42.0-52.0); Hemoglobin 11.2 g/dl (14.0-18.0); Imm Gran Abs Auto 0.07 X10*3/uL (0.00-0.03); Imm Gran Pct Auto 0.6 % (0.0-0.4); Lymphocytes Absolute Auto 1.0 X10*3/uL (1.2-4.9); Mean Corpuscular HGB Conc 32.7 g/dl (31.0-36.0); Mean Corpuscular Hemoglobin 34.3 pg (27.0-33.0); Mean Corpuscular Volume 104.9 fL (80.0-98.0); NRBC Abs Auto 0.000 X10*3/uL (0.0-0.012); NRBC Pct Auto 0.0 /100WBC (0.0-0.2); Platelet Count 331 X10*3/uL (160-400); Red Blood Count 3.27 X10*6/uL (4.60-5.80); White Blood Count 11.4 X10*3/uL (4.8-10.8)
[2024-11-19 05:26] LABS: Alanine Aminotransferase 10 U/L (0-40); Albumin Level 3.6 g/dL (3.5-5.0); Alkaline Phosphatase 90 U/L (39-117); Anion Gap 16 (12-20); Aspartate Amino Transferase 33 U/L (5-37); Blood Urea Nitrogen 12 mg/dL (9-16); Calcium 9.1 mg/dL (8.4-10.2); Carbon Dioxide 21 mmol/L (22-29); Chloride 108 mmol/L (96-108); Creatinine Clr Calc Pharmacy 71.8; Estimated Glomerular Filt Rate > 60; Potassium 5.6 mmol/L (3.3-5.1); Sodium 139 mmol/L (135-145); Total Protein 7.3 g/dL (6.5-8.0)
[2024-11-19 05:28] LABS: B Type Natriuretic Peptide 305 pg/mL (<100)
--- NOTE | 2024-11-19 05:46 | ECG_ITS ---
Test Reason : hyperkalemia Blood Pressure : */* mmHG Vent. Rate : 100 BPM Atrial Rate : 100 BPM P-R Int : 206 ms QRS Dur : 118 ms QT Int : 362 ms P-R-T Axes : 67 3 47 degrees QTcB Int : 466 ms Normal sinus rhythm Incomplete right bundle branch block Anterior infarct , age undetermined Abnormal ECG When compared with ECG of 16-Nov-2024 08:50, IN interval has decreased Anterior infarct is now Present Referred By: Aziza Beal Electronically Signed By: AYAZ BENITEZ
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
--- NOTE | 2024-11-19 06:34 | PM.HEMONCCN ---
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 Records are not here. CTA shows 1.7x0.7 and 1.7x1.6 suspicious nodules in RUL with sclerotic bone lesions. No PSA is available. Admission diagnoses were pneumonia, CHF,narcotics withdrawl and prostate cancer. Urologist is Dr. Huang Page.The PCP is Dr. Claudette Price of [facility].A full history is not possible as he is encephalopathic at this time in a bed in the ER wearing an oxygen mask. Review of Systems - Constitutional Reports anorexia, Reports body ache(s) - ENT Reports system reviewed and no additional complaints, except as documented - Cardiovascular Reports lightheadedness, Reports rapid, pounding, or irregular heartbeat - Respiratory Reports cough - Gastrointestinal Reports nausea - Genitourinary Genitourinary: Reports urinary urgency - Musculoskeletal Reports body aches [facility] Medical History: Medical History (Last Updated 11/19/24 @ 06:58 by BORIS Almendarez) Alcohol abuse Alcoholic cirrhosis CHF (congestive heart failure) Cholelithiasis without cholecystitis Chronic anemia CKD (chronic kidney disease) Delirium tremens GERD (gastroesophageal reflux disease) HTN (hypertension), benign Prostate cancer Surgical History: Surgical History (Last Reviewed 11/19/24 @ 06:25 by BORIS Almendarez) S/P tonsillectomy and adenoidectomy Social History: Social History (Last Reviewed 11/19/24 @ 06:25 by BORIS Almendarez) Living Situation History: Household Members: None Housing: House Do you presently have visiting nurse or other home services: No Alcohol History Details: 1. How often do you have a drink containing alcohol?: a. Never Tobacco History: Patient Tobacco Use Status: Tobacco use Unknown Tobacco use type: Cigar Cigarette Packs Per Day: 0.5 Years Smoked: 60+ Smoked in Last 30 Days: No e-Cigarette/Vaping Use: Currently Using Second Hand Smoke Exposure: No Substance Use History: Use of substances other than those prescribed or required for medical reasons: No Advance Directives: Advance Directives: Yes Advance Directives on File: Yes Advance Directives Date on File: 10/29/21 Homicidal Assessment: Do you have a plan to hurt others: No Plan Occupation Assessmet: service: No Current occupational status: retired Home Medications and Allergies Current Medications: Current Medications Acetaminophen (Acetaminophen 325 Mg Tablet) 650 mg PO Q6H PRN PRN Reason: Pain, Mild 1-3,fever,headache Albuterol/Ipratropium (Albuterol/Iprat 2.5/0.5mg 3 Ml Ampul.Neb) 3 ml INHALE Q4H PRN PRN Reason: Shortness of Breath/Wheezing Calcium Carbonate (Calcium Carbonate 750 Mg Tab.Chew) 750 mg PO Q4H PRN PRN Reason: Heartburn Ceftriaxone Sodium (Ceftriaxone Sodium 1 Gm Vial) 1 gm IVPUSH Q24H JASWANT Enoxaparin Sodium (Enoxaparin Sodium 40 Mg/0.4 Ml Syringe) 40 mg SUBCUT Q24H JASWANT Famotidine (Famotidine 20 Mg Tablet) 20 mg PO BEDTIME JASWANT Last Admin: 11/18/24 21:21 Dose: 20 mg Ferrous Sulfate (Ferrous Sulfate 324 Mg Tablet.Dr) 648 mg PO Q48H JASWANT Furosemide (Furosemide 40 Mg/4 Ml Vial) 40 mg IVPUSH BID@0900,1800 [facility]; Protocol Hydroxyzine HCl (Hydroxyzine Hcl 10 Mg Tablet) 10 mg PO Q8H PRN PRN Reason: itch Last Admin: 11/19/24 02:49 Dose: 10 mg Azithromycin 500 mg/ Sodium (Chloride) 250 mls @ 125 mls/hr IV ONCE ONE Stop: 11/19/24 07:45 Last Admin: 11/19/24 06:19 Dose: 125 mls/hr Azithromycin 500 mg/ Sodium (Chloride) 250 mls @ 125 mls/hr IV Q24H JASWANT Levothyroxine Sodium (Levothyroxine Sodium 125 Mcg Tablet) 125 mcg PO BEDTIME JASWANT Last Admin: 11/18/24 22:03 Dose: 125 mcg Lidocaine (Lidocaine 4 % Patch Adh..Patch) 1 patch TRANSDERMA BID PRN; Protocol PRN Reason: Pain, Moderate(Pain Scale 4-6) Last Admin: 11/18/24 16:57 Dose: 1 patch Loratadine (Loratadine 10 Mg Tablet) 10 mg PO BEDTIME JASWANT Last Admin: 11/18/24 21:21 Dose: 10 mg Lorazepam (Lorazepam 1 Mg Tablet) 1 mg PO Q4H PRN PRN Reason: Breakthrough alcohol withdrawa Stop: 11/22/24 09:52 Lorazepam (Lorazepam 1 Mg Tablet) 1 mg PO Q4H JASWANT; Taper Stop: 11/22/24 11:59 Last Admin: 11/19/24 04:30 Dose: 1 mg Magnesium Hydroxide (Milk Of Magnesia 30 Ml Oral.Susp) 30 ml PO DAILY PRN PRN Reason: Constipation Magnesium Oxide (Magnesium Oxide 400 Mg Tablet) 400 mg PO BEDTIME JASWANT Last Admin: 11/18/24 22:02 Dose: 400 mg Melatonin (Melatonin 3 Mg Tablet) 6 mg PO BEDTIME PRN PRN Reason: Insomnia Methocarbamol (Methocarbamol 500 Mg Tablet) 1,000 mg PO BEDTIME PRN PRN Reason: Pain, Moderate(Pain Scale 4-6) Metoprolol Succinate (Metoprolol Succinate Er 100 Mg Tab.Er.24h) 100 mg PO BEDTIME JASWANT; Protocol Last Admin: 11/18/24 22:02 Dose: 100 mg Multivitamins/Vitamin C (Multivitamin Tablet) 1 tab PO BEDTIME JASWANT Last Admin: 11/18/24 21:21 Dose: 1 tab Ondansetron HCl (Ondansetron Hcl 4 Mg/2 Ml Vial) 4 mg IVPUSH Q8H PRN PRN Reason: Nausea and Vomiting Oxycodone HCl (Oxycodone Hcl Immed Release 5 Mg Tablet) 5 mg PO Q8H PRN PRN Reason: Pain, Moderate(Pain Scale 4-6) Last Admin: 11/19/24 02:49 Dose: 5 mg Polyethylene Glycol (Polyethylene Glycol 3350 17 Gm Powd.Pack) 17 gm PO DAILY PRN PRN Reason: Constipation Pravastatin Sodium (Pravastatin Sodium 40 Mg Tablet) 40 mg PO BEDTIME JASWANT Last Admin: 11/18/24 22:03 Dose: 40 mg Senna (Sennosides 8.6 Mg Tablet) 17.2 mg PO BEDTIME JASWANT Simethicone (Simethicone 80 Mg Tab.Chew) 80 mg PO TID PRN PRN Reason: GI Upset Last Admin: 11/19/24 03:16 Dose: 80 mg Sodium Chloride (0.9 % Sodium Chloride Flush 3 Ml Syringe) [facility] Tiotropium [place] (Tiotropium [place] 2.5 Mcg 1 Puff/2.5 Mcg Mist.Inhal) 2 puff INHALE RDAILY [facility] Home Medications ?Medication ?Instructions ?Recorded ?Confirmed ?Type levothyroxine 125 mcg tablet 125 mcg PO BEDTIME 10/29/21 11/17/24 History loratadine 10 mg tablet 10 mg PO BEDTIME 10/29/21 11/17/24 History metoprolol succinate 100 mg 100 mg PO BEDTIME 10/29/21 11/17/24 History tablet,extended release 24 hr pravastatin 40 mg tablet 40 mg PO BEDTIME 10/29/21 11/17/24 History tiotropium bromide 18 mcg capsule 1 cap inhalation BEDTIME 10/29/21 11/17/24 History with inhalation device (Spiriva with HandiHaler) famotidine 20 mg tablet 20 mg PO BEDTIME 11/18/22 11/17/24 History hydroxyzine HCl 10 mg tablet 10 mg PO Q8H PRN itch 01/07/23 11/17/24 History ilyzvzza-nn-vusvy 300 mcg-K 60 1 tab PO BEDTIME 01/07/23 11/17/24 History mcg-lycop 600 mcg-lutein 300 mcg tablet (Centrum Silver Men) omega 2-umw-bvf-fish oil 1,000 mg 1 cap PO BEDTIME 01/07/23 11/17/24 History (120 mg-180 mg) capsule (Fish Oil) oxycodone-acetaminophen 5 mg-325 1 tab PO Q8H severe pain 01/07/23 11/17/24 History mg tablet ferrous sulfate 325 mg (65 mg 650 mg PO Q48H 10/11/24 11/17/24 History iron) tablet magnesium oxide 400 mg (241.3 mg 400 mg PO BEDTIME 10/11/24 11/17/24 History magnesium) tablet methocarbamol 500 mg tablet 1,000 mg PO BEDTIME PRN pain 10/11/24 11/17/24 History furosemide 40 mg tablet (Lasix) 40 mg PO BEDTIME 11/17/24 11/17/24 History Allergies Allergy/AdvReac Type Severity Reaction Status Date / Time No Known Allergies Allergy Mild N/A Verified 11/15/24 21:21 Physical Exam Vital signs: Vital Signs Temp 98.7 F 11/19/24 05:06 Pulse 99 11/19/24 05:06 Resp 20 11/19/24 05:06 BP 140/60 H 11/19/24 05:06 Pulse Ox 97 11/19/24 05:06 O2 Del Method Room Air 11/19/24 05:06 Intake & Output 11/18/24 11/18/24 11/19/24 06:59 18:59 06:59 Other: Number of Unmeasured Voids 5 Weight 90.718 kg - Constitutional Present: moderate distress, disheveled, somnolent - Routine HEENT Exam Head: Present: atraumatic, normal inspection Eye: Present: conjunctivae pale ENT: Present: mucous membranes moist - Routine Neck Exam Present: supple - Routine Respiratory Exam Present: decreased breath sounds - Routine Cardiovascular Exam Cardiovascular: Present: RRR - Routine Abdominal Exam Present: diminished bowel sounds - Routine Extremities Exam Present: pulses intact Hem/Onc Consult Result - Labs CBC & Chem 7: 11/19/24 05:03 11/19/24 08:39 Labs: Short CBC 11/19/24 Range/Units 05:03 WBC 11.4 H (4.8-10.8) X10*3/uL Hgb 11.2 L (14.0-18.0) g/dl Hct 34.3 L (42.0-52.0) % Plt Count 331 D (160-400) X10*3/uL BMP 11/19/24 05:03 Sodium 139 Potassium 5.6 H D Chloride 108 Carbon Dioxide 21 L BUN 12 Creatinine 0.91 Calcium 9.1 D Liver Function 11/19/24 Range/Units 05:03 Total Bilirubin 0.6 (0.0-1.0) mg/dL AST 33 (5-37) U/L ALT 10 (0-40) U/L Alkaline Phosphatase 90 (39-117) U/L Albumin 3.6 (3.5-5.0) g/dL Assessment and Plan Patient Active problem list reviewed?: Yes (1) Lung mass Status: Acute Assessment and plan: We will need old records and a PSA. We will need to determine if the lung nodules are neoplastic and related to prostate cancer or not. He will need PET and possibly tissue from the lung or rib. He may benefut from PSMA pet This can be done through the [facility] Oncology clinic as an outpatient or the PCP. I will follow. Currently his medical issues will take precedence. - Time Spent With Patient Time Spent with Patient (in minutes): 30
[2024-11-19 06:40] LABS: Resp Syncy Virus RNA Qual PCR NEGATIVE (Negative); SARS COV2 PCR INHOUSE NEGATIVE (Negative)
--- NOTE | 2024-11-19 07:03 | MHC.CM.ED ---
Pt was admitted INPT for PNA and HF exacerbation. Once medically cleared, pt will need a psych eval for determination of decision making capacity.
[2024-11-19 07:05] LABS: Venous Blood Gas Refer to POC result
[2024-11-19 07:06] LABS: VBG HCO3 26 mmol/L (22-26); VBG O2 % Saturation 96.0 %
--- NOTE | 2024-11-19 07:11 | PC.NURSE ---
Assumed care at 2300. Patient noted to have increased work of breathing. Vitals obtained, see patient's chart. Nursing pst supervisor notified and MD notified and came to bedside. Chest x-ray, labs and viral panel, EKG ordered and obtained. Meds ordered and administered, see patient's MAR. Vitals repeated, see patient's chart. Patient states he feels less short of breath. Patient can make needs known and call alfaro within reach.
[2024-11-19] MEDS: Ferrous Sulfate 324 MG TABLET.DR 648 MG PO (08:27)
[2024-11-19] MEDS: 0.9 % Sodium Chloride Flush 3 ML SYRINGE IVFLUSH ×3 (08:28→22:01)
[2024-11-19 08:57] LABS: Potassium 4.9 mmol/L (3.3-5.1)
--- NOTE | 2024-11-19 09:30 | PC.NURSE ---
pt moved over from the overflow to ed 22, pt appears to be answering questions appropriately, skin pink and warm but slightly warm to the touch rectal temp taken 100.8, respirations labored about 22 and audible wheezing noticed but sating well 96-98% on room air. pt also has a significant groin redness with foul order and moisture, bilateral lower extremities swelling as well about pitting +2.
[2024-11-19] MEDS: Albuterol/Iprat 2.5/0.5MG 3 ML AMPUL.NEB INHALE ×3 (09:31→20:15)
[2024-11-19] MEDS: Thiamine HCL 100 MG in 0.9 % Sodium Chloride 100 ML 202 MG IV (09:36)
--- NOTE | 2024-11-19 10:21 | MHC.RECOVRN ---
T/W attempted to meet with pt. following referral received for OUD/AUD. Pt sleeping in bed and did not wake to several calls of his name. Will attempt to visit pt. at a later time. ACS available PRN
--- NOTE | 2024-11-19 11:31 | PM.EVENT ---
Event Note Date of Service: 11/19/24 Event Note: Patient was seen and examined around 09:20am As tachycardia tachypnea and low-grade fever. Admitted last night for pneumonia. Otherwise feeling better Plan: Possible sepsis sec to penumonia lactic acid and blood culture sent,added RVP. continue iv antibiotics . Lung mass:need old records and a PSA. We will need to determine if the lung nodules are neoplastic and related to prostate cancer or not. He will need PET and possibly tissue from the lung or rib. He may benefut from PSMA pet This can be done through the [facility] Oncology clinic as an outpatient or the PCP. agiattaion/confusion after ativan use: hold ativan added risperidol 0.5 md qid per psych rest of management as per h&P. Time Spent With Patient Time: Total time managing care of this patient today ____ minutes.
--- NOTE | 2024-11-19 12:33 | PM.CNPUL ---
History of Present Illness History of Present Illness Consult date: 11/19/24 Chief complaint: Abnormal CT scan of the chest Narrative: 78-year-old gentleman with underlying hypertension, hyperlipidemia, diastolic heart failure prostate cancer, CKD 3, alcohol abuse admitted on 11/19/2024 with dyspnea deemed to be secondary to pneumonia and treated with empiric antibiotics. CT scan of the chest was obtained that showed right-sided nodule with concern for malignant etiology and probable bone metastasis. Review of Systems Review of Systems: Yes Unobtainable due to mental status (Lethargic and confused) [facility] Past Medical History Medical History (Updated 11/19/24 @ 12:42 by Ilya West MD) GERD (gastroesophageal reflux disease) CKD (chronic kidney disease) CHF (congestive heart failure) Chronic anemia Alcohol abuse HTN (hypertension), benign Cholelithiasis without cholecystitis Prostate cancer Delirium tremens Alcoholic cirrhosis Surgical History Surgical History S/P tonsillectomy and adenoidectomy Social History Social History Household Members: None Housing: House Do you presently have visiting nurse or other home services: No Alcohol intake: current Alcohol intake frequency: other Alcohol type: hard liquor Comment: pt refuses bed alarm Patient Tobacco Use Status: Tobacco use Unknown Tobacco use type: Cigar Cigarette Packs Per Day: 0.5 Years Smoked: 60+ Smoked in Last 30 Days: No e-Cigarette/Vaping Use: Currently Using Second Hand Smoke Exposure: No Use of substances other than those prescribed or required for medical reasons: No Advance Directives: Yes Advance Directives on File: Yes Advance Directives Date on File: 10/29/21 Do you have a plan to hurt others: No Plan service: No Current occupational status: retired Travel History Ebola Risk: Travel/Contact With Anyone From Affected Area/s: No Has Patient Experienced Ebola Symptoms: No Meds Allergies Allergy/AdvReac Type Severity Reaction Status Date / Time No Known Allergies Allergy Mild N/A Verified 11/15/24 21:21 Active Medications: Current Medications Acetaminophen (Acetaminophen 325 Mg Tablet) 650 mg PO Q6H PRN PRN Reason: Pain, Mild 1-3,fever,headache Last Admin: 11/19/24 09:38 Dose: 650 mg Albuterol/Ipratropium (Albuterol/Iprat 2.5/0.5mg 3 Ml Ampul.Neb) 3 ml INHALE Q4H PRN PRN Reason: Shortness of Breath/Wheezing Last Admin: 11/19/24 09:31 Dose: 3 ml Budesonide (Budesonide 0.5 Mg/2 Ml Ampul.Neb) 0.5 mg INHALE RBID [facility] Last Admin: 11/19/24 07:32 Dose: 0.5 mg Calcium Carbonate (Calcium Carbonate 750 Mg Tab.Chew) 750 mg PO Q4H PRN PRN Reason: Heartburn Ceftriaxone Sodium (Ceftriaxone Sodium 1 Gm Vial) 1 gm IVPUSH Q24H JASWANT Enoxaparin Sodium (Enoxaparin Sodium 40 Mg/0.4 Ml Syringe) 40 mg SUBCUT Q24H [facility] Last Admin: 11/19/24 08:27 Dose: 40 mg Famotidine (Famotidine 20 Mg Tablet) 20 mg PO BEDTIME [facility] Last Admin: 11/18/24 21:21 Dose: 20 mg Ferrous Sulfate (Ferrous Sulfate 324 Mg Tablet.Dr) 648 mg PO Q48H JASWANT Last Admin: 11/19/24 08:27 Dose: 648 mg Furosemide (Furosemide 40 Mg/4 Ml Vial) 40 mg IVPUSH DAILY [facility]; Protocol Last Admin: 11/19/24 08:31 Dose: 40 mg Hydroxyzine HCl (Hydroxyzine Hcl 10 Mg Tablet) 10 mg PO Q8H PRN PRN Reason: itch Last Admin: 11/19/24 02:49 Dose: 10 mg Azithromycin 500 mg/ Sodium (Chloride) 250 mls @ 125 mls/hr IV Q24H JASWANT Thiamine HCl 100 mg/ Sodium (Chloride) 101 mls @ 202 mls/hr IV DAILY [facility] Last Infusion: 11/19/24 10:18 Dose: Infused Folic Acid 1 mg/ Sodium (Chloride) 50.2 mls @ 100.4 mls/hr IV DAILY JASWANT Last Infusion: 11/19/24 10:47 Dose: Infused Levothyroxine Sodium (Levothyroxine Sodium 125 Mcg Tablet) 125 mcg PO BEDTIME JASWANT Last Admin: 11/18/24 22:03 Dose: 125 mcg Lidocaine (Lidocaine 4 % Patch Adh..Patch) 1 patch TRANSDERMA BID PRN; Protocol PRN Reason: Pain, Moderate(Pain Scale 4-6) Last Admin: 11/18/24 16:57 Dose: 1 patch Loratadine (Loratadine 10 Mg Tablet) 10 mg PO BEDTIME JASWANT Last Admin: 11/18/24 21:21 Dose: 10 mg Lorazepam (Lorazepam 1 Mg Tablet) 1 mg PO Q4H PRN PRN Reason: Breakthrough alcohol withdrawa Stop: 11/22/24 09:52 Lorazepam (Lorazepam 1 Mg Tablet) 1 mg PO Q6H JASWANT; Taper Stop: 11/22/24 11:59 Last Admin: 11/19/24 11:39 Dose: 1 mg Magnesium Hydroxide (Milk Of Magnesia 30 Ml Oral.Susp) 30 ml PO DAILY PRN PRN Reason: Constipation Magnesium Oxide (Magnesium Oxide 400 Mg Tablet) 400 mg PO BEDTIME JASWANT Last Admin: 11/18/24 22:02 Dose: 400 mg Melatonin (Melatonin 3 Mg Tablet) 6 mg PO BEDTIME PRN PRN Reason: Insomnia Methocarbamol (Methocarbamol 500 Mg Tablet) 1,000 mg PO BEDTIME PRN PRN Reason: Pain, Moderate(Pain Scale 4-6) Metoprolol Succinate (Metoprolol Succinate Er 100 Mg Tab.Er.24h) 100 mg PO BEDTIME JASWANT; Protocol Last Admin: 11/18/24 22:02 Dose: 100 mg Multivitamins/Vitamin C (Multivitamin Tablet) 1 tab PO BEDTIME JASWANT Last Admin: 11/18/24 21:21 Dose: 1 tab Nystatin (Nystatin Powder 15 Gm Bottle) 1 appl TOPICAL TID [facility]; Protocol Last Admin: 11/19/24 09:56 Dose: 1 appl Omeprazole (Omeprazole 20 Mg Capsule.Dr) 20 mg PO DAILY@0630 JAS[facility] Ondansetron HCl (Ondansetron Hcl 4 Mg/2 Ml Vial) 4 mg IVPUSH Q8H PRN PRN Reason: Nausea and Vomiting Oxycodone HCl (Oxycodone Hcl Immed Release 5 Mg Tablet) 5 mg PO Q8H PRN PRN Reason: Pain, Moderate(Pain Scale 4-6) Last Admin: 11/19/24 02:49 Dose: 5 mg Polyethylene Glycol (Polyethylene Glycol 3350 17 Gm Powd.Pack) 17 gm PO DAILY PRN PRN Reason: Constipation Last Admin: 11/19/24 09:55 Dose: 17 gm Pravastatin Sodium (Pravastatin Sodium 40 Mg Tablet) 40 mg PO BEDTIME [facility] Last Admin: 11/18/24 22:03 Dose: 40 mg Senna (Sennosides 8.6 Mg Tablet) 17.2 mg PO BEDTIME [facility] Simethicone (Simethicone 80 Mg Tab.Chew) 80 mg PO TID PRN PRN Reason: GI Upset Last Admin: 11/19/24 03:16 Dose: 80 mg Sodium Chloride (0.9 % Sodium Chloride Flush 3 Ml Syringe) 3 ml IVFLUSH QSHIFT [facility] Last Admin: 11/19/24 08:28 Dose: 3 ml Tiotropium [place] (Tiotropium [place] 2.5 Mcg 1 Puff/2.5 Mcg Mist.Inhal) 2 puff INHALE RDAILY [facility] Last Admin: 11/19/24 07:55 Dose: Not Given Home Medications ?Medication ?Instructions ?Recorded ?Confirmed ?Last Taken ?Type levothyroxine 125 mcg tablet 125 mcg PO BEDTIME 10/29/21 11/17/24 11/14/24 History loratadine 10 mg tablet 10 mg PO BEDTIME 10/29/21 11/17/24 11/14/24 History metoprolol succinate 100 mg 100 mg PO BEDTIME 10/29/21 11/17/24 11/14/24 History tablet,extended release 24 hr pravastatin 40 mg tablet 40 mg PO BEDTIME 10/29/21 11/17/24 11/14/24 History tiotropium bromide 18 mcg capsule 1 cap inhalation BEDTIME 10/29/21 11/17/24 11/14/24 History with inhalation device (Spiriva with HandiHaler) famotidine 20 mg tablet 20 mg PO BEDTIME 11/18/22 11/17/24 11/14/24 History hydroxyzine HCl 10 mg tablet 10 mg PO Q8H PRN itch 01/07/23 11/17/24 01/06/23 History xjspwrwm-nd-njhrw 300 mcg-K 60 1 tab PO BEDTIME 01/07/23 11/17/24 11/14/24 History mcg-lycop 600 mcg-lutein 300 mcg tablet (Centrum Silver Men) omega 2-uvk-gmm-fish oil 1,000 mg 1 cap PO BEDTIME 01/07/23 11/17/24 11/14/24 History (120 mg-180 mg) capsule (Fish Oil) oxycodone-acetaminophen 5 mg-325 1 tab PO Q8H severe pain 01/07/23 11/17/24 11/14/24 History mg tablet ferrous sulfate 325 mg (65 mg 650 mg PO Q48H 10/11/24 11/17/24 11/14/24 History iron) tablet magnesium oxide 400 mg (241.3 mg 400 mg PO BEDTIME 10/11/24 11/17/24 11/14/24 History magnesium) tablet methocarbamol 500 mg tablet 1,000 mg PO BEDTIME PRN pain 10/11/24 11/17/24 Unknown History furosemide 40 mg tablet (Lasix) 40 mg PO BEDTIME 11/17/24 11/17/24 11/14/24 History Physical Exam Vital Signs: Vital Signs: Last Vital Signs Temp 99.6 F 11/19/24 11:23 Pulse 88 11/19/24 11:20 Resp 16 11/19/24 11:20 BP 109/39 L 11/19/24 11:20 Pulse Ox 92 11/19/24 12:20 O2 Del Method Room Air 11/19/24 12:20 BMI result Body Mass Index 31.3 Const: General: no acute distress and lethargic (Arousable, falls back asleep) Nutritional Appearance: obese and Edematous Orientation/consciousness: lethargic (Arousable, falls back asleep) Eyes: Sclerae: sclerae normal EOM: EOMs intact bilaterally Neck: Neck: Yes no lymphadenopathy, Yes trachea midline and Yes supple Resp: Effort & Inspection: normal respiratory effort and no respiratory distress Auscultation: crackles (Bilateral) Cardio: Rate: regular rate Rhythm: regular rhythm Heart sounds: no gallops, no murmurs and no rubs GI: Palpation (GI): Soft to palpation and Other GI palpation findings present ( Nontender) Auscultation: normal bowel sounds Extrem: General: No clubbing, No cyanosis and Yes edema (2+ bilateral) Results Laboratory Findings 11/19/24 05:03 11/19/24 08:39 ABG, PT/INR, D-dimer: PT/INR, D-dimer PT 12.7 SEC (10.9-12.4) H 11/16/24 09:09 INR 1.1 (0.9-1.1) 11/16/24 09:09 Abnormal lab findings: Abnormal Labs 11/15/24 11/16/24 11/16/24 22:00 09:09 09:10 WBC RBC 3.04 L 3.13 L Hgb 10.4 L 10.7 L Hct 30.5 L 31.4 L MCV 100.3 H 100.3 H MCH 34.2 H 34.2 H Immature Gran % (Auto) 1.0 H 0.9 H Neut % (Auto) Lymph % (Auto) 13.8 L 10.2 L [place] % (Auto) 14.3 H 13.9 H Eos % (Auto) 4.1 H Lymph # (Auto) 0.9 L [place] # (Auto) 1.3 H Eos # (Auto) Abs Immat Gran (auto) 0.09 H 0.08 H Absolute Neuts (auto) PT 12.7 H VBG pH VBG HCO3 Potassium 3.0 L 3.0 L Carbon Dioxide Random Glucose 119 H Calcium 8.0 L 7.9 L Magnesium 1.5 L C-Reactive Protein 7.24 H B-Natriuretic Peptide 371 H Total Protein 6.2 L Albumin 3.2 L Salicylates 5.4 L 11/16/24 11/19/24 11/19/24 09:15 05:03 06:42 WBC 11.4 H RBC 3.27 L Hgb 11.2 L Hct 34.3 L MCV 104.9 H MCH 34.3 H Immature Gran % (Auto) 0.6 H Neut % (Auto) 74.7 H Lymph % (Auto) 8.3 L [place] % (Auto) 11.2 H Eos % (Auto) 4.8 H Lymph # (Auto) 1.0 L [place] # (Auto) 1.3 H Eos # (Auto) 0.6 H Abs Immat Gran (auto) 0.07 H Absolute Neuts (auto) 8.5 H PT VBG pH 7.47 H 7.46 H VBG HCO3 35 H Potassium 5.6 H D Carbon Dioxide 21 L Random Glucose Calcium Magnesium C-Reactive Protein B-Natriuretic Peptide 305 H Total Protein Albumin Salicylates Assessment and Plan (1) Lung nodule: Status: Acute Plan Impression: 78-year-old gentleman admitted with dyspnea and treated for community-acquired pneumonia, with CT chest showing a right-sided major fissure related 1.8 cm pulmonary nodule with concern for possible sclerotic bone metastasis on the background of prior prostate cancer, but no evidence of lobar consolidation. Patient empirically treated for community-acquired pneumonia, also noted to have significant lower extremity edema pulmonary crackles. Recommendations: Regarding newly noted pulmonary nodule - concern for malignancy primary lung versus metastatic, will require further outpatient follow-up with PET scan and possible transcutaneous biopsy. Sclerotic foci in the spine would raise concern for possible prostate cancer meds on the background of prior history of prostate cancer. At this time there is no significant lobar consolidation to suggest pneumonia, though would agree with empiric antibiotics until cultures are finalized. Procedures Date of Service Date of Service: 11/19/24
--- NOTE | 2024-11-19 13:00 | PC.NURSE ---
pt getting extremely agitated, pulling on medical equipment, attempting to get out of bed, not re-directable at this time, swinging at staff, keeps saying that he needs to urinate, not wanting to use the urinal- bladder scan performed and only showed 58ml, pt was assisted to the commode but did not urinate
--- NOTE | 2024-11-19 13:01 | PC.NURSE ---
patient became agitated and increasingly confused, pt nonredirectable, was swinging at staff. Provider notified.
[2024-11-19 13:51] LABS: Chlamydia pneumoniae PCR Not Detected (Not Detect.); Coronavirus 229E PCR Not Detected (Not Detect.); Coronavirus HKU1 PCR Not Detected (Not Detect.); Coronavirus NL63 PCR Not Detected (Not Detect.); Coronavirus OC43 PCR Not Detected (Not Detect.); RSV PCR Not Detected (Not Detect.); Rhino/Enterovirus PCR Detected (Not Detect.)
[2024-11-19] MEDS: Thiamine HCL 200 MG in 0.9 % Sodium Chloride 100 ML 204 MG IV ×2 (14:10→22:01)
[2024-11-19 14:16] LABS: Influenza A H1 PCR Not Detected (Not Detect.); Influenza A H1-2009 PCR Not Detected (Not Detect.); Influenza A H3 PCR Not Detected (Not Detect.); SARS-CoV-2 PCR Not Detected (Not Detect.)
--- NOTE | 2024-11-19 14:28 | P.PNPSI_ITS ---
Subjective Subjective Date of Service: 11/19/24 Reason For Visit: Abnormal CT scan of the chest Interim History: Asked to reevaluate patient. Patient under hospitalist care. Originally seen by psychiatry for capacity determination by the ED and found not to be in imminent risk of harm to self or others. Patient was supposed to be discharged but developed worsening SOB. He was admitted to the hospitalist service. He is being treated for pneumonia and CHF. Hospitalist asked psychiatry to see due to worsening agitation. He was swinging at staff and was combative earlier. Currently he is sedated, sleeping in ED bed. Tachypneic. Not arousable to voice or touch. He has received Ativan 1 mg x 5 since last evening, last dose 11:30 AM today. Yesterday patient was fully alert and oriented. MSE could not be performed today. He was also seen by hematology for concern about his lung masses. Given the worsening mental status and disorientation, suspect multifactorial delirium. (ETOH, CHF, pneumonia). - Treat underlying medical reasons for delirium - ETOH withdrawal: He was in the ED since 11/15 and yesterday wasn't showing signs of withdrawals on exam. He does have a history of ETOH withdrawal and was hospitalized for this in October. Would monitor CIWA and treat accordingly. Monitor electrolytes and keep K+ and Mg++ levels within normal limits. For uncontrollable agitation, you can use Olanzapine 5 - 10 mg (Zydis ODT, or IM if can't take PO), you can also use Risperidone 0.5 mg QID PRN. Diagnostics Vital Signs (24Hr): Vital Signs - 24 hr 11/18/24 14:53 11/18/24 14:57 11/18/24 21:58 Temperature 98.1 F 98.0 F Pulse Rate 100 100 Respiratory Rate 14 Blood Pressure 87/47 L 164/97 H 114/51 L Pulse Oximetry 96 98 Oxygen Delivery Method Room Air Room Air 11/19/24 02:53 11/19/24 05:06 11/19/24 08:00 Temperature 98.5 F 98.7 F 100.9 F H Pulse Rate 90 99 97 Respiratory Rate 20 20 20 Blood Pressure 124/65 140/60 H 130/57 L Pulse Oximetry 96 97 97 Oxygen Delivery Method Room Air Room Air Room Air 11/19/24 08:23 11/19/24 08:31 11/19/24 09:18 Temperature 99.8 F 100.8 F H Pulse Rate 99 Respiratory Rate 21 H Blood Pressure 128/42 L 103/28 L Pulse Oximetry 96 Oxygen Delivery Method Room Air 11/19/24 09:32 11/19/24 11:20 11/19/24 11:23 Temperature 98.9 F 99.6 F Pulse Rate 88 Respiratory Rate 18 16 Blood Pressure 109/39 L Pulse Oximetry 96 Oxygen Delivery Method Room Air 11/19/24 12:19 11/19/24 12:20 11/19/24 14:13 Temperature Pulse Rate 77 Respiratory Rate 18 Blood Pressure 156/53 H Pulse Oximetry 92 92 95 Oxygen Delivery Method Room Air Room Air Room Air BMI result Body Mass Index 31.3 Labs 11/19/24 05:03 11/19/24 08:39 Labs: Laboratory Results - last 48 hr 11/19/24 11/19/24 11/19/24 05:03 05:55 06:42 WBC 11.4 H RBC 3.27 L Hgb 11.2 L Hct 34.3 L MCV 104.9 H MCH 34.3 H MCHC 32.7 RDW 14.6 Plt Count 331 D MPV 9.6 Immature Gran % (Auto) 0.6 H Neut % (Auto) 74.7 H Lymph % (Auto) 8.3 L [place] % (Auto) 11.2 H Eos % (Auto) 4.8 H Baso % (Auto) 0.4 Lymph # (Auto) 1.0 L [place] # (Auto) 1.3 H Eos # (Auto) 0.6 H Baso # (Auto) 0.1 Abs Immat Gran (auto) 0.07 H Absolute Neuts (auto) 8.5 H Absolute Nucleated RBC 0.000 Nucleated RBC % (auto) 0.0 VBG pH 7.46 H VBG pCO2 36 VBG pO2 77 VBG HCO3 26 VBG O2 Saturation 96.0 VBG Base Excess 2.6 Sodium 139 Potassium 5.6 H D Chloride 108 Carbon Dioxide 21 L Anion Gap 16 BUN 12 Creatinine 0.91 Estim Creat Clear Calc 71.8 Estimated GFR > 60 Random Glucose 98 Lactic Acid Calcium 9.1 D Total Bilirubin 0.6 AST 33 ALT 10 Alkaline Phosphatase 90 B-Natriuretic Peptide 305 H Total Protein 7.3 Albumin 3.6 PSA Screen Respiratory Panel [place] Adenovirus (Rapid PCR) B.pert (TEM-PCR) B.parapertussis DNA PCR C. pneumoniae DNA (PCR) Coronavirus OC43 (PCR) Coronavirus HKU1 (PCR) Coronavirus 229E (PCR) Coronavirus NL63 (PCR) Human Metapneumovir PCR Influenza A (RT-PCR) Influenza A (H1) PCR Influ A () PCR Influenza A (H3) PCR Influenza Type A (PCR) NEGATIVE Influenza B (RT-PCR) Influenza Type B (PCR) NEGATIVE M. pneumoniae (PCR) Parainfluenza 1 (PCR) Parainfluenza 2 (PCR) Parainfluenza 3 (PCR) Parainfluenza 4 (PCR) RSV (PCR) RSV RNA Qual (PCR) NEGATIVE Entero/Rhino (PCR) SARS-CoV-2 RNA (RT-PCR) NEGATIVE 11/19/24 11/19/24 11/19/24 08:39 10:13 12:10 WBC RBC Hgb Hct MCV MCH MCHC RDW Plt Count MPV Immature Gran % (Auto) Neut % (Auto) Lymph % (Auto) J[place] % (Auto) Eos % (Auto) Baso % (Auto) Lymph # (Auto) J[place] # (Auto) Eos # (Auto) Baso # (Auto) Abs Immat Gran (auto) Absolute Neuts (auto) Absolute Nucleated RBC Nucleated RBC % (auto) VBG pH VBG pCO2 VBG pO2 VBG HCO3 VBG O2 Saturation VBG Base Excess Sodium Potassium 4.9 Chloride Carbon Dioxide Anion Gap BUN Creatinine Estim Creat Clear Calc Estimated GFR Random Glucose Lactic Acid 1.7 Calcium Total Bilirubin AST ALT Alkaline Phosphatase B-Natriuretic Peptide Total Protein Albumin PSA Screen 6.11 H Respiratory Panel [place] Adenovirus (Rapid PCR) B.pert (TEM-PCR) B.parapertussis DNA PCR C. pneumoniae DNA (PCR) Coronavirus OC43 (PCR) Coronavirus HKU1 (PCR) Coronavirus 229E (PCR) Coronavirus NL63 (PCR) Human Metapneumovir PCR Influenza A (RT-PCR) Influenza A (H1) PCR Influ A () PCR Influenza A (H3) PCR Influenza Type A (PCR) Influenza B (RT-PCR) Influenza Type B (PCR) M. pneumoniae (PCR) Parainfluenza 1 (PCR) Parainfluenza 2 (PCR) Parainfluenza 3 (PCR) Parainfluenza 4 (PCR) RSV (PCR) RSV RNA Qual (PCR) Entero/Rhino (PCR) SARS-CoV-2 RNA (RT-PCR) 11/19/24 12:16 WBC RBC Hgb Hct MCV MCH MCHC RDW Plt Count MPV Immature Gran % (Auto) Neut % (Auto) Lymph % (Auto) J[place] % (Auto) Eos % (Auto) Baso % (Auto) Lymph # (Auto) J[place] # (Auto) Eos # (Auto) Baso # (Auto) Abs Immat Gran (auto) Absolute Neuts (auto) Absolute Nucleated RBC Nucleated RBC % (auto) VBG pH VBG pCO2 VBG pO2 VBG HCO3 VBG O2 Saturation VBG Base Excess Sodium Potassium Chloride Carbon Dioxide Anion Gap BUN Creatinine Estim Creat Clear Calc Estimated GFR Random Glucose Lactic Acid Calcium Total Bilirubin AST ALT Alkaline Phosphatase B-Natriuretic Peptide Total Protein Albumin PSA Screen Respiratory Panel [place] See Note Adenovirus (Rapid PCR) Not Detected B.pert (TEM-PCR) Not Detected B.parapertussis DNA PCR Not Detected C. pneumoniae DNA (PCR) Not Detected Coronavirus OC43 (PCR) Not Detected Coronavirus HKU1 (PCR) Not Detected Coronavirus 229E (PCR) Not Detected Coronavirus NL63 (PCR) Not Detected Human Metapneumovir PCR Not Detected Influenza A (RT-PCR) Not Detected Influenza A (H1) PCR Not Detected Influ A (H1/09) PCR Not Detected Influenza A (H3) PCR Not Detected Influenza Type A (PCR) Influenza B (RT-PCR) Not Detected Influenza Type B (PCR) M. pneumoniae (PCR) Not Detected Parainfluenza 1 (PCR) Not Detected Parainfluenza 2 (PCR) Not Detected Parainfluenza 3 (PCR) Not Detected Parainfluenza 4 (PCR) Not Detected RSV (PCR) Not Detected RSV RNA Qual (PCR) Entero/Rhino (PCR) Detected A SARS-CoV-2 RNA (RT-PCR) Not Detected Imaging Radiology Impressions: ITS Impressions Chest X-Ray 11/16/24 06:21 IMPRESSION: Nodular density in the right midlung zone. Further evaluation with chest CT is recommended. Findings were sent to Bakari Jurado in the emergency room by secure text message on 11/16/2024 at 8:03 AM. Electronically signed by: Schuyler Khan MD 11/16/2024 08:04 AM EDT RP Chest CTA 11/16/24 13:02 IMPRESSION: 1. No evidence of pulmonary emboli. 2. 1.8 x 1.6 cm right upper lobe mass, highly suspicious for neoplasm. An additional 1.7 x 0.7 cm right upper lobe nodule is also identified. 3. Mediastinal and right hilar lymphadenopathy as described. 4. Sclerotic foci in the right 2nd rib and T11 and T12 vertebral bodies, highly suspicious for metastatic disease. 5. Small left pleural effusion. Electronically signed by: Schuyler Khan MD 11/16/2024 01:48 PM EDT RP Medications Medications Current Medications Acetaminophen (Acetaminophen 325 Mg Tablet) 650 mg PO Q6H PRN PRN Reason: Pain, Mild 1-3,fever,headache Last Admin: 11/19/24 09:38 Dose: 650 mg Albuterol/Ipratropium (Albuterol/Iprat 2.5/0.5mg 3 Ml Ampul.Neb) 3 ml INHALE Q4H PRN PRN Reason: Shortness of Breath/Wheezing Last Admin: 11/19/24 09:31 Dose: 3 ml Budesonide (Budesonide 0.5 Mg/2 Ml Ampul.Neb) 0.5 mg INHALE RBID [facility] Last Admin: 11/19/24 07:32 Dose: 0.5 mg Calcium Carbonate (Calcium Carbonate 750 Mg Tab.Chew) 750 mg PO Q4H PRN PRN Reason: Heartburn Ceftriaxone Sodium (Ceftriaxone Sodium 1 Gm Vial) 1 gm IVPUSH Q24H [facility] Enoxaparin Sodium (Enoxaparin Sodium 40 Mg/0.4 Ml Syringe) 40 mg SUBCUT Q24H [facility] Last Admin: 11/19/24 08:27 Dose: 40 mg Famotidine (Famotidine 20 Mg Tablet) 20 mg PO BEDTIME [facility] Last Admin: 11/18/24 21:21 Dose: 20 mg Ferrous Sulfate (Ferrous Sulfate 324 Mg Tablet.Dr) 648 mg PO Q48H [facility] Last Admin: 11/19/24 08:27 Dose: 648 mg Furosemide (Furosemide 40 Mg/4 Ml Vial) 40 mg IVPUSH DAILY [facility]; Protocol Last Admin: 11/19/24 08:31 Dose: 40 mg Hydroxyzine HCl (Hydroxyzine Hcl 10 Mg Tablet) 10 mg PO Q8H PRN On Hold: 11/19/24 13:24 PRN Reason: itch Last Admin: 11/19/24 02:49 Dose: 10 mg Azithromycin 500 mg/ Sodium (Chloride) 250 mls @ 125 mls/hr IV Q24H [facility] Folic Acid 1 mg/ Sodium (Chloride) 50.2 mls @ 100.4 mls/hr IV DAILY [facility] Last Infusion: 11/19/24 10:47 Dose: Infused Thiamine HCl 200 mg/ Sodium (Chloride) 102 mls @ 204 mls/hr IV Q8H [facility] Last Admin: 11/19/24 14:10 Dose: 204 mls/hr Levothyroxine Sodium (Levothyroxine Sodium 125 Mcg Tablet) 125 mcg PO BEDTIME [facility] Last Admin: 11/18/24 22:03 Dose: 125 mcg Lidocaine (Lidocaine 4 % Patch Adh..Patch) 1 patch TRANSDERMA BID PRN; Protocol PRN Reason: Pain, Moderate(Pain Scale 4-6) Last Admin: 11/18/24 16:57 Dose: 1 patch Loratadine (Loratadine 10 Mg Tablet) 10 mg PO BEDTIME [facility] Last Admin: 11/18/24 21:21 Dose: 10 mg Lorazepam (Lorazepam 1 Mg Tablet) 1 mg PO Q4H PRN On Hold: 11/19/24 13:14 PRN Reason: Breakthrough alcohol withdrawa Stop: 11/22/24 09:52 Lorazepam (Lorazepam 1 Mg Tablet) 1 mg PO Q6H [facility]; Taper On Hold: 11/19/24 13:14 Stop: 11/22/24 11:59 Last Admin: 11/19/24 11:39 Dose: 1 mg Magnesium Hydroxide (Milk Of Magnesia 30 Ml Oral.Susp) 30 ml PO DAILY PRN PRN Reason: Constipation Magnesium Oxide (Magnesium Oxide 400 Mg Tablet) 400 mg PO BEDTIME [facility] Last Admin: 11/18/24 22:02 Dose: 400 mg Melatonin (Melatonin 3 Mg Tablet) 6 mg PO BEDTIME PRN PRN Reason: Insomnia Methocarbamol (Methocarbamol 500 Mg Tablet) 1,000 mg PO BEDTIME PRN PRN Reason: Pain, Moderate(Pain Scale 4-6) Metoprolol Succinate (Metoprolol Succinate Er 100 Mg Tab.Er.24h) 100 mg PO BEDTIME [facility]; Protocol Last Admin: 11/18/24 22:02 Dose: 100 mg Multivitamins/Vitamin C (Multivitamin Tablet) 1 tab PO BEDTIME [facility] Last Admin: 11/18/24 21:21 Dose: 1 tab Nystatin (Nystatin Powder 15 Gm Bottle) 1 appl TOPICAL TID [facility]; Protocol Last Admin: 11/19/24 09:56 Dose: 1 appl Omeprazole (Omeprazole 20 Mg Capsule.Dr) 20 mg PO DAILY@0630 [facility] Ondansetron HCl (Ondansetron Hcl 4 Mg/2 Ml Vial) 4 mg IVPUSH Q8H PRN PRN Reason: Nausea and Vomiting Oxycodone HCl (Oxycodone Hcl Immed Release 5 Mg Tablet) 5 mg PO Q8H PRN PRN Reason: Pain, Moderate(Pain Scale 4-6) Last Admin: 11/19/24 02:49 Dose: 5 mg Polyethylene Glycol (Polyethylene Glycol 3350 17 Gm Powd.Pack) 17 gm PO DAILY PRN PRN Reason: Constipation Last Admin: 11/19/24 09:55 Dose: 17 gm Pravastatin Sodium (Pravastatin Sodium 40 Mg Tablet) 40 mg PO BEDTIME [facility] Last Admin: 11/18/24 22:03 Dose: 40 mg Senna (Sennosides 8.6 Mg Tablet) 17.2 mg PO BEDTIME [facility] Simethicone (Simethicone 80 Mg Tab.Chew) 80 mg PO TID PRN PRN Reason: GI Upset Last Admin: 11/19/24 03:16 Dose: 80 mg Sodium Chloride (0.9 % Sodium Chloride Flush 3 Ml Syringe) 3 ml IVFLUSH QSHIFT [facility] Last Admin: 11/19/24 08:28 Dose: 3 ml Tiotropium [place] (Tiotropium [place] 2.5 Mcg 1 Puff/2.5 Mcg Mist.Inhal) 2 puff INHALE RDAILY [facility] Last Admin: 11/19/24 07:55 Dose: Not Given Allergies Allergies Allergy/AdvReac Type Severity Reaction Status Date / Time No Known Allergies Allergy Mild N/A Verified 11/15/24 21:21 Assessment & Plan Assessment & Plan (1) Lung nodule: Status: Acute Code(s): R91.1 - Solitary pulmonary nodule Plan Impression: 78-year-old gentleman admitted with dyspnea and treated for community-acquired pneumonia, with CT chest showing a right-sided major fissure related 1.8 cm pulmonary nodule with concern for possible sclerotic bone metastasis on the background of prior prostate cancer, but no evidence of lobar consolidation. Patient empirically treated for community-acquired pneumonia, also noted to have significant lower extremity edema pulmonary crackles. Recommendations: Regarding newly noted pulmonary nodule - concern for malignancy primary lung versus metastatic, will require further outpatient follow-up with PET scan and possible transcutaneous biopsy. Sclerotic foci in the spine would raise concern for possible prostate cancer meds on the background of prior history of prostate cancer. At this time there is no significant lobar consolidation to suggest pneumonia, though would agree with empiric antibiotics until cultures are finalized. Reason for continued inpatient stay Substantial Risk for: inability to function, rapid decompensation and med/psych decompensation Time Spent With Patient Time: Total time managing care of this patient today ____ minutes.
--- NOTE | 2024-11-19 18:01 | PC.NURSE ---
pt awake, appears to be more coherent at this time, calm and cooperative is reporting feeling sob, expiratory wheezing, and labored breathing at 24 but sating well, also has a intermittent junky cough
--- NOTE | 2024-11-19 21:16 | PC.NURSE ---
inpt RN and PICTURE BOOKER down to bring pt to room upstairs.
[2024-11-19] MEDS: Metoprolol Succinate ER 100 MG TAB.ER.24H PO (22:03)
[2024-11-20] VITALS (11 sets, daily range): BP systolic 120–152; BP diastolic 48–67; PULSE 72–91; RESP 18–20; TEMP 36.2–37.4; O2SAT 94–97
--- NOTE | 2024-11-20 00:41 | HO.SKINPHOTO ---
Present on admit: Location: Left arm Location: right knee abrasion Location: left upper posterior-thigh
[2024-11-20] MEDS: guaiFEN/Codeine SF 200/20/10ML 10 ML LIQUID 5 ML PO ×4 (03:06→22:43)
[2024-11-20] MEDS: oxyCODONE HCl Immed Release 5 MG TABLET PO ×2 (06:00→16:37)
[2024-11-20] MEDS: Thiamine HCL 200 MG in 0.9 % Sodium Chloride 100 ML 204 MG IV ×3 (06:01→23:05)
--- NOTE | 2024-11-20 06:41 | PC.ADMIT ---
Pt arrived to floor around 2129. Soon after arrival, pt requested to sleep in recliner, states he sleeps in a recliner at home. Foam applied to coccyx. Triad applied to open area, see wound pictures for details. Nystatin administered per JUN. Wound care consult placed. Continues with 1:1 sitter at bedside. Safety measures including chair alarm in place. Please see shift assessment and worklist for full details.
--- NOTE | 2024-11-20 07:00 | CA_ITS ---
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 There is mildly increased left ventricular wall thickness. The visually estimated ejection fraction is between 60-65%. - Elevated filling pressures. - Normal right ventricular cavity size and systolic function. - The left atrium is mildly dilated. - There is mild to moderate aortic valve stenosis. Findings Procedure Information Contrast agent, definity, is being given per protocol without apparent complications. Left Ventricle Normal left ventricular size and systolic function. There is mildly increased left ventricular wall thickness. The visually estimated ejection fraction is between 60-65%. There is no evidence of regional wall motion abnormalities. Abnormal diastolic function is noted. Spectral Doppler is indicative of a pseudonormal filling pattern. Elevated filling pressures. Right Ventricle Normal right ventricular cavity size and systolic function. Atria The left atrium is mildly dilated. The right atrium is normal in size. Aortic Valve There is moderate calcification of the aortic valve. There is mild to moderate aortic valve stenosis. The peak aortic velocity is 3.31 m/s. The mean gradient is 27 mmHg. The aortic valve area is 1.54 cm2. There is no aortic valve regurgitation. Mitral Valve Likely normal mitral valve structure and function. There is no mitral valve regurgitation. There is no mitral valve stenosis. Pulmonic Valve The pulmonic valve is likely normal. Tricuspid Valve Normal tricuspid valve structure. There is no tricuspid valve regurgitation. Tricuspid regurgitation envelope is inadequate for calculation of right ventricular systolic pressure. Normal right atrial pressure. Great Vessels All visible segments of the aorta are normal in size. Venous The inferior vena cava is normal in size and collapses greater than 50% with inspiration. Pericardium/Pleural There is no evidence of pericardial effusion. Prior Study Comparison Changes noted compared to prior study dated: 01/08/2023. Mild to moderate noted. Measurements 2D Linear Measurements IVSd: 1.20 0.6-0.9/0.6-1.0 cm LVIDd: 4.67 3.9-5.3/4.2-5.9 cm LVIDd Index: 2.15 2.4-3.2/2.2-3.1 cm/m2 LVIDs: 2.87 2.0-3.6 cm LVPWd: 1.25 0.7-1.1 cm LA Diam: 4.60 2.7-3.8/3.0-4.0 cm LAIDs Index: 2.12 1.5-2.3 cm/m2 LV Mass: 269.46 67-162/88-224 g LV Mass Index: 124.18 43-95/49-115 g/m2 LVOT Diam: 2.30 3.0+(-)1.3 cm 2D Systolic Function EF 4C: 66.30 >55% EF 2C: 62.00 >55% EF BiP: 64.80 >55% Mitral Valve MV VTI: 0.41 MV Pk Woody: 1.38 MV Mn Woody: 0.89 MV Pk Grad: 8.00 MV Mn Grad: 4.00 MV Pk E: 1.52 MV PK A: 1.35 MV Decel Time: 166.00 E/A: 1.10 E'Lateral: 7.29 E'Medial: 4.90 E/E' Med: 31.00 E/E' Lat: 20.90 PHT: 49.00 MVA PHT: 4.49 MVA Continuity: 2.94 Decel [place]: 9.16 Aortic Valve AoV Pk Woody: 3.31 AoV Mn Woody: 2.40 AoV VTI: 0.78 AoV Pk Grad: 44.00 Aov Mn Grad: 27.00 HEMANT Cont.VTI: 1.54 LVOT LVOT Pk Woody: 1.12 LVOT Mn Woody: 0.82 LVOT VTI: 0.29 LVOT Pk Grad: 5.00 LVOT Mn Grad: 3.00 LVOT Diam: 2.30 LVOT Area: 4.15 Diastolic Function MV Pk E: 1.52 MV Pk A: 1.35 E/A: 1.10 E'Medial: 4.90 E/E' Med: 31.00 E' Laterial: 7.29 E/E' Lat: 20.90 Right Ventricle TAPSE (mm): 34.60 TVS' Woody: 10.90 Tricuspid Valve TR Pk Woody: 1.69 TR Pk Grad: 11.00 Great Vessels Aorta Sinus of Valsalva: 3.60 2.0-3.5 cm Ao Asc: 3.60 2.1-3.4 cm Pulmonary Valve PV Pk Woody: 1.19 Peak PV Grad: 6.00 Updated in Other Vendor System with Status of Final Brendan Kirk MD electronically signed on 11/20/2024 3:40:52 PM with status of Final
[2024-11-20 07:25] LABS: MANUAL DIFF FLAG NO
[2024-11-20 07:39] LABS: Hematocrit 31.7 % (42.0-52.0); Hemoglobin 10.1 g/dl (14.0-18.0); Imm Gran Abs Auto 0.06 X10*3/uL (0.00-0.03); Imm Gran Pct Auto 0.8 % (0.0-0.4); Lymphocytes Absolute Auto 0.6 X10*3/uL (1.2-4.9); Mean Corpuscular HGB Conc 31.9 g/dl (31.0-36.0); Mean Corpuscular Hemoglobin 33.8 pg (27.0-33.0); Mean Corpuscular Volume 106.0 fL (80.0-98.0); NRBC Abs Auto 0.000 X10*3/uL (0.0-0.012); NRBC Pct Auto 0.0 /100WBC (0.0-0.2); Platelet Count 332 X10*3/uL (160-400); Red Blood Count 2.99 X10*6/uL (4.60-5.80); White Blood Count 7.2 X10*3/uL (4.8-10.8)
[2024-11-20 07:53] LABS: Anion Gap 12 (12-20); Blood Urea Nitrogen 15 mg/dL (9-16); Calcium 8.7 mg/dL (8.4-10.2); Carbon Dioxide 25 mmol/L (22-29); Chloride 108 mmol/L (96-108); Creatinine Clr Calc Pharmacy 75.0; Estimated Glomerular Filt Rate > 60; Potassium 4.6 mmol/L (3.3-5.1); Sodium 140 mmol/L (135-145)
[2024-11-20 09:33] LABS: Anion Gap 13 (12-20); Blood Urea Nitrogen 15 mg/dL (9-16); Calcium 8.8 mg/dL (8.4-10.2); Carbon Dioxide 26 mmol/L (22-29); Chloride 107 mmol/L (96-108); Creatinine Clr Calc Pharmacy 72.7; Estimated Glomerular Filt Rate > 60; Potassium 4.8 mmol/L (3.3-5.1); Sodium 141 mmol/L (135-145)
[2024-11-20 09:37] LABS: B Type Natriuretic Peptide 341 pg/mL (<100)
[2024-11-20 09:52] LABS: Procalcitonin 0.18 ng/mL
--- NOTE | 2024-11-20 10:00 | HO.WOUND ---
Wound Consult: Attempted Arrival to bedside patient was working with PT will attempt assessment future time or day.
--- NOTE | 2024-11-20 10:32 | MHC.CM.PN ---
IMM 11/20/24, Pt lives alone, PCP confirmed: Claudette Jacob, HCP is on file and confirmed: Stefany. Pt. said that he does not use home health services, he uses a cane for DME. Per record review, pt. was DC with [facility] in October. CM asked him about this today, he said he has not had this service, pt. has had confusion on this admission. He said he can arrange a ride home at DC. DCP: may be STR, Lazaro Silva accepting, JANEL to follow for DC needs.
[2024-11-20] MEDS: Tiotropium Bromide 2.5 mcg 1 PUFF/2.5 MCG MIST.INHAL 2 PUFF INHALE (11:24)
--- NOTE | 2024-11-20 13:46 | MHC.SL.SWA ---
Speech Pathologist Impression: Dysphagia unspecified Risk of Aspiration Due to: PMH of respiratory compromise Dysphasia Diet Status: Liquid Consistency and Strategies for Safe Swallow: Liquid Intake Recommendation: Thin Liquid Intake Strategies: Solid Food Consistency: Dietary Recommendations: Chopped/Advanced (NDD3) Additional Modifications to Solid Foods: Oral Medication Intake: Whole with Liquid Please contact the pharmacy regarding appropriate crushable or liquid drug formulations that are available whenever modified delivery is recommended. Compensatory Strategies and Precautions to be Taken for Safe Swallow: Supervision While Eating and Drinking for Safe Swallow: Intermittent Supervision Foods to Avoid: Swallowing Recommended Treatments: Recommendation for Speech: Inpatient Speech Therapy Comment: Pt repositioned himself upright in recliner during clinical swallow evaluation. Pt did not readily engage in communication but advocated for his needs. Pt was more communicative when lunch tray arrived. Pt on NDD2 with thins, c/o dislike for ground consistencies. Pt is edentulous but able to chew without difficulty. Pt tolerated soft solids and thins without overt s/s of aspiration. Pt denies hx of dysphagia. verbalized agreement with diet advance. RN consulted, MD notified of findings. Recc NDD3 with thins, assist with tray set up. Frequency/Duration: Followup x2 Date Range for Service Req: Timeline to reassess: Hedis Nurse Clinican/Clinical Fellow: No Supervisory Statement: I have reviewed and agree with the student/clinical fellow's documentation: N/A Speech Language Pathologist: Rafia Tadeo M.S., CCC-MOLD BUNCH TRIMMER
--- NOTE | 2024-11-20 14:32 | HO.PM.IMPN ---
Subjective Subjective Date of Service: 11/20/24 Interval History: chf Review of Systems sob seems improving but sob with minimal excersion no fevers no chest pain Review of Systems: Yes all other systems are reviewed and are negative Physical Exam Exam: Exam: Appearance: Alert.? Oriented X3.? cvs: rrr, [id number] . res: air entry diminshed ,has few scattered rales. abd: no rebound or guarding ,nt, bs present. ext pulses present , no cyanosis,mild edema . neuro: axo3 , nonfocal. Vital Signs: Vital Signs: Last Vital Signs Temp 98.7 F 11/20/24 12:00 Pulse 80 11/20/24 12:00 Resp 20 11/20/24 12:00 BP 120/48 L 11/20/24 12:00 Pulse Ox 94 11/20/24 12:00 O2 Del Method Room Air 11/20/24 12:00 BMI result Body Mass Index 37.2 Objective Data Active Medications Acetaminophen (Acetaminophen 325 Mg Tablet) 650 mg PO Q6H PRN PRN Reason: Pain, Mild 1-3,fever,headache Last Admin: 11/20/24 09:45 Dose: 650 mg Documented By: FABIOLA Albuterol/Ipratropium (Albuterol/Iprat 2.5/0.5mg 3 Ml Ampul.Neb) 3 ml INHALE Q4H PRN PRN Reason: Shortness of Breath/Wheezing Last Admin: 11/19/24 20:15 Dose: 3 ml Documented By: ELIO Budesonide (Budesonide 0.5 Mg/2 Ml Ampul.Neb) 0.5 mg INHALE RBID [facility] Last Admin: 11/20/24 08:02 Dose: 0.5 mg Documented By: LIZ Calcium Carbonate (Calcium Carbonate 750 Mg Tab.Chew) 750 mg PO Q4H PRN PRN Reason: Heartburn Ceftriaxone Sodium (Ceftriaxone Sodium 1 Gm Vial) 1 gm IVPUSH Q24H [facility] Last Admin: 11/20/24 06:00 Dose: 1 gm Documented By: BLANKA Enoxaparin Sodium (Enoxaparin Sodium 40 Mg/0.4 Ml Syringe) 40 mg SUBCUT Q24H [facility] Last Admin: 11/20/24 08:45 Dose: 40 mg Documented By: FABIOLA Famotidine (Famotidine 20 Mg Tablet) 20 mg PO BEDTIME [facility] Last Admin: 11/19/24 22:03 Dose: 20 mg Documented By: BLANKA Ferrous Sulfate (Ferrous Sulfate 324 Mg Tablet.Dr) 648 mg PO Q48H [facility] Last Admin: 11/19/24 08:27 Dose: 648 mg Documented By: ABRAHAM Furosemide (Furosemide 20 Mg Tablet) 20 mg PO BID@0900,1800 JASWANT; Protocol Last Admin: 11/20/24 09:45 Dose: 20 mg Documented By: FABIOLA Guaifenesin/Codeine Phosphate (Guaifen/Codeine Sf 200/20/10ml 10 Ml Liquid) 5 ml PO Q6H PRN PRN Reason: Cough Last Admin: 11/20/24 09:54 Dose: 5 ml Documented By: FABIOLA Hydroxyzine HCl (Hydroxyzine Hcl 10 Mg Tablet) 10 mg PO Q8H PRN On Hold: 11/19/24 13:24 PRN Reason: itch Last Admin: 11/19/24 02:49 Dose: 10 mg Documented By: JAVAN Azithromycin 500 mg/ Sodium (Chloride) 250 mls @ 125 mls/hr IV Q24H [facility] Last Infusion: 11/20/24 12:32 Dose: Infused Documented By: FABIOLA Folic Acid 1 mg/ Sodium (Chloride) 50.2 mls @ 100.4 mls/hr IV DAILY [facility] Last Infusion: 11/20/24 12:32 Dose: Infused Documented By: FABIOLA Thiamine HCl 200 mg/ Sodium (Chloride) 102 mls @ 204 mls/hr IV Q8H [facility] Last Infusion: 11/20/24 06:31 Dose: Infused Documented By: BLANKA Levothyroxine Sodium (Levothyroxine Sodium 125 Mcg Tablet) 125 mcg PO BEDTIME [facility] Last Admin: 11/19/24 22:35 Dose: 125 mcg Documented By: BLANKA Lidocaine (Lidocaine 4 % Patch Adh..Patch) 1 patch TRANSDERMA BID PRN; Protocol PRN Reason: Pain, Moderate(Pain Scale 4-6) Last Admin: 11/18/24 16:57 Dose: 1 patch Documented By: EREN Loratadine (Loratadine 10 Mg Tablet) 10 mg PO BEDTIME [facility] Last Admin: 11/19/24 22:02 Dose: 10 mg Documented By: BLANKA Lorazepam (Lorazepam 1 Mg Tablet) 1 mg PO Q4H PRN On Hold: 11/19/24 13:14 PRN Reason: Breakthrough alcohol withdrawa Stop: 11/22/24 09:52 Lorazepam (Lorazepam 1 Mg Tablet) 0.5 mg PO Q6H [facility]ASWANT; Taper On Hold: 11/19/24 13:14 Stop: 11/22/24 11:59 Last Admin: 11/19/24 11:39 Dose: 1 mg Documented By: VI Magnesium Hydroxide (Milk Of Magnesia 30 Ml Oral.Susp) 30 ml PO DAILY PRN PRN Reason: Constipation Magnesium Oxide (Magnesium Oxide 400 Mg Tablet) 400 mg PO BEDTIME [facility] Last Admin: 11/19/24 22:02 Dose: 400 mg Documented By: BLANKA Melatonin (Melatonin 3 Mg Tablet) 6 mg PO BEDTIME PRN PRN Reason: Insomnia Methocarbamol (Methocarbamol 500 Mg Tablet) 1,000 mg PO BEDTIME PRN PRN Reason: Pain, Moderate(Pain Scale 4-6) Metoprolol Succinate (Metoprolol Succinate Er 100 Mg Tab.Er.24h) 100 mg PO BEDTIME [facility]; Protocol Last Admin: 11/19/24 22:03 Dose: 100 mg Documented By: BLANKA Multivitamins/Vitamin C (Multivitamin Tablet) 1 tab PO BEDTIME [facility] Last Admin: 11/19/24 22:02 Dose: 1 tab Documented By: BLANKA Nystatin (Nystatin Powder 15 Gm Bottle) 1 appl TOPICAL TID [facility]; Protocol Last Admin: 11/20/24 10:40 Dose: 1 appl Documented By: FABIOLA Omeprazole (Omeprazole 20 Mg Capsule.Dr) 20 mg PO DAILY@0630 [facility] Last Admin: 11/20/24 06:00 Dose: 20 mg Documented By: BLANKA Ondansetron HCl (Ondansetron Hcl 4 Mg/2 Ml Vial) 4 mg IVPUSH Q8H PRN PRN Reason: Nausea and Vomiting Oxycodone HCl (Oxycodone Hcl Immed Release 5 Mg Tablet) 5 mg PO Q8H PRN PRN Reason: Pain, Severe (Pain Scale 7-10) Last Admin: 11/20/24 06:00 Dose: 5 mg Documented By: BLANKA Polyethylene Glycol (Polyethylene Glycol 3350 17 Gm Powd.Pack) 17 gm PO DAILY PRN PRN Reason: Constipation Last Admin: 11/19/24 09:55 Dose: 17 gm Documented By: VI Pravastatin Sodium (Pravastatin Sodium 40 Mg Tablet) 40 mg PO BEDTIME [facility] Last Admin: 11/19/24 22:02 Dose: 40 mg Documented By: BLANKA Risperidone (Risperidone 0.5 Mg Tablet) 0.5 mg PO QID PRN PRN Reason: agitation Senna (Sennosides 8.6 Mg Tablet) 17.2 mg PO BEDTIME [facility] Last Admin: 11/19/24 22:02 Dose: 17.2 mg Documented By: BLANKA Simethicone (Simethicone 80 Mg Tab.Chew) 80 mg PO TID PRN PRN Reason: GI Upset Last Admin: 11/19/24 23:57 Dose: 80 mg Documented By: PRUDENCE Sodium Chloride (0.9 % Sodium Chloride Flush 3 Ml Syringe) 3 ml IVFLUSH QSHIFT [facility] Last Admin: 11/20/24 10:41 Dose: Not Given Documented By: FABIOLA Non-Admin Reason: IV Running Tiotropium [place] (Tiotropium [place] 2.5 Mcg 1 Puff/2.5 Mcg Mist.Inhal) 2 puff INHALE RDAILY [facility] Last Admin: 11/20/24 11:24 Dose: 2 puff Documented By: LIZ Labs 11/20/24 06:36 11/20/24 08:58 Labs: Laboratory Results - last 24 hr 11/20/24 11/20/24 06:36 08:58 MCV 106.0 H MCH 33.8 H MCHC 31.9 RDW 14.6 Plt Count 332 MPV 9.9 Immature Gran % (Auto) 0.8 H Neut % (Auto) 67.2 Lymph % (Auto) 8.6 L Tyler % (Auto) 16.0 H Eos % (Auto) 6.8 H Baso % (Auto) 0.6 Lymph # (Auto) 0.6 L Tyler # (Auto) 1.2 Eos # (Auto) 0.5 H Baso # (Auto) 0.0 Abs Immat Gran (auto) 0.06 H Absolute Neuts (auto) 4.9 Absolute Nucleated RBC 0.000 Nucleated RBC % (auto) 0.0 Anion Gap 12 13 Estim Creat Clear Calc 75.0 72.7 Estimated GFR > 60 > 60 Random Glucose 102 92 Calcium 8.7 8.8 B-Natriuretic Peptide 341 H PSA Screen 6.92 H Procalcitonin 0.18 Microbiology Microbiology Results: Microbiology 11/19/24 10:13 Blood Culture - Preliminary Blood - Venous No growth after 24 hours. 11/19/24 10:13 Blood Culture - Preliminary Blood - Venous No growth after 24 hours. Assessment and Plan (1) CHF (congestive heart failure): Status: Acute Assessment and Plan: 78 yo male with PMH opoid use disorder, prostate CA, alcoholism, hypothyroidism, GERD, tobacco use (cigars), cirrhosis, CKD, adjustment disorder was seen in ED on 11/15/24 and was evaluated for opiate use disorder with suicidal ideations. Patient was eventually cleared by crisis services but remained in overflow for case management as patient was weak, covered in feces, unsteady and deemed unsafe for discharge home where patient lives alone and would require likely short-term rehab. In the interim, pt developed worsening shortness of breath and evaluation by emergency room provider earlier this morning identified that patient had a left lower lobe pneumonia, pulmonary edema with known lung mass that was found on previous CTA with possible Mets to the ribs and spine. Patient hemodynamically stable currently on room air. There has been no evidence of hypoxia or sepsis. PNA continue ceftriaxone azithromycin,Duo nebs p.r.n. Incentive spirometer,Continuous pulse ox Pulmonary consultation-continue antibiotics ,awit blood cultures. CHF exacerbation Lasix 40 IV . 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 Sclerotic foci in the spine would raise concern for possible prostate cancer meds on the background of prior history of prostate cancer. hemonc:lung nodules are neoplastic and related to prostate cancer or not. He will need PET and possibly tissue from the lung or rib. He may benefut from PSMA pet This can be done through the [facility] [place] Oncology clinic as an outpatient or the PCP. HX of prostate Cancer Diagnosed 2021 Pt states he is in remission, denied hx of radiation, chemo or surgery Fungal rash Noted under pannus, in the scrotal area and behind legs Nystatin powder ordered Angry rash currently, no obvious opening, consider wound care if needed Depression/ anxiety Patient cleared by Psychiatry Does not require one-to-one Denies any SI or HI at this time Patient is not currently on any SSRIs Patient likely high risk for returning home alone due to severe weakness and deconditioning, plan from the ED was short-term acute rehab History of alcohol abuse Thiamine and folic acid Low threshold for withdrawal as patient has been in the ED since November 16 2024 and last drink 1.5 weeks ago Addictions consulted Substance use disorder Patient came into the ED with concern that he had no more oxycodone, it was stolen but concern for possible overdose Patient also had suicidal ideations initially was cleared by crisis Services and Psychiatry Addictions consulted Patient does continue on oxycodone for pain management that was resumed in the emergency department GERD Omeprazole and Pepcid Hypothyroidism Continue levothyroxine Case Managment already following, pt very deconditioned, weak, high risk for fall: DC plan for acute rehab prior to pt being admitted DVT prophylaxis: Lovenox Quality Stroke Does the patient have a stroke diagnosis?: No Reason for No Anti-thrombotic by Day Two: N/A - Med Ordered VTE Prior VTE?: No VTE Risk Level:: Medical - moderate - high VTE Device Contraindication: N/A - Device Ordered VTE Drug Contraindication: N/A - Med Ordered
--- NOTE | 2024-11-20 15:37 | PM.EVENT ---
Event Note Date of Service: 11/20/24 Event Note: Addiction consult placed for patient with history of AUD Chart reviewed and patient seen by radio program director No concern for alcohol withdrawal --patient has been at [facility] [place] [facility] since 11/15 --unlikely to experience any withdrawal sx as it has now been 5 days Patient declined further follow up or education Time Spent With Patient Time: Total time managing care of this patient today ____ minutes.
[2024-11-20] MEDS: 0.9 % Sodium Chloride Flush 3 ML SYRINGE IVFLUSH ×2 (18:08→21:04)
[2024-11-20] MEDS: Albuterol/Iprat 2.5/0.5MG 3 ML AMPUL.NEB INHALE (19:03)
[2024-11-20] MEDS: Metoprolol Succinate ER 100 MG TAB.ER.24H PO (21:03)
[2024-11-21] VITALS (10 sets, daily range): BP systolic 131–175; BP diastolic 59–73; PULSE 64–85; RESP 16–20; TEMP 36.3–37.4; O2SAT 94–98
[2024-11-21] MEDS: Albuterol/Iprat 2.5/0.5MG 3 ML AMPUL.NEB INHALE ×2 (00:53→19:02)
[2024-11-21] MEDS: oxyCODONE HCl Immed Release 5 MG TABLET PO ×3 (02:42→19:43)
[2024-11-21] MEDS: Thiamine HCL 200 MG in 0.9 % Sodium Chloride 100 ML 204 MG IV ×3 (06:32→21:55)
[2024-11-21] MEDS: Tiotropium Bromide 2.5 mcg 1 PUFF/2.5 MCG MIST.INHAL 2 PUFF INHALE (07:52)
[2024-11-21] MEDS: 0.9 % Sodium Chloride Flush 3 ML SYRINGE IVFLUSH ×3 (08:04→21:59)
[2024-11-21] MEDS: Ferrous Sulfate 324 MG TABLET.DR 648 MG PO (08:08)
[2024-11-21] MEDS: guaiFEN/Codeine SF 200/20/10ML 10 ML LIQUID 5 ML PO ×3 (08:22→21:53)
--- NOTE | 2024-11-21 12:16 | MHC.SL.SWA ---
Speech Pathologist Impression: Risk of Aspiration, Oral Phase Dysphagia Risk of Aspiration Due to: Poor Dentition Dysphasia Diet Status: No Change Liquid Consistency and Strategies for Safe Swallow: Liquid Intake Recommendation: Thin Liquid Intake Strategies: Small Sips Solid Food Consistency: Dietary Recommendations: Chopped/Advanced (NDD3) Additional Modifications to Solid Foods: NUCLEAR OPERATIONS SPECIALIST to f/u 1x to monitor tolerance Oral Medication Intake: Whole with Liquid Please contact the pharmacy regarding appropriate crushable or liquid drug formulations that are available whenever modified delivery is recommended. Compensatory Strategies and Precautions to be Taken for Safe Swallow: Sitting Upright (90 deg) Small Bites and Sips Alternate Liquids/Solids Rate of Ingestion Change Supervision While Eating and Drinking for Safe Swallow: Intermittent Supervision Swallowing Recommended Treatments: Compens. Strategy Educat. Recommendation for Speech: Inpatient Speech Therapy Comment: Pt denies hx of dysphagia. Recc NDD3 with thins, assist with tray set up. Frequency/Duration: Followup x1 Date Range for Service Req: Timeline to reassess: [employer] Clinican/Clinical Fellow: No Supervisory Statement: I have reviewed and agree with the student/clinical fellow's documentation: N/A Speech Language Pathologist: Rafia Tadeo M.S., CCC-NUCLEAR OPERATIONS SPECIALIST
--- NOTE | 2024-11-21 13:28 | MHC.CM.PN ---
CM met with pt to discuss DCP. 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 CM discussed PT's rec of STR with pt. he said he may go, depending on where is it. Referrals expanded and updated.
--- NOTE | 2024-11-21 14:28 | HO.WOUND ---
Wound Consult: Initial 78yr old? [place] [facility] See progress notes and H&P for detailed history.? Wound consult placed for buttock.? Patient agreeable to assessment and photo documentation.? Patient reports he has incontinence and urgency at times. He reports the wound t his inner thigh started as a rash . He refused foam dressing application. Left Ischial area Etiology: MASD with fungal dermatitis and friction ??Present on Admission Wound Bed: red pink clean tissue Drainage / Odor: none noted Edges: ? irregular and macerated Cady wound: ?MASD - No Induration, Fluctuance or Warmth noted Pain: tenderness improving per pt statement Goals of Treatment: ? antifungal and triad to allow for healing. Bilateral groin and scrotum noted for MASD and fungal dermatitis - Nystatin in use - recommend follow with barrier cream. Buttock assessed for Mild MASD - red pink blanchable tissue with moisture noted - barrier cream recommended. Recommendations: 1. Turn and Reposition every 2 hours and as needed for patient comfort.? Use pillows or wedges to support off loading positions. 2. Off Load all bony prominences with use of pillows and heel boots if needed.? Apply Preventative foams where needed. ? 3. Monitor for incontinence and moisture control, use barrier creams when needed for prevention and treatment. 4. Provide adequate and supplemental nutrition.? 5. Order low air loss mattress. 6. When applicable maintain blood glucose levels per Providers order. Buttock and Left Ischium - Off Load Pressure with Q2 hr turns and use of pillows - Cleanse with PH balance spray or wipes, pat dry. ?Apply thin layer of Triad to wound bed - only pat and dab no scrub and rub when soiling occurs. Reapply thin layer PRN after each episode of incontinence. Groin and Scrotum - Cleanse with PH balance wipes, pat dry with soft cloth.? Apply antifungal power to assist with moisture management.? Be sure to dust of excess powder to prevent caking on skin and in folds. Apply per provider orders. Follow with barrier cream. Re-consult wound care Nurse for wound deterioration or wound changes.
--- NOTE | 2024-11-21 17:16 | P.PNIM_ITS ---
Subjective Subjective Date of Service: 11/21/24 Interval History: chf Review of Systems sob seems improving but sob with minimal excersion no fevers no chest pain Review of Systems: Yes all other systems are reviewed and are negative Physical Exam 2 Exam: Exam: Appearance: Alert.? Oriented X3.? cvs: rrr, [id number] . res: air entry diminshed ,has few scattered rales. abd: no rebound or guarding ,nt, bs present. ext pulses present , no cyanosis,mild edema . neuro: axo3 , nonfocal. Vital Signs: Vital Signs: Last Vital Signs Temp 97.4 F 11/21/24 15:07 Pulse 77 11/21/24 15:07 Resp 18 11/21/24 15:07 BP 147/70 H 11/21/24 15:07 Pulse Ox 94 11/21/24 15:07 O2 Del Method Room Air 11/21/24 15:07 BMI result Body Mass Index 37.2 Objective Data Active Medications Acetaminophen (Acetaminophen 325 Mg Tablet) 650 mg PO Q6H PRN PRN Reason: Pain, Mild 1-3,fever,headache Last Admin: 11/21/24 15:20 Dose: 650 mg Documented By: FABIOLA Albuterol/Ipratropium (Albuterol/Iprat 2.5/0.5mg 3 Ml Ampul.Neb) 3 ml INHALE Q4H PRN PRN Reason: Shortness of Breath/Wheezing Last Admin: 11/21/24 00:53 Dose: 3 ml Documented By: MONICA Budesonide (Budesonide 0.5 Mg/2 Ml Ampul.Neb) 0.5 mg INHALE RBID [facility] Last Admin: 11/21/24 07:51 Dose: 0.5 mg Documented By: BUTCH Calcium Carbonate (Calcium Carbonate 750 Mg Tab.Chew) 750 mg PO Q4H PRN PRN Reason: Heartburn Ceftriaxone Sodium (Ceftriaxone Sodium 1 Gm Vial) 1 gm IVPUSH Q24H [facility] Last Admin: 11/21/24 08:04 Dose: 1 gm Documented By: FABIOLA Enoxaparin Sodium (Enoxaparin Sodium 40 Mg/0.4 Ml Syringe) 40 mg SUBCUT Q24H [facility] Last Admin: 11/21/24 08:03 Dose: 40 mg Documented By: FABIOLA Famotidine (Famotidine 20 Mg Tablet) 20 mg PO BEDTIME JASWANT Last Admin: 11/20/24 21:04 Dose: 20 mg Documented By: BLANKA Ferrous Sulfate (Ferrous Sulfate 324 Mg Tablet.Dr) 648 mg PO Q48H JASWANT Last Admin: 11/21/24 08:08 Dose: 648 mg Documented By: FABIOLA Furosemide (Furosemide 20 Mg Tablet) 20 mg PO BID@0900,1800 JASWANT; Protocol Last Admin: 11/21/24 08:04 Dose: 20 mg Documented By: FABIOLA Guaifenesin (Guaifenesin 100 Mg/5 Ml 5 Ml Liquid) 5 ml PO Q6H PRN PRN Reason: Cough Guaifenesin/Codeine Phosphate (Guaifen/Codeine Sf 200/20/10ml 10 Ml Liquid) 5 ml PO Q6H PRN PRN Reason: Cough Last Admin: 11/21/24 15:20 Dose: 5 ml Documented By: FABIOLA Hydroxyzine HCl (Hydroxyzine Hcl 10 Mg Tablet) 10 mg PO Q8H PRN On Hold: 11/19/24 13:24 PRN Reason: itch Last Admin: 11/19/24 02:49 Dose: 10 mg Documented By: JAVAN Azithromycin 500 mg/ Sodium (Chloride) 250 mls @ 125 mls/hr IV Q24H [facility] Last Infusion: 11/21/24 09:55 Dose: 0 mls/hr Documented By: FABIOLA Folic Acid 1 mg/ Sodium (Chloride) 50.2 mls @ 100.4 mls/hr IV DAILY [facility] Last Infusion: 11/21/24 09:29 Dose: Infused Documented By: FABIOLA Thiamine HCl 200 mg/ Sodium (Chloride) 102 mls @ 204 mls/hr IV Q8H [facility] Last Infusion: 11/21/24 15:22 Dose: Infused Documented By: FABIOLA Levothyroxine Sodium (Levothyroxine Sodium 125 Mcg Tablet) 125 mcg PO BEDTIME [facility] Last Admin: 11/20/24 21:07 Dose: 125 mcg Documented By: BLANKA Lidocaine (Lidocaine 4 % Patch Adh..Patch) 1 patch TRANSDERMA BID PRN; Protocol PRN Reason: Pain, Moderate(Pain Scale 4-6) Last Admin: 11/18/24 16:57 Dose: 1 patch Documented By: EREN Loratadine (Loratadine 10 Mg Tablet) 10 mg PO BEDTIME JASWANT Last Admin: 11/20/24 21:04 Dose: 10 mg Documented By: BLANKA Lorazepam (Lorazepam 1 Mg Tablet) 1 mg PO Q4H PRN On Hold: 11/19/24 13:14 PRN Reason: Breakthrough alcohol withdrawa Stop: 11/22/24 09:52 Lorazepam (Lorazepam 1 Mg Tablet) 0.5 mg PO Q6H JASWANT; Taper On Hold: 11/19/24 13:14 Stop: 11/22/24 11:59 Last Admin: 11/19/24 11:39 Dose: 1 mg Documented By: VI Magnesium Hydroxide (Milk Of Magnesia 30 Ml Oral.Susp) 30 ml PO DAILY PRN PRN Reason: Constipation Magnesium Oxide (Magnesium Oxide 400 Mg Tablet) 400 mg PO BEDTIME JASWANT Last Admin: 11/20/24 21:04 Dose: 400 mg Documented By: BLANKA Melatonin (Melatonin 3 Mg Tablet) 6 mg PO BEDTIME PRN PRN Reason: Insomnia Methocarbamol (Methocarbamol 500 Mg Tablet) 1,000 mg PO BEDTIME PRN PRN Reason: Pain, Moderate(Pain Scale 4-6) Metoprolol Succinate (Metoprolol Succinate Er 100 Mg Tab.Er.24h) 100 mg PO BEDTIME JASWANT; Protocol Last Admin: 11/20/24 21:03 Dose: 100 mg Documented By: BLANKA Multivitamins/Vitamin C (Multivitamin Tablet) 1 tab PO BEDTIME JASWANT Last Admin: 11/20/24 21:04 Dose: 1 tab Documented By: BLANKA Nystatin (Nystatin Powder 15 Gm Bottle) 1 appl TOPICAL TID JASWANT; Protocol Last Admin: 11/21/24 15:26 Dose: 1 appl Documented By: FABIOLA Omeprazole (Omeprazole 20 Mg Capsule.) 20 mg PO DAILY@0630 JASWANT Last Admin: 11/21/24 06:32 Dose: 20 mg Documented By: BLANKA Ondansetron HCl (Ondansetron Hcl 4 Mg/2 Ml Vial) 4 mg IVPUSH Q8H PRN PRN Reason: Nausea and Vomiting Last Admin: 11/21/24 11:47 Dose: 4 mg Documented By: FABIOLA Oxycodone HCl (Oxycodone Hcl Immed Release 5 Mg Tablet) 5 mg PO Q8H PRN PRN Reason: Pain, Severe (Pain Scale 7-10) Last Admin: 11/21/24 11:44 Dose: 5 mg Documented By: FABIOLA Polyethylene Glycol (Polyethylene Glycol 3350 17 Gm Powd.Pack) 17 gm PO DAILY PRN PRN Reason: Constipation Last Admin: 11/19/24 09:55 Dose: 17 gm Documented By: VI Pravastatin Sodium (Pravastatin Sodium 40 Mg Tablet) 40 mg PO BEDTIME [facility] Last Admin: 11/20/24 21:03 Dose: 40 mg Documented By: BLANKA Risperidone (Risperidone 0.5 Mg Tablet) 0.5 mg PO QID PRN PRN Reason: agitation Senna (Sennosides 8.6 Mg Tablet) 17.2 mg PO BEDTIME [facility] Last Admin: 11/20/24 21:07 Dose: 17.2 mg Documented By: BLANKA Simethicone (Simethicone 80 Mg Tab.Chew) 80 mg PO TID PRN PRN Reason: GI Upset Last Admin: 11/19/24 23:57 Dose: 80 mg Documented By: PRUDENCE Sodium Chloride (0.9 % Sodium Chloride Flush 3 Ml Syringe) 3 ml IVFLUSH QSHIFT [facility] Last Admin: 11/21/24 08:04 Dose: 3 ml Documented By: FABIOLA Tiotropium Dupont (Tiotropium Dupont 2.5 Mcg 1 Puff/2.5 Mcg Mist.Inhal) 2 puff INHALE RDAILY [facility] Last Admin: 11/21/24 07:52 Dose: 2 puff Documented By: BUTCH Labs 11/20/24 06:36 11/20/24 08:58 Microbiology Microbiology Results: Microbiology 11/19/24 10:13 Blood Culture - Preliminary Blood - Venous No growth after 48 hours. 11/19/24 10:13 Blood Culture - Preliminary Blood - Venous No growth after 48 hours. Assessment and Plan (1) CHF (congestive heart failure): Status: Acute Assessment and Plan: 78 yo male with PMH opoid use disorder, prostate CA, alcoholism, hypothyroidism, GERD, tobacco use (cigars), cirrhosis, CKD, adjustment disorder was seen in ED on 11/15/24 and was evaluated for opiate use disorder with suicidal ideations. Patient was eventually cleared by crisis services but remained in overflow for case management as patient was weak, covered in feces, unsteady and deemed unsafe for discharge home where patient lives alone and would require likely short-term rehab. In the interim, pt developed worsening shortness of breath and evaluation by emergency room provider earlier this morning identified that patient had a left lower lobe pneumonia, pulmonary edema with known lung mass that was found on previous CTA with possible Mets to the ribs and spine. Patient hemodynamically stable currently on room air. There has been no evidence of hypoxia or sepsis. PNA continue ceftriaxone azithromycin,Duo nebs p.r.n. Incentive spirometer,Continuous pulse ox Pulmonary consultation-continue antibiotics ,awit blood cultures. CHF exacerbation Lasix 40 IV . plan: i/o ,daily weight Echo :Normal left ventricular size and systolic function. There is mildly increased left ventricular wall thickness. The visually estimated ejection fraction is between 60-65%. - Elevated filling pressures. Normal right ventricular cavity size and systolic function. The left atrium is mildly dilated. 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 Sclerotic foci in the spine would raise concern for possible prostate cancer meds on the background of prior history of prostate cancer. hemonc:lung nodules are neoplastic and related to prostate cancer or not. He will need PET and possibly tissue from the lung or rib. He may benefut from PSMA pet This can be done through the [facility] Oncology clinic as an outpatient or the PCP. HX of prostate Cancer Diagnosed 2021 Pt states he is in remission, denied hx of radiation, chemo or surgery Fungal rash Noted under pannus, in the scrotal area and behind legs Nystatin powder ordered Angry rash currently, no obvious opening, consider wound care if needed Depression/ anxiety Patient cleared by Psychiatry Does not require one-to-one Denies any SI or HI at this time Patient is not currently on any SSRIs Patient likely high risk for returning home alone due to severe weakness and deconditioning, plan from the ED was short-term acute rehab History of alcohol abuse Thiamine and folic acid Low threshold for withdrawal as patient has been in the ED since November 16 2024 and last drink 1.5 weeks ago Addictions consulted Substance use disorder Patient came into the ED with concern that he had no more oxycodone, it was stolen but concern for possible overdose Patient also had suicidal ideations initially was cleared by crisis Services and Psychiatry Addictions consulted Patient does continue on oxycodone for pain management that was resumed in the emergency department GERD Omeprazole and Pepcid Hypothyroidism Continue levothyroxine Case Managment already following, pt very deconditioned, weak, high risk for fall: DC plan for acute rehab prior to pt being admitted DVT prophylaxis: Lovenox Quality Stroke Does the patient have a stroke diagnosis?: No Reason for No Anti-thrombotic by Day Two: N/A - Med Ordered VTE Prior VTE?: No VTE Risk Level:: Medical - moderate - high VTE Device Contraindication: N/A - Device Ordered VTE Drug Contraindication: N/A - Med Ordered
--- NOTE | 2024-11-21 17:26 | P.CDIM_ITS ---
PROVIDER RESPONSE TEXT: To clarify, the appropriate diagnosis supported by the clinical indicators: Metabolic QUERY TEXT: PHYSICIAN'S DOCUMENTATION REQUEST Date of Query: 11/21/2024 08:21 AM EDT Patient Name: John Ramos Admit Date: 11/19/2024 Dear Frannie Jackson MD, A review of the medical record indicates additional documentation may be needed. Please review below and update the documentation accordingly. Clinical Indicators: Oncology consultation note dated 11/19/24 - A full history is not possible as he is encephalopathic at this time. Malaise, withdrawal symptoms. Pulmonology consult note dated 11/19/24 - Unable to review systems due to mental status, lethargic and confused. Based on the above, please further specify, in the Progress Notes, the known or suspected type of the documented encephalopathy: Metabolic Toxic Toxic metabolic Hypertensive Due to a specified condition (such as UTI, hyponatremia, CVA, etc.) After study Encephalopathy is ruled out Other (explain) Clinically unable to determine (explain) Thank you, Pamella Valderrama, CCS, CDIS Use of terms such as suspected, likely, concern for, or probable (associated with a specific diagnosis that is being evaluated, monitored, or treated as if it exists) are acceptable and can be coded in the inpatient setting, when documented at the time of discharge. Please use your independent medical judgment in providing your response. THIS QUERY IS PART OF THE PERMANENT MEDICAL RECORD
[2024-11-21] MEDS: Metoprolol Succinate ER 100 MG TAB.ER.24H PO (19:43)
[2024-11-21] MEDS: Lidocaine 4 % Patch ADH..PATCH 1 PATCH TRANSDERMA (21:04)
[2024-11-22] VITALS (9 sets, daily range): BP systolic 124–165; BP diastolic 58–88; PULSE 68–82; RESP 17–18; TEMP 36.1–36.8; O2SAT 93–97
[2024-11-22] MEDS: oxyCODONE HCl Immed Release 5 MG TABLET PO ×3 (05:11→22:32)
[2024-11-22] MEDS: Thiamine HCL 200 MG in 0.9 % Sodium Chloride 100 ML 204 MG IV (05:15)
[2024-11-22] MEDS: Tiotropium Bromide 2.5 mcg 1 PUFF/2.5 MCG MIST.INHAL 2 PUFF INHALE (07:46)
[2024-11-22] MEDS: guaiFEN/Codeine SF 200/20/10ML 10 ML LIQUID 5 ML PO ×3 (08:12→21:17)
[2024-11-22] MEDS: 0.9 % Sodium Chloride Flush 3 ML SYRINGE IVFLUSH ×3 (08:16→23:58)
[2024-11-22 09:00] LABS: Anion Gap 14 (12-20); Blood Urea Nitrogen 13 mg/dL (9-16); Carbon Dioxide 26 mmol/L (22-29); Chloride 104 mmol/L (96-108); Creatinine Clr Calc Pharmacy 71.2; Estimated Glomerular Filt Rate > 60; Potassium 4.2 mmol/L (3.3-5.1); Sodium 140 mmol/L (135-145)
[2024-11-22 09:01] LABS: Calcium 8.9 mg/dL (8.4-10.2)
[2024-11-22 09:08] LABS: B Type Natriuretic Peptide 148 pg/mL (<100)
--- NOTE | 2024-11-22 11:14 | MHC.SL.SWA ---
Speech Pathologist Impression: Mild oral dysphagia d/t missing dentition Risk of Aspiration Due to: Minimal risk for aspiration at this time Dysphasia Diet Status: Liquid Consistency and Strategies for Safe Swallow: Liquid Intake Recommendation: Thin Liquid Intake Strategies: Small Sips Solid Food Consistency: Dietary Recommendations: Chopped/Advanced (NDD3) Additional Modifications to Solid Foods: Oral Medication Intake: Whole with Liquid Please contact the pharmacy regarding appropriate crushable or liquid drug formulations that are available whenever modified delivery is recommended. Compensatory Strategies and Precautions to be Taken for Safe Swallow: Sitting Upright (90 deg) Small Bites and Sips Alternate Liquids/Solids Rate of Ingestion Change Supervision While Eating and Drinking for Safe Swallow: Assist with tray set up d/t R arm pain Foods to Avoid: Swallowing Recommended Treatments: Compens. Strategy Educat. Recommendation for Speech: Inpatient Speech Therapy Comment: Recc NDD3 with thins, assist with tray set up. No dysphagia persists. BARBER INSTRUCTOR discharging tx order as pt is stable with PO intake. Frequency/Duration: Followup x2 Date Range for Service Req: Timeline to reassess: Real Estate Assessor Clinican/Clinical Fellow: No Supervisory Statement: I have reviewed and agree with the student/clinical fellow's documentation: N/A Speech Language Pathologist: Rafia Tadeo M.S., CCC-BARBER INSTRUCTOR
--- NOTE | 2024-11-22 13:32 | MHC.CM.PN ---
Per rounds, pt. is not ready to DC, DCP will be STR, referrals out, CM to follow.
--- NOTE | 2024-11-22 17:20 | P.PNIM_ITS ---
Subjective Subjective Date of Service: 11/22/24 Interval History: chf Review of Systems sob seems improving but sob with minimal excersion no fevers Review of Systems: Yes all other systems are reviewed and are negative Physical Exam 2 Exam: Exam: Appearance: Alert.? Oriented X3.? cvs: rrr, [id number] . res: air entry diminshed ,has few scattered rales. abd: no rebound or guarding ,nt, bs present. ext pulses present , no cyanosis,mild edema . neuro: axo3 , nonfocal. Vital Signs: Vital Signs: Last Vital Signs Temp 97.8 F 11/22/24 15:33 Pulse 71 11/22/24 15:33 Resp 18 11/22/24 15:33 BP 126/62 11/22/24 15:33 Pulse Ox 97 11/22/24 15:33 O2 Del Method Room Air 11/22/24 15:33 O2 Flow Rate 2 11/22/24 06:57 BMI result Body Mass Index 37.2 Objective Data Active Medications Acetaminophen (Acetaminophen 325 Mg Tablet) 650 mg PO Q6H PRN PRN Reason: Pain, Mild 1-3,fever,headache Last Admin: 11/22/24 13:56 Dose: 650 mg Documented By: DALIA Albuterol/Ipratropium (Albuterol/Iprat 2.5/0.5mg 3 Ml Ampul.Neb) 3 ml INHALE Q4H PRN PRN Reason: Shortness of Breath/Wheezing Last Admin: 11/21/24 19:02 Dose: 3 ml Documented By: MONICA Azithromycin (Azithromycin 500 Mg Tablet) 500 mg PO Q24H [facility] Budesonide (Budesonide 0.5 Mg/2 Ml Ampul.Neb) 0.5 mg INHALE RBID [facility] Last Admin: 11/22/24 07:47 Dose: 0.5 mg Documented By: NACHO Calcium Carbonate (Calcium Carbonate 750 Mg Tab.Chew) 750 mg PO Q4H PRN PRN Reason: Heartburn Cefuroxime Axetil (Cefuroxime Axetil 500 Mg Tablet) 500 mg PO Q12H [facility] Last Admin: 11/22/24 11:37 Dose: Not Given Documented By: DALIA Non-Admin Reason: Physician Approved Enoxaparin Sodium (Enoxaparin Sodium 40 Mg/0.4 Ml Syringe) 40 mg SUBCUT Q24H JASWANT Last Admin: 11/22/24 08:10 Dose: 40 mg Documented By: DALIA Famotidine (Famotidine 20 Mg Tablet) 20 mg PO BEDTIME JASWANT Last Admin: 11/21/24 19:43 Dose: 20 mg Documented By: KAREN Ferrous Sulfate (Ferrous Sulfate 324 Mg Tablet.Dr) 648 mg PO Q48H JASWANT Last Admin: 11/21/24 08:08 Dose: 648 mg Documented By: FABIOLA Guaifenesin (Guaifenesin 100 Mg/5 Ml 5 Ml Liquid) 5 ml PO Q6H PRN PRN Reason: Cough Guaifenesin/Codeine Phosphate (Guaifen/Codeine Sf 200/20/10ml 10 Ml Liquid) 5 ml PO Q6H PRN PRN Reason: Cough Last Admin: 11/22/24 13:57 Dose: 5 ml Documented By: DALIA Hydroxyzine HCl (Hydroxyzine Hcl 10 Mg Tablet) 10 mg PO Q8H PRN On Hold: 11/19/24 13:24 PRN Reason: itch Last Admin: 11/19/24 02:49 Dose: 10 mg Documented By: JAVAN Folic Acid 1 mg/ Sodium (Chloride) 50.2 mls @ 100.4 mls/hr IV DAILY [facility] Last Infusion: 11/22/24 08:45 Dose: Infused Documented By: DALIA Thiamine HCl 200 mg/ Sodium (Chloride) 102 mls @ 204 mls/hr IV Q8H [facility] Last Admin: 11/22/24 14:02 Dose: Not Given Documented By: DALIA Non-Admin Reason: MD to change to po Levothyroxine Sodium (Levothyroxine Sodium 125 Mcg Tablet) 125 mcg PO BEDTIME JASWATN Last Admin: 11/21/24 19:43 Dose: 125 mcg Documented By: KAREN Lidocaine (Lidocaine 4 % Patch Adh..Patch) 1 patch TRANSDERMA BID PRN; Protocol PRN Reason: Pain, Moderate(Pain Scale 4-6) Last Admin: 11/21/24 21:04 Dose: 1 patch Documented By: KAREN Loratadine (Loratadine 10 Mg Tablet) 10 mg PO BEDTIME JASWANT Last Admin: 11/21/24 19:43 Dose: 10 mg Documented By: KAREN Magnesium Hydroxide (Milk Of Magnesia 30 Ml Oral.Susp) 30 ml PO DAILY PRN PRN Reason: Constipation Magnesium Oxide (Magnesium Oxide 400 Mg Tablet) 400 mg PO BEDTIME [facility] Last Admin: 11/21/24 19:42 Dose: 400 mg Documented By: KAREN Melatonin (Melatonin 3 Mg Tablet) 6 mg PO BEDTIME PRN PRN Reason: Insomnia Methocarbamol (Methocarbamol 500 Mg Tablet) 1,000 mg PO BEDTIME PRN PRN Reason: Pain, Moderate(Pain Scale 4-6) Metoprolol Succinate (Metoprolol Succinate Er 100 Mg Tab.Er.24h) 100 mg PO BEDTIME [facility]; Protocol Last Admin: 11/21/24 19:43 Dose: 100 mg Documented By: KAREN Multivitamins/Vitamin C (Multivitamin Tablet) 1 tab PO BEDTIME JASWANT Last Admin: 11/21/24 19:42 Dose: 1 tab Documented By: KAREN Nystatin (Nystatin Powder 15 Gm Bottle) 1 appl TOPICAL TID [facility]; Protocol Last Admin: 11/22/24 15:30 Dose: 1 appl Documented By: DALIA Omeprazole (Omeprazole 20 Mg Capsule.Dr) 20 mg PO DAILY@0630 [facility] Last Admin: 11/22/24 05:11 Dose: 20 mg Documented By: KAREN Ondansetron HCl (Ondansetron Hcl 4 Mg/2 Ml Vial) 4 mg IVPUSH Q8H PRN PRN Reason: Nausea and Vomiting Last Admin: 11/21/24 11:47 Dose: 4 mg Documented By: FABIOLA Oxycodone HCl (Oxycodone Hcl Immed Release 5 Mg Tablet) 5 mg PO Q8H PRN PRN Reason: Pain, Severe (Pain Scale 7-10) Last Admin: 11/22/24 13:57 Dose: 5 mg Documented By: DALIA Polyethylene Glycol (Polyethylene Glycol 3350 17 Gm Powd.Pack) 17 gm PO DAILY PRN PRN Reason: Constipation Last Admin: 11/19/24 09:55 Dose: 17 gm Documented By: VI Pravastatin Sodium (Pravastatin Sodium 40 Mg Tablet) 40 mg PO BEDTIME [facility] Last Admin: 11/21/24 19:43 Dose: 40 mg Documented By: KAREN Risperidone (Risperidone 0.5 Mg Tablet) 0.5 mg PO QID PRN PRN Reason: agitation Senna (Sennosides 8.6 Mg Tablet) 17.2 mg PO BEDTIME [facility] Last Admin: 11/21/24 19:42 Dose: 17.2 mg Documented By: KAREN Simethicone (Simethicone 80 Mg Tab.Chew) 80 mg PO TID PRN PRN Reason: GI Upset Last Admin: 11/21/24 21:53 Dose: 80 mg Documented By: KAREN Sodium Chloride (0.9 % Sodium Chloride Flush 3 Ml Syringe) 3 ml IVFLUSH QSHIFT [facility] Last Admin: 11/22/24 16:40 Dose: 3 ml Documented By: DALIA Tiotropium [place] (Tiotropium [place] 2.5 Mcg 1 Puff/2.5 Mcg Mist.Inhal) 2 puff INHALE RDAILY [facility] Last Admin: 11/22/24 07:46 Dose: 2 puff Documented By: NACHO Labs 11/20/24 06:36 11/22/24 08:30 Labs: Laboratory Results - last 24 hr 11/22/24 11/22/24 08:29 08:30 Anion Gap 14 Estim Creat Clear Calc 71.2 Estimated GFR > 60 Random Glucose 98 Calcium 8.9 B-Natriuretic Peptide 148 H Assessment and Plan (1) CHF (congestive heart failure): Status: Acute Assessment and Plan: 78 yo male with PMH opoid use disorder, prostate CA, alcoholism, hypothyroidism, GERD, tobacco use (cigars), cirrhosis, CKD, adjustment disorder was seen in ED on 11/15/24 and was evaluated for opiate use disorder with suicidal ideations. Patient was eventually cleared by crisis services but remained in overflow for case management as patient was weak, covered in feces, unsteady and deemed unsafe for discharge home where patient lives alone and would require likely short-term rehab. In the interim, pt developed worsening shortness of breath and evaluation by emergency room provider earlier this morning identified that patient had a left lower lobe pneumonia, pulmonary edema with known lung mass that was found on previous CTA with possible Mets to the ribs and spine. Patient hemodynamically stable currently on room air. There has been no evidence of hypoxia or sepsis. PNA/rhinoviral uri continue ceftriaxone azithromycin,Duo nebs p.r.n. Incentive spirometer,Continuous pulse ox blood cultures@48hrs Pulmonary consultation-continue empiric antibiotics until cultures are finalized. CHF exacerbation (HFpEF) metabolic encephalopathy -insetting of chf/uri /?pneumonia -improved,seems near baseline sob seems improving plan: i/o ,daily weight Echo :Normal left ventricular size and systolic function. There is mildly increased left ventricular wall thickness. The visually estimated ejection fraction is between 60-65%. Elevated filling pressures. Normal right ventricular cavity size and systolic function. The left atrium is mildly dilated. 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 Sclerotic foci in the spine would raise concern for possible prostate cancer meds on the background of prior history of prostate cancer. hemonc:lung nodules are neoplastic and related to prostate cancer or not. He will need PET and possibly tissue from the lung or rib. He may benefut from PSMA pet This can be done through the [facility] [place] as an outpatient or the PCP. d/w Dr brush/dani -[facility]. HX of prostate Cancer Diagnosed 2021 Pt states he is in remission, denied hx of radiation, chemo or surgery . Fungal rash Noted under pannus, in the scrotal area and behind legs Nystatin powder ordered Angry rash currently, no obvious opening, consider wound care if needed Depression/ anxiety Patient cleared by Psychiatry Does not require one-to-one Denies any SI or HI at this time Patient is not currently on any SSRIs Patient likely high risk for returning home alone due to severe weakness and deconditioning, plan from the ED was short-term acute rehab History of alcohol abuse Thiamine and folic acid Low threshold for withdrawal as patient has been in the ED since November 16 2024 and last drink 1.5 weeks ago Addictions following Substance use disorder Patient came into the ED with concern that he had no more oxycodone, it was stolen but concern for possible overdose Patient also had suicidal ideations initially was cleared by crisis Services and Psychiatry Patient does continue on oxycodone for pain management that was resumed in the emergency department GERD Omeprazole and Pepcid Hypothyroidism Continue levothyroxine wound care:Left Ischial area,Bilateral groin and scrotum noted for MASD and fungal dermatitis,Buttock assessed for Mild MASD 1. Turn and Reposition every 2 hours and as needed for patient comfort.? Use pillows or wedges to support off loading positions. 2. Off Load all bony prominences with use of pillows and heel boots if needed.? Apply Preventative foams where needed. ? 3. Monitor for incontinence and moisture control, use barrier creams when needed for prevention and treatment. 4. Provide adequate and supplemental nutrition.? 5. Order low air loss mattress. 6. When applicable maintain blood glucose levels per Providers order. Buttock and Left Ischium - Off Load Pressure with Q2 hr turns and use of pillows - Cleanse with PH balance spray or wipes, pat dry. ?Apply thin layer of Triad to wound bed - only pat and dab no scrub and rub when soiling occurs. Reapply thin layer PRN after each episode of incontinence. Groin and Scrotum - Cleanse with PH balance wipes, pat dry with soft cloth.? Apply antifungal power to assist with moisture management.? Be sure to dust of excess powder to prevent caking on skin and in folds. Apply per provider orders. Follow with barrier cream. Case Managment already following, pt very deconditioned, weak, high risk for fall: DC plan for acute rehab/str prior to pt being admitted DVT prophylaxis: AirXpanders Quality Stroke Does the patient have a stroke diagnosis?: No Reason for No Anti-thrombotic by Day Two: N/A - Med Ordered VTE Prior VTE?: No VTE Risk Level:: Medical - moderate - high VTE Device Contraindication: N/A - Device Ordered VTE Drug Contraindication: N/A - Med Ordered
[2024-11-22] MEDS: Metoprolol Succinate ER 100 MG TAB.ER.24H PO (21:16)
[2024-11-23] VITALS (7 sets, daily range): BP systolic 140–173; BP diastolic 56–77; PULSE 66–82; RESP 17–18; TEMP 36.3–36.7; O2SAT 93–98
[2024-11-23] MEDS: Throat Lozenge, Medicated LOZENGE 1 LOZENGE MUCOUS MEM (01:46)
[2024-11-23] MEDS: guaiFEN/Codeine SF 200/20/10ML 10 ML LIQUID 5 ML PO ×3 (03:55→21:33)
[2024-11-23] MEDS: oxyCODONE HCl Immed Release 5 MG TABLET PO ×2 (08:37→22:54)
[2024-11-23] MEDS: Tiotropium Bromide 2.5 mcg 1 PUFF/2.5 MCG MIST.INHAL 2 PUFF INHALE (08:39)
[2024-11-23] MEDS: Ferrous Sulfate 324 MG TABLET.DR 648 MG PO (08:39)
[2024-11-23] MEDS: 0.9 % Sodium Chloride Flush 3 ML SYRINGE IVFLUSH ×2 (08:46→18:46)
--- NOTE | 2024-11-23 12:53 | HO.PM.IMPN ---
Subjective Subjective Date of Service: 11/23/24 Interval History: seen and examined this morning follow up rhinovirus reported significant coughing all night long BARONE improving Review of Systems Review of Systems: Yes all other systems are reviewed and are negative Constitutional Constitutional: Denies chills and Denies fever(s) ENT Ears, Nose, Mouth, and Throat: Denies dizziness Cardiovascular Cardiovascular: Denies chest pain Respiratory Respiratory: Reports cough Gastrointestinal Gastrointestinal: Denies abdominal pain, Denies nausea and Denies vomiting Neurologic Neurologic: Denies dizziness Physical Exam Vital Signs: Vital Signs: Last Vital Signs Temp 98.0 F 11/23/24 11:35 Pulse 71 11/23/24 11:35 Resp 18 11/23/24 11:35 BP 142/77 H 11/23/24 11:35 Pulse Ox 94 11/23/24 11:35 O2 Del Method Room Air 11/23/24 11:35 O2 Flow Rate 2 11/23/24 03:06 BMI result Body Mass Index 37.2 Const: General: cooperative, comfortable, no acute distress, alert and awake Nutritional Appearance: obese Orientation/consciousness: patient oriented x3 Resp: Other: b/l wheeze Effort & Inspection: normal respiratory effort, able to speak in complete sentences, no respiratory distress and no use of accessory muscles Cardio: Rate: regular rate GI: Inspection: No distended and Yes obesity Palpation (GI): Soft to palpation and nontender Neuro: General: patient oriented x3, moves all extremities and CN's II-XI intact bilaterally Objective Data Active Medications Acetaminophen (Acetaminophen 325 Mg Tablet) 650 mg PO Q6H PRN PRN Reason: Pain, Mild 1-3,fever,headache Last Admin: 11/22/24 13:56 Dose: 650 mg Documented By: DALIA Albuterol/Ipratropium (Albuterol/Iprat 2.5/0.5mg 3 Ml Ampul.Neb) 3 ml INHALE Q4H PRN PRN Reason: Shortness of Breath/Wheezing Last Admin: 11/21/24 19:02 Dose: 3 ml Documented By: MONICA Azithromycin (Azithromycin 500 Mg Tablet) 500 mg PO Q24H JASWANT Last Admin: 11/23/24 05:55 Dose: 500 mg Documented By: OMAR Benzocaine (Throat Lozenge, Medicated Lozenge) 1 lozenge MUCOUS MEM Q2H PRN PRN Reason: Sore Throat Last Admin: 11/23/24 01:46 Dose: 1 lozenge Documented By: OMAR Budesonide (Budesonide 0.5 Mg/2 Ml Ampul.Neb) 0.5 mg INHALE RBID [facility] Last Admin: 11/23/24 08:38 Dose: 0.5 mg Documented By: SCOVILFarrah Calcium Carbonate (Calcium Carbonate 750 Mg Tab.Chew) 750 mg PO Q4H PRN PRN Reason: Heartburn Cefuroxime Axetil (Cefuroxime Axetil 500 Mg Tablet) 500 mg PO Q12H [facility] Last Admin: 11/22/24 23:57 Dose: 500 mg Documented By: OMAR Enoxaparin Sodium (Enoxaparin Sodium 40 Mg/0.4 Ml Syringe) 40 mg SUBCUT Q24H [facility] Last Admin: 11/23/24 08:41 Dose: 40 mg Documented By: BALAJI Famotidine (Famotidine 20 Mg Tablet) 20 mg PO BEDTIME [facility] Last Admin: 11/22/24 21:16 Dose: 20 mg Documented By: OMAR Ferrous Sulfate (Ferrous Sulfate 324 Mg Tablet.) 648 mg PO Q48H [facility] Last Admin: 11/23/24 08:39 Dose: 648 mg Documented By: BALAJI Furosemide (Furosemide 40 Mg Tablet) 40 mg PO DAILY [facility]; Protocol Last Admin: 11/23/24 08:40 Dose: 40 mg Documented By: BALAJI Guaifenesin (Guaifenesin 100 Mg/5 Ml 5 Ml Liquid) 5 ml PO Q6H PRN PRN Reason: Cough Guaifenesin/Codeine Phosphate (Guaifen/Codeine Sf 200/20/10ml 10 Ml Liquid) 5 ml PO Q6H PRN PRN Reason: Cough Last Admin: 11/23/24 11:18 Dose: 5 ml Documented By: BALAJI Hydroxyzine HCl (Hydroxyzine Hcl 10 Mg Tablet) 10 mg PO Q8H PRN On Hold: 11/19/24 13:24 PRN Reason: itch Last Admin: 11/19/24 02:49 Dose: 10 mg Documented By: JAVAN Folic Acid 1 mg/ Sodium (Chloride) 50.2 mls @ 100.4 mls/hr IV DAILY [facility] Last Infusion: 11/23/24 09:52 Dose: Infused Documented By: BALAJI Levothyroxine Sodium (Levothyroxine Sodium 125 Mcg Tablet) 125 mcg PO BEDTIME JASWANT Last Admin: 11/22/24 21:16 Dose: 125 mcg Documented By: OMAR Lidocaine (Lidocaine 4 % Patch Adh..Patch) 1 patch TRANSDERMA BID PRN; Protocol PRN Reason: Pain, Moderate(Pain Scale 4-6) Last Admin: 11/21/24 21:04 Dose: 1 patch Documented By: KAREN Loratadine (Loratadine 10 Mg Tablet) 10 mg PO BEDTIME JASWANT Last Admin: 11/22/24 21:17 Dose: 10 mg Documented By: OMAR Magnesium Hydroxide (Milk Of Magnesia 30 Ml Oral.Susp) 30 ml PO DAILY PRN PRN Reason: Constipation Magnesium Oxide (Magnesium Oxide 400 Mg Tablet) 400 mg PO BEDTIME JASWANT Last Admin: 11/22/24 21:16 Dose: 400 mg Documented By: OMAR Melatonin (Melatonin 3 Mg Tablet) 6 mg PO BEDTIME PRN PRN Reason: Insomnia Methocarbamol (Methocarbamol 500 Mg Tablet) 1,000 mg PO BEDTIME PRN PRN Reason: Pain, Moderate(Pain Scale 4-6) Metoprolol Succinate (Metoprolol Succinate Er 100 Mg Tab.Er.24h) 100 mg PO BEDTIME JASWANT; Protocol Last Admin: 11/22/24 21:16 Dose: 100 mg Documented By: OMAR Multivitamins/Vitamin C (Multivitamin Tablet) 1 tab PO BEDTIME JASWANT Last Admin: 11/22/24 21:17 Dose: 1 tab Documented By: OMAR Nystatin (Nystatin Powder 15 Gm Bottle) 1 appl TOPICAL TID [facility]; Protocol Last Admin: 11/22/24 22:32 Dose: Not Given Documented By: OMAR Non-Admin Reason: Patient Refused Omeprazole (Omeprazole 20 Mg Arlette.) 20 mg PO DAILY@0630 [facility] Last Admin: 11/23/24 05:55 Dose: 20 mg Documented By: OMAR Ondansetron HCl (Ondansetron Hcl 4 Mg/2 Ml Vial) 4 mg IVPUSH Q8H PRN PRN Reason: Nausea and Vomiting Last Admin: 11/21/24 11:47 Dose: 4 mg Documented By: FABIOLA Oxycodone HCl (Oxycodone Hcl Immed Release 5 Mg Tablet) 5 mg PO Q8H PRN PRN Reason: Pain, Severe (Pain Scale 7-10) Last Admin: 11/23/24 08:37 Dose: 5 mg Documented By: BALAJI Polyethylene Glycol (Polyethylene Glycol 3350 17 Gm Powd.Pack) 17 gm PO DAILY PRN PRN Reason: Constipation Last Admin: 11/19/24 09:55 Dose: 17 gm Documented By: VI Pravastatin Sodium (Pravastatin Sodium 40 Mg Tablet) 40 mg PO BEDTIME [facility] Last Admin: 11/22/24 21:16 Dose: 40 mg Documented By: OMAR Risperidone (Risperidone 0.5 Mg Tablet) 0.5 mg PO QID PRN PRN Reason: agitation Senna (Sennosides 8.6 Mg Tablet) 17.2 mg PO BEDTIME [facility] Last Admin: 11/22/24 21:16 Dose: 17.2 mg Documented By: OMAR Simethicone (Simethicone 80 Mg Tab.Chew) 80 mg PO TID PRN PRN Reason: GI Upset Last Admin: 11/21/24 21:53 Dose: 80 mg Documented By: KAREN Sodium Chloride (0.9 % Sodium Chloride Flush 3 Ml Syringe) 3 ml IVFLUSH QSHIFT [facility] Last Admin: 11/23/24 08:46 Dose: 3 ml Documented By: BALAJI Thiamine HCl (Thiamine Hcl 100 Mg Tablet) 100 mg PO DAILY [facility] Last Admin: 11/23/24 08:39 Dose: 100 mg Documented By: BALAJI Tiotropium [place] (Tiotropium [place] 2.5 Mcg 1 Puff/2.5 Mcg Mist.Inhal) 2 puff INHALE RDAILY [facility] Last Admin: 11/23/24 08:39 Dose: 2 puff Documented By: JOHNH Labs 11/20/24 06:36 11/22/24 08:30 Assessment and Plan (1) Lung mass: Status: Acute (2) Pneumonia: Status: Acute (3) Rhinovirus: Status: Acute (4) CHF (congestive heart failure): Status: Acute Plan This is a 78 yo male with h/o opioid use disorder, prostate CA, alcoholism, hypothyroidism, GERD, tobacco use (cigars), cirrhosis, CKD, adjustment disorder was seen in ED on 11/15/24 and was evaluated for opiate use disorder with suicidal ideation. Patient was eventually cleared by crisis services but remained in overflow for case management as patient was weak, covered in feces, unsteady and deemed unsafe for discharge home where patient lives alone and would require likely short-term rehab. In the interim, pt developed worsening shortness of breath and further work up identified left lower lobe pneumonia, pulmonary edema with known lung mass that was found on previous CTA with possible Mets to the ribs and spine. Patient hemodynamically stable currently on room air. There has been no evidence of hypoxia or sepsis. PNA likely viral due to rhinovirus continue ceftriaxone, azithromycin blood cultures negative to date seen by pulmonary, no further recs complete one more day of antibiotics no hypoxia continues to have cough, likely postviral; continue cough medication CHF exacerbation (HFpEF) Echo :Normal left ventricular size and systolic function. There is mildly increased left ventricular wall thickness. The visually estimated ejection fraction is between 60-65%. Elevated filling pressures. Normal right ventricular cavity size and systolic function. The left atrium is mildly dilated. 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 outpatient follow up in [facility] [place] [place] clinic as an outpatient or the PCP. metabolic encephalopathy due to chf/uri/pneumonia resolved HX of prostate Cancer Diagnosed 2021 Pt states he is in remission, denied hx of radiation, chemo or surgery Depression/ anxiety Patient cleared by Psychiatry Does not require one-to-one Denies any SI or HI at this time Patient is not currently on any SSRIs History of alcohol abuse no etoh withdrawal during this admission Continue supplementation with Thiamine and folic acid Addiction medicine following Substance use disorder Patient came into the ED with concern that he had no more oxycodone, it was stolen Patient does continue on oxycodone for pain management that was resumed in the emergency department GERD Omeprazole and Pepcid Hypothyroidism Continue levothyroxine Left Ischial area,Bilateral groin and scrotum noted for MASD and fungal dermatitis,Buttock assessed for Mild MASD Buttock and Left Ischium - Off Load Pressure with Q2 hr turns and use of pillows - Cleanse with PH balance spray or wipes, pat dry. ?Apply thin layer of Triad to wound bed - only pat and dab no scrub and rub when soiling occurs. Reapply thin layer PRN after each episode of incontinence. Groin and Scrotum - Cleanse with PH balance wipes, pat dry with soft cloth.? Apply antifungal power to assist with moisture management.? Be sure to dust of excess powder to prevent caking on skin and in folds. Apply per provider orders. Follow with barrier cream. Case Managment already following, pt very deconditioned, weak, high risk for fall: DC plan for str DVT prophylaxis: Lovenox Quality Stroke Does the patient have a stroke diagnosis?: No Reason for No Anti-thrombotic by Day Two: N/A - Med Ordered VTE Prior VTE?: No VTE Risk Level:: Medical - moderate - high VTE Device Contraindication: N/A - Device Ordered VTE Drug Contraindication: N/A - Med Ordered
--- NOTE | 2024-11-23 15:16 | MHC.CM.PN ---
Cm met with pt. and his dtr, Eve to discuss DCP. Pt would like to go home but he does agree that STR is a good idea. His dtr said she is not able to assist him very much because she takes care of her mother. Referrals have been expanded and updated.
[2024-11-23] MEDS: Metoprolol Succinate ER 100 MG TAB.ER.24H PO (21:23)
--- NOTE | 2024-11-23 22:51 | PC.NURSE ---
pt being rude to the staff and disrespectful, asking for percoset.
--- NOTE | 2024-11-23 22:53 | PC.NURSE ---
pt explained he does not have percoset prescribed, also explained that he was given robaxin, pt stated nothing will help but narcotics.
[2024-11-24] VITALS: BP 142/65; PULSE 79; RESP 20; TEMP 36.8; O2SAT 93
[2024-11-24] MEDS: 0.9 % Sodium Chloride Flush 3 ML SYRINGE IVFLUSH ×2 (01:19→10:31)
[2024-11-24 03:55] VITALS: BP 147/64; PULSE 73; RESP 20; TEMP 36.3; O2SAT 94
[2024-11-24] MEDS: guaiFEN/Codeine SF 200/20/10ML 10 ML LIQUID 5 ML PO ×2 (05:50→14:49)
[2024-11-24 07:04] VITALS: BP 156/69; PULSE 81; RESP 20; TEMP 36.6; O2SAT 96
[2024-11-24] MEDS: Tiotropium Bromide 2.5 mcg 1 PUFF/2.5 MCG MIST.INHAL 2 PUFF INHALE (07:34)
[2024-11-24 07:37] VITALS: PULSE 81; RESP 18; O2SAT 96
[2024-11-24] MEDS: oxyCODONE HCl Immed Release 5 MG TABLET PO (08:46)
--- NOTE | 2024-11-24 09:10 | MHC.CM.PN ---
Pt. does not want to go to STR that is out of the area, no SNFs accepting in this area, DCP will be home with services from [facility], [facility] (his dtr Eve working on this). CM from [facility] protective services, Leesa Breaux contacted today to inform her of pt.'s DC, she will also be in touch with [facility] to expedite services getting started for pt.
--- NOTE | 2024-11-24 10:53 | PM.DS ---
DS: Providers Provider Date of Service: 11/24/24 Date of admission: 11/19/24 05:52 Date of discharge: 11/24/24 Primary care physician: Claudette Price MD Consults: 11/17/24 11:14 ED CARE Team Crisis Consult Stat Comment: Reason for consultation: si 11/18/24 12:07 Consult to Psychiatry Stat Consulting Provider: [facility] Psych Covering Reason for consultation: determination of capacity per bhn 11/19/24 06:07 Consult to Hematology / Oncology Routine Consulting Provider: [facility] Oncology/Hematology Reason for consultation: lung mass with mets to ribs, hx of prostate CA Has provider been notified: No 11/19/24 06:13 Consult to Pulmonology Routine Consulting Provider: [facility] Pulmonology Services Reason for consultation: PNA, new lung mass with bone mets 11/19/24 06:33 Addiction Medicine Provider Routine Consulting Provider: Addiction Covering Reason for consultation: Opioid use disorder, alcoholism Has provider been notified: No 11/19/24 13:09 Consult for Sitter Routine Reason for consultation: behaviour agaitation Has provider been notified: No 11/20/24 00:44 Consult to Wound Care Routine Reason for consultation: staging upper posterior thigh wound, care recommendations. see wound photos Attending physician on discharge: Asad Woodall Discharging clinician: Hyacinth De Luna DS: Diagnosis Discharge Diagnosis (1) Lung mass: Status: Acute (2) Pneumonia: Status: Acute (3) Rhinovirus: Status: Acute (4) CHF (congestive heart failure): Status: Acute DS: Summary Hospital Course Hospital Course: From H&P on the day of admission Pt is a 78 yo male with H opoid use disorder, prostate CA, alcoholism (last drink 1.5 weeks prior), hypothyroidism, GERD tobacco use (cigars), cirrhosis, CKD, adjustment disorder was seen in ED on 11/15/24 and was evaluated for opiate use disorder with suicidal ideations. Patient was eventually cleared by crisis services but remained in overflow for case management as patient was weak, covered in feces, unsteady and deemed unsafe for discharge home where patient lives alone and would require likely short-term rehab. It was felt that patient was having generalized deconditioning secondary to chronic alcohol use along with opioid use. Patient was previously in the hospital on October of 2024 for alcohol withdrawal. Patient continued to be evaluated by emergency room staff and further workup include chest x-ray as patient was experiencing some shortness of breath especially with exertion. Patient's potassium was also 3.0. Renal function was normal. Patient had a normal troponin with a BNP of 371. Patient also had an elevated CRP. Blood gas was stable. Chest x-ray read and indicated need for CTA. The CTA was done and patient found to have a new mass with possible metastases to the ribs and spine. Patient does have a history of prostate cancer and offers that he has been monitored and told he was in remission and denies hx of radiation or chemotherapy. CTA negative for PE. ED provider felt that patient would need oncology workup as an outpatient and continue his oxycodone for pain management. In the meantime case management was locating a acute rehab bed for transfer. Patient was discharged from psychiatric care on 11/18/2024 as he no longer had any suicidal or homicidal ideations and was not an immediate risk to himself. On 11/19/2024 patient was evaluated by nursing noted to be having increasing shortness of breath with wheezing and a dry cough. Patient's hemodynamics were stable he was 96% on room air. Patient did have bilateral rales and increased respiratory rate per. Patient had +2 pitting edema as well. Notes harsh systolic murmur on exam. Patient received additional Lasix and nebulizer treatment. Potassium now 5.5 and 1 dose of Lokelma was given. Patient remained on telemetry and continuous pulse ox. Patient did not require noninvasive mechanical ventilation but was referred to the hospitalist group for admission for pneumonia noted in the left lower lobe and CHF exacerbation with workup for the lung mass with possible Mets to the bone. Patient has been started on ceftriaxone and azithromycin. Patient will continue on Lasix 40 IV b.i.d. which was started this morning. PNA likely viral due to rhinovirus Treated with empiric antibiotics ceftriaxone, azithromycin seen by pulmonology, recommended to discontinue antibiotics if cultures were negative. Blood cultures have remained negative to date. No hypoxia continues to have cough, likely postviral; continue cough medication and course of steroids. able to ambulate at what he describes as his baseline. CHF exacerbation (HFpEF) Initially treated with IV Lasix with good effect, transitioned to oral Lasix. Recommend low-sodium diet, daily weight monitoring. No hypoxia, has remained on room air. Echo :Normal left ventricular size and systolic function. There is mildly increased left ventricular wall thickness. The visually estimated ejection fraction is between 60-65%. Elevated filling pressures. Normal right ventricular cavity size and systolic function. The left atrium is mildly dilated. 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 outpatient follow up in [facility] Oncology clinic as an outpatient or the PCP. metabolic encephalopathy due to chf/uri/pneumonia resolved HX of prostate Cancer Diagnosed 2021 Pt states he is in remission, denied hx of radiation, chemo or surgery Depression/ anxiety Patient cleared by Psychiatry Does not require one-to-one Denies any SI or HI at this time History of alcohol abuse no etoh withdrawal during this admission Continue supplementation with Thiamine and folic acid. Seen by Addiction medicine, provided resources, declined medications/outpatient follow up Substance use disorder Patient came into the ED with concern that he had no more oxycodone, it was stolen Patient does continue on oxycodone for pain management that was resumed in the emergency department Left Ischial area,Bilateral groin and scrotum noted for MASD and fungal dermatitis,Buttock assessed for Mild MASD Buttock and Left Ischium - Off Load Pressure with Q2 hr turns and use of pillows - Cleanse with PH balance spray or wipes, pat dry. ?Apply thin layer of Triad to wound bed - only pat and dab no scrub and rub when soiling occurs. Reapply thin layer PRN after each episode of incontinence. Groin and Scrotum - Cleanse with PH balance wipes, pat dry with soft cloth.? Apply antifungal power to assist with moisture management.? Be sure to dust of excess powder to prevent caking on skin and in folds. Apply per provider orders. Follow with barrier cream. Patient was evaluated by Physical therapy who recommended short-term rehab however there were no rehab bed offers in the area, he was offered 1 bed in [facility] but he has declined to go that far. He will be discharged home with VNA services. Daughter has been involved in decision-making process in his in agreement with the plan. Time Attestation Discharge Coordination Time (in mins): 36 Quality: Safe Use of Opioids Does Pt have an Active Cancer Diagnosis on the Problem List?: No Quality: Stroke Does the patient have a stroke diagnosis?: No Physical Exam Vital Signs: Vital Signs: Last Vital Signs Temp 97.8 F 11/24/24 07:04 Pulse 81 11/24/24 07:37 Resp 18 11/24/24 07:37 BP 156/69 H 11/24/24 07:04 Pulse Ox 96 11/24/24 07:04 O2 Del Method Room Air 11/24/24 07:04 O2 Flow Rate 2 11/23/24 03:06 BMI result Body Mass Index 37.2 Const: General: cooperative, comfortable, no acute distress, alert and awake Nutritional Appearance: obese Orientation/consciousness: patient oriented x3 Resp: Effort & Inspection: normal respiratory effort, able to speak in complete sentences, no respiratory distress and no use of accessory muscles Cardio: Rate: regular rate GI: Inspection: No distended and Yes obesity Palpation (GI): Soft to palpation and nontender Neuro: General: patient oriented x3, moves all extremities and CN's II-XI intact bilaterally DS: Data Data Completed and Pending Completed studies during hospitalization [Text1]: Procedures Detoxification Services for Substance Abuse Treatment (10/15/24) Labs on day of discharge: Preliminary micro results at discharge 11/19/24 10:13 Blood Culture - Preliminary Blood - Venous No growth after 48 hours. 11/19/24 10:13 Blood Culture - Preliminary Blood - Venous No growth after 48 hours. Discharge Plan Discharge Anticipated Discharge Date/Time: 11/24/24 11:02 Patient Disposition: Home Health Service Discharge Diagnosis: Pneumonia/rhino virus Alcohol use disorder New lung mass CHF Referrals: [facility] Oncology/Hematology [Provider Group] John SPENCER [Outside] - 1 Week Claudette Price MD [Primary Care Provider, Medical] Discharge Medications: New guaifenesin 100 mg/5 mL Liquid 100 mg PO Q6H PRN (Reason: Cough) Qty: 500 0RF nystatin [Nyamyc] 100,000 unit/gram Powder 1 appl topical TID Qty: 30 0RF Protocol: Apply to: Apply to: under pannus, scrotal area, back of legs prednisone 10 mg tablet See Taper PO DIRECTED Qty: 30 0RF Taper: Prednisone 40 mg daily for 3 Days and 0 Hour 30 mg daily for 3 Days and 0 Hour 20 mg daily for 3 Days and 0 Hour 10 mg daily for 3 Days and 0 Hour Rx Instructions: see taper instructions Continued pravastatin 40 mg tablet 40 mg PO BEDTIME metoprolol succinate 100 mg tablet extended release 24 hr 100 mg PO BEDTIME levothyroxine 125 mcg tablet 125 mcg PO BEDTIME tiotropium bromide [Spiriva with HandiHaler] 18 mcg capsule, w/inhalation device 1 cap inhalation BEDTIME loratadine 10 mg tablet 10 mg PO BEDTIME oxycodone-acetaminophen 5-325 mg tablet 1 tab PO Q8H Rx Instructions: TAKE WITH HYDROXYZINE TO PREVENT ITCHING omega 0-ghl-atc-fish oil [Fish Oil] 1,000 mg (120 mg-180 mg) Capsule 1 cap PO BEDTIME Centrum Silver Men [id number] mcg Tablet 1 tab PO BEDTIME furosemide [Lasix] 40 mg tablet 40 mg PO BEDTIME famotidine 20 mg tablet 20 mg PO BEDTIME methocarbamol 500 mg tablet 1,000 mg PO BEDTIME PRN (Reason: pain) magnesium oxide 400 mg (241.3 mg magnesium) tablet 400 mg PO BEDTIME ferrous sulfate 325 mg (65 mg iron) tablet 650 mg PO Q48H Discontinued hydroxyzine HCl 10 mg tablet 10 mg PO Q8H PRN (Reason: itch) Rx Instructions: TAKE WITH PERCOCET Discharge Orders: Discharge Order (Routine); Ordered 11/24/24 Ordered By: Hyacinth De Luna Activity on Discharge: As tolerated Stand Alone Forms: Patient Portal Discharge page Print Language: Austrian Activity Restrictions/Additional Instructions: Please plan on making a follow-up appointment with your regular doctor soon. Additionally you will need to follow up with the [facility] oncology office. The CAT scan of your chest suggested that you might have a tumor in your right upper lobe. This will need additional investigation. Please contact the [facility] oncology office for a follow up appointment soon. 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 Alcohol use disorder Plan of Treatment: Cough from rhino virus can last several weeks, can use cough syrup as needed Finish prednisone taper as prescribed Continue all baseline medication as prescribed For CHF, you should monitor your weight daily, follow a low-salt diet and minimize fluid intake to 1.5 L daily Do not drink alcohol - you have declined resources from addiction medicine/comprehensive care clinic Call to schedule follow-up appointment with Oncology for further evaluation of lung mass Physical therapy recommended short-term rehab, you have opted against this and will instead return home with VNA services and [facility] Services Assessment: See discharge summary Patient Instructions: Prednisone (By mouth), Guaifenesin (By mouth), Nystatin (On the skin), Narcotic Withdrawal (ED)
--- NOTE | 2024-11-24 11:15 | P.F2F_ITS ---
Service Date Service Date: 11/24/24 Encounter Date of encounter: 11/24/24 Reasons for Services Signs and symptoms assessed: Needs long term for monitoring of respiratory status, CHF education, skin care Reason for long term: wound care (Buttock and Left Ischium - Off Load Pressure with Q2 hr turns and use of pillows - Cleanse with PH balance spray or wipes, pat dry. Apply thin layer of Triad to wound bed - only pat and dab no scrub and rub when soiling occurs. Reapply thin layer PRN after each episode of incontinence. Groin and S) and teach disease management MD Overseeing Care: Claudette Price Homebound: Leaving the home is medically contraindicated at this time without the asist of a device and/or another person due th the listed conditions above and below. Reason homebound: unsteady gait / fall risk Certification: Based on the above findings, I certify that this patient is confined to the home and needs intermittent long term care, physical therapy and/or speech therapy, or continues to need occupational therapy. The patient is under my care, and I have initiated the establishment of the plan of care. The patient will be followed by a physician who will periodically review the plan of care. Time Spent With Patient Time: Total time managing care of this patient today ____ minutes.
[2024-11-24 11:24] VITALS: BP 147/66; PULSE 68; RESP 18; TEMP 36.5; O2SAT 95
--- NOTE | 2024-11-24 11:37 | MHC.CM.PN ---
Second IMM 11/24/24, pt has been medically cleared to DC, he will go home via a friend. He will have home care services from [facility], and [facility]. Protective services JANEL Breaux was informed of DC and services.
== END 2024-11-24 15:00 | disposition home health service (06) | DRG 193 ==
LOC: HO.ED 11-19 05:53 → HO.EDOVER 11-19 07:00 → HO.IMC 11-19 19:38
PROVIDERS: Emergency Medicine; Internal Medicine; Nurse Practitioner Family; Physician Assistant; Admitting Provider Student in an Organized Health Care Education/Training Program; Emergency Provider Emergency Medicine; PCP Pediatrics; Visit Provider Physician Assistant Medical
DX: J12.89 Other viral pneumonia (principal); G93.41 Metabolic encephalopathy; I50.33 Acute on chronic diastolic (congestive) heart failure; R45.851 Suicidal ideations; C78.01 Secondary malignant neoplasm of right lung; C79.51 Secondary malignant neoplasm of bone; F11.23 Opioid dependence with withdrawal; F10.20 Alcohol dependence, uncomplicated; Y90.6 Blood alcohol level of 120-199 mg/100 ml; T40.2X6A Underdosing of other opioids, initial encounter; F17.210 Nicotine dependence, cigarettes, uncomplicated; G89.29 Other chronic pain; F43.20 Adjustment disorder, unspecified; M54.9 Dorsalgia, unspecified; F32.A Depression, unspecified; F41.9 Anxiety disorder, unspecified; B97.89 Other viral agents as the cause of diseases classified elsewhere; C61 Malignant neoplasm of prostate; L24.A9 Irritant contact dermatitis due friction or contact with other specified body fluids; E03.9 Hypothyroidism, unspecified; B36.9 Superficial mycosis, unspecified; K21.9 Gastro-esophageal reflux disease without esophagitis; Z20.822 Contact with and (suspected) exposure to COVID-19; Z71.6 Tobacco abuse counseling; Z79.890 Hormone replacement therapy; Z79.899 Other long term (current) drug therapy
CPT/HCPCS: 36415; 71045; 71275; 80048; 80053; 80076; 80143; 80179; 80307; 82803; 83605; 83690; 83735; 83880; 84132; 84145; 84153; 84484; 85025; 85610; 86140; 87040; 87633; 87637; 92526; 92610; 93005; 93306; 93970; 94640; 97116; 97162; 99285; J0131; J0456; J0696; J1650; J1808; J1885; J1938; J2405; J3411; Q9957; Q9967; S9485

== ENCOUNTER → 2024-11-15 21:29 | Outpatient (BNV) | payer OTHER, SELFPAY | PROVIDERS: Emergency Provider Emergency Medicine; Visit Provider Psychiatry & Neurology Psychiatry | DX: F10.20 Alcohol dependence, uncomplicated (principal); M54.9 Dorsalgia, unspecified; G89.29 Other chronic pain; F43.20 Adjustment disorder, unspecified; F11.20 Opioid dependence, uncomplicated | CPT/HCPCS: 99284; 99499 ==

== ENCOUNTER → 2024-11-15 21:39 | Outpatient (BNV) | payer OTHER, SELFPAY | PROVIDERS: Emergency Provider Emergency Medicine; Visit Provider Internal Medicine | DX: I44.0 Atrioventricular block, first degree (principal); I45.10 Unspecified right bundle-branch block | CPT/HCPCS: 93010 ==

== ENCOUNTER → 2024-11-16 06:42 | Outpatient (BNV) | payer OTHER, SELFPAY | PROVIDERS: Emergency Provider Emergency Medicine; Visit Provider Radiology Diagnostic Radiology | DX: R91.1 Solitary pulmonary nodule (principal); R06.02 Shortness of breath | CPT/HCPCS: 71045; 71275 ==

== ENCOUNTER → 2024-11-16 08:39 | Outpatient (BNV) | payer OTHER, SELFPAY | PROVIDERS: Emergency Provider Emergency Medicine; Visit Provider Internal Medicine | DX: I44.0 Atrioventricular block, first degree (principal); I45.10 Unspecified right bundle-branch block | CPT/HCPCS: 93010 ==

== ENCOUNTER → 2024-11-19 03:14 | Outpatient (BNV) | payer OTHER, SELFPAY | PROVIDERS: Emergency Provider Emergency Medicine; Visit Provider Student in an Organized Health Care Education/Training Program | DX: I51.7 Cardiomegaly (principal) | CPT/HCPCS: 71045 ==

== ENCOUNTER → 2024-11-19 05:46 | Outpatient (BNV) | payer OTHER, SELFPAY | PROVIDERS: Admitting Provider Student in an Organized Health Care Education/Training Program; Emergency Provider Emergency Medicine; PCP Pediatrics; Visit Provider Internal Medicine | DX: I45.10 Unspecified right bundle-branch block (principal) | CPT/HCPCS: 93010 ==

== ENCOUNTER 2024-11-19 05:52 | Outpatient (BNV) | payer OTHER, SELFPAY | END 2024-11-20 07:00 | PROVIDERS: Admitting Provider Student in an Organized Health Care Education/Training Program; Emergency Provider Emergency Medicine; PCP Pediatrics; Visit Provider Internal Medicine Cardiovascular Disease | DX: I35.0 Nonrheumatic aortic (valve) stenosis (principal); I35.8 Other nonrheumatic aortic valve disorders | CPT/HCPCS: 93306 ==

== ENCOUNTER → 2024-11-19 05:52 | Outpatient (BNV) | payer OTHER, SELFPAY | PROVIDERS: Admitting Provider Student in an Organized Health Care Education/Training Program; Emergency Provider Emergency Medicine; PCP Pediatrics; Visit Provider Internal Medicine | DX: I50.9 Heart failure, unspecified (principal) | CPT/HCPCS: 99223; 99231; 99499 ==

== ENCOUNTER → 2024-11-19 05:52 | Outpatient (BNV) | payer OTHER, SELFPAY | PROVIDERS: Admitting Provider Student in an Organized Health Care Education/Training Program; Emergency Provider Emergency Medicine; PCP Pediatrics; Visit Provider Internal Medicine Pulmonary Disease | DX: R91.1 Solitary pulmonary nodule (principal) | CPT/HCPCS: 99223 ==

== ENCOUNTER 2024-12-01 12:53 | Outpatient (AMB) | payer OTHER, SELFPAY ==
--- OUTSIDE RECORDS SUMMARY | 2024-12-01 12:55 | XMS_ITS | Encounter Summary ---
Author Organization [employer] Address [address] [place] [address] Care Team Providers Care Watch Repair Technician Name Role Phone Claudette Price MD Primary Care Provider [phone] Reason for Visit * Reason Comments Med Refill Encounter Details Date Type Department Care Team ([facility] st Contact Info) Description 01/25/2023 Refill [facility] MED & PEDS [address] [place] [address] Claudette Price MD [address] [place] [address] Severe low back pain Social History Tobacco [...] Upcoming Encounters Date Type Department Care Team (Late st Contact Info) Description 01/18/2025 11:30 AM EDT Office Visit [facility] MED & PEDS [address] [place] [address] Claudette Price MD [address] [place] [address] documented as of this encounter Visit Diagnoses Diagnosis Severe low back pain Lumbago documented in this encounter Care Teams Watch Repair Technician Relationship Specialty Start Date End Date Claudette Price MD [address] [place] [address] PCP - General Family Medicine 04/12/18 John SPENCER 10/20/24 documented as of this encounter
--- NOTE | 2024-12-01 13:00 | A.OFFVIS_ITS ---
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 The pain has been persistent for years and radiates down both legs, with no side being worse than the other. The pain is described as a massive hurt extending to the feet and toes. The patient has a history of prostate cancer, which is currently in remission. Recently, a mass was discovered in the lung, and referrals for oncology and a PET scan are being arranged. The patient was recently hospitalized, which led to the cancellation of some appointments. The patient also reports a rash on the buttock, which was treated with powder and is currently not open or leaking. 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 - Onset: Chronic, persistent for years - Quality: Described as a massive hurt - Location: Lower back, radiating down both legs to feet and toes - Exacerbating factors: Activity - Relieving factors: Medication allows for mobility without a cane - Affect: Pain impacts mobility and daily activities - Analgesia: Current medications allow for mobility without a cane - Adverse Effects: None reported - Activities of Daily Living: Pain limits walking and other activities - Aberrant Drug Related Behaviors: None reported [facility] Medical History (Updated 12/04/24 @ 09:28 by Jesika Solis APRN, BIOLOGICAL SCIENCE TECHNICIAN) Chronic back pain GERD (gastroesophageal reflux disease) CKD (chronic kidney disease) CHF (congestive heart failure) Chronic anemia Alcohol abuse HTN (hypertension), benign Cholelithiasis without cholecystitis Prostate cancer Delirium tremens Alcoholic cirrhosis Surgical History S/P tonsillectomy and adenoidectomy Social History Household Members: None Housing: House Do you presently have visiting nurse or other home services: No Alcohol intake: current Alcohol intake frequency: other Alcohol type: hard liquor Comment: 1:1 sitter at bedside on arrival to unit from ED Patient Tobacco Use Status: Current everyday Tobacco user Tobacco use type: Cigar Cigarette Packs Per Day: 0.5 Years Smoked: 60+ e-Cigarette/Vaping Use: Currently Using Second Hand Smoke Exposure: No Advance Directives Date on File: 10/29/21 service: No Current occupational status: retired Review of Systems Const Details: - Musculoskeletal: Reports chronic lower back pain radiating to legs - Dermatological: Reports rash on buttock, not open or leaking - Respiratory: Reports lung mass, denies respiratory symptoms Physical Exam Exam Exam: General: awake, alert, oriented. Answers questions appropriately. Fully engaged in examination. Presents via wheelchair. Skin: warm, dry, intact. Healing stage 1 pressure ulcer under left gluteal fold, HEENT: Normocephalic. Hearing intact. Cardiac: External chest normal in appearance. Respiratory: No cough, audible wheezing or stridor. Abdomen: without gross distension. MS: No obvious swelling or deformities. Able to transition from sit to stand unassisted. Ambulates with slow steady gait SLR neg bilaterally tenderness midline lumbar vertebrae and lumbar paraspinal muscles BLE strength 4/5 Valsalva negative Neurological: Oriented to person, place, time and situation. Thought process intact. Antalgic gait with use of a cane. Psychiatric: Appropriate mood and affect. Good judgment and insight. Vital Signs: Last Vital Signs Pulse 69 12/01/24 13:04 Resp 16 12/01/24 13:04 BP 184/77 H 12/01/24 13:04 Pulse Ox 97 12/01/24 13:04 Oxygen Delivery Method Room Air 12/01/24 13:04 BMI result Body Mass Index 31.5 Results Reviewed Results Reviewed: 01/2021 XR LS FINDINGS: Bone alignment is normal. No fracture or dislocation is seen. There is multilevel spondylosis, greatest at L2-L3 L3-L4 and L4-L5. Disc spaces are normal. There is lower lumbar spine facet arthritis. There is evidence of atherosclerotic disease. IMPRESSION: Degenerative changes similar to September 2017 exam. Assessment & Plan Assessment & Plan (1) Back pain: Code(s): M54.9 - Dorsalgia, unspecified Category: Medical (2) Chronic back pain: Code(s): M54.9 - Dorsalgia, unspecified; G89.29 - Other chronic pain Category: Medical (3) Generalized weakness: Code(s): R53.1 - Weakness Category: Medical (4) Prostate cancer: Code(s): C61 - Malignant neoplasm of prostate Category: Medical (5) Lung mass: Code(s): R91.8 - Other nonspecific abnormal finding of lung field Category: Medical (6) Lumbar spondylosis: Code(s): M47.816 - Spondylosis without myelopathy or radiculopathy, lumbar region Category: Medical Plan The plan includes ordering a CAT scan of the lower back to assess for any lesions, given the patient's history of prostate cancer and current lung mass. Physical therapy and occupational therapy will be arranged through visiting nurse services to improve mobility and reduce pain. An x-ray of the back will be conducted immediately to provide additional information. The patient is advised to monitor the rash on the buttock to prevent it from opening, which could delay potential injections for pain management. Follow-up with oncology for the lung mass is essential, and the patient should ensure appointments are rescheduled after recent cancellations due to hospitalization. Patient was informed and verbally consented to the use of an ambient scribe for clinic note documentation during this visit. Orders: Orders CT lumbar spine wo IV con 12/01/24 C61 - Malignant neoplasm of prostate, M54.9 - Dorsalgia, unspecified, R91.8 - Other nonspecific abnormal finding of lung field XR lumbar spine 4V min 12/01/24 M54.9 - Dorsalgia, unspecified Referrals [facility]ospice Referral G89.29 - Other chronic pain, M54.9 - Dorsalgia, unspecified, R53.1 - Weakness Patient Instructions: - Monitor the rash on your buttock and avoid sitting in one position for too long. - Attend scheduled physical therapy and occupational therapy sessions to improve mobility. - Follow up with oncology for the lung mass and reschedule any missed appointments. - Await a call to schedule the CAT scan of your lower back. Coding Level of Care Code New Pt Level 4 (08528) Diagnoses Back pain M54.9 Chronic back pain M54.9; G89.29 Generalized weakness R53.1 Prostate cancer C61 Lung mass R91.8 Lumbar spondylosis M47.816
[2024-12-01 13:04] VITALS: BP 184/77; PULSE 69; RESP 16; O2SAT 97; BMI 31.5
== END 2024-12-01 13:38 | disposition home or self-care (01) ==
PROVIDERS: PCP Pediatrics; Visit Provider Registered Nurse Emergency
DX: M54.9 Dorsalgia, unspecified (principal); G89.29 Other chronic pain; R53.1 Weakness; C61 Malignant neoplasm of prostate; R91.8 Other nonspecific abnormal finding of lung field; M47.816 Spondylosis without myelopathy or radiculopathy, lumbar region
CPT/HCPCS: 99204

== ENCOUNTER 2024-12-01 12:53 | Outpatient (REF) | payer OTHER, SELFPAY ==
--- NOTE | ~2024-12-01 | XR_ITS ---
Exam: 5 view x-ray lumbar spine Technique: Lateral, lateral spot, AP, and bilateral oblique view x-rays lumbar spine INDICATION: M54.9 - Dorsalgia, unspecified Prior: 03/18/2021 FINDINGS: Severe atherosclerotic ossifications are present in the abdominal aorta. There are 5 non-rib bearing lumbar segments. T12-L1: There is mild disc space narrowing. L1-L2: There is moderate disc space narrowing, vacuum phenomenon, and endplate osteophyte L2-L3: There is mild to moderate disc space during, vacuum phenomena, and retrolisthesis. There are endplate osteophytes. L3-L4: There is mild to moderate disc space narrowing with small anterior osteophytes and subtle retrolisthesis. L4-L5: There is mild disc space narrowing. There is facet sclerosis and osteophytes. L5-S1: There is facet sclerosis and osteophytes. XR/XR lumbar spine 4V min IMPRESSION: Multilevel degenerative disc disease and facet arthropathy has mildly progressed since the prior. Severe atherosclerotic disease. Electronically signed by: Shine Hitchcock MD 12/01/2024 02:41 PM EDT
== END 2024-12-01 12:54 | disposition home or self-care (01) ==
LOC: HO.XRAY 12:53
PROVIDERS: PCP Pediatrics; Visit Provider Registered Nurse Emergency
DX: M47.816 Spondylosis without myelopathy or radiculopathy, lumbar region (principal); C61 Malignant neoplasm of prostate; M54.9 Dorsalgia, unspecified; G89.29 Other chronic pain; R53.1 Weakness; R91.8 Other nonspecific abnormal finding of lung field
CPT/HCPCS: 72110; 99202

== ENCOUNTER → 2024-12-01 13:58 | Outpatient (BNV) | payer OTHER, SELFPAY | PROVIDERS: PCP Pediatrics; Visit Provider Radiology Diagnostic Radiology | DX: M47.816 Spondylosis without myelopathy or radiculopathy, lumbar region (principal) | CPT/HCPCS: 72110 ==

== ENCOUNTER 2025-01-09 10:28 | Day surgery (SDC) | payer OTHER, SELFPAY ==
--- OUTSIDE RECORDS SUMMARY | 2024-12-27 11:59 | XMS_ITS | Encounter Summary ---
Author Organization [employer] Address [address] [address] Care Team Providers Care Truckman Name Role Phone Claudette Price MD Primary Care Provider [phone] Reason for Visit * Reason Comments Med Refill Encounter Details Date Type Department Care Team (Late st Contact Info) Description 07/30/2022 Refill [facility] MEDICINE [address] [place], [place] [phone] Claudette Price MD [address] [place] [address] Benign essential hypertension Social History Tobacco Use Types Packs/Day Years Used Date Smoking Tobacco: Never Assessed Sex and Gender Information Value Date Recorded Sex Assigned at Male 02/09/2022 10:17 AM EDT Legal Sex Male 10:17 AM EDT Gender Identity Male 02/09/2022 10:17 AM EDT Sexual Orientation Straight 02/03/2023 11 :42 AM EDT documented as of this encounter Plan of Treatment Upcoming Encounters Date Type Department Care Team (Late st Contact Info) Description 01/18/2025 11:30 AM EDT Office Visit [facility] MED & PEDS [address] [place], [place] [phone] Claudette Price MD [address] [place] [address] documented as of this encounter Visit Diagnoses Diagnosis Benign essential hypertension Essential hypertension, benign documented in this encounter Care Teams Truckman Relationship Specialty Start Date End Date Claudette Price MD [address] [place] [address] PCP - General Family Medicine 04/12/18 John SPENCER 10/20/24 documented as of this encounter
--- OUTSIDE RECORDS SUMMARY | 2024-12-27 11:59 | XMS_ITS | Encounter Summary ---
Author Organization [employer] Address 75 [facility] 7 [place] [address] Care Team Providers Care Debarker Operator Name Role Phone Claudette Price MD Primary Care Provider [phone] Reason for Visit * Reason Onset Date Comments Durable Medical Equipment 03/28/2024 Encounter Details Date Type Department Care Team ([facility] st Contact Info) Description 03/28/2024 Telephone [facility] MEDICINE [address] [place] [address] Claudette Price MD [address] [place], [place] [phone] Durable Medical Equipment Social History Tobacco Use Types Packs/Day Years Used Date Smoking Tobacco: Every Day Pipe Cigars Passive Smoke Exposure: Current Smokeless Tobacco: Never Housing Stability Answer Date Recorded What is your housing situation today? I have devenatul graham 01/25/[address] you [...] AM EDT documented as of this encounter Miscellaneous Notes * Telephone Encounter - Jn Abdi - 03/28/2024 1:56 PM EST Tc from pt requesting a prescription for a wheel chair. If any questions you can contact pt at [phone]. documented in this encounter Plan of Treatment Upcoming Encounters Date Type Department Care Team ([facility] st Contact Info) Description 01/18/2025 11:30 AM EDT Office Visit [facility] CHC MED & PEDS [address] [place] [address] Claudette Price MD [address] [place] [address] documented as of this encounter Visit Diagnoses Not on filedocumented in this encounter Care Teams Debarker Operator Relationship Specialty Start Date End Date Claudette Price MD [address] [place] [address] PCP - General Family Medicine 04/12/18 John SPENCER 10/20/24 documented as of this encounter
--- OUTSIDE RECORDS SUMMARY | 2024-12-27 11:59 | XMS_ITS | Encounter Summary ---
Author Organization [employer] Address [address] [place] [address] Care Team Providers Care Shop Assistant Name Role Phone Claudette Price MD Primary Care Provider [phone] Reason for Visit * Reason Comments Med Refill Encounter Details Date Type Department Care Team (Late Contact Info) Description 09/08/2022 Refill [facility] MEDICINE [address] [place], [place] [phone] Isatu Davis MD [address] [place] [address] Severe low back pain Social History Tobacco [...] Description 01/18/2025 11:30 AM EDT Office Visit [facility] CHC MED & PEDS [address] [place], [place] [phone] Claudette Price MD [address] [place] [address] documented as of this encounter Visit Diagnoses Diagnosis Severe low back pain Lumbago documented in this encounter Care Teams Shop Assistant Relationship Specialty Start Date End Date Claudette Price MD [address] [place] [address] PCP - General Family Medicine 04/12/18 John SPENCER 10/20/24 documented as of this encounter
--- OUTSIDE RECORDS SUMMARY | 2024-12-27 11:59 | XMS_ITS | Encounter Summary ---
Author Organization [employer] Address 75 [facility] 7 [place] [address] Care Team Providers Care New Patient Escort Name Role Phone Claudette Price MD Primary Care Provider [phone] Reason for Visit * Reason Onset Date Comments Hospital Follow-up 11/27/2024 Encounter Details Date Type Department Care Team ([facility] st Contact Info) Description 11/27/2024 Telephone [facility] MEDICINE [address] [place] [address] Claudette Price MD [address] [place], [place] [phone] Hospital Follow-up Social History Tobacco Use Types Packs/Day Years [...] Miscellaneous Notes * Telephone Encounter - Jn Patton - 11/27/2024 8:38 AM EDT Tc from pt requesting a HDF appt. Hospital: [facility] Date of admission: 11/16/24 Discharge date: 11/23/24 Diagnosed: Lung Mass documented in this encounter Plan of Treatment Upcoming Encounters Date Type Department Care Team (Late st Contact Info) Description 01/18/2025 11:30 AM EDT Office Visit [facility] CH[facility] MED & PEDS [address] [place] [address] Claudette Price MD [address] [place] [address] documented as of this encounter Visit Diagnoses Not on filedocumented in this encounter Care Teams New Patient Escort Relationship Specialty Start Date End Date Claudette Price MD [address] [place] [address] PCP - General Family Medicine [facility] documented as of this encounter
--- OUTSIDE RECORDS SUMMARY | 2024-12-27 11:59 | XMS_ITS | Encounter Summary ---
Author Organization [employer] Address [address] [place] [address] 7 [place] [address] Care Team Providers Care Celebrity Chef Entrepreneur Media Personality Name Role Phone Claudette Price MD Primary Care Provider [phone] Reason for Visit * Reason Comments Med Refill Encounter Details Date Type Department Care Team (Late Contact Info) Description 05/29/2022 Refill [facility] MED & PEDS [address] [place] [address] Claudette Price MD [address] [place] [address] Severe low back pain Social History Tobacco Use Types Packs/Day Years Used Date Smoking Tobacco: Never Assessed Sex and Gender Information Value Date Recorded Sex Assigned at Male 02/09/2022 10:17 AM EDT Legal Sex Male 10:17 AM EDT Gender Identity Male 02/09/2022 10:17 AM EDT Sexual Orientation Straight 02/03/2023 11 :42 AM EDT COVID-19 Exposure Response Date Recorded In the last 10 days, have yo u been in contact with someone who was confirmed or suspected to have Coronavirus/COVID-19? No / Unsure 04/29/2022 2:21 PM EST documented as of this encounter Plan of Treatment Upcoming Encounters Date Type Department Care Team (Late Contact Info) Description 01/18/2025 11:30 AM EDT Office Visit [facility] MED & PEDS [address] [place] [address] Claudette Prcie MD [address] [place] [address] documented as of this encounter Visit Diagnoses Diagnosis Severe low back pain Lumbago documented in this encounter Care Teams Celebrity Chef Entrepreneur Media Personality Relationship Specialty Start Date End Date Claudette Price MD 505 [facility] [address] PCP - General Family Medicine 04/12/18 John SPENCER 10/20/24 documented as of this encounter
--- OUTSIDE RECORDS SUMMARY | 2024-12-27 11:59 | XMS_ITS | Encounter Summary ---
Author Organization [employer] Address 75 [facility] 7 [place] [address] Care Team Providers Care Lab Manager Name Role Phone Claudette Price MD Primary Care Provider [phone] Reason for Visit * Reason Onset Date Comments Nurse Triage 12/23/2022 Encounter Details Date Type Department Care Team ([facility] st Contact Info) Description 12/23/2022 Telephone [facility] CH[facility] MED & PEDS [address] [place] [address] Claudette Price MD [address] [place] [address] Nurse Triage Social History Tobacco Use Types Packs/Day Years Used Date Smoking Tobacco: Every Day Pipe Cigars Passive Smoke Exposure: Current Smokeless Tobacco: Never Sex and Gender Information Value Date Recorded Sex Assigned at Male 02/09/2022 10:17 AM EDT Legal Sex Male 10:17 AM EDT Gender Identity Male 02/09/2022 10:17 AM EDT Sexual Orientation Straight 02/03/2023 11 :42 AM EDT documented as of this encounter Miscellaneous Notes * Telephone Encounter - Carole Campbell RN - 12/23/2022 1:01 PM EDT Triage call Pt reports has followed through with urology and cancer is in remission . Pt reports immobility has increased , Pt is able to toilet at home and ambulate for 100ft but, that is the extent of mobility. Pt reports this has been condition for years but increased in the last few months. Ptreports with exertion heart rate increases and sob occurs. Neg for ankle swelling or edema. Pt continues to take oxycodone for pain with good relief. Pt is unable to come to apt due to immobility. Ptrequests only to speak with PCP . Tele visit 12/31 @ 100pm with PCP. Pt agrees with this disposition. Pt was offered apt day of triage to [facility] but declined . Protocol Used: No Protocol Available (Adult) Protocol-Based Disposition: See in Office or Video Visit within 2 Weeks Video visit not offered Positive Triage Question: * Nursing judgment * All higher-acuity triage questions were negative Care Advice Discussed: * Reasons To Call Back - New symptoms develop - You become worse * Telephone Encounter - Claudia Mccartney - 12/23/2022 11:57 AM EDT Patient calling to report is having difficulty walking . Patient speaks Romansh. Advised triage nurse will call patient back. documented in this encounter Plan of Treatment Upcoming Encounters Date Type Department Care Team (Late st Contact Info) Description 01/18/2025 11:30 AM EDT Office Visit [facility] CHC MED & PEDS [address] [place] [address] Claudette Price MD [address] [place] [address] documented as of this encounter Visit Diagnoses Not on filedocumented in this encounter Care Teams Lab Manager Relationship Specialty Start Date End Date Claudette Price MD [address] [place] [address] PCP - General Family Medicine 04/12/18 John SPENCER 10/20/24 documented as of this encounter
--- OUTSIDE RECORDS SUMMARY | 2024-12-27 11:59 | XMS_ITS | Encounter Summary ---
Author Organization [email or web address] Address 75 [facility] 7 [place] [address] Care Team Providers Care Retail Merchandising Manager Name Role Phone Claudette Price MD Primary Care Provider [phone] Reason for Visit * Reason Onset Date Comments Lab Orders 10/23/2024 Encounter Details Date Type Department Care Team ([facility] st Contact Info) Description 10/23/2024 Telephone [facility] MEDICINE [address] [place] [address] Claudette Price MD [address] [place], [place] [phone] Lab Orders Social History Tobacco Use Types Packs/Day Years [...] t he electric, gas, oil or water [employer] threatened to shut off services in your home? No 01/25/2023 Sex and Gender Information Value Date Recorded Sex Assigned at Male 02/09/2022 10:17 AM EDT Legal Sex Male 10:17 AM EDT Gender Identity Male 02/09/2022 10:17 AM EDT Sexual Orientation Straight 02/03/2023 11 :42 AM EDT documented as of this encounter Miscellaneous Notes * Telephone Encounter - Jn Abdi - 10/23/2024 10:28 AM EDT Tc from pt stating the surgeon has faxed over bal orders but he has not received a call back for confirmation. Please contact pt at [phone]. documented in this encounter Plan of Treatment Upcoming Encounters Date Type Department Care Team (Late st Contact Info) Description 01/18/2025 11:30 AM EDT Office Visit [facility] MED & PEDS [address] [place] [address] Claudette Price MD [address] [place] [address] documented as of this encounter Visit Diagnoses Not on filedocumented in this encounter Care Teams Retail Merchandising Manager Relationship Specialty Start Date End Date Claudette Price MD [address] [place] [address] PCP - General Family Medicine 04/12/18 John SPENCER 10/20/24 documented as of this encounter
--- OUTSIDE RECORDS SUMMARY | 2024-12-27 11:59 | XMS_ITS | Encounter Summary ---
Author Organization [employer] Address 75 [facility] 7 [place] [address] Care Team Providers Care Industrial Cleaner Name Role Phone Claudette Price MD Primary Care Provider [phone] Reason for Visit * Reason Onset Date Comments Hospital Follow-up 01/25/2023 Encounter Details Date Type Department Care Team ([facility] Contact Info) Description 01/25/2023 Telephone [facility] CHC MED & PEDS [address] [place] [address] Claudette Price MD [address] [place] [address] Hospital Follow-up Social History Tobacco Use Types [...] encounter Miscellaneous Notes * Telephone Encounter - Mechelle Pk - 01/25/2023 11:13 AM EDT Tc from pt requesting a HDF. Pt was discharged at [facility] on 01/17. Pt does not know when he was admitted but he was diagnosed with Chronic heart failure. Was advised will forward to nurses for f/u. Please contact pt at [phone] documented in this encounter Plan of Treatment Upcoming Encounters Date Type Department Care Team (Late st Contact Info) Description 01/18/2025 11:30 AM EDT Office Visit [facility] CHC MED & PEDS [address] [place] [address] Claudette Price MD [address] [place] [address] documented as of this encounter Visit Diagnoses Not on filedocumented in this encounter Care Teams Industrial Cleaner Relationship Specialty Start Date End Date Claudette Price MD [address] [place] [address] PCP - General Family Medicine 04/12/18 John SPENCER 10/20/24 documented as of this encounter
--- OUTSIDE RECORDS SUMMARY | 2024-12-27 11:59 | XMS_ITS | Encounter Summary ---
Author Organization [employer] Address 75 [facility] 7 [place] [address] Care Team Providers Care Ribbon Lapper Tender Name Role Phone Claudette Price MD Primary Care Provider [phone] Reason for Visit * Reason Onset Date Comments Hospital Follow-up 10/20/2024 Encounter Details Date Type Department Care Team ([facility] st Contact Info) Description 10/20/2024 Telephone [facility] MEDICINE [address] [place] [address] Claudette Price MD [address] [place], [place] [phone] Hospital Follow-up Social History Tobacco Use Types [...] encounter Miscellaneous Notes * Telephone Encounter - Larry Valerio - 10/20/2024 4:41 PM EDT Tc from pt requesting a HDF appt. Hospital: [facility] Date of admission: 10/13/24 Discharge date: 10/17/24 Diagnosed: Per D/S DX 1. Alcohol Withdrawal : fall at home documented in this encounter Plan of Treatment Upcoming Encounters Date Type Department Care Team (Late st Contact Info) Description 01/18/2025 11:30 AM EDT Office Visit [facility] MED & PEDS [address] [place] [address] Claudette Price MD [address] [place] [address] documented as of this encounter Visit Diagnoses Not on filedocumented in this encounter Care Teams Ribbon Lapper Tender Relationship Specialty Start Date End Date Claudette Price MD [address] [place] [address] PCP - General Family Medicine 04/12/18 John SPENCER 10/20/24 documented as of this encounter
--- OUTSIDE RECORDS SUMMARY | 2024-12-27 11:59 | XMS_ITS | Encounter Summary ---
Author Organization [employer] Address 75 [facility] 7 [place] [address] Care Team Providers Care Cornetist Name Role Phone Claudette Price MD Primary Care Provider [phone] Reason for Visit * Reason Onset Date Comments Referral 01/01/2023 Encounter Details Date Type Department Care Team ([facility] st Contact Info) Description 01/01/[address] [facility] CHC MED & PEDS [address] [place] [address] Claudette Price MD [address] [place] [address] Referral Social History Tobacco Use Types Packs/Day Years [...] encounter Miscellaneous Notes * Telephone Encounter - Kathya Oliveira - 01/01/2023 3:20 PM EDT Tc from patient calling in regards to orthopedic referral. States that's the wrong referral he states he has trouble breathing when he walks and needs to see a different doctor. Patient denied any symptoms states only when he walks a long distance. documented in this encounter Plan of Treatment Upcoming Encounters Date Type Department Care Team (Late st Contact Info) Description 01/18/2025 11:30 AM EDT Office Visit [facility] MED & PEDS [address] [place] [address] Claudette Price MD [address] [place] [address] documented as of this encounter Visit Diagnoses Not on filedocumented in this encounter Care Teams Cornetist Relationship Specialty Start Date End Date Claudette Price MD [address] [place] [address] PCP - General Family Medicine 04/12/18 John SPENCER 10/20/24 documented as of this encounter
--- OUTSIDE RECORDS SUMMARY | 2024-12-27 11:59 | XMS_ITS | Clinical Summary ---
Author Organization [employer] Address [address] [facility] [address] [place] [address] Care Team Providers Care Window/Distribution Clerk Name Role Phone Claudette Price MD Primary Care Provider [phone] Allergies Active Allergy Reactions Criticality Noted Date Comments Other 03/19/2022 Seasonal allergies per pervious EHR Medications naloxone (Narcan) 4 mg/0.1 mL nasal spray spray 0.1 milliliter by intranasal route in 1 nostril may repeat dose every 2-3 minutes as needed alternating nostrils with each dose 019 Active Spiriva HandiHaler 18 MCG inhalation capsule USE 1 CAPSULE FOR INHALATION ONCE A DAY DO NOT SWALLOW CAPSULE 30 capsule 11 023 Active nicotine polacrilex (Nicorette) 2 MG gum Chew 1 each (2 mg) if needed for smoking cessation. 100 each 024 Active loratadine (Claritin) 10 MG tablet TAKE ONE TABLET BY MOUTH EVERY DAY 90 tablet 3 025 Active FT Earwax Removal 6.5 % otic solution PLACE 5 TO 10 DROPS IN AFFECTED EAR(S) TWICE DAILY FOR FOUR DAYS 15 mL 025 Active metoprolol succinate XL (Toprol-XL) 100 MG 24 hr tabletIndications :Primary hypertension TAKE ONE TABLET BY MOUTH EVERY DAY 90 tablet 1 025 Active pravastatin (Pravachol) 40 MG tablet TAKE ONE TABLET EVERY DAY 30 tablet 5 025 Active ferrous sulfate (FerrouSul) 325 (65 Fe) MG tablet TAKE 2 TABLETS BY MOUTH WITH BREAKFAST 60 tablet 3 05/20/2 025 Active magnesium oxide (Mag-Ox) 400 MG tablet TAKE ONE TABLET BY MOUTH EVERY MORNING 30 tablet 3 Active furosemide (Lasix) 40 MG tablet Take 1 tablet by mouth Once per day. Active levothyroxine (Synthroid, Levoxyl) 125 MCG tabletIndications :Acquired hypothyroidism TAKE ONE TABLET BY MOUTH EVERY DAY 30 tablet 5 Active famotidine (Pepcid) 20 MG tabletIndications :Benign essential hypertension,Alco holic liver damage (CMS/HCC) TAKE ONE TABLET BY MOUTH EVERY MORNING 30 tablet 2 Active methocarbamol (Robaxin) 500 MG tablet TAKE TWO TABLETS BY MOUTH EVERY DAY AT BEDTIME NEEDED FOR PAIN 60 tablet 3 Active nystatin (Mycostatin) 488797 UNIT/GM powder Apply topically 3 times daily. Active oxyCODONE-acetami nophen (Percocet) 5-325 MG tabletIndications :Severe low back pain TAKE ONE TABLET EVERY 8 HOURS NEEDED FOR SEVERE PAIN 42 tablet Active hydrOXYzine HCl (Atarax) 10 MG tabletIndications :Anxiety TAKE 1 TO 2 TABLETS BY MOUTH TWICE DAILY NEEDED FOR ITCHING 60 tablet 11 023 2024 Discontinued(M ed list cleanup (will not trigger notification to Pharmacy)) oxyCODONE-acetami nophen (Percocet) 5-325 MG tabletIndications :Severe low back pain Take 1 tablet by mouth every 8 (eight) hours if needed for severe pain for up to 5 days. 15 tablet 025 2024 Discontinued(I neffective) Bouchra-Tussin 100 MG/5ML liquid Take 5 mL by mouth every 6 (six) hours if needed for cough. 2024 predniSONE (Deltasone) 10 MG tablet Take by mouth. 4 tabs once daily x 3 days, 3 tabs once daily x 3 days, 2 tabs once daily x 3 days, 1 tab once daily x 3 days 025 2024 oxyCODONE-acetami nophen (Percocet) 5-325 MG tabletIndications :Severe low back pain Take 1 tablet by mouth every 8 (eight) hours if needed for severe pain for up to 14 days. 42 tablet 025 2024 Discontinued(R eorder (will not trigger notification to Pharmacy)) oxyCODONE-acetami nophen (Percocet) 5-325 MG tabletIndications :Severe low back pain Take 1 tablet by mouth every 8 (eight) hours if needed for severe pain for up to 14 days. Do not start before December 14, 2024. 42 tablet 025 2024 Discontinued Active Problems Problem Noted Date Diagnosed Date Opioid dependence in remission 12/01/2024 Physical deconditioning 12/01/2024 Lung mass 12/01/2024 Rhinovirus 12/01/2024 Long-term current use of opiate analgesic 2024 Chronic liver failure without hepatic coma 06/26 Pulmonary emphysema, unspecified emphysema type 06/27/2023 Chronic renal disease, stage IV 06/27/2023 Overview (10/30/2024): Following with [facility] - Dr. Bee Assessment & Plan (10/30/2024 3:34 PM EDT): Follow up with specialist as scheduled Advised to avoid nsaids Obesity, morbid 06/27/2023 Chronic congestive heart failure 02/03/2023 Alcoholic liver damage 06/23/2019 Hypothyroidism 06/23/2019 Carcinoma of prostate 09/23/2017 Malignant tumor of prostate 09/23/2017 Severe low back pain 09/23/2017 Assessment & Plan (10/30/2024 3:40 PM EDT): Continues with judicious use of Percocet 5/325mg Q8H PRN. Following with KENNEL HELPER RN. NSAIDs not advised with hx of CKD No recent imaging on file. Not currently following with a specialist but would be interested Referral to [facility] Benign essential hypertension 01/28/2017 Hyperlipidemia 09/01/2016 Raised prostate specific antigen 10/16/2013 Arthritis 12/14/2012 Overview (03/19/2022): arthritis and large joint arthritis noted in previous EHR Alcohol use disorder 08/27/2011 Assessment & Plan (10/30/2024 3:33 PM EDT): Hospitalization 10/15 - 10/18 at [facility] Check folate/vit b12 Does not believe he has a problem, Consider CRS referral to AUD clinic if interested in future Pain in joint involving lower leg 08/27/2011 Mood disorder 08/27/2011 Hypercholesterolemia 08/27/2011 Hypertension 08/27/2011 Assessment & Plan (10/30/2024 3:44 PM EDT): Repeat BMP ordered Tobacco dependence syndrome 08/27/2011 Encounters Date Type Department Care Team Description 12/26/2024 Refill [facility] [address] [place] [address] Claudette Price MD Severe low back pain 12/12/2024 Refill [facility] [address] [place] [address] Erica Villasenor RN Severe low back pain 12/12/2024 Telephone [facility] [address] [place] [address] Claudette Price MD Medication Question 12/12/2024 Telephone [facility] [address] [place] [address] Claudette Price MD 12/01/2024 9:15 AM EDT Office Visit [facility] [address] [place] [address] Claudette Price MD Opioid dependence in remission (CMS/HCC) (Primary Dx); Severe low back pain; Chronic diastolic congestive heart failure (CMS/HCC); Malignant tumor of prostate (CMS/HCC); Acquired hypothyroidism; Physical deconditioning; Lung mass; Viral pneumonia 12/01/2024 Orders Only [facility] External Provider, [facility] 12/01/2024 Results Follow-Up [facility] [address] [place] [address] Claudette Price MD VASC US Lower Extremity Venous Duplex Bilateral 12/01/2024 Travel 11/30/2024 Telephone [facility] [address] [place] [address] Claudette Price MD Chart Prep 11/27/2024 Refill [facility] [address] [place] [address] Erica Villasenor RN Severe low back pain 11/27/2024 Patient Outreach [facility] [address] [place] [address] Claudette Price MD Transition Of Care (Tcm) (ERROR) 11/27/2024 Telephone [facility] [address] [place] [address] Claudette Price MD Med Refill 11/27/[address] [address] Claudette Price MD Nurse Triage 11/27/[address] [address] Claudette Price MD Hospital Follow-up 11/26/2024 Refill [facility] [address] [place] [address] Claudette Price MD Acquired hypothyroidism; Benign essential hypertension; Alcoholic liver damage (CMS/HCC) 11/20/2024 Telephone [facility] [address] [place] [address] Claudette Price MD Hospital Follow-up 11/17/[address] [address] Claudette Price MD Requesting call / fyi 11/13/[address] [address] Claudette Price MD Call Back Request 11/13/2024 Refill [facility] [address] [place] [address] Erica Villasenor RN Severe low back pain 11/13/2024 Telephone [facility] [address] [place] [address] Erica Villasenor, EDER Med Refill 11/10/[address] [address] Claudette Price MD Medication Question 11/06/[address] [address] Claudette Price MD fyi 11/03/[address] [address] Claudette Price MD Referral 10/31/[address] [address] Claudette Price MD Medication Question 10/30/2024 9:30 AM EDT Office Visit [facility] [address] [place] [address] Ita Wagner FNP Alcohol use disorder (Primary Dx); Encounter for immunization; Chronic renal disease, stage IV (CMS/HCC); Severe low back pain; Primary hypertension 10/30/2024 Orders Only GENERIC EXTERNAL DATA DEPARTMENT Provider, Generic External Data 10/30/2024 Travel 10/23/2024 Telephone [facility] [address] [place] [address] Erica Villasenor RN 10/23/[address] [address] Claudette Price MD Lab Orders 10/23/2024 Patient Outreach [address] [address] Claudette Price MD Transition Of Care (Tcm) (HDF scheduled and SDOH screening negative and Tobacco screening negative) 10/20/[address] [address] Claudette Price MD Hospital Follow-up 10/20/2024 Patient Outreach [facility] [address] [place] [address] Claudette Price MD Transition Of Care (Tcm) 10/20/2024 Telephone [facility] [address] [place] [address] Claudette Price MD Lab Orders 10/20/2024 Refill [facility] [address] [place] [address] Isatu Dvais MD Severe low back pain 10/19/2024 Telephone [facility] [address] [place] [address] Claudette Price MD Hospital Follow-up 10/19/2024 Telephone [facility] [address] [place] [address] Erica Villasenor RN 10/16/2024 Telephone [facility] [address] [place] [address] Erica Villasenor, RN Requesting call bcak 10/15/2024 Orders Only GENERIC EXTERNAL DATA DEPARTMENT Provider, Generic External Data 10/05/2024 Telephone [facility] [address] [place] [address] Claudette Price MD No Show from Last 3 Months Immunizations Immunization Administration Dates Next Due Hep B, adult 01/15/2020,02/04/2018 Influenza High-dose Quadriva lent Preservative Free 03/16/2023,02/04/2021,01/15/2020 Influenza Quadrivalent Adjuvanted 12/29/2021 Influenza injectable quadriv alent IIV4 with preservative 02/04/2018,01/14/2016 Influenza injectable quadriv alent preservative free 01/17/2019,01/28/2017 Influenza, High Dose Seasona l, Preservative Free 04/11/2024 Influenza, IIV3, injectable 01/18/2014 Influenza, Split (incl. genesis fied surface antigen) 12/14/2012,05/06/2012 Pfizer Covid-19 Vaccine 12+ 04/11/2024,1 05/11/2020,07/30/2020,07/08 Pfizer Covid-19 Vaccine 12+ Bivalent 12/29/2021 Pneumococcal Conjugate PCV 13 07/03/2014 Pneumococcal Conjugate PCV 20 10/30/2024 Pneumococcal Polysaccharide PPSV23 02/04/2018 Tdap 05/26/2016 Zoster, Recombinant 12/29/2021,03/11/2021 Zoster, live 10/06/2012 Social History Tobacco Use Types Packs/Day Years Used Date Smoking Tobacco: Every Day Pipe Cigars Passive Smoke Exposure: Current Smokeless Tobacco: Never Tobacco Cessation:Ready to Q uit: Yes; Counseling Given: Yes Housing Stability Answer Date Recorded What is [...] Orientation Straight 02/03/2023 11 :42 AM EDT Last Filed Vital Signs Vital Sign Reading Time Taken Comments Blood Pressure 160/70 12/01/2024 9:16 AM EDT Pulse 73 12/01/2024 9:16 AM EDT Temperature 36.2 C (97.1 F) 12/01/2024 9:16 AM EDT Respiratory Rate 20 12/01/2024 9:16 AM EDT Oxygen Saturation 98% 12/01/2024 9:16 AM EDT Inhaled Oxygen Concentration - - Weight 94.8 kg (209 lb) 12/01/2024 9:16 AM EDT Height 165.1 cm (5' 5 ) 10/30/2024 9:29 AM EDT Body Mass Index 34.78 10/30/2024 9:29 AM EDT Plan of Treatment Upcoming Encounters Date Type Department Care Team ([facility] st Contact Info) Description 01/18/2025 11:30 AM EDT Office Visit [facility] [address] [place] [address] Claudette Price MD [address] [place] [address] Health Maintenance Due Date Last Done Comments Depression Screening 1945 Alcohol/Substance Use Screening 1957 Hepatitis C Screening 12/10/1963 Hepatitis A Vaccines (1 of 2 - Risk 2-dose series) 1964 Hepatitis B Vaccines (3 of 3 - Risk 3-dose series) 03/11/2020 01/15/2020, 02/04/2018 RSV Patients and Patients Aged 60 years or older (1 - 1-dose 75+ series) 2020 SDOH Screening 01/26/2024 01/25/2023 COVID-19 Vaccine ( season) 2024 04/11/2024, 12/29/2021, 03/11/2021, Additional history exists Influenza Vaccine (#1) 2024 , 03/16/2023, 12/29/2021, Additional history exists Tobacco Screening 12/01/2025 12/01/2024 DTaP/Tdap/Td Vaccines (2 - Td or Tdap) 05/26/2026 05/26/2016 Lipid Panel 04/11/2029 04/11/2024, 01/11, 03/04/2021, Additional history exists Zoster Vaccines Completed 12/29/2021, 02/12, 10/06/2012 Pneumococcal Vaccine: 50+ Years Completed 10/30/2024, 02/04/2018, 07/03/2014 HIB Vaccines Aged Out No longer eligi ble based on patient's age to complete this topic HPV Vaccines Aged Out No longer eligi ble based on patient's age to complete this topic IPV Vaccines Aged Out No longer eligi ble based on patient's age to complete this topic Meningococcal B Vaccine Aged Out No l onger eligible based on patient's age to complete this topic Meningococcal Vaccine Aged Out No hardeep josselyn eligible based on patient's age to complete this topic RSV under 20 months Aged Out No longe r eligible based on patient's age to complete this topic Rotavirus Vaccines Aged Out No longer eligible based on patient's age to complete this topic Procedures Procedure Name Priority Date/Time Associated Diagnosis Comments XR LUMBAR SPINE COMPLETE 4+ VIEWS Routine 12/01/2024 2:10 PM EDT VASC US LOWER EXTREMITY VENOUS DUPLEX BILATERAL Routine 11/19/2024 10:30 AM EDT VITAMIN B12/FOLATE, SERUM PANEL Routine 10/30/2024 10:18 AM EDT PTH, INTACT WITHOUT CALCIUM Routine 10/30/2024 10:18 AM EDT PSA, TOTAL Routine 10/30/2024 10:18 AM EDT CBC Routine 10/30/2024 10:18 AM EDT COMPREHENSIVE METABOLIC PANEL Routine 10/30/2024 10:18 AM EDT URINALYSIS, COMPLETE, WITH REFLEX TO CULTURE Routine 10/15/2024 3:12 PM EDT HIGH SENSITIVITY TROPONIN I Routine 10/15/2024 1:01 PM EDT LIPASE Routine 10/15/2024 1:01 PM EDT BASIC METABOLIC PANEL Routine 10/15/2024 1:01 PM EDT HEPATIC FUNCTION PANEL Routine 10/15/2024 1:01 PM EDT ETHANOL Routine 10/15/2024 1:01 PM EDT CBC WITH AUTO DIFFERENTIAL Routine 10/15/2024 1:01 PM EDT LIPID PANEL, STANDARD Routine 04/11/2024 11:34 AM EST Alcoholic liver damage (CMS/HCC) Mixed hyperlipidemia Chronic renal disease, stage IV (CMS/HCC) Benign essential hypertension Acquired hypothyroidism from Last 3 Months or Most Recently Relevant to Health Maintenance Results * XR Lumbar Spine Complete 4+ Views (12/01/2024 2:10 PM EDT) Anatomical Region Laterality Modality Spine, L-spine Radiographic Gisselle ging 12/01/2024 2:10 PM EDT Narrative 12/01/2024 2:45 PM EDT [address] [address] XRay Report Signed Patient: John Ramos MR#: [id number] : 1945 Acct:[id number] Age/Sex: 78 / M ADM Date: 12/01/24 Loc: DI Attending Dr: Jesika Solis APRN, CNP Ordering Physician: Jesika Solis APRN, CNP Date of Service: 12/01/24 Procedure(s): XR lumbar spine 4V min Accession Number(s): [id number] cc: Claudette Price MD; Jesika Solis APRN, CNP Exam: 5 view x-ray lumbar spine Technique: Lateral, lateral spot, AP, and bilateral oblique view x-rays lumbar spine INDICATION: M54.9 - Dorsalgia, unspecified Prior: 03/18/2021 FINDINGS: Severe atherosclerotic ossifications are present in the abdominal aorta. There are 5 non-rib bearing lumbar segments. T12-L1: There is mild disc space narrowing. L1-L2: There is moderate disc space narrowing, vacuum phenomenon, and endplate osteophyte L2-L3: There is mild to moderate disc space during, vacuum phenomena, and retrolisthesis. There are endplate osteophytes. L3-L4: There is mild to moderate disc space narrowing with small anterior osteophytes and subtle retrolisthesis. L4-L5: There is mild disc space narrowing. There is facet sclerosis and osteophytes. L5-S1: There is facet sclerosis and osteophytes. XR/XR lumbar spine 4V min IMPRESSION: Multilevel degenerative disc disease and facet arthropathy has mildly progressed since the prior. Severe atherosclerotic disease. Electronically signed by: Shine Hitchcock MD 12/01/2024 02:41 PM EDT RP Dictated By: Shine Hitchcock MD Signed By: <Electronically signed by Shine Hitchcock MD in OV> 12/01/24 1441 DD/ 1410 TD/TT: 12/01/24 1417 Medical Office Coordinator: Procedure Note Donotuseinterpreter, Image - 12/01/[address] [address] XRay Report Signed Patient: John Ramos DMR#: [id number] : 1945cct:[id number] Age/Sex: 78 / MADM Date: 12/01/24 Loc: DI Attending Dr: Jesika Solis APRN, BHUMIKA Ordering Physician: Jesika Solis APRN, CNP Date of Service: 12/01/24 Procedure(s): XR lumbar spine 4V min Accession Number(s): [id number] cc: Claudette Price MD; Jesika Solis APRN, BHUMIKA Exam: 5 view x-ray lumbar spine Technique: Lateral, lateral spot, AP, and bilateral oblique view x-rays lumbar spine INDICATION: M54.9 - Dorsalgia, unspecified Prior: 03/18/2021 FINDINGS: Severe atherosclerotic ossifications are present in the abdominal aorta. There are 5 non-rib bearing lumbar segments. T12-L1: There is mild disc space narrowing. L1-L2: There is moderate disc space narrowing, vacuum phenomenon, and endplate osteophyte L2-L3: There is mild to moderate disc space during, vacuum phenomena, and retrolisthesis. There are endplate osteophytes. L3-L4: There is mild to moderate disc space narrowing with small anterior osteophytes and subtle retrolisthesis. L4-L5: There is mild disc space narrowing. There is facet sclerosis and osteophytes. L5-S1: There is facet sclerosis and osteophytes. XR/XR lumbar spine 4V min IMPRESSION: Multilevel degenerative disc disease and facet arthropathy has mildly progressed since the prior. Severe atherosclerotic disease. Electronically signed by: Shine Hitchcock MD 12/01/2024 02:41 PM EDT RP Dictated By: Shine Hitchcock MD Signed By: <Electronically signed by Shine Hitchcock MD in OV> 12/01/24 1441 DD/ 1410 TD/TT: 12/01/24 1417 Medical Office Coordinator: [facility] External Provider IMG XR PROCEDURES Final Result * [facility] US Lower Extremity Venous Duplex Bilateral (11/19/2024 10:30 AM EDT) 11/19/2024 10:3 0 AM EDT Narrative [facility] - 11/20/2024 8:59 AM EDT [address] [address] Ultrasound Report Signed Patient: John Ramos MR#: [id number] : 1945 Acct:[id number] Age/Sex: 78 / M ADM Date: 11/19/24 Loc: [facility] [address]: Frannie Jackson MD Ordering Physician: Latonya Swan Date of Service: 11/19/24 Procedure(s): US venous duplex LE BI Accession Number(s): [id number] cc: Latonya Swan; Claudette Price MD EXAMINATION: US LOWER EXTREMITY VEINS BILATERAL HISTORY: edema, rule out DVT, pt sedentary COMPARISON: There are no prior studies available for comparison. TECHNIQUE: Duplex and color Doppler sonographic examination of the deep venous system of the bilateral lower extremities was performed. FINDINGS: The right common femoral, superficial femoral, and popliteal veins are patent demonstrating normal compressibility, spontaneous flow, and augmentation. There is a normal color and spectral Doppler waveform appearance of the visualized deep venous system above the knee. The posterior tibial and peroneal veins are patent. The left common femoral, superficial femoral, and popliteal veins are patent demonstrating normal compressibility, spontaneous flow, and augmentation. There is a normal color and spectral Doppler waveform appearance of the visualized deep venous system above the knee. The posterior tibial and peroneal veins are patent. US/US venous duplex LE BI IMPRESSION: No evidence of acute DVT in the bilateral lower extremities. Electronically signed by: Schuyler Khan MD 11/20/2024 08:56 AM EDT RP Dictated By: Schuyler Khan MD Signed By: <Electronically signed by Schuyler Khan MD in OV> 11/20/24 0856 DD/ 1030 TD/TT: 11/19/24 1056 Medical Office Coordinator: Procedure Note Donotuseinterpreter, Image - 11/20/2024 [place] [address] Ultrasound Report Signed Patient: John Ramos [facility]#: [id number] : 1945cct:[id number] Age/Sex: 78 / MADM Date: 11/19/24 Loc: [facility] [address] [address]: Frannie Jackson MD Ordering Physician: Latonya Swan Date of Service: 11/19/24 Procedure(s): US venous duplex LE BI Accession Number(s): [id number] cc: Latonya Swan; Claudette Price MD EXAMINATION: US LOWER EXTREMITY VEINS BILATERAL HISTORY: edema, rule out DVT, pt sedentary COMPARISON: There are no prior studies available for comparison. TECHNIQUE: Duplex and color Doppler sonographic examination of the deep venous system of the bilateral lower extremities was performed. FINDINGS: The right common femoral, superficial femoral, and popliteal veins are patent demonstrating normal compressibility, spontaneous flow, and augmentation. There is a normal color and spectral Doppler waveform appearance of the visualized deep venous system above the knee. The posterior tibial and peroneal veins are patent. The left common femoral, superficial femoral, and popliteal veins are patent demonstrating normal compressibility, spontaneous flow, and augmentation. There is a normal color and spectral Doppler waveform appearance of the visualized deep venous system above the knee. The posterior tibial and peroneal veins are patent. US/US venous duplex LE BI IMPRESSION: No evidence of acute DVT in the bilateral lower extremities. Electronically signed by: Schuyler Khan MD 11/20/2024 08:56 AM EDT RP Dictated By: Schuyler Khan MD Signed By: <Electronically signed by Schuyler Khan MD in OV> 11/20/24 0856 DD/ 1030 TD/TT: 11/19/24 1056 Medical Office Coordinator: [facility] External Provider CV VASC ULAR PROCEDURES Final Result Performing Organization Address [facility] Co de Phone Number [facility] [address] [place] [phone] * Vitamin B12 (Cobalamin) and Folate Panel, Serum (10/30/2024 10:18 AM EDT) [facility] Vitamin B12 310 200 - 900 pg/mL [facility] Comment:NORMAL 200-900 PG/ML INDETERMINATE 160-199 PG/ML DEFICIENT < 160 PG/ML Folate 18.6 > or = 4.0 ng/mL [facility] Comment:Reference Values:> o r = 4.0 ng/mL< 4.0 ng/mL suggests folate deficiency Methotrexate, aminopterin and folinic acid(leucovorin) are chemotherapeutic agents whose molecularstructures are similar to folate; therefore, the Architectfolate assay cannot be used for patients using these drugs. 10/30/2024 10:1 8 AM EDT 10/30/2024 2:03 PM EDT Generic External Data Provider LAB BLOOD ORDERAB LES Final Result Performing Organization Address [facility] Co de Phone Number [facility] [address] [place] [phone] * (ABNORMAL) CBC (10/30/2024 10:18 AM EDT) [facility] White Blood Count 7.9 4.8 - 10.8 X10*3/uL [facility] Red Blood Count 3.30(L) 4.60 - 5.80 X10*6/uL [facility] Hemoglobin 11.4(L) 14.0 - 18.0 g/dl [facility] Hematocrit 33.7(L) 42.0 - 52.0 % [facility] Mean Corpuscular Volume 102.1(H) 80.0 - 98.0 fL [facility] Mean Corpuscular Hemoglobin 34.5(H) 27.0 - 33.0 pg [facility] Mean Corpuscular HGB Conc 33.8 31.0 - 36.0 g/dl [facility] Red Cell Distribution Width 13.8 11.0 - 16.0 % [facility] Platelet Count 401(H) 160 - 400 X10*3/uL [facility] Mean Platelet Volume 9.5 9.4 - 12.4 fL [facility] NRBC Pct Auto 0.0 0.0 - 0.2 /100WBC [facility] NRBC Abs Auto 0.000 0.0 - 0.012 X10*3/uL [facility] 10/30/2024 10:1 8 AM EDT 10/30/2024 2:03 PM EDT us Generic External Data Provider LAB BLOOD ORDERAB LES Final Result [facility] [address] [place] [phone] * (ABNORMAL) PSA,Total (10/30/2024 10:18 AM EDT) Pathologist [facility] Prostate Specific Antigen 6.28(H) <0.05 - 4.0 ng/mL [facility] Comment:PSA methodology: Abb ned Aliantoniettaty i ChemiluminescentMicroparticle Immunoassay (CMIA) 10/30/2024 10:1 8 AM EDT 10/30/2024 2:03 PM EDT us Generic External Data Provider LAB BLOOD ORDERAB LES Final Result Performing Organization Address [facility] [facility]/ZIP Co de Phone Number [facility] [address] [place] [address] [phone] * (ABNORMAL) PTH, Intact Without Calcium (10/30/2024 10:18 AM EDT) Parathyroid Hormone, Intact 135.8(H) 8.7 - 77.1 pg/mL [facility] 10/30/2024 10:1 8 AM EDT 10/30/2024 2:03 PM EDT Generic External Data Provider LAB BLOOD ORDERAB LES Final Result Performing Organization Address [facility] de Phone Number [facility] [address] [place] [phone] * (ABNORMAL) Comprehensive Metabolic Panel (10/30/2024 10:18 AM EDT) Sodium 138 135 - 145 mmol/L [facility] Potassium 3.7 3.3 - 5.1 mmol/L [facility] Chloride 107 96 - 108 mmol/L [facility] Carbon Dioxide 22 22 - 29 mmol/L [facility] Anion Gap 13 12 - 20 [facility] Urea Nitrogen (BUN) 12 9 - 16 mg/dL [facility] Creatinine, Serum 0.83 0.5 - 1.4 mg/dL [facility] Estimated Glomerular Filt Rate >60 [facility] Comment:Chronic Kidney Disea se: Estimated GFR < 60 mL/min/[id number] Kidney Disease: Estimated GFR < 15 mL/min/1.73m2 Glucose 78 60 - 115 mg/dL [facility] Calcium 8.3(L) 8.4 - 10.2 mg/dL [facility] Bilirubin, Total 0.2 0.0 - 1.0 mg/dL [facility] Aspartate Amino Transferase 32 5 - 37 U/L [facility] Alanine Aminotransferase 27 0 - 40 U/L [facility] Total Protein 6.8 6.5 - 8.0 g/dL [facility] Albumin Level 3.5 3.5 - 5.0 g/dL [facility] Alkaline Phosphatase 123(H) 39 - 117 U/L [facility] 10/30/2024 10:1 8 AM EDT 10/30/2024 2:03 PM EDT us Generic External Data Provider LAB BLOOD ORDERAB LES Final Result [facility] [address] [place] [phone] * (ABNORMAL) Urinalysis, Complete, with Reflex to Culture (10/15/2024 3:12 PM EDT) Color Urine Yellow [facility] Appearance Urine Clear [facility] PH 5.5 5.0 - 9.0 [facility] Glucose Urine UA Negative Negative mg/dL [facility] Urine Blood Negative Negative [facility] Specific [place] - Urine 1.015 1.005 - 1.025 [facility] Urine Protein Negative Neg-Trace mg/dL [facility] Urine Ketones Negative Negative mg/dL [facility] Nitrite Urine Negative Negative [facility] Leukocyte Esterase Urine Small (1+)(A) Negative [facility] RBC Urine 0-2 0 - 2 /HPF [facility] Urine WBC 0-5 0 - 5 /HPF [facility] Urine Squamous Epithelial Cell 3-5 0 - 2 /HPF [facility] Urine Bacteria 1+ None Seen [facility] Hyaline Casts, Urine 0-2 0 - 2 /LPF [facility] 10/15/2024 3:12 PM EDT 10/15/2024 3:16 PM EDT Narrative [facility] - 10/15/2024 4:16 PM EDT [id number], Clean Catch Generic External Data Provider LAB URINE ORDERAB LES Final Result Performing Organization Address [facility] Phone Number [facility] [address] [place] [phone] * High Sensitivity Troponin I (10/15/2024 1:01 PM EDT) [facility] TROPONIN I HIGH SENSITIVITY 11.3 <3.5 - 35.0 ng/L [facility] Comment:The [place] high sens itivity Troponin-I results should beused in conjunction with other diagnostic information suchas ECG, clinical observations and information, and patientsymptoms to aid in the diagnosis of [place]. 10/15/2024 1:01 PM EDT 10/15/2024 1:05 PM EDT Generic External Data Provider LAB BLOOD ORDERAB LES Final Result Performing Organization Address [facility] Number [facility] [address] [place] [phone] * Ethanol (10/15/2024 1:01 PM EDT) [facility] ETHANOL (MG/DL) IN SER/PLAS 139 mg/dL [facility] Comment:Serum/plasma ethanol results are to be used formedical/treatment purposes only. 10/15/2024 1:01 PM EDT 10/15/2024 1:05 PM EDT Generic External Data Provider LAB BLOOD ORDERAB LES Final Result Performing Organization Address [facility] de Phone Number [facility] [address] [place] [phone] * (ABNORMAL) CBC auto differential (10/15/2024 1:01 PM EDT) [facility] White Blood Count 9.4 4.8 - 10.8 X10*3/uL [facility] Red Blood Count 3.21(L) 4.60 - 5.80 X10*6/uL [facility] Hemoglobin 10.8(L) 14.0 - 18.0 g/dl [facility] Hematocrit 31.3(L) 42.0 - 52.0 % [facility] Mean Corpuscular Volume 97.5 80.0 - 98.0 fL [facility] Mean Corpuscular Hemoglobin 33.6(H) 27.0 - 33.0 pg [facility] Mean Corpuscular HGB Conc 34.5 31.0 - 36.0 g/dl [facility] Red Cell Distribution Width 14.1 11.0 - 16.0 % [facility] Platelet Count 236 160 - 400 X10*3/uL [facility] Mean Platelet Volume 9.2(L) 9.4 - 12.4 fL [facility] Neutrophils Percent Auto 69.0 45 - 73 % [facility] Imm Gran Pct Auto 1.0(H) 0.0 - 0.4 % [facility] Lymphocytes Percent Auto 15.5(L) 20 - 40 % [facility] Monocytes Percent Auto 12.6(H) 2 - 11 % [facility] Eosinophils Percent Auto 1.6 0 - 4 % [facility] Basophils Percent Auto 0.3 0 - 2 % [facility] NRBC Pct Auto 0.0 0.0 - 0.2 /100WBC [facility] Neutrophils Absolute Auto 6.5 2.0 - 8.3 x10*3/uL [facility] Imm Gran Abs Auto 0.09(H) 0.00 - 0.03 X10*3/uL [facility] Lymphocytes Absolute Auto 1.5 1.2 - 4.9 X10*3/uL [facility] Monocytes Absolute Auto 1.2 0.1 - 1.2 X10*3/uL [facility] Eosinophils Absolute Auto 0.2 0.0 - 0.4 X10*3/uL [facility] Basophils Absolute Auto 0.0 0.0 - 0.2 X10*3/uL [facility] NRBC Abs Auto 0.000 0.0 - 0.012 X10*3/uL [facility] 10/15/2024 1:01 PM EDT 10/15/2024 1:05 PM EDT us Generic External Data Provider LAB BLOOD ORDERAB LES Final Result Performing Organization Address [facility]/ZIP Co de Phone Number [facility] [address] [place] [phone] * Lipase (10/15/2024 1:01 PM EDT) Lipase 13 8 - 78 U/L [facility] 10/15/2024 1:01 PM EDT 10/15/2024 1:05 PM EDT us Generic External Data Provider LAB BLOOD ORDERAB LES Final Result Performing Organization Address [facility] Co de Phone Number [facility] [address] [place] [phone] * Hepatic Function Panel (10/15/2024 1:01 PM EDT) Bilirubin, Total 0.3 0.0 - 1.0 mg/dL [facility] Bilirubin, Direct 0.2 0.0 - 0.5 mg/dL [facility] Aspartate Amino Transferase 20 5 - 37 U/L [facility] Alanine Aminotransferase 9 0 - 40 U/L [facility] Total Protein 6.8 6.5 - 8.0 g/dL [facility] Albumin Level 3.6 3.5 - 5.0 g/dL [facility] Alkaline Phosphatase 87 39 - 117 U/L [facility] 10/15/2024 1:01 PM EDT 10/15/2024 1:05 PM EDT us Generic External Data Provider LAB BLOOD ORDERAB LES Final Result Performing Organization Address [facility]/ZIP Co de Phone Number [facility] [address] [place] [phone] * (ABNORMAL) Basic Metabolic Panel (10/15/2024 1:01 PM EDT) Sodium 140 135 - 145 mmol/L [facility] Potassium 4.1 3.3 - 5.1 mmol/L [facility] Chloride 105 96 - 108 mmol/L [facility] Carbon Dioxide 22 22 - 29 mmol/L [facility] Anion Gap 17 12 - 20 [facility] Urea Nitrogen (BUN) 49(H) 9 - 16 mg/dL [facility] Creatinine, Serum 1.61(H) 0.5 - 1.4 mg/dL [facility] Creatinine Clr Calc Pharmacy 35.3 [facility] Comment:eGFR (calculated fro m the MDRD study equation) and eCrCl(calculated from the Cockcroft-Gault equation) are based ondifferent parameters and may not yield comparable results.If eCrCl result is absurd, please check patient'sheight/weight. Estimated Glomerular Filt Rate 42 [facility] Comment:Chronic Kidney Disea se: Estimated GFR < 60 mL/min/[id number] Kidney Disease: Estimated GFR < 15 mL/min/1.73m2 Glucose 96 60 - 115 mg/dL [facility] Calcium 8.7 8.4 - 10.2 mg/dL [facility] 10/15/2024 1:01 PM EDT 10/15/2024 1:05 PM EDT us Generic External Data Provider LAB BLOOD ORDERAB LES Final Result [facility] [address] [place] [phone] * (ABNORMAL) Lipid Panel, Standard (04/11/2024 11:34 AM EST) Triglycerides 134 <150 mg/dL [facility] Comment:Slight Lipemia.Vicki able Triglyceride: less than 150 mg/dLBorderline High Triglyceride 150-199 mg/dLHigh Triglyceride: 200-499 mg/dLVery High Triglyceride: greater than or equal to 5OO mg/dL Cholesterol 177 <200 mg/dL [facility] Comment:Desirable Cholestero l: less than 200 mg/dLBorderline High Cholesterol: 200-239 mg/dLHigh Cholesterol: greater than 239 mg/dL LDL Cholesterol Calculated 121(H) <100 mg/dL [facility] Comment:Desirable LDL: less than 100 mg/dLNear Optimal/Above Optimal LDL: 110- 129 mg/dLBorderline High LDL: 130-159 mg/dLHigh LDL: 160-189 mg/dLVery High LDL: greater than or equal to 190 mg/dL HDL Cholesterol 30(L) >40 mg/dL [facility] Comment:Desirable HDL: great er than 40 mg/dL Note: This HDL assay may give artificially low results in patients with liver disease. Blood Venous blood specimen / Unknown 04/11/2024 11:34 AM EST 04/11/2024 2:57 PM EST us Claudette Price MD LAB BLOOD ORDERABLES Final Re sult [facility] [address], [place] [phone] from Last 3 Months or Most Recently Relevant to Health Maintenance Insurance [facility] DUAL COMPLETE Care Teams Window/Distribution Clerk Relationship Specialty Start Date End Date Claudette Price MD [address] [place] [address] [place] [address] PCP - General Family Medicine 04/12/18 John SPENCER 10/20/24
--- OUTSIDE RECORDS SUMMARY | 2024-12-27 11:59 | XMS_ITS | Encounter Summary ---
Author Organization [employer] Address [address] [facility] 7 [place] [address] Care Team Providers Care Refining Equipment Operator Name Role Phone Claudette Price MD Primary Care Provider Reason for Visit * Reason Onset Date Comments Nurse Triage 09/11/2024 Encounter Details Date Type Department Care Team ([facility] st Contact Info) Description 09/11/2024 Telephone [facility] MEDICINE [address] [place] [address] Claudette Price MD [address] [place], [place] [phone] Nurse Triage Social History Tobacco Use Types [...] t he electric, gas, oil or water [employer] threatened to shut off services in your home? No 01/25/2023 Sex and Gender Information Value Date Recorded Sex Assigned at Male 02/09/2022 10:17 AM EDT Legal Sex Male 10:17 AM EDT Gender Identity Male 02/09/2022 10:17 AM EDT Sexual Orientation Straight 02/03/2023 11 :42 AM EDT documented as of this encounter Miscellaneous Notes * Telephone Encounter - Taina Sigala RN - 09/11/2024 3:38 PM EDT called pt to triage spoke to pt. pt states seen ER at [facility] on 09/07 for episode of shakiness and difficult speech. pt states nothing acute found and was told it could be alcohol withdrawl. 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 pt denies further symptoms, shakes, difficult speech, tremors, or other associated symptoms. advised home are: rest, fluids, avoid alcohol, and call back or visit ER again if further episodes of other acute symptoms. given appt with [facility] provider at 3:15 for exam. pt understands and agrees with plan. insurance verified. Protocol Used: Muscle Jerks - Tics - Shudders (Pediatric) Protocol-Based Disposition: See in Office or Video Visit within 2 Weeks Video visit offer not recorded Positive Triage Question: * Shuddering often occurs without an obvious cause * All higher-acuity triage questions were negative Care Advice Discussed: * Reasons To Call Back - You have other questions or concerns * Telephone Encounter - Jn Patton - 09/11/2024 3:02 PM EDT Patient calling to report ED visit on : Date: 09/07/24 Hospital: [facility] Seen for: Shakes Symptomatic Yes *if yes message should go to Triage Symptom: Dizziness Outcome: Schedule an urgent appointment (within 4 hours) or talk to a nurse or provider soon Reason: Getting worse documented in this encounter Plan of Treatment Upcoming Encounters Date Type Department Care Team (Late st Contact Info) Description 01/18/2025 11:30 AM EDT Office Visit [facility] MED & PEDS [address] [place] [address] Claudette Price MD [address] [place] [address] documented as of this encounter Visit Diagnoses Not on filedocumented in this encounter Care Teams Refining Equipment Operator Relationship Specialty Start Date End Date Claudette Price MD [address] [place] [address] PCP - General Family Medicine 04/12/18 John SPENCER 10/20/24 documented as of this encounter
--- OUTSIDE RECORDS SUMMARY | 2024-12-27 11:59 | XMS_ITS | Encounter Summary ---
Author Organization [employer] Address [address] [facility] 7 [place] [address] Care Team Providers Care Skin Diving Teacher Name Role Phone Claudette Price MD Primary Care Provider [phone] Reason for Visit * Reason Comments Med Refill Encounter Details Date Type Department Care Team ([facility] st Contact Info) Description 12/26/2024 Refill [facility] MED & PEDS [address] [place] [address] Claudette Price MD [address] [place] [address] Severe low back pain Social History Tobacco [...] Description 01/18/2025 11:30 AM EDT Office Visit [facility] MED & PEDS [address] [place] [address] Claudette Price MD [address] [place] [address] documented as of this encounter Visit Diagnoses Diagnosis Severe low back pain Lumbago documented in this encounter Care Teams Skin Diving Teacher Relationship Specialty Start Date End Date Claudette Price MD [address] [place] [address] PCP - General Family Medicine 04/12/18 John SPENCER 10/20/24 documented as of this encounter
--- OUTSIDE RECORDS SUMMARY | 2024-12-27 11:59 | XMS_ITS | Encounter Summary ---
Author Organization [employer] Address [address] [facility] 7 [place] [address] Care Team Providers Care Supervisor Agricultural Education Name Role Phone Claudette Price MD Primary Care Provider [phone] Reason for Visit * Reason Onset Date Comments Call Back Request 03/15/2023 Encounter Details Date Type Department Care Team ([facility] st Contact Info) Description 03/15/2023 Telephone [facility] MEDICINE [address] [place] [address] Claudette Price MD [address] [place], [place] [phone] Call Back Request Social History Tobacco Use Types Packs/Day Years [...] encounter Miscellaneous Notes * Telephone Encounter - Raya Avila RN - 03/15/2023 4:22 PM EST Noted. Pt can request w/c when arriving to clinic by any staff. * Telephone Encounter - Willem Williamson - 03/15/2023 10:53 AM EST Tc from patient requesting a call back in regards to appt on 03/16 states previous appt a nurse fromthe facility waits for the patient with wheelchair due to being unable to walk for long periods of time please call patient back to confirm. documented in this encounter Plan of Treatment Upcoming Encounters Date Type Department Care Team (Late st Contact Info) Description 01/18/2025 11:30 AM EDT Office Visit [facility] MED & PEDS [address] [place] [address] Claudette Price MD [address] [place] [address] documented as of this encounter Visit Diagnoses Not on filedocumented in this encounter Care Teams Supervisor Agricultural Education Relationship Specialty Start Date End Date Claudette Price MD [address] [place] [address] PCP - General Family Medicine 04/12/18 John SPENCER 10/20/24 documented as of this encounter
--- OUTSIDE RECORDS SUMMARY | 2024-12-27 11:59 | XMS_ITS | Encounter Summary ---
Author Organization [employer] Address [address] [facility] 7 [place] [address] Care Team Providers Care Agriculture Teacher Name Role Phone Claudette Price MD Primary Care Provider [phone] Reason for Visit * Reason Comments Med Refill Encounter Details Date Type Department Care Team ([facility] st Contact Info) Description 01/25/2023 Refill [facility] CH[facility] MED & PEDS [address] [place] [address] Claudette Price MD [address] [place] [address] Severe low back pain Social History Tobacco [...] 01/18/2025 11:30 AM EDT Office Visit [facility] MED & PEDS [address] [place] [address] Claudette Price MD [address] [place] [address] documented as of this encounter Visit Diagnoses Diagnosis Severe low back pain Lumbago documented in this encounter Care Teams Agriculture Teacher Relationship Specialty Start Date End Date Claudette Price MD [address] [place] [address] PCP - General Family Medicine 04/12/18 John SPENCER 10/20/24 documented as of this encounter
--- OUTSIDE RECORDS SUMMARY | 2024-12-27 11:59 | XMS_ITS | Encounter Summary ---
Author Organization [employer] Address [address] [facility] 7 [place] [address] Care Team Providers Care Receiving Supervisor Name Role Phone Claudette Price MD Primary Care Provider [phone] Reason for Visit * Reason Onset Date Comments Med Refill 02/11/2024 Encounter Details Date Type Department Care Team (Late st Contact Info) Description 02/11/2024 Telephone [facility] MEDICINE [address] [place] [address] Claudette Price MD [address] [place], [place] [phone] Med Refill Social History Tobacco Use Types Packs/Day Years [...] * Telephone Encounter - Jn Patton - 02/11/2024 4:08 PM EDT TC from pt requesting medication refill. Medications needing refill: oxyCODONE-acetaminophen (Percocet) 5-325 MG tablet To be sent to: [facility] - [place], [place] - [address] [place] [address] documented in this encounter Plan of Treatment Upcoming Encounters Date Type Department Care Team (Late st Contact Info) Description 01/18/2025 11:30 AM EDT Office Visit [facility] MED & PEDS [address] [place] [address] Claudette Price MD [address] [place] [address] documented as of this encounter Visit Diagnoses Not on filedocumented in this encounter Care Teams Receiving Supervisor Relationship Specialty Start Date End Date Claudette Price MD [address] [place] [address] PCP - General Family Medicine 04/12/18 John SPENCER 10/20/24 documented as of this encounter
--- OUTSIDE RECORDS SUMMARY | 2024-12-27 11:59 | XMS_ITS | Encounter Summary ---
Author Organization [employer] Address [address] [facility] 7 [place] [address] Care Team Providers Care Dressmaking Teacher Name Role Phone Claudette Price MD Primary Care Provider [phone] Reason for Visit * Reason Comments Med Refill Encounter Details Date Type Department Care Team ([facility] st Contact Info) Description 06/07/2023 Refill [facility] MED & PEDS [address] [place] [address] Claudette Price MD [address] [place] [address] Benign essential hypertension; Alcoholic liver damage (CMS/HCC) Social History Tobacco Use Types Packs/Day Years [...] Upcoming Encounters Date Type Department Care Team ([facility] st Contact Info) Description 01/18/2025 11:30 AM EDT Office Visit [facility] MED & PEDS [address] [place] [address] Claudette Price MD [address] [place] [address] documented as of this encounter Visit Diagnoses Diagnosis Benign essential hypertension Essential hypertension, benign Alcoholic liver damage (CMS/HCC) Unspecified alcoholic liver damage documented in this encounter Care Teams Dressmaking Teacher Relationship Specialty Start Date End Date Claudette Price MD [address] [place] [address] PCP - General Family Medicine 04/12/18 John SPENCER 10/20/24 documented as of this encounter
--- OUTSIDE RECORDS SUMMARY | 2024-12-27 11:59 | XMS_ITS | Encounter Summary ---
Author Organization [employer] Address [address] [facility] 7 [place] [address] Care Team Providers Care Agile Developer Name Role Phone Claudette Price MD Primary Care Provider [phone] Reason for Visit * Reason Onset Date Comments Requesting call / fyi 11/17/2024 Encounter Details Date Type Department Care Team ([facility] st Contact Info) Description 11/17/2024 Telephone [facility] MEDICINE [address] [place] [address] Claudette Price MD [address] [place], [place] [phone] Requesting call / fyi Social History Tobacco Use Types Packs/Day Years [...] encounter Miscellaneous Notes * Telephone Encounter - Mady Mitchell - 11/17/2024 12:28 PM EDT Tc from pt requesting a call back in regards of him been hospitalized at the moment, possibly out today or tomorrow. Contact pt at [phone] documented in this encounter Plan of Treatment Upcoming Encounters Date Type Department Care Team (Late st Contact Info) Description 01/18/2025 11:30 AM EDT Office Visit [facility] CH[facility] MED & PEDS [address] [place] [address] Claudette Price MD [address] [place] [address] documented as of this encounter Visit Diagnoses Not on filedocumented in this encounter Care Teams Agile Developer Relationship Specialty Start Date End Date Claudette Price MD [address] [place] [address] PCP - General Family Medicine 04/12/18 John SPENCER 10/20/24 documented as of this encounter
--- OUTSIDE RECORDS SUMMARY | 2024-12-27 11:59 | XMS_ITS | Encounter Summary ---
Author Organization [employer] Address [address] [facility] 7 [place] [address] Care Team Providers Care Field Crop Farming Supervisor Name Role Phone Claudette Price MD Primary Care Provider [phone] Reason for Visit * Reason Onset Date Comments Medication Question 11/10/2024 Encounter Details Date Type Department Care Team ([facility] st Contact Info) Description 11/10/2024 Telephone [facility] MEDICINE [address] [place] [address] Claudette Price MD [address] [place], [place] [phone] Medication Question Social History Tobacco Use Types Packs/Day Years [...] encounter Miscellaneous Notes * Telephone Encounter - Jngarcía Patton - 11/10/2024 2:44 PM EDT Tc from pt stating hs medication was damaged and he only has 3 left, requesting a call back to further discuss. Medication: oxyCODONE-acetaminophen (Percocet) 5-325 MG tablet Please contact pt at [phone]. documented in this encounter Plan of Treatment Upcoming Encounters Date Type Department Care Team (Late st Contact Info) Description 01/18/2025 11:30 AM EDT Office Visit [facility] MED & PEDS [address] [place] [address] Claudette Price MD [address] [place] [address] documented as of this encounter Visit Diagnoses Not on filedocumented in this encounter Care Teams Field Crop Farming Supervisor Relationship Specialty Start Date End Date Claudette Price MD [address] [place] [address] PCP - General Family Medicine 04/12/18 John SPENCER 10/20/24 documented as of this encounter
--- OUTSIDE RECORDS SUMMARY | 2024-12-27 11:59 | XMS_ITS | Encounter Summary ---
Author Organization [employer] Address [address] [place] [address] [address], [place] [address] Care Team Providers Care Control Clerk Repairs Name Role Phone Claudette Price MD Primary Care Provider [phone] Encounter Details Date Type Department Care Team (Late st Contact Info) Description 03/30/2022 Telephone [facility] [address] [place] [address] Claudette Price MD [address] [place] [address] Social History Tobacco Use Types Packs/Day Years [...] Description 01/18/2025 11:30 AM EDT Office Visit [facility] MED & PEDS [address] [place] [address] Claudette Price MD [address] [place] [address] documented as of this encounter Visit Diagnoses Not on filedocumented in this encounter Care Teams Control Clerk Repairs Relationship Specialty Start Date End Date Claudette Price MD [address] [place] [address] PCP - General Family Medicine 04/12/18 John SPENCER 10/20/24 documented as of this encounter
--- OUTSIDE RECORDS SUMMARY | 2024-12-27 11:59 | XMS_ITS | Encounter Summary ---
Author Organization [employer] Address [address] [facility] 7 [place] [address] Care Team Providers Care Office Copy Selector Name Role Phone Claudette Price MD Primary Care Provider [phone] Encounter Details Date Type Department Care Team ([facility] Contact Info) Description 12/01/2024 Results Follow-Up [facility]S [address] [place] [address] Claudette Price MD [address] [place] [address] VASC US Lower Extremity Venous Duplex Bilateral Social History Tobacco Use Types Packs/Day Years [...] t he electric, gas, oil or water [employer] threatened to shut off services in your [...] Description 01/18/2025 11:30 AM EDT Office Visit [facility] MED [facility] PEDS [address] [place] [address] Claudette Price MD [address] [place] [address] documented as of this encounter Visit Diagnoses Not on filedocumented in this encounter Care Teams Office Copy Selector Relationship Specialty Start Date End Date Claudette Price MD [address] [place] [address] PCP - General Family Medicine 04/12/18 John SPENCER 10/20/24 documented as of this encounter
--- OUTSIDE RECORDS SUMMARY | 2024-12-27 11:59 | XMS_ITS | Encounter Summary ---
Author Organization [email or web address] Address [address] [facility] [address] [place] [address] Care Team Providers Care Nursery Helper Name Role Phone Claudette Price MD Primary Care Provider [phone] Encounter Details Date Type Department Care Team ([facility] st Contact Info) Description 03/15/2023 Telephone [facility] [address] [place] [address] Claudette Price MD [address] [place], [place] [id number] Social History Tobacco Use Types Packs/Day Years [...] Description 01/18/2025 11:30 AM EDT Office Visit [facility] MED [facility] PED[facility] [address] [place] [address] Claudette Price MD [address] [place] [address] documented as of this encounter Visit Diagnoses Not on filedocumented in this encounter Care Teams Nursery Helper Relationship Specialty Start Date End Date Claudette Price MD [address] [place] [address] PCP - General Family Medicine 04/12/18 John SPENCER 10/20/24 documented as of this encounter
--- OUTSIDE RECORDS SUMMARY | 2024-12-27 11:59 | XMS_ITS | Encounter Summary ---
Author Organization [employer] Address [address] [facility] 7 [place] [address] Care Team Providers Care Leadership Program Intern Name Role Phone Claudette Price MD Primary Care Provider [phone] Reason for Visit * Reason Comments Med Refill Encounter Details Date Type Department Care Team ([facility] st Contact Info) Description 10/25/2023 Refill [facility] MED & PEDS [address] [place] [address] Claudette Price MD [address] [place] [address] Severe low back pain Social History Tobacco [...] Description 01/18/2025 11:30 AM EDT Office Visit [facility] MED & PED[facility] [address] [place] [address] Claudette Price MD [address] [place] [address] documented as of this encounter Visit Diagnoses Diagnosis Severe low back pain Lumbago documented in this encounter Care Teams Leadership Program Intern Relationship Specialty Start Date End Date Claudette Price MD [address] [place] [address] PCP - General Family Medicine 04/12/18 John SPENCER 10/20/24 documented as of this encounter
--- OUTSIDE RECORDS SUMMARY | 2024-12-27 11:59 | XMS_ITS | Encounter Summary ---
Author Organization [employer] Address [address] [place] [address] [place] [address] Care Team Providers Care [employer] Instructor Name Role Phone Claudette Price MD Primary Care Provider [phone] Reason for Visit * Reason Onset Date Comments Appointment Confirmation 07/09/2022 Encounter Details Date Type Department Care Team ([facility] Contact Info) Description 07/09/2022 Telephone [facility] CH[facility] MED & PEDS [address] [place] [address] Claudette Price MD [address] [place] [address] Appointment Confirmation Social History Tobacco Use Types Packs/Day Years [...] suspected to have Coronavirus/COVID-19? No / Unsure 06/11/2022 2:31 PM EST documented as of this encounter Miscellaneous Notes * Telephone Encounter - Trevor Whittington RN - 07/09/2022 4:04 PM EDT Referred to Heme/ Oncology on 07/02/22. Please contact pt with status of ordered referral. Thank you. * Telephone Encounter - Clem Barrientos - 07/09/2022 3:52 PM EDT Tc from pt requesting status on appt that was supposed to be schedule for him at [facility]. Please contact pt at verify at [phone] documented in this encounter Plan of Treatment Upcoming Encounters Date Type Department Care Team (Late st Contact Info) Description 01/18/2025 11:30 AM EDT Office Visit [facility] CH[facility] MED & PEDS [address] [place] [address] Claudette Price MD [address] [place] [address] documented as of this encounter Visit Diagnoses Not on filedocumented in this encounter Care Teams [employer] Instructor Relationship Specialty Start Date End Date Claudette Price MD [address] [place] [address] PCP - General Family Medicine 04/12/18 [facility] 10/20/24 documented as of this encounter
[2025-01-09 11:58] LABS: INTERNATIONAL NORM RATIO 1.0 (0.9-1.1); Prothrombin Time 11.4 SEC (10.9-12.4)
[2025-01-09 12:01] VITALS: BMI 38.0
[2025-01-09 12:12] VITALS: BP 173/67; PULSE 62; RESP 19; TEMP 36.3; O2SAT 95
[2025-01-09] MEDS: Albuterol Sulfate (0.083%) 2.5 MG/3 ML VIAL.NEB INHALE (12:41)
[2025-01-09 13:50] VITALS: BP 167/74; PULSE 80; RESP 16; TEMP 36.1; O2SAT 94
== END 2025-01-09 14:01 | disposition home or self-care (01) ==
LOC: HO.SSS 10:30
PROVIDERS: Radiology Diagnostic Radiology; PCP Pediatrics; Visit Provider Internal Medicine Medical Oncology
DX: R91.8 Other nonspecific abnormal finding of lung field (principal); Z53.8 Procedure and treatment not carried out for other reasons; D72.829 Elevated white blood cell count, unspecified; D64.9 Anemia, unspecified; I10 Essential (primary) hypertension; Z79.51 Long term (current) use of inhaled steroids; Z79.899 Other long term (current) drug therapy; Z72.0 Tobacco use
CPT/HCPCS: 36415; 85610; J2003; J2250; J3010